=== PATIENT | male | born 1955 | race Caucasian/White ===

== ENCOUNTER 2017-10-28 11:02 | Day surgery (SDC) | payer OTHER ==
[~2017-10-28] VITALS: Ht 185.4 cm; Wt 182.6 kg
[~2017-10-28 11:02] MED LIST: APRE1TAB3; ASPI325T33 PO; DAPA1TAB2 PO; DAPA1TAB3 PO; FURO1TAB60 PO; FURO20 PO; LANTUS2P SQ; LANTUSP SQ; LISI-363 PO; LISI-515 PO; METF1000 PO; PIOG45 PO; PIOG45TA5 PO; POTA1TAB4 PO; POTA20IN3 PO; ROSU10 PO; ROSU1TAB8 PO
[2017-10-28] MEDS ORDERED: IOHEXOL 350 MG/ML 100 ML BTL (for Cath Lab) OTHER ONE (11:03)
[2017-10-28 11:12] VITALS: BP 191/89; PULSE 99; RESP 16; O2SAT 94
[2017-10-28] MEDS ORDERED: ACTO45TA15 PO (11:38)
[2017-10-28] MEDS ORDERED: ROSU20 PO (11:38)
[2017-10-28] MEDS ORDERED: CENTCHW4 CHEW (11:38)
[2017-10-28] MEDS ORDERED: DILT300C3 PO (11:38)
[2017-10-28] MEDS ORDERED: NS 1000P @30 MLS/HR (KVO) IV SCH (12:00)
[2017-10-28] MEDS ORDERED: hydrALAZINE HCL 20 MG/ML VIAL ONE (12:38)
[2017-10-28] MEDS ORDERED: hydrALAZINE HCL 20 MG/ML VIAL IV PUSH ONE (13:00)
[2017-10-28] MEDS ORDERED: HEPARIN-NS/PF INJ 1,500 ML ONE (13:27)
[2017-10-28] MEDS ORDERED: VERAPAMIL HCL 5 MG/2 ML VIAL ONE (13:27)
[2017-10-28] MEDS ORDERED: MIDAZOLAM HCL 2 MG/2 ML VIAL ONE (13:42)
[2017-10-28] MEDS ORDERED: SODIUM CHLOR 0.9% 1000 ML INJ 1,000 ML IV SCH (14:18)
[2017-10-28] MEDS ORDERED: SODIUM CHLORIDE 0.9% FLUSH 10 ML FLUSH IV FLUSH PRN (14:30)
[2017-10-28] MEDS ORDERED: MISC INFORMATION XX ONE (14:30)
[2017-10-28] MEDS ORDERED: SODIUM CHLORIDE 0.9% FLUSH 10 ML FLUSH IV FLUSH SCH (15:00)
[2017-10-28] MEDS ORDERED: APREMILAST 30 MG SCH (21:00)
[2017-10-28] MEDS ORDERED: FUROSEMIDE 40 MG TAB PO SCH (21:00)
[2017-10-28] MEDS ORDERED: [UNRECOGNIZED DRUG - OTHER] PO SCH (21:00)
[2017-10-29] MEDS ORDERED: MULTIVITAMINS/MINERALS THERAPEUTIC TAB PO SCH (09:00)
[2017-10-29] MEDS ORDERED: LISINOPRIL 20 MG TAB PO SCH (09:00)
[2017-10-29] MEDS ORDERED: PIOGLITAZONE HCL 45 MG TAB PO SCH (09:00)
[2017-10-29] MEDS ORDERED: ATORVASTATIN 40 MG TAB PO SCH (09:00)
[2017-10-29] MEDS ORDERED: DILTIAZEM-CD 300 MG CAP ER PO SCH (09:00)
[2017-10-29] MEDS ORDERED: NON-FORMULARY DRUG (Rosuvastatin (Crestor) 20 MG) PO SCH (09:00)
== END 2017-10-28 16:59 | disposition home or self-care (01) ==
LOC: HDOC 11:02 → HDIC 11:03 → HDOC 16:59
PROVIDERS: ATTEND Internal Medicine Cardiovascular Disease
DX: I42.9 Cardiomyopathy, unspecified (principal); I25.10 Atherosclerotic heart disease of native coronary artery without angina pectoris; E11.9 Type 2 diabetes mellitus without complications; E78.5 Hyperlipidemia, unspecified; E66.01 Morbid (severe) obesity due to excess calories; I50.33 Acute on chronic diastolic (congestive) heart failure; Z79.84 Long term (current) use of oral hypoglycemic drugs
CPT/HCPCS: 93458; 99152; C1769; C1893; J0360; J1644; J2250; J3010; Q9967

== ENCOUNTER 2017-11-16 17:46 | Inpatient (IN) ==
--- NOTE | 2017-11-16 18:17 | ED ---
HPI General Chief Complaint: Shortness of Breath/Dyspnea Stated Complaint: sob Time Seen by Provider: 11/16/17 18:13 Source: patient and family Mode of arrival: ambulatory Limitations: no limitations History of Present Illness 62-year-old male patient with history of CHF, hypertension, diabetes, recently has been following with Dr. Zurita, states that for the past 6 weeks has been having problems of weakness and fatigue, and had his medications readjusted, told to decrease his carvedilol to half the dose yesterday but he forgot to do it this morning, and his noted that he was looking worse today, noted that his heart rate is in the 30s now. He complains of shortness of breath, dyspnea on exertion, and some chest discomfort. He denies any fevers, vomiting, or other symptoms. Related Data Allergies Allergy/AdvReac Type Severity Reaction Status Date / Time aspirin Allergy Severe Bleeding Unverified 03/08/17 19:26 ciprofloxacin Allergy Severe Unverified 03/08/17 19:26 levofloxacin Allergy Severe Unverified 03/08/17 19:26 Review of Systems Except as stated in HPI: all other systems reviewed are negative [facility] Medical History Medical History CHF (congestive heart failure) (Acute) HTN (hypertension) (Acute) Surgical History Surgical History H/O total knee replacement (Acute) History of colon surgery (Acute) Hx of cholecystectomy (Acute) Social History Social History Substance History: No History of Abuse Second Hand Smoke Exposure: No Smoking Status: Former smoker How Often Do You Have a Drink Containing Alcohol: 2 to 4 times a month Recent Travel in [facility] within the Last 8 Weeks: No Recent Out of Country Travel within the Last 8 Weeks: No Exam Narrative Exam Narrative: GENERAL: Well-developed obese elderly male patient currently and moderate distress. Awake, oriented 3. SKIN: Focused skin assessment warm/dry. HEAD: Atraumatic. Normocephalic. EYES: Pupils equal and round. No scleral icterus. No injection or drainage. ENT: No nasal bleeding or discharge. Mucous membranes pink and moist. NECK: Trachea midline. No JVD. CARDIOVASCULAR: Slow rate and regular rhythm. No murmur appreciated. RESPIRATORY: No accessory muscle use. Clear to auscultation. Breath sounds equal bilaterally. GASTROINTESTINAL: Abdomen soft, non-tender, nondistended. Hepatic and splenic margins not palpable. MUSCULOSKELETAL: No obvious deformities. No clubbing. No cyanosis. No edema. NEUROLOGICAL: Awake and alert. No obvious cranial nerve deficits. Motor grossly within normal limits. Normal speech. PSYCHIATRIC: Appropriate mood and affect; insight and judgment normal. Course Hospital Course: Patient is fairly bradycardic in the ER and atropine was given with good response to the atropine with heart rates going up to the high 40s. Lab work, chest x-ray, were all sent for further evaluation. Initial Documented Vital Signs Temperature 97.1 F L 11/16/17 18:00 Pulse Rate 33 L 11/16/17 18:00 Respiratory Rate 24 11/16/17 18:00 Blood Pressure 137/61 11/16/17 18:00 Pulse Oximetry 96 11/16/17 18:00 Last Documented Vital Signs Temperature 97.1 F L 11/16/17 18:00 Pulse Rate 40 L 11/16/17 21:00 Respiratory Rate 22 11/16/17 21:00 Blood Pressure 121/58 L 11/16/17 21:00 Pulse Oximetry 96 11/16/17 21:00 Critical Care Time Critical Care Time: Yes Total Critical Care Time: 38 Attestation: Aggregate critical care time was 38 minutes. Time to perform other separately billable procedures was not included in the critical care time. My time did not include minutes spent treating any other patients simultaneously or on activities that did not directly contribute to the patient's treatment. The services I provided to this patient were to treat and/or prevent clinically significant deterioration that could result in: Cardiovascular collapse from cardiac arrhythmia, versus respiratory failure from pulmonary edema peer I provided critical care services requiring my management, as noted below: Chart data review, documentation time, medication orders and management, vital sign assessments/reviewing monitor data, ordering and reviewing lab tests, ordering and interpreting/reviewing x-rays and diagnostic studies, care of the patient and discussion of the patient with the admitting physicians. Sign Out Sign Out Data: Patient Sign Out occurred on 11/16/17 at 20:02. Patient's care was discussed, and care was transferred from Hortensia Dave MD to April Bailey MD. Sign Out Comment: Patient is signed out to Dr. Bailey at 7 PM pending lab work, planning to admit for further evaluation of significant bradycardia. Last updated by Hortensia Dave MD at 11/16/17 18:56 Post-Handoff Eval: The patient's care was assumed from at the conclusion of her shift. The patient presented with generalized weakness and significant bradycardia. The patient has a history of being told to decrease his beta- pablo by half, however the patient did not remember to do this. He last took his beta-pablo this morning. During the course of the patient's emergency department visit, the patient was placed on a vehicle monitor technician with oximetry and frequent blood pressure monitoring. The patient had IV access obtained and blood work sent for analysis. The patient had an EKG done on arrival that shows a sinus bradycardia , heart rate of 32, QRS duration is 122 ms, QTC [address] segment elevation, T waves are inverted in V1, V2. Laboratory studies are remarkable for: Troponin I that is less than 0.02A CBC that is remarkable for a white count of 7.8, platelets 215, neutrophil percent 72.4, hemoglobin 11.8, PT 11.4, PTT 32.5, chemistries remarkable for, glucose 121, sodium 131, potassium is elevated at 6.6. Given the patient's elevated potassium and renal insufficiency worse compared to prior levels with a creatinine of 2.07, BUN 46, the patient will be treated for hyperkalemia. This could be contributing to the patient's bradycardia. The patient was given calcium to stabilize the patient's cardiac membranes, and albuterol nebulizer treatment x1, dextrose followed by 10 units of regular insulin IV, and Kayexalate p.o. The patient's case including history, pertinent physical examination findings, and laboratory studies were discussed with Dr. Zuniga. He agreed to the plan for the patient to be admitted to the [facility], however he did request that I speak to the implementation specialist payroll regarding this patient's case. The patient is followed by a Dr. Zurita for his cardiac care. I spoke to Dr. Zurita at approximately 9:20 PM regarding this patient's case. He agreed with the plan to apply pacer pads in case of any further changes and the patient's heart rate. He recommended holding the patient's Coreg, lisinopril, and Spironolactone. He agreed with the plan for administration of calcium. The patient's results were discussed with the patient, including the plan of care. I explained that further testing and/ or monitoring is indicated based on the patient's history, examination, and/ or laboratory findings. Therefore, I recommended admission for additional evaluation. The patient expressed understanding and was agreeable with this plan. The patient was admitted to the hospital in guarded condition and sent to a bed under the care of the [facility] service. Medical Decision Making Differential Diagnosis Differential Diagnosis: Dysrhythmias versus overmedication versus electrolyte abnormality Medical Records Medical records reviewed: Yes I reviewed the patient's medical records. Lab Data Lab results reviewed: Yes I reviewed the patient's lab results. Result diagrams: 11/16/17 18:28 11/16/17 18:28 Lab Results 11/16/17 11/16/17 Range/Units 18:28 18:28 WBC 7.8 (4.0-11.0) th/mm3 RBC 3.77 L (4.50-5.90) mil/mm3 Hgb 11.8 L (13.0-17.0) gm/dL Hct 35.7 L (39.0-51.0) % MCV 94.7 (80.0-100.0) fL MCH 31.3 (27.0-34.0) pg MCHC 33.1 (32.0-36.0) % RDW 14.0 (11.6-17.2) % Plt Count 215 (150-450) th/mm3 MPV 7.9 (7.0-11.0) fL Neut % (Auto) 72.4 H (16.0-70.0) % Lymph % (Auto) 14.6 (9.0-44.0) % [place] % (Auto) 9.4 H (0.0-8.0) % Eos % (Auto) 2.8 (0.0-4.0) % Baso % (Auto) 0.8 (0.0-2.0) % Neut # (Auto) 5.7 (1.8-7.7) th/mm3 Lymph # (Auto) 1.1 (1.0-4.8) th/mm3 [place] # (Auto) 0.7 (0.0-0.9) th/mm3 Eos # (Auto) 0.2 (0.0-0.4) th/mm3 Baso # (Auto) 0.1 (0.0-0.2) th/mm3 WBC Differential . Differential Comment Auto diff final Sodium 131 L (136-145) meq/L Potassium 6.6 H* (3.5-5.1) meq/L Chloride 96 L (98-107) meq/L Carbon Dioxide 25.6 (21.0-32.0) meq/L Anion Gap 9 (5-15) meq/L BUN 46 H (7-18) mg/dL Creatinine 2.07 H (0.60-1.30) mg/dL Estimated GFR 32 L (>89) mL/min Random Glucose 121 H (74-106) mg/dL Calcium 8.9 (8.5-10.1) mg/dL Total Bilirubin 0.5 (0.2-1.0) mg/dL AST 29 (15-37) U/L ALT 42 (12-78) U/L Alkaline Phosphatase 87 (45-117) U/L Troponin I Less than 0.02 L (0.02-0.05) ng/mL Total Protein 7.7 (6.4-8.2) g/dL Albumin 3.6 (3.4-5.0) g/dL Imaging Data Radiologist's impression: ITS Impressions Chest X-Ray 11/16/17 18:13 CONCLUSION: Bibasilar consolidation and small effusions with cardiomegaly suggesting mild failure. Discharge Plan Discharge Disposition Patient Disposition: 30 Still Patient Discharge Details Diagnosis: Symptomatic bradycardia, Acute hyperkalemia, Acute on chronic kidney failure Physicians Team ED Provider: April Bailey Primary Care Provider: Tj Osborn Attending Provider: Arcenio Decker Discharge Interventions Interventions: Vital Signs Last Done: 11/16/17 21:00 Status ED Status: Admitted Patient
[2017-11-16] MEDS ORDERED: Atropine Inj 1 MG/10 ML Syringe IV.PUSH ONE (18:21)
--- NOTE | 2017-11-16 18:41 | XR ---
EXAM DATE: 11/16/2017 6:32 PM EDT AGE/SEX: 62 years / Male INDICATIONS: Shortness of breath. CLINICAL DATA: This is the patient's initial encounter. Patient reports that signs and symptoms have been present for 4 - 6 days and indicates a pain score of 0/10. MEDICAL/SURGICAL HISTORY: Congestive heart failure. Hypertension. None. COMPARISON: No prior exams available for comparison. FINDINGS: There is mild bibasilar consolidation, left worse than right. Very small, bilateral pleural effusions are also suspected. No pneumothorax. There is mild to moderate cardiomegaly. CONCLUSION: Bibasilar consolidation and small effusions with cardiomegaly suggesting mild failure. Electronically signed by: William Jasso MD 11/16/2017 6:40 PM EDT
[2017-11-16 18:46] LABS: Baso # (Auto) 0.1 th/mm3 (0.0-0.2); Baso % (Auto) 0.8 % (0.0-2.0); Eos # (Auto) 0.2 th/mm3 (0.0-0.4); Eos % (Auto) 2.8 % (0.0-4.0); Hematocrit 35.7 % (39.0-51.0); Hemoglobin 11.8 gm/dL (13.0-17.0); Lymph # (Auto) 1.1 th/mm3 (1.0-4.8); Lymph % (Auto) 14.6 % (9.0-44.0); Mean Corpuscular HGB Conc 33.1 % (32.0-36.0); Mean Corpuscular Hemoglobin 31.3 pg (27.0-34.0); Mean Corpuscular Volume 94.7 fL (80.0-100.0); Mean Platelet Volume 7.9 fL (7.0-11.0); Mono # (Auto) 0.7 th/mm3 (0.0-0.9); Mono % (Auto) 9.4 % (0.0-8.0); Neut # (Auto) 5.7 th/mm3 (1.8-7.7); Neut % (Auto) 72.4 % (16.0-70.0); Platelet Count 215 th/mm3 (150-450); Red Blood Count 3.77 mil/mm3 (4.50-5.90); White Blood Count 7.8 th/mm3 (4.0-11.0)
[2017-11-16 19:23] LABS: Alanine Aminotransferase 42 U/L (12-78); Albumin 3.6 g/dL (3.4-5.0); Alkaline Phosphatase 87 U/L (45-117); Anion Gap 9 meq/L (5-15); Aspartate Aminotransferase 29 U/L (15-37); Blood Urea Nitrogen 46 mg/dL (7-18); Calcium 8.9 mg/dL (8.5-10.1); Carbon Dioxide 25.6 meq/L (21.0-32.0); Chloride 96 meq/L (98-107); Glomerular Filtration Rate 32 mL/min (>89); Glucose,Random 121 mg/dL (74-106); Sodium 131 meq/L (136-145); Total Protein 7.7 g/dL (6.4-8.2)
[2017-11-16 19:29] LABS: Potassium 6.6 meq/L (3.5-5.1)
[2017-11-16] MEDS ORDERED: Dextrose 50% in Water 50 ML Vial IV.PUSH ONE (20:09)
[2017-11-16] MEDS ORDERED: Sodium Polystyrene Sulfonate/Sorbitol Liq 15 GM/60 ML UDC PO ONE (20:09)
[2017-11-16] MEDS ORDERED: Calcium Chloride Inj 1 GM in Dextrose 5% in Water Inj 100 ML IV.SIG ONE ×2 (20:09)
[2017-11-16] MEDS ORDERED: RESP: Albuterol Concentrated 2.5 MG/0.5 ML Neb NEB ONE (20:09)
--- NOTE | 2017-11-16 21:16 | ECG ---
Date Performed: 11/16/2017 Time Performed: 18:13:11 PTAGE: 62 years EKG: Baseline artifact present Probable Marked sinus bradycardia LEFT ANTERIOR FASCICULAR BLOCK ABNORMAL ECG Compared to prior electrocardiogram, rate has decreased PREVIOUS TRACING : 04/29/2014 14.44 DOCTOR: Anival Irizarry Interpretating Date/Time 11/16/2017 21:14:41
--- NOTE | 2017-11-16 22:15 | P.HP ---
History of Present Illness Service: [facility] Primary Care Physician: Tj Osborn MD Chief Complaint: dyspnea, lightheadedness, fatigue History of Present Illness: 62-year-old male patient with history of CHF with EF around 40%, hypertension, diabetes, recently has been following with Dr. Zurita in cardiology, states that for the past 6 weeks has been having problems of weakness, shortness of breath and fatigue, and had his medications readjusted. Reportedly was told to decrease his carvedilol to half the dose yesterday but he forgot to do it this morning, and his noted that he was looking worse today, noted that his heart rate was in the 30s. He complains of shortness of breath, dyspnea on exertion, and some chest discomfort which is unchanged. Notably he had a heart catheterization done on October 28 which showed 40% ejection fraction and a 50% proximal LAD lesion but no other significant stenoses noted. He denies any fevers, vomiting, or other symptoms. He was also instructed to hold spironolactone and lisinopril recently due to slightly elevated potassium of 5.6 on November 11. ER evaluation reveals a morbidly obese male with chronic lymphedema who is mildly to moderately dyspneic on exertion. Labs noted for a potassium of 6.6 and a creatinine of 2.0. Creatinine approximately 1 week ago was 1.16 with a potassium of 5.6. Appears that his baseline creatinine is around 1-1.2. He has been given calcium chloride, furosemide, sodium polystyrene, albuterol, insulin and dextrose in the ER. Patient reports he is feeling fine presently while at rest and is currently asymptomatic unless he exerts himself which produces dyspnea. Past medical history Morbid obesity Cardiomyopathy with an EF around 40-45% CHF Degenerative disc disease lumbar spine Type 2 diabetes Lymphedema Hypertension Hyperlipidemia History of infection of prosthetic knee joint Psoriasis Coronary disease with 50% proximal LAD lesion noted on October 28, 2017 cath. 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 [employer] Family history Mother lived until age 97, father of an accident at age 60 Home meds: Aspirin 81 mg daily Carvedilol 25 mg twice daily which was reduced to 12.5 mg twice daily yesterday but patient actually took the full dose today Multivitamin once a day Crestor 20 mg daily Diltiazem 300 mg daily Furosemide 40 mg daily Lisinopril 20 mg twice a day but was told to hold starting yesterday Tessalon 30 mg twice a day Spironolactone 25 mg daily, again this was held starting yesterday - Diagnosis (1) Bradycardia with 31-40 beats per minute (2) Hyperkalemia, diminished renal excretion (3) CHF (congestive heart failure), NYHA class III (4) Morbid exogenous obesity (5) DIXIE (acute kidney injury) Inpatient Certification: I certify that the inpatient services were ordered in accordance with Medicare regulations governing the order. This includes certification that hospital inpatient services are reasonable and necessary and in the case of services not specified as inpatient-only under 42 CFR 419.22(n), that they are appropriately provided as inpatient services in accordance to with the 2-midnight benchmark under 43 CFR 412.3(e) Review of Systems Constitutional: Reports body ache(s), Reports fatigue, Reports weakness, Reports weight gain Eyes: Denies blind spots, Denies blurry vision, Denies bulging eyes, Denies change in vision, Denies double vision, Denies discharge, Denies dry eyes, Denies floaters, Denies irritation, Denies itchy eyes, Denies loss of vision, Denies pain, Denies requires corrective lenses, Denies sensitivity to light, Denies other Cardiovascular: Reports chest pain, Reports generalized swelling, Reports shortness of breath, Reports shortness of breath with activity, Reports slow heart rate Respiratory: Reports shortness of breath, Reports shortness of breath with activity, Denies change in phlegm color, Denies chest congestion, Denies cough, Denies coughing up blood, Denies excessive phlegm production, Denies pain on inspiration, Denies pain with cough, Denies snoring, Denies stridor, Denies wheezing, Denies other Musculoskeletal: Reports back pain Skin/Breast: Reports dry skin, Reports sores Neurologic: Reports weakness Psychiatric: Reports anxiety PMFSH - History History Provided By: Patient, Family Member - Medical History Medical History: Medical History (Last Updated 11/16/17 @ 18:16 by Hortensia Dave MD) CHF (congestive heart failure) HTN (hypertension) - Surgical History Surgical History: Surgical History (Last Updated 11/16/17 @ 18:38 by Della Saenz) H/O total knee replacement History of colon surgery Hx of cholecystectomy - Tobacco History Second Hand Smoke Exposure: No Tobacco Use In Past 30 Days: No Smoking Status: Former smoker - Alcohol History How Often Do You Have a Drink Containing Alcohol: 2 to 4 times a month - Substance Use History Substance History: No History of Abuse - Travel History Recent Travel in the [place] Within the Last 8 Weeks: No Recent Travel Out of the Country Within the Last 8 Weeks: No - Immunization History Tetanus Immunization: Unsure Hx Influenza Vaccine This Season: Yes Medications and Allergies Allergies Allergy/AdvReac Type Severity Reaction Status Date / Time aspirin Allergy Severe Bleeding Unverified 03/08/17 19:26 ciprofloxacin Allergy Severe Unverified 03/08/17 19:26 levofloxacin Allergy Severe Unverified 03/08/17 19:26 Exam Vital signs: Vital Signs 11/16/17 18:00 11/16/17 18:20 11/16/17 18:37 Temperature 97.1 F L Pulse Rate 33 L 48 L Respiratory Rate 24 18 Blood Pressure 137/61 141/63 H Pulse Oximetry 96 98 100 11/16/17 20:04 11/16/17 20:48 11/16/17 21:00 Temperature Pulse Rate 33 L 37 L 40 L Respiratory Rate 18 16 22 Blood Pressure 115/74 121/58 L Pulse Oximetry 99 96 Intake & Output 11/16/17 11/16/17 11/17/17 06:59 18:59 06:59 Weight 181.437 kg - Constitutional no acute distress, morbidly obese - Routine HEENT Exam Head: Present: normocephalic Eye: Present: EOMI, PERRL ENT: Present: mucous membranes moist, nares patent - Routine Neck Exam Present: supple, full ROM - Routine Respiratory Exam Present: decreased breath sounds, crackles, distant breath sounds - Routine Cardiovascular Exam Present: RRR, bradycardia - Routine Abdominal Exam Present: soft, distended, organomegaly - Routine Extremities Exam Present: edema - Routine Skin Exam Present: dry - Routine Neurological Exam Present: alert, oriented X3, CN II-XII intact, normal speech Results - Labs CBC & Chem 7: 11/16/17 18:28 11/16/17 18:28 Labs: Laboratory Results - last 24 hr 11/16/17 07 18:28 18:28 WBC 7.8 RBC 3.77 L Hgb 11.8 L Hct 35.7 L MCV 94.7 MCH 31.3 MCHC 33.1 RDW 14.0 Plt Count 215 MPV 7.9 Neut % (Auto) 72.4 H Lymph % (Auto) 14.6 [place] % (Auto) 9.4 H Eos % (Auto) 2.8 Baso % (Auto) 0.8 Neut # (Auto) 5.7 Lymph # (Auto) 1.1 [place] # (Auto) 0.7 Eos # (Auto) 0.2 Baso # (Auto) 0.1 WBC Differential . Differential Comment Auto diff final Sodium 131 L Potassium 6.6 H* Chloride 96 L Carbon Dioxide 25.6 Anion Gap 9 BUN 46 H Creatinine 2.07 H Estimated GFR 32 L Random Glucose 121 H Calcium 8.9 Total Bilirubin 0.5 AST 29 ALT 42 Alkaline Phosphatase 87 Troponin I Less than 0.02 L Total Protein 7.7 Albumin 3.6 - Imaging Impressions Chest X-Ray 11/16/17 18:13 CONCLUSION: Bibasilar consolidation and small effusions with cardiomegaly suggesting mild failure. Caprini VTE Risk Assessment Caprini VTE Risk Assessment: Moderate/High Risk (score >= 2) Caprini Risk Assessment Model: Point Value = 1 Point Value = 2 Point Value = 3 Point Value = 5 Age 41-60 Minor surgery BMI > 25 kg/m2 Swollen legs Varicose veins or History of unexplained or recurrent spontaneous Oral contraceptives or hormone replacement Sepsis (< 1 month) Serious lung disease, including pneumonia (< 1 month) Abnormal pulmonary function Acute myocardial infarction Congestive heart failure (< 1 month) History of inflammatory bowel disease Medical patient at bed rest Age 61-74 Arthroscopic surgery Major open surgery (> 45 min) Laparoscopic surgery (> 45 min) Malignancy Confined to bed (> 72 hours) Immobilizing plaster cast Central venous access Age >= 75 History of VTE Family history of VTE Factor V Leiden Prothrombin [id number] Lupus anticoagulant Anticardiolipin antibodies Elevated serum homocysteine Heparin-induced thrombocytopenia Other congenital or acquired thrombophilia Stroke (< 1 month) Elective arthroplasty Hip, pelvis, or leg fracture Acute spinal cord injury (< 1 month) Prophylaxis Regimen: Total Risk Factor Score Risk Level Prophylaxis Regimen 0-1 Low Early ambulation 2 Moderate Order ONE of the following: *Sequential Compression Device (SCD) *Heparin 5000 units SQ BID 3-4 Higher Order ONE of the following medications: *Heparin 5000 units SQ TID *Enoxaparin/Lovenox 40 mg SQ daily (WT < 150 kg, CrCl > 30 mL/min) *Enoxaparin/Lovenox 30 mg SQ daily (WT < 150 kg, CrCl > 10-29 mL/min) *Enoxaparin/Lovenox 30 mg SQ BID (WT < 150 kg, CrCl > 30 mL/min) AND/OR *Sequential Compression Device (SCD) 5 or more Highest Order ONE of the following medications: *Heparin 5000 units SQ TID (Preferred with Epidurals) *Enoxaparin/Lovenox 40 mg SQ daily (WT < 150 kg, CrCl > 30 mL/min) *Enoxaparin/Lovenox 30 mg SQ daily (WT < 150 kg, CrCl > 10-29 mL/min) *Enoxaparin/Lovenox 30 mg SQ BID (WT < 150 kg, CrCl > 30 mL/min) AND *Sequential Compression Device (SCD) Assessment and Plan - Assessment (1) Bradycardia with 31-40 beats per minute Code(s): R00.1 - Bradycardia, unspecified Status: Acute Plan: likely due to coreg use and initial clearance. Had been instructed to decrease Coreg by his hospice community liaison yesterday due to heart rate in the 40s but forgot to do so. Hopefully heart rate will improve once Coreg has cleared system. After in the unit overnight. Patient's hospice community liaison, Dr. Zurita has been contacted by ER physician. (2) Hyperkalemia, diminished renal excretion Code(s): E87.5 - Hyperkalemia Status: Acute Plan: Patient has been given Lasix, dextrose, insulin, albuterol, polystyrene in the ER. Will follow electrolytes and renal indices. Monitoring in unit overnight. (3) CHF (congestive heart failure), NYHA class III Code(s): I50.9 - Heart failure, unspecified Status: Acute Plan: Careful diuresis and close monitoring of electrolytes, renal indices. May need gentle IVF (4) Morbid exogenous obesity Code(s): E66.01 - Morbid (severe) obesity due to excess calories Status: Chronic Plan: Strongly encouraged weight loss. He has discussed with bariatric surgeon in the past. (5) DIXIE (acute kidney injury) Code(s): N17.9 - Acute kidney failure, unspecified Status: Acute Plan: We will monitor renal indices. Hopefully will improve as his spironolactone and lisinopril have been stopped. - Plan Code Status: Full Discussed Condition With: Patient, his , his son and ER provider (3) CHF (congestive heart failure), NYHA class III Qualifiers: Congestive heart failure type: systolic Congestive heart failure chronicity: acute on chronic Qualified Code(s): I50.23 - Acute on chronic systolic ( congestive) heart failure
[2017-11-17 00:45] LABS: Calcium 10.2 mg/dL (8.5-10.1); Carbon Dioxide 30.5 meq/L (21.0-32.0); Potassium 5.5 meq/L (3.5-5.1)
[2017-11-17 04:58] LABS: Calcium 8.6 mg/dL (8.5-10.1); Carbon Dioxide 28.9 meq/L (21.0-32.0); Potassium 5.5 meq/L (3.5-5.1)
--- NOTE | 2017-11-17 05:38 | ECG ---
Date Performed: 11/16/2017 Time Performed: 20:18:25 PTAGE: 62 years EKG: Unclear underlying rhythm due to marked baseline artifact MARKED LEFT AXIS DEVIATION LOW QR S VOLTAGE POSSIBLE ANTERIOR MYOCARDIAL INFARCTION ABNORMAL ECG I cannot accurately compare rhythm bec ause of artifact but see no other definite changes. DOCTOR: Anival Irizarry Interpretating Date/Time 11/17/2017 05:36:52
--- NOTE | 2017-11-17 08:29 | P.PNIM ---
Subjective Interval history: feeling a little better. Physical Exam Vital signs: Vital Signs 11/16/17 18:00 11/16/17 18:20 11/16/17 18:37 Temperature 97.1 F L Pulse Rate 33 L 48 L Respiratory Rate 24 18 Blood Pressure 137/61 141/63 H Pulse Oximetry 96 98 100 11/16/17 20:04 11/16/17 20:48 11/16/17 21:00 Temperature Pulse Rate 33 L 37 L 40 L Respiratory Rate 18 16 22 Blood Pressure 115/74 121/58 L Pulse Oximetry 99 96 11/16/17 23:00 11/17/17 02:27 11/17/17 03:00 Temperature 97.6 F Pulse Rate 50 L 51 L 55 L Respiratory Rate 19 18 Blood Pressure 144/71 H 142/63 H Pulse Oximetry 98 97 11/17/17 04:34 11/17/17 05:33 11/17/17 06:26 Temperature Pulse Rate 55 L 56 L 62 Respiratory Rate Blood Pressure Pulse Oximetry 11/17/17 07:45 Temperature 97.5 F L Pulse Rate 61 Respiratory Rate 18 Blood Pressure 136/63 Pulse Oximetry 99 Intake & Output 11/16/17 11/17/17 11/17/17 18:59 06:59 18:59 Intake Total 240 / 240 Balance 240 / 240 Weight 181.437 kg 188 kg Intake: Oral 240 / 240 heart reg lung cta abd s/nt ext chronic lower ext edema Results - Labs CBC & Chem 7: 11/16/17 18:28 11/17/17 03:57 Laboratory Results - last 24 hr 11/16/17 11/16/17 11/16/17 18:28 18:28 18:28 WBC 7.8 RBC 3.77 L Hgb 11.8 L Hct 35.7 L MCV 94.7 MCH 31.3 MCHC 33.1 RDW 14.0 Plt Count 215 MPV 7.9 Neut % (Auto) 72.4 H Lymph % (Auto) 14.6 [place] % (Auto) 9.4 H Eos % (Auto) 2.8 Baso % (Auto) 0.8 Neut # (Auto) 5.7 Lymph # (Auto) 1.1 [place] # (Auto) 0.7 Eos # (Auto) 0.2 Baso # (Auto) 0.1 WBC Differential . Differential Comment Auto diff final Sodium 131 L Potassium 6.6 H* Chloride 96 L Carbon Dioxide 25.6 Anion Gap 9 BUN 46 H Creatinine 2.07 H Estimated GFR 32 L POC Glucose Random Glucose 121 H Calcium 8.9 Total Bilirubin 0.5 AST 29 ALT 42 Alkaline Phosphatase 87 Troponin I Less than 0.02 L B-Natriuretic Peptide 366 H Total Protein 7.7 Albumin 3.6 11/16/17 11/17/17 11/17/17 22:59 00:08 03:57 WBC RBC Hgb Hct MCV MCH MCHC RDW Plt Count MPV Neut % (Auto) Lymph % (Auto) [place] % (Auto) Eos % (Auto) Baso % (Auto) Neut # (Auto) Lymph # (Auto) [place] # (Auto) Eos # (Auto) Baso # (Auto) WBC Differential Differential Comment Sodium 134 L 135 L Potassium 5.5 H D 5.5 H Chloride 98 99 Carbon Dioxide 30.5 28.9 Anion Gap 6 7 BUN 49 H 49 H Creatinine 2.10 H 1.90 H Estimated GFR 32 L 36 L POC Glucose 117 H Random Glucose 119 H 91 Calcium 10.2 H D 8.6 D Total Bilirubin AST ALT Alkaline Phosphatase Troponin I B-Natriuretic Peptide Total Protein Albumin 11/17/17 07:46 WBC RBC Hgb Hct MCV MCH MCHC RDW Plt Count MPV Neut % (Auto) Lymph % (Auto) [place] % (Auto) Eos % (Auto) Baso % (Auto) Neut # (Auto) Lymph # (Auto) [place] # (Auto) Eos # (Auto) Baso # (Auto) WBC Differential Differential Comment Sodium Potassium Chloride Carbon Dioxide Anion Gap BUN Creatinine Estimated GFR POC Glucose 88 Random Glucose Calcium Total Bilirubin AST ALT Alkaline Phosphatase Troponin I B-Natriuretic Peptide Total Protein Albumin - Imaging Impressions Chest X-Ray 11/16/17 18:13 CONCLUSION: Bibasilar consolidation and small effusions with cardiomegaly suggesting mild failure. Assessment and Plan - Plan Assessment and Plan (1) Bradycardia Pt presented with severe bradycardia. 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 pt has chronic chf and edema PT consult (2) Hyperkalemia, diminished renal excretion see above (3) CHF (congestive heart failure), NYHA class III see above (4) Morbid exogenous obesity Strongly encouraged weight loss. He has discussed with bariatric surgeon in the past. (5) DIXIE (acute kidney injury) see above
--- NOTE | 2017-11-17 08:32 | P.CONCA ---
History of Present Illness Service: cardiology Consult date: 11/17/17 Reason for Consult: bradycardia, hyperkalemia Primary Care Provider: Tj Osborn MD Chief Complaint: dyspnea, lightheadedness, fatigue History of Present Illness: 62 yo M with HTN, DMII, chronic LE lymphedema, nonischemic cardiomyopathy (EF 40 -45%) and chronic dyspnea who presents with progressive weakness and bradycardia. He states when he got off work yesterday he felt very weak, his checked pulse rate which was in the 30's and came to ED for evaluation where he was found to be bradycardic and hyperkalemic. He was seen in our outpatient office [address] Dayo Zurita where he ordered aldactone to be stopped along with lisinopril due to elevated potassium, carvedilol also decreased to 12.5mg BID. Patient states he did stop aldactone yesterday but forgot to stop lisinopril and reduce carvedilol. EKG does not show evidence of hyperkalemia, and appears nonischemic. Recent cardiac catheterization performed on 10/28/17 shows nonobstructive CAD, medically managed. He reports mild improvement in breathing and weakness. Review of Systems All other systems reviewed negative except as stated in HPI PMFSH - History History Provided By: Patient - Medical History Medical History: Medical History (Last Updated 11/16/17 @ 18:16 by Hortensia Dave MD) CHF (congestive heart failure) HTN (hypertension) - Surgical History Surgical History: Surgical History (Last Updated 11/16/17 @ 18:38 by Della Saenz) H/O total knee replacement History of colon surgery Hx of cholecystectomy - Tobacco History Second Hand Smoke Exposure: No Tobacco Use In Past 30 Days: No Smoking Status: Former smoker Tobacco Type: Cigarettes - Alcohol History How Often Do You Have a Drink Containing Alcohol: 2 to 3 times a week - Substance Use History Substance History: No History of Abuse - Travel History Recent Travel in the [place] Within the Last 8 Weeks: No Recent Travel Out of the Country Within the Last 8 Weeks: No - Immunization History Tetanus Immunization: Unsure Hx Influenza Vaccine This Season: No Medications and Allergies Allergies Allergy/AdvReac Type Severity Reaction Status Date / Time aspirin Allergy Severe Bleeding Unverified 03/08/17 19:26 ciprofloxacin Allergy Severe Unverified 03/08/17 19:26 levofloxacin Allergy Severe Unverified 03/08/17 19:26 Home Medications Medication Instructions Recorded Confirmed Type apremilast [Otezla] 30 mg PO BID 11/17/17 11/17/17 History aspirin [Aspir-81] 81 mg PO DAILY 11/17/17 11/17/17 History carvedilol 12.5 mg PO BID 11/17/17 11/17/17 History diltiazem HCl 300 mg PO DAILY 11/17/17 11/17/17 History furosemide 40 mg PO DAILY 11/17/17 11/17/17 History lisinopril 20 mg PO DAILY 11/17/17 11/17/17 History inrnqvtw-vnq-SY-lycopen-lutein 1 tab PO DAILY 11/17/17 11/17/17 History [Centrum Silver Men] rosuvastatin 20 mg PO DAILY 11/17/17 11/17/17 History spironolactone 25 mg PO DAILY 11/17/17 11/17/17 History Exam Vital signs: Vital Signs 11/16/17 18:00 11/16/17 18:20 11/16/17 18:37 Temperature 97.1 F L Pulse Rate 33 L 48 L Respiratory Rate 24 18 Blood Pressure 137/61 141/63 H Pulse Oximetry 96 98 100 11/16/17 20:04 11/16/17 20:48 11/16/17 21:00 Temperature Pulse Rate 33 L 37 L 40 L Respiratory Rate 18 16 22 Blood Pressure 115/74 121/58 L Pulse Oximetry 99 96 11/16/17 23:00 11/17/17 02:27 11/17/17 03:00 Temperature 97.6 F Pulse Rate 50 L 51 L 55 L Respiratory Rate 19 18 Blood Pressure 144/71 H 142/63 H Pulse Oximetry 98 97 11/17/17 04:34 11/17/17 05:33 11/17/17 06:26 Temperature Pulse Rate 55 L 56 L 62 Respiratory Rate Blood Pressure Pulse Oximetry 11/17/17 07:45 Temperature 97.5 F L Pulse Rate 61 Respiratory Rate 18 Blood Pressure 136/63 Pulse Oximetry 99 Intake & Output 11/16/17 11/17/17 11/17/17 18:59 06:59 18:59 Intake Total 240 / 240 Balance 240 / 240 Weight 181.437 kg 188 kg Intake: Oral 240 / 240 Narrative: GENERAL: SKIN: Warm and dry. HEAD: Normocephalic. NECK: Supple, trachea midline. No JVD or lymphadenopathy. CARDIOVASCULAR: Regular rate and rhythm without murmurs, gallops, or rubs. RESPIRATORY: Breath sounds equal bilaterally. No accessory muscle use. GASTROINTESTINAL: Abdomen soft, non-tender, nondistended. MUSCULOSKELETAL: chronic bilateral lower leg lymphedema, stable Results 11/16/17 18:28 11/17/17 03:57 Cardiac Enzymes 11/16/17 11/16/17 Range/Units 18:28 18:28 AST 29 (15-37) U/L Troponin I Less than 0.02 L (0.02-0.05) ng/mL B-Natriuretic Peptide 366 H (0-100) pg/mL Coagulation 11/16/17 Range/Units 18:28 B-Natriuretic Peptide 366 H (0-100) pg/mL CBC 11/16/17 Range/Units 18:28 WBC 7.8 (4.0-11.0) th/mm3 RBC 3.77 L (4.50-5.90) mil/mm3 Hgb 11.8 L (13.0-17.0) gm/dL Hct 35.7 L (39.0-51.0) % Plt Count 215 (150-450) th/mm3 Neut # (Auto) 5.7 (1.8-7.7) th/mm3 Lymph # (Auto) 1.1 (1.0-4.8) th/mm3 [place] # (Auto) 0.7 (0.0-0.9) th/mm3 Eos # (Auto) 0.2 (0.0-0.4) th/mm3 Baso # (Auto) 0.1 (0.0-0.2) th/mm3 Comprehensive Metabolic Panel 11/16/17 11/17/17 11/17/17 Range/Units 18:28 00:08 03:57 Sodium 131 L 134 L 135 L (136-145) meq/L Potassium 6.6 H* 5.5 H D 5.5 H (3.5-5.1) meq/L Chloride 96 L 98 99 (98-107) meq/L Carbon Dioxide 25.6 30.5 28.9 (21.0-32.0) meq/L BUN 46 H 49 H 49 H (7-18) mg/dL Creatinine 2.07 H 2.10 H 1.90 H (0.60-1.30) mg/dL Calcium 8.9 10.2 H D 8.6 D (8.5-10.1) mg/dL AST 29 (15-37) U/L ALT 42 (12-78) U/L Alkaline Phosphatase 87 (45-117) U/L Total Protein 7.7 (6.4-8.2) g/dL Albumin 3.6 (3.4-5.0) g/dL Intake and Output 11/16/17 11/17/17 11/17/17 22:59 06:59 14:59 Intake Total 240 / 240 Balance 240 / 240 Intake: Oral 240 / 240 Other: Weight 181.437 kg 188 kg Assessment and Plan - Assessment (1) Bradycardia with 31-40 beats per minute Code(s): R00.1 - Bradycardia, unspecified Status: Acute (2) Hyperkalemia, diminished renal excretion Code(s): E87.5 - Hyperkalemia Status: Acute - Plan 62 yo M with HTN, DMII, chronic LE lymphedema, nonischemic cardiomyopathy (EF 40 -45%) and chronic dyspnea who presents with progressive weakness and bradycardia. He states when he got off work yesterday he felt very weak, his checked pulse rate which was in the 30's and came to ED for evaluation where he was found to be bradycardic and hyperkalemic. He was seen in our outpatient office [address] Dayo Zurita where he ordered aldactone to be stopped along with lisinopril due to elevated potassium, carvedilol also decreased to 12.5mg BID. Patient states he did stop aldactone yesterday but forgot to stop lisinopril and reduce carvedilol. Recent cardiac catheterization performed on 10/28/17 shows nonobstructive CAD, medically managed. hyperkalemia- K+ has improved from 6.6 to 5.5 s/p kayexalate dose. EKG does not show evidence of potassium overload continue to hold aldactone and lisinopril (was taking at home) bradycardia- HR improving from 33bpm, now 60bpm continue to hold carvedilol
[2017-11-17] MEDS ORDERED: Sodium Chlor 0.9% Inj 500 ML IV.SIG SCH (09:00)
[2017-11-18 05:47] LABS: Calcium 9.3 mg/dL (8.5-10.1); Carbon Dioxide 29.5 meq/L (21.0-32.0); Potassium 4.8 meq/L (3.5-5.1)
--- NOTE | 2017-11-18 07:47 | P.PNCA ---
<Yisel Jerome A - Last Filed: 11/18/17 07:43> Subjective Interval history: feeling much better. improved fatigue and breathing back to baseline; no chest pain. Physical Exam Vital signs: Vital Signs 11/17/17 07:45 11/17/17 08:00 11/17/17 08:52 Temperature 97.5 F L Pulse Rate 61 56 L Respiratory Rate 18 Blood Pressure 136/63 Pulse Oximetry 99 99 11/17/17 09:00 11/17/17 10:00 11/17/17 11:00 Temperature 97.4 F L Pulse Rate 64 56 L 67 Respiratory Rate 16 Blood Pressure 144/67 H Pulse Oximetry 100 11/17/17 12:28 11/17/17 13:00 11/17/17 14:00 Temperature Pulse Rate 68 60 64 Respiratory Rate Blood Pressure Pulse Oximetry 11/17/17 15:00 11/17/17 16:00 11/17/17 17:00 Temperature 98.2 F Pulse Rate 69 66 63 Respiratory Rate 16 Blood Pressure 140/74 Pulse Oximetry 96 11/17/17 18:00 11/17/17 19:00 11/17/17 20:00 Temperature 98.3 F Pulse Rate 67 72 78 Respiratory Rate 15 Blood Pressure 129/60 Pulse Oximetry 94 L 94 L 11/17/17 21:00 11/17/17 22:00 11/17/17 23:00 Temperature 98.5 F Pulse Rate 80 82 83 Respiratory Rate 18 Blood Pressure 130/62 Pulse Oximetry 96 11/18/17 00:00 11/18/17 01:00 11/18/17 02:00 Temperature Pulse Rate 79 80 75 Respiratory Rate Blood Pressure Pulse Oximetry 11/18/17 03:00 11/18/17 04:00 11/18/17 05:00 Temperature 98.3 F Pulse Rate 79 72 81 Respiratory Rate 18 Blood Pressure 145/71 H Pulse Oximetry 95 11/18/17 06:00 Temperature Pulse Rate 82 Respiratory Rate Blood Pressure Pulse Oximetry Intake & Output 11/17/17 11/18/17 11/18/17 18:59 06:59 18:59 Intake Total 830 / 830 720 / 720 Output Total 3128 / 3128 1525 / 1525 Balance -2298 / -2298 -805 / -805 Weight 188 kg Intake: IV 110 / 110 Calcium Chloride Inj 1 GM In 110 / 110 D5W Inj 100 ML @ 110 mls/hr IV. SIG ONCE ONE Rx#:[id number] Oral 720 / 720 720 / 720 Output: Urine 3128 / 3128 1525 / 1525 Other: # Voids 1 Narrative: GENERAL: obese WM in NAD SKIN: Warm and dry. HEAD: Normocephalic. EYES: No scleral icterus. No injection or drainage. NECK: Supple, trachea midline. No JVD or lymphadenopathy. CARDIOVASCULAR: Regular rate and rhythm without murmurs, gallops, or rubs. RESPIRATORY: Breath sounds equal bilaterally. No accessory muscle use. GASTROINTESTINAL: Abdomen soft, non-tender, nondistended. MUSCULOSKELETAL: bilateral lower leg chronic lymphedema . Assessment and Plan - Assessment (1) Bradycardia with 31-40 beats per minute Code(s): R00.1 - Bradycardia, unspecified Status: Acute (2) Hyperkalemia, diminished renal excretion Code(s): E87.5 - Hyperkalemia Status: Acute - Plan 62 yo M with HTN, DMII, chronic LE lymphedema, nonischemic cardiomyopathy (EF 40 -45%) and chronic dyspnea who presents with progressive weakness and bradycardia. Recent cardiac catheterization performed on 10/28/17 shows nonobstructive CAD, medically managed. hyperkalemia- K+ has improved from 6.6 to 4.8 s/p kayexalate EKG does not show evidence of potassium overload continue to hold aldactone and lisinopril (was taking at home) no longer bradycardic and symptomatically improved. likely discharge today and follow up in outpatient setting. consider rechallenging guideline directed medical therapy for cardiomyopathy when appropriate. <Arik,Mitul - Last Filed: 11/18/17 09:59> Physical Exam Vital signs: Vital Signs 11/17/17 10:00 11/17/17 11:00 11/17/17 12:28 Temperature 97.4 F L Pulse Rate 56 L 67 68 Respiratory Rate 16 Blood Pressure 144/67 H Pulse Oximetry 100 11/17/17 13:00 11/17/17 14:00 11/17/17 15:00 Temperature 98.2 F Pulse Rate 60 64 69 Respiratory Rate 16 Blood Pressure 140/74 Pulse Oximetry 96 11/17/17 16:00 11/17/17 17:00 07/11/18 18:00 Temperature Pulse Rate 66 63 67 Respiratory Rate Blood Pressure Pulse Oximetry 11/17/17 19:00 11/17/17 20:00 11/17/17 21:00 Temperature 98.3 F Pulse Rate 72 78 80 Respiratory Rate 15 Blood Pressure 129/60 Pulse Oximetry 94 L 94 L 11/17/17 22:00 11/17/17 23:00 11/18/17 00:00 Temperature 98.5 F Pulse Rate 82 83 79 Respiratory Rate 18 Blood Pressure 130/62 Pulse Oximetry 96 11/18/17 01:00 11/18/17 02:00 11/18/17 03:00 Temperature 98.3 F Pulse Rate 80 75 79 Respiratory Rate 18 Blood Pressure 145/71 H Pulse Oximetry 95 11/18/17 04:00 11/18/17 05:00 11/18/17 06:00 Temperature Pulse Rate 72 81 82 Respiratory Rate Blood Pressure Pulse Oximetry 11/18/17 07:00 11/18/17 08:00 Temperature 98.6 F Pulse Rate 73 Respiratory Rate 18 Blood Pressure 154/70 H Pulse Oximetry 97 97 Intake & Output 11/17/17 11/18/17 11/18/17 18:59 06:59 18:59 Intake Total 830 / 830 720 / 720 Output Total 3128 / 3128 1525 / 1525 Balance -2298 / -2298 -805 / -805 Weight 188 kg Intake: IV 110 / 110 Calcium Chloride Inj 1 GM In 110 / 110 D5W Inj 100 ML @ 110 mls/hr IV. SIG ONCE ONE Rx#:[id number] Oral 720 / 720 720 / 720 Output: Urine 3128 / 3128 1525 / 1525 Other: # Voids 1 Assessment and Plan - Assessment (1) Bradycardia with 31-40 beats per minute Code(s): R00.1 - Bradycardia, unspecified Status: Acute (2) Hyperkalemia, diminished renal excretion Code(s): E87.5 - Hyperkalemia Status: Acute - Attending Attestation lisinopril 40 QD coreg 6.25 BID lasix prn fu dr gomez with bmp in 2 weeks
--- NOTE | 2017-11-18 08:27 | P.PNIM ---
Subjective Interval history: asking to go home. feels stronger. Physical Exam Vital signs: Vital Signs 11/17/17 08:52 11/17/17 09:00 11/17/17 10:00 Temperature Pulse Rate 64 56 L Respiratory Rate Blood Pressure Pulse Oximetry 99 11/17/17 11:00 11/17/17 12:28 11/17/17 13:00 Temperature 97.4 F L Pulse Rate 67 68 60 Respiratory Rate 16 Blood Pressure 144/67 H Pulse Oximetry 100 11/17/17 14:00 11/17/17 15:00 11/17/17 16:00 Temperature 98.2 F Pulse Rate 64 69 66 Respiratory Rate 16 Blood Pressure 140/74 Pulse Oximetry 96 11/17/17 17:00 11/17/17 18:00 11/17/17 19:00 Temperature 98.3 F Pulse Rate 63 67 72 Respiratory Rate 15 Blood Pressure 129/60 Pulse Oximetry 94 L 11/17/17 20:00 11/17/17 21:00 11/17/17 22:00 Temperature Pulse Rate 78 80 82 Respiratory Rate Blood Pressure Pulse Oximetry 94 L 11/17/17 23:00 11/18/17 00:00 11/18/17 01:00 Temperature 98.5 F Pulse Rate 83 79 80 Respiratory Rate 18 Blood Pressure 130/62 Pulse Oximetry 96 11/18/17 02:00 11/18/17 03:00 11/18/17 04:00 Temperature 98.3 F Pulse Rate 75 79 72 Respiratory Rate 18 Blood Pressure 145/71 H Pulse Oximetry 95 11/18/17 05:00 11/18/17 06:00 Temperature Pulse Rate 81 82 Respiratory Rate Blood Pressure Pulse Oximetry Intake & Output 11/17/17 11/18/17 11/18/17 18:59 06:59 18:59 Intake Total 830 / 830 720 / 720 Output Total 3128 / 3128 1525 / 1525 Balance -2298 / -2298 -805 / -805 Weight 188 kg Intake: IV 110 / 110 Calcium Chloride Inj 1 GM In 110 / 110 D5W Inj 100 ML @ 110 mls/hr IV. SIG ONCE ONE Rx#:[id number] Oral 720 / 720 720 / 720 Output: Urine 3128 / 3128 1525 / 1525 Other: # Voids 1 heent neg heart reg lung cta abd s/nt ext chronic lower ext edema Results - Labs CBC & Chem 7: 11/16/17 18:28 11/18/17 03:10 Laboratory Results - last 24 hr 11/17/17 11/17/17 11/17/17 11:56 17:15 20:42 Sodium Potassium Chloride Carbon Dioxide Anion Gap BUN Creatinine Estimated GFR POC Glucose 104 94 121 H Random Glucose Calcium 11/18/17 11/18/17 03:10 07:37 Sodium 139 Potassium 4.8 Chloride 101 Carbon Dioxide 29.5 Anion Gap 9 BUN 43 H Creatinine 1.56 H Estimated GFR 45 L POC Glucose 98 Random Glucose 89 Calcium 9.3 Assessment and Plan - Plan Assessment and Plan (1) Bradycardia Pt presented with severe bradycardia. 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 pt has chronic chf and edema PT consulted renal function and hyperkalemia better will need to discuss with cardiology about which meds to resume(shauna/diuretic/ccb /bb) dc plan will be discussed with cardiology today. (2) Hyperkalemia, diminished renal excretion see above (3) CHF (congestive heart failure), NYHA class III see above (4) Morbid exogenous obesity Strongly encouraged weight loss. He has discussed with bariatric surgeon in the past. (5) DIXIE (acute kidney injury) see above
--- NOTE | 2017-11-18 09:09 | P.PNCA ---
Subjective Interval history: no complaints Physical Exam Vital signs: Vital Signs 11/17/17 10:00 11/17/17 11:00 11/17/17 12:28 Temperature 97.4 F L Pulse Rate 56 L 67 68 Respiratory Rate 16 Blood Pressure 144/67 H Pulse Oximetry 100 11/17/17 13:00 11/17/17 14:00 11/17/17 15:00 Temperature 98.2 F Pulse Rate 60 64 69 Respiratory Rate 16 Blood Pressure 140/74 Pulse Oximetry 96 11/17/17 16:00 11/17/17 17:00 11/17/17 18:00 Temperature Pulse Rate 66 63 67 Respiratory Rate Blood Pressure Pulse Oximetry 11/17/17 19:00 11/17/17 20:00 11/17/17 21:00 Temperature 98.3 F Pulse Rate 72 78 80 Respiratory Rate 15 Blood Pressure 129/60 Pulse Oximetry 94 L 94 L 11/17/17 22:00 11/17/17 23:00 11/18/17 00:00 Temperature 98.5 F Pulse Rate 82 83 79 Respiratory Rate 18 Blood Pressure 130/62 Pulse Oximetry 96 11/18/17 01:00 11/18/17 02:00 11/18/17 03:00 Temperature 98.3 F Pulse Rate 80 75 79 Respiratory Rate 18 Blood Pressure 145/71 H Pulse Oximetry 95 11/18/17 04:00 11/18/17 05:00 11/18/17 06:00 Temperature Pulse Rate 72 81 82 Respiratory Rate Blood Pressure Pulse Oximetry Intake & Output 11/17/17 11/18/17 11/18/17 18:59 06:59 18:59 Intake Total 830 / 830 720 / 720 Output Total 3128 / 3128 1525 / 1525 Balance -2298 / -2298 -805 / -805 Weight 188 kg Intake: IV 110 / 110 Calcium Chloride Inj 1 GM In 110 / 110 D5W Inj 100 ML @ 110 mls/hr IV. SIG ONCE ONE Rx#:[id number] Oral 720 / 720 720 / 720 Output: Urine 3128 / 3128 1525 / 1525 Other: # Voids 1 Narrative: HEAD: Normocephalic. EYES: No scleral icterus. No injection or drainage. NECK: Supple, trachea midline. No JVD or lymphadenopathy. CARDIOVASCULAR: Regular rate and rhythm without murmurs, gallops, or rubs. RESPIRATORY: Breath sounds equal bilaterally. No accessory muscle use. GASTROINTESTINAL: Abdomen soft, non-tender, nondistended. MUSCULOSKELETAL: No cyanosis, or edema. BACK: Nontender without obvious deformity. No CVA tenderness. Assessment and Plan - Assessment (1) Bradycardia with 31-40 beats per minute Code(s): R00.1 - Bradycardia, unspecified Status: Acute (2) Hyperkalemia, diminished renal excretion Code(s): E87.5 - Hyperkalemia Status: Acute - Plan 62 yo M with HTN, DMII, chronic LE lymphedema, nonischemic cardiomyopathy (EF 40 -45%) and chronic dyspnea who presents with progressive weakness and bradycardia. Recent cardiac catheterization performed on 10/28/17 shows nonobstructive CAD, medically managed. hyperkalemia- K+ has improved from 6.6 to 4.8 s/p kayexalate EKG does not show evidence of potassium overload continue to hold aldactone and lisinopril (was taking at home) no longer bradycardic and symptomatically improved. likely discharge today and follow up in outpatient setting. consider rechallenging guideline directed medical therapy for cardiomyopathy when appropriate. - Attending Attestation doing well hyperkalemia resolved CKD restart DWAYNE lisinopril 40 daily restart carvedilol 6.25 mg BID lasix as needed hold aldactone hold CCB DC home\ FU in [facility] dr gomez in 2 weeks with BMP
== END 2017-11-18 15:04 | disposition home or self-care (01) ==
LOC: NEPE 17:46 → NEDA 21:24 → HCPC 11-17 01:58 → HCIS 11-17 15:07
PROVIDERS: ADMIT Hospitalist; ATTEND Hospitalist

== ENCOUNTER 2018-03-01 09:13 | Inpatient (IN) ==
[2018-03-01 11:30] LABS: Baso % (Auto) 0.5 % (0.0-2.0); Eos # (Auto) 0.1 th/mm3 (0.0-0.4); Eos % (Auto) 1.6 % (0.0-4.0); Hematocrit 39.4 % (39.0-51.0); Hemoglobin 12.9 gm/dL (13.0-17.0); Lymph # (Auto) 0.7 th/mm3 (1.0-4.8); Lymph % (Auto) 9.5 % (9.0-44.0); Mean Corpuscular HGB Conc 32.8 % (32.0-36.0); Mean Corpuscular Hemoglobin 31.5 pg (27.0-34.0); Mean Corpuscular Volume 96.2 fL (80.0-100.0); Mean Platelet Volume 7.1 fL (7.0-11.0); Mono # (Auto) 0.9 th/mm3 (0.0-0.9); Mono % (Auto) 11.2 % (0.0-8.0); Neut % (Auto) 77.2 % (16.0-70.0); Platelet Count 231 th/mm3 (150-450); Red Cell Distribution Width 15.5 % (11.6-17.2); White Blood Count 7.8 th/mm3 (4.0-11.0)
[2018-03-01 11:41] LABS: Activated Partial Thrombo Time 31.3 sec (24.3-30.1); INR 1.3 Ratio; Prothrombin Time 12.8 sec (9.8-11.6)
[2018-03-01 11:57] LABS: Alanine Aminotransferase 24 U/L (12-78); Anion Gap 6 meq/L (5-15); Aspartate Aminotransferase 24 U/L (15-37); Blood Urea Nitrogen 22 mg/dL (7-18); Calcium 8.1 mg/dL (8.5-10.1); Carbon Dioxide 29.6 meq/L (21.0-32.0); Chloride 92 meq/L (98-107); Glomerular Filtration Rate 61 mL/min (>89); Glucose,Random 131 mg/dL (74-106); Potassium 4.9 meq/L (3.5-5.1); Sodium 128 meq/L (136-145)
[2018-03-01 12:00] LABS: Alkaline Phosphatase 155 U/L (45-117); Total Protein 7.6 g/dL (6.4-8.2)
--- NOTE | 2018-03-01 12:07 | ED ---
HPI General Chief Complaint: Respiratory Symptoms Stated Complaint: Breathing Complaint Time Seen by Provider: 03/01/18 10:56 Source: patient Mode of arrival: ambulatory Limitations: no limitations History of Present Illness 63-year-old male with a history of bilateral lower extremity lymphedema presents to the emergency department for evaluation of shortness of breath, whole body swelling, cough that is been worsening over the last 3 weeks. Patient states that he thought close 3 weeks ago that fit him comfortably and now is unable to wear them because of the diffuse swelling. He states that he uses a walker in the house when normally he does not have to. He states he must use a walker because of the shortness of breath and excessive swelling in his lower extremities. He states that he has been sleeping in a recliner and is unable to lay flat. He has had a cough with scant white sputum. He says he has occasional chest pressure but denies actual pain. 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 He had a heart cath 2 months ago which was normal per patient. He states he had a sleep study last week with Dr. Coby Tenorio but does not know the results of this. He says he drinks a couple glasses of wine per night denies history of DTs. Patient denies tobacco use. He denies history of COPD, [place], CVA. Patient takes a baby aspirin daily and states compliance with his medications. His primary care physician is Dr. Castro. Complaint: Reports shortness of breath and cough Onset (ago): week(s) Severity: moderate Consistency/Duration: constant Relieving factors: rest and upright position Exacerbating factors: lying flat, exertion, movement and coughing Known history of: Reports congestive heart failure; Denies COPD, diabetes, PE and DVT Associated symptoms: Reports cough, sputum production and orthopnea; Denies nausea/vomiting and abdominal pain Related Data Home oxygen amount: none Home Medications Medication Instructions Recorded Confirmed apremilast [Otezla] 30 mg PO BID 11/17/17 03/01/18 aspirin [Aspir-81] 81 mg PO DAILY 11/17/17 03/01/18 qgimtivz-cxu-DH-lycopen-lutein 1 tab PO DAILY 11/17/17 03/01/18 [Centrum Silver Men] rosuvastatin 20 mg PO DAILY 11/17/17 03/01/18 carvedilol 3.125 mg PO BID 03/01/18 03/01/18 furosemide 40 mg PO BID 03/01/18 03/01/18 metformin 500 mg PO BID 03/01/18 03/01/18 Allergies Allergy/AdvReac Type Severity Reaction Status Date / Time ciprofloxacin Allergy Severe facial Verified 03/01/18 09:18 swelling levofloxacin Allergy Severe Rash Verified 03/01/18 09:18 aspirin Allergy Intermediate Bleeding Verified 03/01/18 09:18 Review of Systems ROS: all other systems reviewed are negative [facility] Medical History Medical History CHF (congestive heart failure) (Acute) HTN (hypertension) (Acute) Surgical History Surgical History H/O total knee replacement (Acute) History of colon surgery (Acute) Hx of cholecystectomy (Acute) Social History Social History Substance History: No History of Abuse Second Hand Smoke Exposure: No Smoking Status: Never smoker Tobacco Type: Cigarettes How Often Do You Have a Drink Containing Alcohol: 2 to 3 times a week Recent Travel in [facility] within the Last 8 Weeks: No Recent Out of Country Travel within the Last 8 Weeks: No Immunization History Tetanus Immunization: Unsure Exam Narrative Exam Narrative: GENERAL: Well-developed, well-nourished sitting upright in bed speaking in full sentences although does appear slightly short of breath SKIN: Focused skin assessment warm/dry. Bilateral lower extremity hypertrophic skin tissue without pitting edema. Bilateral dorsalis pedis pulses present. There is erythema and hypertrophic skin tissue up to the thighs. Patient states this is normal for him except it is more swollen than normal HEAD: Atraumatic. Normocephalic. EYES: Pupils equal and round. No scleral icterus. No injection or drainage. ENT: No nasal bleeding or discharge. Mucous membranes pink and moist. NECK: Trachea midline. No JVD. CARDIOVASCULAR: Regular rate and rhythm. No murmur appreciated. RESPIRATORY: No accessory muscle use. Clear to auscultation. Breath sounds equal bilaterally. GASTROINTESTINAL: Abdomen soft, non-tender, nondistended. Hepatic and splenic margins not palpable. Protuberant. MUSCULOSKELETAL: No obvious deformities. No clubbing. No cyanosis. No edema. No tenderness to palpation of the calves NEUROLOGICAL: Awake and alert. No obvious cranial nerve deficits. Motor grossly within normal limits. Normal speech. PSYCHIATRIC: Appropriate mood and affect; insight and judgment normal. Course Initial Documented Vital Signs Temperature 97.4 F L 03/01/18 09:16 Pulse Rate 105 H 03/01/18 09:16 Respiratory Rate 24 03/01/18 09:16 Blood Pressure 161/95 H 03/01/18 09:16 Pulse Oximetry 94 L 03/01/18 09:16 Last Documented Vital Signs Temperature 97.4 F L 03/01/18 09:16 Pulse Rate 100 H 03/01/18 11:37 Respiratory Rate 18 03/01/18 11:37 Blood Pressure 169/83 H 03/01/18 09:18 Pulse Oximetry 99 03/01/18 11:37 Medical Decision Making MDM Narrative Medical decision making narrative: 63-year-old male presents to the emergency department evaluation of shortness of breath, diffuse body swelling, and cough that started 3 weeks ago. Patient states he had a heart cath 2 months ago which was normal per patient. He states he has a questionable history of congestive heart failure. Vital signs are currently stable. Patient placed on 2 L/min nasal cannula as his O2 saturation was 94% upon arrival patient was dyspneic. After review the EMR, patient does not fact have a history of congestive heart failure, hypertension, diabetes. He was previously followed by Dr. Zurita but patient states that he saw Dr. Elise most recently. He came to the emergency department November 2017 where he was diagnosed with hyperkalemia, bradycardia, and acute on chronic kidney. It was noted that he has nonischemic cardiomyopathy with ejection fraction 40-45%. EKG shows sinus rhythm rate 97 no STEMI changes. Previous EKGs shows bradycardic rates. Albuterol nebulizer administered. Patient states he has some improvement in breathing does not feel he is coughing as much. Labs are notable for WBC 7.8, chronic anemia stable, neutrophil percent 77.2, sodium 128, chloride 92, magnesium 1.9, BUN/creatinine 22/1.20, troponin 0 0.02 , BNP 1029 (change from 366). Nitro sublingual administered with improvement in breathing. Patient is able to rest and is resting upon my reevaluation and discussion regarding the plan. I spoke with Dr. Wei who agreed to the admission. Medical Screen Exam Complete: Yes Emergency Medical Condition: Yes Differential Diagnosis Differential Diagnosis: Congestive heart failure, pulmonary edema, pneumonia, anasarca Lab Data Result diagrams: 03/01/18 11:00 03/01/18 11:00 Lab Results 03/01/18 03/01/18 03/01/18 Range/Units 11:00 11:00 11:00 WBC 7.8 (4.0-11.0) th/mm3 RBC 4.10 L (4.50-5.90) mil/mm3 Hgb 12.9 L (13.0-17.0) gm/dL Hct 39.4 (39.0-51.0) % MCV 96.2 (80.0-100.0) fL MCH 31.5 (27.0-34.0) pg MCHC 32.8 (32.0-36.0) % RDW 15.5 (11.6-17.2) % Plt Count 231 (150-450) th/mm3 MPV 7.1 (7.0-11.0) fL Neut % (Auto) 77.2 H (16.0-70.0) % Lymph % (Auto) 9.5 (9.0-44.0) % [place] % (Auto) 11.2 H (0.0-8.0) % Eos % (Auto) 1.6 (0.0-4.0) % Baso % (Auto) 0.5 (0.0-2.0) % Neut # (Auto) 6.0 (1.8-7.7) th/mm3 Lymph # (Auto) 0.7 L (1.0-4.8) th/mm3 [place] # (Auto) 0.9 (0.0-0.9) th/mm3 Eos # (Auto) 0.1 (0.0-0.4) th/mm3 Baso # (Auto) 0.0 (0.0-0.2) th/mm3 WBC Differential . Differential Comment Auto diff final PT 12.8 H (9.8-11.6) sec INR 1.3 Ratio APTT 31.3 H (24.3-30.1) sec Sodium 128 L (136-145) meq/L Potassium 4.9 (3.5-5.1) meq/L Chloride 92 L (98-107) meq/L Carbon Dioxide 29.6 (21.0-32.0) meq/L Anion Gap 6 (5-15) meq/L BUN 22 H (7-18) mg/dL Creatinine 1.20 (0.60-1.30) mg/dL Estimated GFR 61 L (>89) mL/min Random Glucose 131 H (74-106) mg/dL Calcium 8.1 L (8.5-10.1) mg/dL Magnesium (1.5-2.5) mg/dL Total Bilirubin 0.9 (0.2-1.0) mg/dL AST 24 (15-37) U/L ALT 24 (12-78) U/L Alkaline Phosphatase 155 H (45-117) U/L Troponin I Less than 0.02 L (0.02-0.05) ng/mL B-Natriuretic Peptide (0-100) pg/mL Total Protein 7.6 (6.4-8.2) g/dL Albumin 3.0 L (3.4-5.0) g/dL 03/01/18 03/01/18 Range/Units 11:00 11:00 WBC (4.0-11.0) th/mm3 RBC (4.50-5.90) mil/mm3 Hgb (13.0-17.0) gm/dL Hct (39.0-51.0) % MCV (80.0-100.0) fL MCH (27.0-34.0) pg MCHC (32.0-36.0) % RDW (11.6-17.2) % Plt Count (150-450) th/mm3 MPV (7.0-11.0) fL Neut % (Auto) (16.0-70.0) % Lymph % (Auto) (9.0-44.0) % [place] % (Auto) (0.0-8.0) % Eos % (Auto) (0.0-4.0) % Baso % (Auto) (0.0-2.0) % Neut # (Auto) (1.8-7.7) th/mm3 Lymph # (Auto) (1.0-4.8) th/mm3 [place] # (Auto) (0.0-0.9) th/mm3 Eos # (Auto) (0.0-0.4) th/mm3 Baso # (Auto) (0.0-0.2) th/mm3 WBC Differential Differential Comment PT (9.8-11.6) sec INR Ratio APTT (24.3-30.1) sec Sodium (136-145) meq/L Potassium (3.5-5.1) meq/L Chloride (98-107) meq/L Carbon Dioxide (21.0-32.0) meq/L Anion Gap (5-15) meq/L BUN (7-18) mg/dL Creatinine (0.60-1.30) mg/dL Estimated GFR (>89) mL/min Random Glucose (74-106) mg/dL Calcium (8.5-10.1) mg/dL Magnesium 1.9 (1.5-2.5) mg/dL Total Bilirubin (0.2-1.0) mg/dL AST (15-37) U/L ALT (12-78) U/L Alkaline Phosphatase (45-117) U/L Troponin I (0.02-0.05) ng/mL B-Natriuretic Peptide 1029 H (0-100) pg/mL Total Protein (6.4-8.2) g/dL Albumin (3.4-5.0) g/dL Imaging Data Radiologist's impression: Chest X-Ray 03/01/18 11:12 CONCLUSION: Moderate bibasilar pleural-parenchymal opacities. Discharge Plan Discharge Disposition Patient Disposition: 30 Still Patient Discharge Condition Condition: Stable Discharge Details Diagnosis: CHF exacerbation, Anasarca Physicians Team ED Provider: Daivd Stein ED Midlevel Provider: Lizet Thompson Primary Care Provider: Tj Osborn Attending Provider: Cesario Wei Other Providers: Mitul Elise Status ED Status: Admitted Observation Patient
--- NOTE | 2018-03-01 12:09 | XR ---
EXAM DATE: 03/01/2018 11:12 AM EDT AGE/SEX: 63 years / Male INDICATIONS: Short of breath. CLINICAL DATA: This is the patient's initial encounter. Patient reports that signs and symptoms have been present for 1 day and indicates a pain score of 0/10. MEDICAL/SURGICAL HISTORY: Congestive heart failure. Hypertension. None. COMPARISON: [facility] [place], CHEST 1V SINGLE AP, 11/16/2017. . FINDINGS: Hazy bibasilar pleural-parenchymal opacities are present, likely infiltrates and effusions. Cardiac c ontours are largely obscured. CONCLUSION: Moderate bibasilar pleural-parenchymal opacities. Electronically signed by: William Howell MD 03/01/2018 12:08 PM EDT
[2018-03-01] MEDS ORDERED: Dextrose 50% in Water 50 ML Vial IV.PUSH PRN (12:53)
[2018-03-01] MEDS: Insulin NovoLOG Aspart Correctional Sugar Inj SQ SCH ×2 (16:39→22:19)
--- NOTE | 2018-03-01 18:19 | P.HPIM ---
History of Present Illness Primary Care Physician: Tj Osborn MD History of Present Illness: Mr. Kee is a 63 year old male. He has a past history of congestive heart failure. In 2013 his estimated ejection fraction was 35-50%. He comes into the hospital with a complaint of increasing shortness of breath, weight gain, waist size increase, and edema over the past 3 weeks. She appears to be in CHF exacerbation. He says he is taking his Lasix 40 mg p.o. twice daily. No changes in diet and no [id number]-jbd-dzgtqey supplements. He denies any chest pain. He is more comfortable with oxygen. - Diagnosis (1) Systolic CHF (2) CHF (congestive heart failure), NYHA class III (3) CHF exacerbation Review of Systems Constitutional: No fevers, no chills no night sweats, no fatigue, no weakness Eyes: No eye pain, no blurry vision, no loss of vision ENT: No sore throat, no ear pain, no rhinorrhea Cardiovascular: No chest pain, no tachycardia, no palpitations, no shortness of breath, no syncope, positive progressive edema Respiratory: No wheezing, no cough, shortness of breath Gastrointestinal: No abdominal pain, no black tarry stools, no bright red blood per rectum, no vomiting, no diarrhea Musculoskeletal: No joint pain, no muscle cramps, no stiffness Integumentary: No rash, no ulcers, no drainage Neurologic: No sensory loss, no loss of motor function, no dizziness Psychiatric: No behavioral changes, no hallucinations, no suicidal ideations PMF - History History Provided By: Patient, Family Member - Medical History Medical History: Medical History (Last Reviewed 03/01/18 @ 12:04 by ESPERANZA Moya) CHF (congestive heart failure) HTN (hypertension) - Surgical History Surgical History: Surgical History (Last Reviewed 03/01/18 @ 12:04 by ESPERANZA Moya) H/O total knee replacement History of colon surgery Hx of cholecystectomy - Family History Family History: Family History (Last Updated 03/01/18 @ 18:15 by Cesario Wei MD) Other Osteoarthritis - Tobacco History Second Hand Smoke Exposure: No Smoking Status: Former smoker Tobacco Type: Cigarettes - Alcohol History How Often Do You Have a Drink Containing Alcohol: Never - Substance Use History Substance History: No History of Abuse - Travel History Recent Travel in the [facility] Within the Last 8 Weeks: No Recent Travel Out of the Country Within the Last 8 Weeks: No - Immunization History Tetanus Immunization: Unsure Medications and Allergies Active Medications: Active Medications Al Hydroxide/Mg Hydroxide (Milk Of Erma Chadwick) 30 ml PO Q12H PRN PRN Reason: Mild Constipation Aspirin (Ecotrin) 81 mg PO DAILY [facility] Atorvastatin Calcium (Lipitor) 40 mg PO DAILY [facility] Carvedilol (Coreg) 3.125 mg PO BID [facility] Dextrose (D50w Vial) 50 ml IV.PUSH UNSCH PRN PRN Reason: PER HYPOGLYCEMIA PROTOCOL Furosemide (Lasix Inj) 40 mg IV.PUSH BID@0900,1800 [facility] Last Admin: 03/01/18 17:01 Dose: 40 mg Glucagon (Glucagon Inj) 1 mg OTHER PRN PRN PRN Reason: for Hypoglycemia Protocol Heparin Sodium (Porcine) (Heparin Inj) 5,000 units SQ Q12HR [facility] Insulin Aspart (Novolog Insulin Correctional Sugar Inj) 0 unit SQ ACHS [facility]; Protocol Last Admin: 03/01/18 16:39 Dose: Not Given Metformin HCl (Glucophage) 500 mg PO BIDPC [facility] Last Admin: 03/01/18 17:00 Dose: 500 mg Multivitamins/Minerals (Theragran-M) 1 tab PO DAILY [facility] Ondansetron HCl (Zofran Inj) 4 mg IV.PUSH Q6H PRN PRN Reason: NAUSEA OR VOMITING Ptownmed(Apremilast ([Otezla] 30 Mg)) 0 each PO BID [facility] Allergies Allergy/AdvReac Type Severity Reaction Status Date / Time ciprofloxacin Allergy Severe facial Verified 03/01/18 09:18 swelling levofloxacin Allergy Severe Rash Verified 03/01/18 09:18 aspirin Allergy Intermediate Bleeding Verified 03/01/18 09:18 Home Medications Medication Instructions Recorded Confirmed Type apremilast [Otezla] 30 mg PO BID 11/17/17 03/01/18 History aspirin [Aspir-81] 81 mg PO DAILY 11/17/17 03/01/18 History hmkrxomj-vsg-HT-lycopen-lutein 1 tab PO DAILY 11/17/17 03/01/18 History [Centrum Silver Men] rosuvastatin 20 mg PO DAILY 11/17/17 03/01/18 History carvedilol 3.125 mg PO BID 03/01/18 03/01/18 History furosemide 40 mg PO BID 03/01/18 03/01/18 History metformin 500 mg PO BID 03/01/18 03/01/18 History Exam Vital signs: Vital Signs 03/01/18 09:16 03/01/18 09:18 03/01/18 11:12 Temperature 97.4 F L Pulse Rate 105 H 100 H Respiratory Rate 24 24 Blood Pressure 161/95 H 169/83 H Pulse Oximetry 94 L 94 L 97 03/01/18 11:37 03/01/18 12:30 03/01/18 14:30 Temperature Pulse Rate 100 H 96 H 94 H Respiratory Rate 18 15 14 Blood Pressure 143/70 H 157/76 H Pulse Oximetry 99 100 98 03/01/18 15:54 03/01/18 16:00 Temperature 98.9 F Pulse Rate 96 H 91 H Respiratory Rate 23 18 Blood Pressure 156/78 H 146/94 H Pulse Oximetry 100 100 Intake & Output 02/28/18 03/01/18 03/01/18 18:59 06:59 18:59 Intake Total 250 / 250 Balance 250 / 250 Weight 450 kg Intake: Oral 250 / 250 Narrative: GENERAL: NAD, A&Ox3 HEAD: Normocephalic. NECK: Supple, trachea midline. No lymphadenopathy. EYES: No scleral icterus. No injection or drainage. CARDIOVASCULAR: Regular rate and rhythm without murmurs, gallops, or rubs. RESPIRATORY: Breath sounds equal bilaterally. No accessory muscle use. GASTROINTESTINAL: Abdomen soft, non-tender, nondistended. MUSCULOSKELETAL: No cyanosis, diffuse edema including edema to the thighs, scrotum, and arms SKIN: Warm and dry. NEURO: No focal neurological deficits. Results - Labs CBC & Chem 7: 03/01/18 11:00 03/01/18 11:00 Labs: Short CBC 03/01/18 Range/Units 11:00 WBC 7.8 (4.0-11.0) th/mm3 Hgb 12.9 L (13.0-17.0) gm/dL Hct 39.4 (39.0-51.0) % Plt Count 231 (150-450) th/mm3 BMP 03/01/18 11:00 Sodium 128 L Potassium 4.9 Chloride 92 L Carbon Dioxide 29.6 BUN 22 H Creatinine 1.20 Calcium 8.1 L Cardiac Enzymes 03/01/18 Range/Units 11:00 Troponin I Less than 0.02 L (0.02-0.05) ng/mL Liver Function 03/01/18 Range/Units 11:00 Total Bilirubin 0.9 (0.2-1.0) mg/dL AST 24 (15-37) U/L ALT 24 (12-78) U/L Alkaline Phosphatase 155 H (45-117) U/L Albumin 3.0 L (3.4-5.0) g/dL - Imaging Impressions Chest X-Ray 03/01/18 11:12 CONCLUSION: Moderate bibasilar pleural-parenchymal opacities. Caprini VTE Risk Assessment Caprini VTE Risk Assessment: Moderate/High Risk (score >= 2) Caprini Risk Assessment Model: Point Value = 1 Point Value = 2 Point Value = 3 Point Value = 5 Age 41-60 Minor surgery BMI > 25 kg/m2 Swollen legs Varicose veins or History of unexplained or recurrent spontaneous Oral contraceptives or hormone replacement Sepsis (< 1 month) Serious lung disease, including pneumonia (< 1 month) Abnormal pulmonary function Acute myocardial infarction Congestive heart failure (< 1 month) History of inflammatory bowel disease Medical patient at bed rest Age 61-74 Arthroscopic surgery Major open surgery (> 45 min) Laparoscopic surgery (> 45 min) Malignancy Confined to bed (> 72 hours) Immobilizing plaster cast Central venous access Age >= 75 History of VTE Family history of VTE Factor V Leiden Prothrombin [id number] Lupus anticoagulant Anticardiolipin antibodies Elevated serum homocysteine Heparin-induced thrombocytopenia Other congenital or acquired thrombophilia Stroke (< 1 month) Elective arthroplasty Hip, pelvis, or leg fracture Acute spinal cord injury (< 1 month) Prophylaxis Regimen: Total Risk Factor Score Risk Level Prophylaxis Regimen 0-1 Low Early ambulation 2 Moderate Order ONE of the following: *Sequential Compression Device (SCD) *Heparin 5000 units SQ BID 3-4 Higher Order ONE of the following medications: *Heparin 5000 units SQ TID *Enoxaparin/Lovenox 40 mg SQ daily (WT < 150 kg, CrCl > 30 mL/min) *Enoxaparin/Lovenox 30 mg SQ daily (WT < 150 kg, CrCl > 10-29 mL/min) *Enoxaparin/Lovenox 30 mg SQ BID (WT < 150 kg, CrCl > 30 mL/min) AND/OR *Sequential Compression Device (SCD) 5 or more Highest Order ONE of the following medications: *Heparin 5000 units SQ TID (Preferred with Epidurals) *Enoxaparin/Lovenox 40 mg SQ daily (WT < 150 kg, CrCl > 30 mL/min) *Enoxaparin/Lovenox 30 mg SQ daily (WT < 150 kg, CrCl > 10-29 mL/min) *Enoxaparin/Lovenox 30 mg SQ BID (WT < 150 kg, CrCl > 30 mL/min) AND *Sequential Compression Device (SCD) Assessment and Plan - Assessment (1) Systolic CHF Code(s): I50.20 - Unspecified systolic (congestive) heart failure Status: Acute (2) CHF (congestive heart failure), NYHA class III Code(s): I50.9 - Heart failure, unspecified Status: Acute (3) CHF exacerbation Code(s): I50.9 - Heart failure, unspecified Status: Acute - Plan 63-year-old male admitted secondary to CHF exacerbation CHF exacerbation IV diuresis Monitor renal function Oxygen as needed Follow clinically for improvement Follow on general ophthalmologist electrolytes Echocardiogram Cardiology consult Urinary retention This is related to edema Place Mauricio catheter Monitor I's and O's Void trial once edema improves Hypertension Continue baseline treatment Follow blood pressures Adjust treatments as needed Diabetes mellitus type 2 Follow blood sugars Insulin sliding scale Diabetic diet Continue baseline metformin for now DVT prophylaxis Heparin H&P: Quality - VTE Deep Vein Thrombosis/Pulmonary Embolism Present on Admission: No (2) CHF (congestive heart failure), NYHA class III Qualifiers: (3) CHF exacerbation Qualifiers: Heart failure type: unspecified Qualified Code(s): I50.9 - Heart failure, unspecified
--- NOTE | 2018-03-01 19:34 | ECG ---
Date Performed: 03/01/2018 Time Performed: 14:27:39 PTAGE: 63 years EKG: Sinus rhythm LEFT ANTERIOR FASCICULAR BLOCK POSSIBLE ANTERIOR MYOCARDIAL INFARCTION ABNORMAL ECG Unfortunately pr ior electrocardiogram has artifact but it appears that sinus rhythm has replaced either junctional es cape rhythm or A/V dissociation. PREVIOUS TRACING : 11/16/2017 20.18 DOCTOR: Anival Irizarry Interpretating Date/Time 03/01/2018 19:32:49
[2018-03-01] MEDS: Heparin - SQ 10,000 UNITS/ML Vial SQ SCH (20:59)
[2018-03-01] MEDS ORDERED: APREMILAST 30 MG PO SCH (21:00)
[2018-03-01] MEDS ORDERED: [UNRECOGNIZED DRUG - OTHER] PO SCH (21:00)
[2018-03-02 06:16] LABS: Alanine Aminotransferase 21 U/L (12-78); Albumin 3.1 g/dL (3.4-5.0); Anion Gap 6 meq/L (5-15); Aspartate Aminotransferase 19 U/L (15-37); Blood Urea Nitrogen 23 mg/dL (7-18); Calcium 8.1 mg/dL (8.5-10.1); Carbon Dioxide 28.7 meq/L (21.0-32.0); Chloride 94 meq/L (98-107); Glomerular Filtration Rate 72 mL/min (>89); Glucose,Random 116 mg/dL (74-106); Potassium 4.9 meq/L (3.5-5.1); Sodium 129 meq/L (136-145)
[2018-03-02 06:18] LABS: Alkaline Phosphatase 149 U/L (45-117); Total Protein 7.8 g/dL (6.4-8.2)
[2018-03-02 06:21] LABS: Baso % (Auto) 0.5 % (0.0-2.0); Eos # (Auto) 0.2 th/mm3 (0.0-0.4); Eos % (Auto) 2.4 % (0.0-4.0); Hematocrit 39.4 % (39.0-51.0); Hemoglobin 13.2 gm/dL (13.0-17.0); Lymph # (Auto) 0.7 th/mm3 (1.0-4.8); Lymph % (Auto) 8.9 % (9.0-44.0); Mean Corpuscular HGB Conc 33.5 % (32.0-36.0); Mean Corpuscular Hemoglobin 31.8 pg (27.0-34.0); Mean Corpuscular Volume 95.1 fL (80.0-100.0); Mean Platelet Volume 6.7 fL (7.0-11.0); Mono # (Auto) 0.9 th/mm3 (0.0-0.9); Neut # (Auto) 6.1 th/mm3 (1.8-7.7); Neut % (Auto) 77.2 % (16.0-70.0); Platelet Count 215 th/mm3 (150-450); Red Blood Count 4.14 mil/mm3 (4.50-5.90); Red Cell Distribution Width 15.4 % (11.6-17.2); White Blood Count 7.9 th/mm3 (4.0-11.0)
--- NOTE | 2018-03-02 07:43 | P.CONCA ---
History of Present Illness Primary Care Provider: Tj Osborn MD History of Present Illness: 63-year-old gentleman with super morbid obesity, HTN, HLD, DM, mild NICM EF 40- 45%, chronic lymphedema, CHF who presented due to several weeks of worsening dyspnea and abdominal distention. Has been on Lasix 40 mg twice daily, although volume status has been difficult to assess due to body habitus. Patient has refused lymphedema clinic. He does not weigh himself, but feels that his abdomen has grown to where he cannot fit in his shirts over the past few weeks. He has been given IV Lasix here, but states he has not noticed any significant improvement in urine output. Chest x-ray upon admission showed pulmonary edema. Review of Systems All other systems reviewed negative except as stated in HPI [facility] - History History Provided By: Patient, Medical Record - Medical History Medical History: Medical History (Last Updated 03/02/18 @ 07:40 by ESPERANZA Arizmendi) Cardiomyopathy Lymphedema Nonobstructive atherosclerosis of coronary artery CHF (congestive heart failure) HTN (hypertension) - Surgical History Surgical History: Surgical History (Last Reviewed 03/01/18 @ 12:04 by ESPERANZA Moya) H/O total knee replacement History of colon surgery Hx of cholecystectomy - Family History Family History: Family History (Last Updated 03/01/18 @ 18:15 by Cesario Wei MD) Other Osteoarthritis - Tobacco History Second Hand Smoke Exposure: No Smoking Status: Former smoker Tobacco Type: Cigarettes - Alcohol History How Often Do You Have a Drink Containing Alcohol: Never - Substance Use History Substance History: No History of Abuse - Travel History Recent Travel in the [place] Within the Last 8 Weeks: No Recent Travel Out of the Country Within the Last 8 Weeks: No - Immunization History Tetanus Immunization: Unsure Medications and Allergies Active Medications: Active Medications Al Hydroxide/Mg Hydroxide (Milk Of Erma Liq) 30 ml PO Q12H PRN PRN Reason: Mild Constipation Aspirin (Ecotrin) 81 mg PO DAILY [facility] Atorvastatin Calcium (Lipitor) 40 mg PO DAILY [facility] Bumetanide (Bumex Inj) 1 mg IV.PUSH BID@0900,1800 [facility] Carvedilol (Coreg) 3.125 mg PO BID [facility] Last Admin: 03/01/18 20:59 Dose: 3.125 mg Dextrose (D50w Vial) 50 ml IV.PUSH UNSCH PRN PRN Reason: PER HYPOGLYCEMIA PROTOCOL Glucagon (Glucagon Inj) 1 mg OTHER PRN PRN PRN Reason: for Hypoglycemia Protocol Heparin Sodium (Porcine) (Heparin Inj) 5,000 units SQ Q12HR [facility] Last Admin: 03/01/18 20:59 Dose: 5,000 units Insulin Aspart (Novolog Insulin Correctional Sugar Inj) 0 unit SQ ACHS [facility]; Protocol Last Admin: 03/01/18 22:19 Dose: Not Given Met[facility] ([facility]) [facility] Last Admin: 03/01/18 17:00 Dose: 500 mg Multivitamins/Minerals (Theragran-M) 1 tab PO DAILY [facility] Ondansetron HCl (Zofran Inj) 4 mg IV.PUSH Q6H PRN PRN Reason: NAUSEA OR VOMITING Ptownmed(Apremilast ([Otezla] 30 Mg)) 0 each PO BID [facility] Allergies Allergy/AdvReac Type Severity Reaction Status Date / Time ciprofloxacin Allergy Severe facial Verified 03/01/18 09:18 swelling levofloxacin Allergy Severe Rash Verified 03/01/18 09:18 aspirin Allergy Intermediate Bleeding Verified 03/01/18 09:18 Home Medications Medication Instructions Recorded Confirmed Type apremilast [Otezla] 30 mg PO BID 11/17/17 03/01/18 History aspirin [Aspir-81] 81 mg PO DAILY 11/17/17 03/01/18 History sizepqmh-drt-DC-lycopen-lutein 1 tab PO DAILY 11/17/17 03/01/18 History [Centrum Silver Men] rosuvastatin 20 mg PO DAILY 11/17/17 03/01/18 History carvedilol 3.125 mg PO BID 03/01/18 03/01/18 History furosemide 40 mg PO BID 03/01/18 03/01/18 History metformin 500 mg PO BID 03/01/18 03/01/18 History Exam Vital signs: Vital Signs 03/01/18 09:16 03/01/18 09:18 03/01/18 11:12 Temperature 97.4 F L Pulse Rate 105 H 100 H Respiratory Rate 24 24 Blood Pressure 161/95 H 169/83 H Pulse Oximetry 94 L 94 L 97 03/01/18 11:37 03/01/18 12:30 03/01/18 14:30 Temperature Pulse Rate 100 H 96 H 94 H Respiratory Rate 18 15 14 Blood Pressure 143/70 H 157/76 H Pulse Oximetry 99 100 98 03/01/18 15:54 03/01/18 16:00 03/01/18 20:00 Temperature 98.9 F Pulse Rate 96 H 91 H 106 H Respiratory Rate 23 18 18 Blood Pressure 156/78 H 146/94 H 138/81 Pulse Oximetry 100 100 98 03/02/18 00:00 03/02/18 03:14 03/02/18 04:00 Temperature 97.8 F 98.2 F Pulse Rate 86 84 87 Respiratory Rate 17 18 Blood Pressure 151/93 H 127/77 Pulse Oximetry 98 97 Intake & Output 03/01/18 03/02/18 03/02/18 18:59 06:59 18:59 Intake Total 250 / 250 480 / 480 Output Total 1650 / 1650 Balance 250 / 250 -1170 / -1170 Weight 992 lb 1.282 oz 442 lb 7.484 oz Intake: Oral 250 / 250 480 / 480 Output: Urine 1650 / 1650 Narrative: GENERAL: Well-developed well-nourished. Super morbid obesity. In no acute distress. NECK: No carotid bruits. No JVD. CARDIOVASCULAR: Regular rate and rhythm. No murmur appreciated. RESPIRATORY: No accessory muscle use. Clear to auscultation. Breath sounds equal bilaterally. MUSCULOSKELETAL: No clubbing or cyanosis. Large lymphedema bilateral lower extremities with chronic skin changes. NEUROLOGICAL: Awake and alert. Normal speech. Results 03/02/18 05:25 03/02/18 05:25 Cardiac Enzymes 03/01/18 03/01/18 03/02/18 Range/Units 11:00 11:00 05:25 AST 24 19 (15-37) U/L Troponin I Less than 0.02 L (0.02-0.05) ng/mL B-Natriuretic Peptide 1029 H (0-100) pg/mL Coagulation 03/01/18 03/01/18 Range/Units 11:00 11:00 PT 12.8 H (9.8-11.6) sec APTT 31.3 H (24.3-30.1) sec B-Natriuretic Peptide 1029 H (0-100) pg/mL CBC 03/01/18 03/02/18 Range/Units 11:00 05:25 WBC 7.8 7.9 (4.0-11.0) th/mm3 RBC 4.10 L 4.14 L (4.50-5.90) mil/mm3 Hgb 12.9 L 13.2 (13.0-17.0) gm/dL Hct 39.4 39.4 (39.0-51.0) % Plt Count 231 215 (150-450) th/mm3 Neut # (Auto) 6.0 6.1 (1.8-7.7) th/mm3 Lymph # (Auto) 0.7 L 0.7 L (1.0-4.8) th/mm3 [place] # (Auto) 0.9 0.9 (0.0-0.9) th/mm3 Eos # (Auto) 0.1 0.2 (0.0-0.4) th/mm3 Baso # (Auto) 0.0 0.0 (0.0-0.2) th/mm3 Comprehensive Metabolic Panel 03/01/18 03/02/18 Range/Units 11:00 05:25 Sodium 128 L 129 L (136-145) meq/L Potassium 4.9 4.9 (3.5-5.1) meq/L Chloride 92 L 94 L (98-107) meq/L Carbon Dioxide 29.6 28.7 (21.0-32.0) meq/L BUN 22 H 23 H (7-18) mg/dL Creatinine 1.20 1.03 (0.60-1.30) mg/dL Calcium 8.1 L 8.1 L (8.5-10.1) mg/dL AST 24 19 (15-37) U/L ALT 24 21 (12-78) U/L Alkaline Phosphatase 155 H 149 H (45-117) U/L Total Protein 7.6 7.8 (6.4-8.2) g/dL Albumin 3.0 L 3.1 L (3.4-5.0) g/dL Intake and Output 03/01/18 03/02/18 03/02/18 22:59 06:59 14:59 Intake Total 250 / 250 480 / 480 Output Total 600 / 600 1050 / 1050 Balance -350 / -350 -570 / -570 Intake: Oral 250 / 250 480 / 480 Output: Urine 600 / 600 1050 / 1050 Other: Weight 442 lb 7.484 oz - Imaging and Cardiology Imaging: Impressions Chest X-Ray 03/01/18 11:12 CONCLUSION: Moderate bibasilar pleural-parenchymal opacities. Assessment and Plan - Plan 63-year-old gentleman with super morbid obesity, HTN, HLD, DM, mild NICM EF 40- 45%, chronic lymphedema, CHF who presented due to several weeks of worsening dyspnea and abdominal distention Acute exacerbation of chronic systolic CHF: We will change Lasix to IV Bumex and monitor response. Consider adding metolazone tomorrow. Monitor renal function, electrolytes, intake and output. Nonischemic cardiomyopathy: Nonobstructive CAD on catheterization earlier this year. Mildly reduced EF at 40-45% on echo in October. Continue carvedilol 3.125 mg, cannot titrate dose due to previous profound bradycardia. Not on ACEI, ARB , aldosterone antagonist due to previous hyperkalemia. Discussed Condition With: Patient, Dr. Elise
[2018-03-02] MEDS: Insulin NovoLOG Aspart Correctional Sugar Inj SQ SCH ×4 (08:55→22:45)
[2018-03-02] MEDS: Multivitamin/Minerals Therapeutic Tablet PO SCH (10:34)
[2018-03-02] MEDS: Heparin - SQ 10,000 UNITS/ML Vial SQ SCH ×2 (10:37→21:58)
--- NOTE | 2018-03-02 13:34 | P.CONURO ---
History of Present Illness Service: Urology Consult date: 03/02/18 Requesting Physician: Lindsay Berg Reason for Consult: Scrotal edema. difficulties with clements placement Primary Care Provider: Tj Osborn MD Chief Complaint: general edema History of Present Illness: 63-year-old gentleman with super morbid obesity, HTN, HLD, DM, mild NICM EF 40- 45%, chronic lymphedema, CHF who presented due to several weeks of worsening dyspnea and abdominal distention. Has been on Lasix 40 mg twice daily, although volume status has been difficult to assess due to body habitus. Patient has refused lymphedema clinic. He does not weigh himself, but feels that his abdomen has grown to where he cannot fit in his shirts over the past few weeks. He has been given IV Lasix here, but states he has not noticed any significant improvement in urine output. Chest x-ray upon admission showed pulmonary edema. He does have generalized edema due to a fluid retention including scrotum and primary team had problems to place clements cath. urology consulted At the time of Urology visit pt sattest that primary team was able to place clements not long ago and drained 1500cc. Urine is clear yellow color. he denies any issues with voiding prior to admission. has never seen a urologist before. no f/c/n/v. Labs are stable Review of Systems All other systems reviewed negative except as stated in HPI [facility] - History History Provided By: Patient, Medical Record - Medical History Medical History: Medical History (Last Updated 03/02/18 @ 07:40 by ESPERANZA Arizmendi) Cardiomyopathy Lymphedema Nonobstructive atherosclerosis of coronary artery CHF (congestive heart failure) HTN (hypertension) - Surgical History Surgical History: Surgical History (Last Reviewed 03/01/18 @ 12:04 by ESPERANZA Moya) H/O total knee replacement History of colon surgery Hx of cholecystectomy - Family History Family History: Family History (Last Updated 03/01/18 @ 18:15 by Cesario Wei MD) Other Osteoarthritis - Tobacco History Second Hand Smoke Exposure: No Smoking Status: Former smoker Tobacco Type: Cigarettes - Alcohol History How Often Do You Have a Drink Containing Alcohol: Never - Substance Use History Substance History: No History of Abuse - Travel History Recent Travel in the [place] Within the Last 8 Weeks: No Recent Travel Out of the Country Within the Last 8 Weeks: No - Immunization History Tetanus Immunization: Unsure Medications and Allergies Active Medications: Active Medications Al Hydroxide/Mg Hydroxide (Milk Of Erma Chadwick) 30 ml PO Q12H PRN PRN Reason: Mild Constipation Aspirin (Ecotrin) 81 mg PO DAILY [facility] Last Admin: 03/02/18 10:34 Dose: 81 mg Atorvastatin Calcium (Lipitor) 40 mg PO DAILY [facility] Last Admin: 03/02/18 10:34 Dose: 40 mg Bumetanide (Bumex Inj) 1 mg IV.PUSH BID@0900,1800 [facility] Last Admin: 03/02/18 10:35 Dose: 1 mg Carvedilol (Coreg) 3.125 mg PO BID [facility] Last Admin: 03/02/18 10:34 Dose: 3.125 mg Dextrose (D50w Vial) 50 ml IV.PUSH UNSCH PRN PRN Reason: PER HYPOGLYCEMIA PROTOCOL Glucagon (Glucagon Inj) 1 mg OTHER PRN PRN PRN Reason: for Hypoglycemia Protocol Heparin Sodium (Porcine) (Heparin Inj) 5,000 units SQ Q12HR [facility] Last Admin: 03/02/18 10:37 Dose: 5,000 units Insulin Aspart (Novolog Insulin Correctional Sugar Inj) 0 unit SQ ACHS [facility]; Protocol Last Admin: 03/02/18 12:02 Dose: Not Given [facility] Last Admin: 03/02/18 10:34 Dose: 500 mg Multivitamins/Minerals (Theragran-M) 1 tab PO DAILY [facility] Last Admin: 03/02/18 10:34 Dose: 1 tab Ondansetron HCl (Zofran Inj) 4 mg IV.PUSH Q6H PRN PRN Reason: NAUSEA OR VOMITING Ptownmed(Apremilast ([Otezla] 30 Mg)) 0 each PO BID [facility] Tamsulosin HCl (Flomax) 0.4 mg PO DAILY [facility] Last Admin: 03/02/18 13:11 Dose: 0.4 mg Allergies Allergy/AdvReac Type Severity Reaction Status Date / Time ciprofloxacin Allergy Severe facial Verified 03/01/18 09:18 swelling levofloxacin Allergy Severe Rash Verified 03/01/18 09:18 aspirin Allergy Intermediate Bleeding Verified 03/01/18 09:18 Home Medications Medication Instructions Recorded Confirmed Type apremilast [Otezla] 30 mg PO BID 11/17/17 03/01/18 History aspirin [Aspir-81] 81 mg PO DAILY 11/17/17 03/01/18 History qrcjtkxe-vvd-HF-lycopen-lutein 1 tab PO DAILY 11/17/17 03/01/18 History [Centrum Silver Men] rosuvastatin 20 mg PO DAILY 11/17/17 03/01/18 History carvedilol 3.125 mg PO BID 03/01/18 03/01/18 History furosemide 40 mg PO BID 03/01/18 03/01/18 History metformin 500 mg PO BID 03/01/18 03/01/18 History Physical Exam Vital Signs - 24 hr 03/01/18 14:30 03/01/18 15:54 03/01/18 16:00 Temperature 98.9 F Pulse Rate 94 H 96 H 91 H Respiratory Rate 14 23 18 Blood Pressure 157/76 H 156/78 H 146/94 H Pulse Oximetry 98 100 100 03/01/18 20:00 03/02/18 00:00 03/02/18 03:14 Temperature 97.8 F Pulse Rate 106 H 86 84 Respiratory Rate 18 17 Blood Pressure 138/81 151/93 H Pulse Oximetry 98 98 03/02/18 04:00 03/02/18 08:10 03/02/18 08:21 Temperature 98.2 F 98.0 F Pulse Rate 87 95 H Respiratory Rate 18 16 Blood Pressure 127/77 120/98 H Pulse Oximetry 97 98 100 03/02/18 08:31 Temperature 97.9 F Pulse Rate 53 L Respiratory Rate 16 Blood Pressure 193/81 H Pulse Oximetry 96 Physical Exam: GENERAL: This is a well-nourished, well-developed patient, in no apparent distress.Obese HEAD: Atraumatic. Normocephalic. CARDIOVASCULAR: Regular rate and rhythm without murmurs, gallops, or rubs. RESPIRATORY: Clear to auscultation. Breath sounds equal bilaterally. No wheezes , rales, or rhonchi. GASTROINTESTINAL: Abdomen soft, non-tender, distended GENITOURINARY: mod to severe scrotal/genital edema. Clements is in place MUSCULOSKELETAL: + large lymphedema NEUROLOGICAL: Awake and alert. Laboratory Results - last 24 hr 03/01/18 03/01/18 03/02/18 16:18 20:57 05:25 WBC 7.9 RBC 4.14 L Hgb 13.2 Hct 39.4 MCV 95.1 MCH 31.8 MCHC 33.5 RDW 15.4 Plt Count 215 MPV 6.7 L Neut % (Auto) 77.2 H Lymph % (Auto) 8.9 L [place] % (Auto) 11.0 H Eos % (Auto) 2.4 Baso % (Auto) 0.5 Neut # (Auto) 6.1 Lymph # (Auto) 0.7 L [place] # (Auto) 0.9 Eos # (Auto) 0.2 Baso # (Auto) 0.0 WBC Differential . Differential Comment Auto diff final Sodium Potassium Chloride Carbon Dioxide Anion Gap BUN Creatinine Estimated GFR POC Glucose 123 H 145 H Random Glucose Calcium Total Bilirubin AST ALT Alkaline Phosphatase Total Protein Albumin 03/02/18 03/02/18 03/02/18 05:25 08:07 11:57 WBC RBC Hgb Hct MCV MCH MCHC RDW Plt Count MPV Neut % (Auto) Lymph % (Auto) [place] % (Auto) Eos % (Auto) Baso % (Auto) Neut # (Auto) Lymph # (Auto) [place] # (Auto) Eos # (Auto) Baso # (Auto) WBC Differential Differential Comment Sodium 129 L Potassium 4.9 Chloride 94 L Carbon Dioxide 28.7 Anion Gap 6 BUN 23 H Creatinine 1.03 Estimated GFR 72 L POC Glucose 108 141 H Random Glucose 116 H Calcium 8.1 L Total Bilirubin 1.1 H AST 19 ALT 21 Alkaline Phosphatase 149 H Total Protein 7.8 Albumin 3.1 L Microbiology 03/01/18 11:15 Aerobic Blood Culture - Preliminary Blood - Peripheral No growth in 1 day Anaerobic Blood Culture - Preliminary No growth in 1 day 03/01/18 11:00 Aerobic Blood Culture - Preliminary Blood - Peripheral No growth in 1 day Anaerobic Blood Culture - Preliminary No growth in 1 day Result Diagrams: 03/02/18 05:25 03/02/18 05:25 Imaging: ITS Impressions Chest X-Ray 03/01/18 11:12 CONCLUSION: Moderate bibasilar pleural-parenchymal opacities. Assessment and Plan - Plan 63y.o m with history as per HPI - No additional intervention needed Clements is in place. - Continue care as per primary team - Flomax daily - Keep clements as long as needed to monitor I&O - Scrotal elevation/support for edema Pt to f/u with Urology after d/c if still has issues with voiding Discussed Condition With: Dr Destinee DIAZ attending
--- NOTE | 2018-03-02 15:00 | P.PN ---
Subjective Interval history: Follow-up of patient with CHF exacerbation. Patient seen and examined. Patient states he has been unable to urinate since sometime last night. He denies any sensation to void/urgency. Patient states he would occasionally have frequent urination with smaller volumes at home. He has persistent shortness of breath. He denies any complaints of chest pain. He states his swelling is unchanged since admission. Discussed with nursing staff, multiple attempts have been made to Place Mauricio catheter without any success. Physical Exam Vital signs: Vital Signs 03/01/18 15:54 03/01/18 16:00 03/01/18 20:00 Temperature 98.9 F Pulse Rate 96 H 91 H 106 H Respiratory Rate 23 18 18 Blood Pressure 156/78 H 146/94 H 138/81 Pulse Oximetry 100 100 98 03/02/18 00:00 03/02/18 03:14 03/02/18 04:00 Temperature 97.8 F 98.2 F Pulse Rate 86 84 87 Respiratory Rate 17 18 Blood Pressure 151/93 H 127/77 Pulse Oximetry 98 97 03/02/18 08:00 03/02/18 08:10 03/02/18 08:21 Temperature 98.0 F Pulse Rate 95 H Respiratory Rate 18 16 Blood Pressure 120/98 H Pulse Oximetry 98 100 03/02/18 08:31 03/02/18 12:00 Temperature 97.9 F 98.4 F Pulse Rate 53 L 89 Respiratory Rate 16 20 Blood Pressure 193/81 H 155/87 H Pulse Oximetry 96 98 Intake & Output 03/01/18 03/02/18 03/02/18 18:59 06:59 18:59 Intake Total 250 / 250 480 / 480 Output Total 1650 / 1650 1300 / 1300 Balance 250 / 250 -1170 / -1170 -1300 / -1300 Weight 450 kg 200.7 kg Intake: Oral 250 / 250 480 / 480 Output: Urine 1650 / 1650 Urine Amount (Catheter) 1300 / 1300 Indwelling Urethral Catheter 1300 / 1300 Narrative: GENERAL: Morbidly obese male patient, INAD. Awake and alert. SKIN: Warm and dry. + Anasarca with pitting edema extending up into patients back and abdomen HEENT: Atraumatic. Normocephalic. Pupils equal and round. No scleral icterus. No injection or drainage. No nasal bleeding or discharge. Mucous membranes pink and moist. NECK: Trachea midline. CARDIOVASCULAR: Regular rate and rhythm. No murmur appreciated. RESPIRATORY: No accessory muscle use. Difficult to auscultate secondary to patient's body habitus. GASTROINTESTINAL: Abdomen soft, non-tender, nondistended. MUSCULOSKELETAL: Significant bilateral lower extremity lymphedema with chronic venous stasis skin changes. GENITOURINARY: Severe scrotal edema NEUROLOGICAL: Awake and alert. No obvious cranial nerve deficits. Motor grossly within normal limits. Five out of 5 muscle strength in the arms and legs. Normal speech. PSYCHIATRIC: Appropriate mood and affect; insight and judgment normal. - Urinary Catheter Management Indwelling Urethral Catheter Cath placed during this visit: yes Reason for continuing: Acute urinary retention Insertion date: 03/02/18 Insertion time: 12:30 Results - Labs CBC & Chem 7: 03/02/18 05:25 03/02/18 05:25 Laboratory Results - last 24 hr 03/01/18 03/01/18 03/02/18 16:18 20:57 05:25 WBC 7.9 RBC 4.14 L Hgb 13.2 Hct 39.4 MCV 95.1 MCH 31.8 MCHC 33.5 RDW 15.4 Plt Count 215 MPV 6.7 L Neut % (Auto) 77.2 H Lymph % (Auto) 8.9 L [place] % (Auto) 11.0 H Eos % (Auto) 2.4 Baso % (Auto) 0.5 Neut # (Auto) 6.1 Lymph # (Auto) 0.7 L [place] # (Auto) 0.9 Eos # (Auto) 0.2 Baso # (Auto) 0.0 WBC Differential . Differential Comment Auto diff final Sodium Potassium Chloride Carbon Dioxide Anion Gap BUN Creatinine Estimated GFR POC Glucose 123 H 145 H Random Glucose Calcium Total Bilirubin AST ALT Alkaline Phosphatase Total Protein Albumin 03/02/18 03/02/18 03/02/18 05:25 08:07 11:57 WBC RBC Hgb Hct MCV MCH MCHC RDW Plt Count MPV Neut % (Auto) Lymph % (Auto) [place] % (Auto) Eos % (Auto) Baso % (Auto) Neut # (Auto) Lymph # (Auto) [place] # (Auto) Eos # (Auto) Baso # (Auto) WBC Differential Differential Comment Sodium 129 L Potassium 4.9 Chloride 94 L Carbon Dioxide 28.7 Anion Gap 6 BUN 23 H Creatinine 1.03 Estimated GFR 72 L POC Glucose 108 141 H Random Glucose 116 H Calcium 8.1 L Total Bilirubin 1.1 H AST 19 ALT 21 Alkaline Phosphatase 149 H Total Protein 7.8 Albumin 3.1 L Microbiology 03/01/18 11:15 Blood - Peripheral Aerobic Blood Culture - Preliminary No growth in 1 day 03/01/18 11:15 Blood - Peripheral Anaerobic Blood Culture - Preliminary No growth in 1 day 03/01/18 11:00 Blood - Peripheral Aerobic Blood Culture - Preliminary No growth in 1 day 03/01/18 11:00 Blood - Peripheral Anaerobic Blood Culture - Preliminary No growth in 1 day Assessment and Plan - Assessment (1) Systolic CHF Code(s): I50.20 - Unspecified systolic (congestive) heart failure Status: Acute (2) CHF (congestive heart failure), NYHA class III Code(s): I50.9 - Heart failure, unspecified Status: Acute (3) CHF exacerbation Code(s): I50.9 - Heart failure, unspecified Status: Acute - Plan 63-year-old male admitted secondary to CHF exacerbation Acute on Chronic CHF exacerbation Anasarca Nonischemic cardiomyopathy Evaluated by cardiology, appreciate assistance. Changed to IV Bumex. Consider addition of metolazone tomorrow. Continue IV diuresis Monitor I's and O's Monitor renal function Oxygen as needed Follow clinically for improvement Follow on chief information officer electrolytes Echocardiogram pending Continue on Coreg. Per cardiology, unable to titrate dose up secondary profound bradycardia. Also not on ACEI, ARB, aldosterone antagonist due to previous hyperkalemia. Urinary retention This is related to edema Place Mauricio catheter -multiple unsuccessful attempts. Consult urology for Mauricio placement, appreciate assistance Begin p.o. Flomax Monitor I's and O's Void trial once edema improves Hypertension Continue baseline treatment Follow blood pressures Adjust treatments as needed Hyponatremia, asymptomatic Secondary to fluid overload Fluid restrictions Monitor sodium level Diabetes mellitus type 2 Follow blood sugars Insulin sliding scale Diabetic diet Continue baseline metformin for now DVT prophylaxis Heparin Code Status: Full Discussed Condition With: patient, nursing staff, Dr. Hernadez Discharge Planning: Discharge pending clinical improvement, cardiac clearance. (2) CHF (congestive heart failure), NYHA class III Qualifiers: (3) CHF exacerbation Qualifiers: Qualified Code(s): I50.9 - Heart failure, unspecified
--- NOTE | 2018-03-02 18:55 | ECHRPT ---
Indication: CARDIOMYOPATHY CONCLUSIONS Very technically difficult study Mildly dilated left ventricle. In limited views, the left ventricular systolic function is severely reduced with an estimated eject ion fraction less than 20%. Mild concentric left ventricular hypertrophy. The right ventricle is moderately dilated. The right ventricular systoilc function is moderately decreased. There is mild tricuspid valve regurgitation. BP: / HR: Rhythm: Sinus MEASUREMENTS (Male / Female) Normal Values Technical Quality:Very technically difficult study 2D ECHO LV Diastolic Diameter PLAX 6.5 cm 4.2 - 5.9 / 3.9 - 5.3 cm LV Systolic Diameter PLAX 6.0 cm IVS Diastolic Thickness 1.2 cm 0.6 - 1.0 / 0.6 - 0.9 cm LVPW Diastolic Thickness 1.2 cm 0.6 - 1.0 / 0.6 - 0.9 cm LV Relative Wall Thickness 0.4 RV Internal Dim ED PLAX 3.6 cm LVOT Diameter 2.6 cm Aortic Root Diameter 3.5 cm LA Systolic Diameter LX 4.0 cm 3.0 - 4.0 / 2.7 - 3.8 cm DOPPLER AV Peak Velocity 95.1 cm/s AV Peak Gradient 3.6 mmHg AV Mean Gradient 3.0 mmHg AV Velocity Time Integral 17.3 cm LVOT Peak Velocity 75.9 cm/s LVOT Peak Gradient 2.3 mmHg LVOT Velocity Time Integral 14.2 cm AV Area Cont Eq vti 4.4 cm AV Area Cont Eq pk 4.2 cm Mitral E Point Velocity 74.5 cm/s Mitral A Point Velocity 3.7 cm/s Mitral E to A Ratio 20.1 LV E' Lateral Velocity 8.4 cm/s Mitral E to LV E' Lateral Ratio 8.9 LV E' Septal Velocity 6.9 cm/s Mitral E to LV E' Septal Ratio 10.8 TR Peak Velocity 316.0 cm/s TR Peak Gradient 39.9 mmHg Right Atrial Pressure 10.0 mmHg Pulmonary Artery Systolic Pressu 49.9 mmHg Right Ventricular Systolic Press 49.9 mmHg PV Peak Velocity 49.6 cm/s PV Peak Gradient 1.0 mmHg FINDINGS LEFT VENTRICLE Mildly dilated left ventricle. Mild concentric left ventricular hypertrophy. In limited views, the left ventricular systolic function is severely reduced with an estimated eject ion fraction less than 20%. There was limited left ventricular wall motion assessment due to poor endocardial visualization. RIGHT VENTRICLE The right ventricle is moderately dilated. The right ventricular systoilc function is moderately decreased. LEFT ATRIUM The left atrial size is mildly dilated. RIGHT ATRIUM The right atrium is not well visualized. ATRIAL SEPTUM The interatrial septum not well visualized. AORTA The aortic root and proximal ascending aorta are not well visualized. MITRAL VALVE Grossly normal No mitral valve stenosis. No mitral valve regurgitation. AORTIC VALVE Trileaflet aortic valve. No aortic valve stenosis or regurgitation. TRICUSPID VALVE Grossly normal There is mild tricuspid valve regurgitation. PULMONARY VALVE The pulmonary valve is not well visualized. VESSELS The inferior vena cava was not well visualized. PERICARDIUM No pericardial effusion. Kevin Sims DO (Electronically Signed) Final Date:02 March 2018 18:54
--- NOTE | 2018-03-03 07:27 | P.PN ---
Subjective Interval history: Follow-up on patient with CHF exacerbation. Patient seen and examined. Patient states he thinks that he has urinated 2 L since the Clements was placed. He denies any improvement in his breathing. He denies any improvement in his overall swelling. He denies any complaints of chest pain. Denies any nausea, vomiting or abdominal pain. He is asking if he can be moved to the bedside recliner as he is having increased back pain lying in bed. Physical Exam Vital signs: Vital Signs 03/02/18 08:00 03/02/18 08:10 03/02/18 08:21 Temperature 98.0 F Pulse Rate 95 H Respiratory Rate 18 16 Blood Pressure 120/98 H Pulse Oximetry 98 100 03/02/18 08:31 03/02/18 09:00 03/02/18 12:00 Temperature 97.9 F 98.4 F Pulse Rate 53 L 94 H 89 Respiratory Rate 16 20 Blood Pressure 193/81 H 155/87 H Pulse Oximetry 96 98 03/02/18 16:14 03/02/18 20:00 03/02/18 22:19 Temperature 98.0 F 98.5 F Pulse Rate 95 H 105 H Respiratory Rate 20 18 Blood Pressure 170/79 H 119/78 Pulse Oximetry 96 95 95 03/03/18 00:00 Temperature 98.2 F Pulse Rate 89 Respiratory Rate 18 Blood Pressure 122/75 Pulse Oximetry 93 L Intake & Output 03/02/18 03/03/18 03/03/18 18:59 06:59 18:59 Intake Total 240 / 240 Output Total 1300 / 1300 800 / 800 475 / 475 Balance -1300 / -1300 -800 / -800 -235 / -235 Intake: Oral 240 / 240 Output: Urine 475 / 475 Urine Amount (Catheter) 1300 / 1300 800 / 800 Indwelling Urethral Catheter 1300 / 1300 800 / 800 Narrative: GENERAL: Morbidly obese male patient, INAD. Awake and alert. Sitting up in bed. SKIN: Warm and dry. + Anasarca with pitting edema extending up into patients back and abdomen. HEENT: Atraumatic. Normocephalic. Pupils equal and round. No scleral icterus. No injection or drainage. No nasal bleeding or discharge. Mucous membranes pink and moist. NECK: Trachea midline. CARDIOVASCULAR: Regular rate and rhythm. No murmur appreciated. RESPIRATORY: No accessory muscle use. Difficult to auscultate secondary to patient's body habitus. GASTROINTESTINAL: Abdomen soft, non-tender, nondistended. GENITOURINARY: +clements catheter in place with bloody urine in bag. MUSCULOSKELETAL: Significant bilateral lower extremity lymphedema with chronic venous stasis skin changes. GENITOURINARY: Severe scrotal edema NEUROLOGICAL: Awake and alert. No obvious cranial nerve deficits. Able to move all extremities spontaneously. Normal speech. PSYCHIATRIC: Appropriate mood and affect. Normal judgment and insight. - Urinary Catheter Management Indwelling Urethral Catheter Cath placed during this visit: yes Reason for continuing: Acute urinary retention Insertion date: 03/02/18 Insertion time: 12:30 Results - Labs CBC & Chem 7: 03/02/18 05:25 03/02/18 05:25 Laboratory Results - last 24 hr 03/02/18 03/02/18 03/02/18 08:07 11:57 17:18 POC Glucose 108 141 H 131 H 03/02/18 21:21 POC Glucose 129 H Microbiology 03/01/18 11:15 Blood - Peripheral Aerobic Blood Culture - Preliminary No growth in 1 day 03/01/18 11:15 Blood - Peripheral Anaerobic Blood Culture - Preliminary No growth in 1 day 03/01/18 11:00 Blood - Peripheral Aerobic Blood Culture - Preliminary No growth in 1 day 03/01/18 11:00 Blood - Peripheral Anaerobic Blood Culture - Preliminary No growth in 1 day Assessment and Plan - Assessment (1) Systolic CHF Code(s): I50.20 - Unspecified systolic (congestive) heart failure Status: Acute (2) CHF (congestive heart failure), NYHA class III Code(s): I50.9 - Heart failure, unspecified Status: Acute (3) CHF exacerbation Code(s): I50.9 - Heart failure, unspecified Status: Acute - Plan 63-year-old male admitted secondary to CHF exacerbation Acute on Chronic CHF exacerbation Anasarca Nonischemic cardiomyopathy Evaluated by cardiology, appreciate assistance. Changed to IV Bumex. 03/03 Started on metolazone 5 mg daily. Continue IV diuresis Monitor I's and O's Monitor renal function Oxygen as needed Follow clinically for improvement Follow on vp [employer] [place] electrolytes Echocardiogram shows further reduction in EF which is now less than 20% (was 40- 45% in October) Continue on Coreg. Per cardiology, unable to titrate dose up secondary profound bradycardia in the past. Cardiology increased dose of Coreg to 6.25 mg twice daily. Will monitor heart rate closely. Also not on ACEI, ARB, aldosterone antagonist due to previous hyperkalemia. Urinary retention This is related to edema Evaluated by urology, appreciate assistance Continue on Clements catheter Continue p.o. Flomax Monitor I's and O's Void trial once edema improves Hypertension Continue baseline treatment Follow blood pressures Adjust treatments as needed Hyponatremia, asymptomatic Secondary to fluid overload Fluid restrictions Monitor sodium level - repeat labs pending for today Diabetes mellitus type 2 Follow blood sugars Insulin sliding scale Diabetic diet Continue baseline metformin for now VALENTINE, refuses CPAP Suspected obesity hypoventilation syndrome Monitor respiratory status Morbid obesity BMI 60 Past importance of lifestyle modification, weight loss program, regular exercise program DVT prophylaxis Heparin Code Status: Full Discussed Condition With: patient, nursing staff, Dr. Hernadez Discharge Planning: Discharge pending clinical improvement, cardiac clearance. (2) CHF (congestive heart failure), NYHA class III Qualifiers: (3) CHF exacerbation Qualifiers: Heart failure type: unspecified Qualified Code(s): I50.9 - Heart failure, unspecified
--- NOTE | 2018-03-03 08:02 | P.PNCA ---
Subjective Interval history: patient reports difficulty urinating for several weeks due to scrotal swelling. Clements catheter placed yesterday with -2L measured output. Continues to feel SOB with orthopnea. No chest pain. telemetry shows 3-4 beats of NSVT last night. Medications and Allergies Allergies Allergy/AdvReac Type Severity Reaction Status Date / Time ciprofloxacin Allergy Severe facial Verified 03/01/18 09:18 swelling levofloxacin Allergy Severe Rash Verified 03/01/18 09:18 aspirin Allergy Intermediate Bleeding Verified 03/01/18 09:18 Home Medications Medication Instructions Recorded Confirmed Type apremilast [Otezla] 30 mg PO BID 11/17/17 03/01/18 History aspirin [Aspir-81] 81 mg PO DAILY 11/17/17 03/01/18 History [id number]-[id number]-UF-lycopen-lutein 1 tab PO DAILY 11/17/17 03/01/18 History [Centrum Silver Men] rosuvastatin 20 mg PO DAILY 11/17/17 03/01/18 History carvedilol 3.125 mg PO BID 03/01/18 03/01/18 History furosemide 40 mg PO BID 03/01/18 03/01/18 History metformin 500 mg PO BID 03/01/18 03/01/18 History Active Medications: Active Medications Al Hydroxide/Mg Hydroxide (Milk Of Magnjenna Liq) 30 ml PO Q12H PRN PRN Reason: Mild Constipation Aspirin (Ecotrin) 81 mg PO DAILY [facility] Last Admin: 03/02/18 10:34 Dose: 81 mg Atorvastatin Calcium (Lipitor) 40 mg PO DAILY [facility] Last Admin: 03/02/18 10:34 Dose: 40 mg Bumetanide (Bumex Inj) 1 mg IV.PUSH BID@0900,1800 [facility] Last Admin: 03/02/18 18:09 Dose: 1 mg Carvedilol (Coreg) 3.125 mg PO BID [facility] Last Admin: 03/02/18 21:58 Dose: 3.125 mg Dextrose (D50w Vial) 50 ml IV.PUSH UNSCH PRN PRN Reason: PER HYPOGLYCEMIA PROTOCOL Glucagon (Glucagon Inj) 1 mg OTHER PRN PRN PRN Reason: for Hypoglycemia Protocol Heparin Sodium (Porcine) (Heparin Inj) 5,000 units SQ Q12HR [facility] Last Admin: 03/02/18 21:58 Dose: 5,000 units Insulin Aspart (Novolog Insulin Correctional Sugar Inj) 0 unit SQ ACHS [facility]; Protocol Last Admin: 03/02/18 22:45 Dose: Not Given [facility] Admin: 03/02/18 18:09 Dose: 500 mg Multivitamins/Minerals (Theragran-M) 1 tab PO DAILY [facility] Last Admin: 03/02/18 10:34 Dose: 1 tab Ondansetron HCl (Zofran Inj) 4 mg IV.PUSH Q6H PRN PRN Reason: NAUSEA OR VOMITING Ptownmed(Apremilast ([Otezla] 30 Mg)) 0 each PO BID [facility] Tamsulosin HCl (Flomax) 0.4 mg PO DAILY [facility] Last Admin: 03/02/18 13:11 Dose: 0.4 mg Physical Exam Vital signs: Vital Signs 03/02/18 08:00 03/02/18 08:10 03/02/18 08:21 Temperature 98.0 F Pulse Rate 95 H Respiratory Rate 18 16 Blood Pressure 120/98 H Pulse Oximetry 98 100 03/02/18 08:31 03/02/18 09:00 03/02/18 12:00 Temperature 97.9 F 98.4 F Pulse Rate 53 L 94 H 89 Respiratory Rate 16 20 Blood Pressure 193/81 H 155/87 H Pulse Oximetry 96 98 03/02/18 16:14 03/02/18 20:00 03/02/18 22:19 Temperature 98.0 F 98.5 F Pulse Rate 95 H 105 H Respiratory Rate 20 18 Blood Pressure 170/79 H 119/78 Pulse Oximetry 96 95 95 03/03/18 00:00 Temperature 98.2 F Pulse Rate 89 Respiratory Rate 18 Blood Pressure 122/75 Pulse Oximetry 93 L Intake & Output 03/02/18 03/03/18 03/03/18 18:59 06:59 18:59 Intake Total 240 / 240 Output Total 1300 / 1300 800 / 800 475 / 475 Balance -1300 / -1300 -800 / -800 -235 / -235 Intake: Oral 240 / 240 Output: Urine 475 / 475 Urine Amount (Catheter) 1300 / 1300 800 / 800 Indwelling Urethral Catheter 1300 / 1300 800 / 800 Narrative: GENERAL: Morbidly obese male patient, INAD. Awake and alert. SKIN: Warm and dry. + Anasarca with pitting edema extending up into patients back and abdomen HEENT: Atraumatic. Normocephalic. Pupils equal and round. No scleral icterus. No injection or drainage. No nasal bleeding or discharge. Mucous membranes pink and moist. NECK: Trachea midline. CARDIOVASCULAR: Regular rate and rhythm. No murmur appreciated. RESPIRATORY: No accessory muscle use. Difficult to auscultate secondary to patient's body habitus. GASTROINTESTINAL: Abdomen soft, non-tender, nondistended. MUSCULOSKELETAL: Significant bilateral lower extremity lymphedema with chronic venous stasis skin changes. GENITOURINARY: Severe scrotal edema NEUROLOGICAL: Awake and alert. No obvious cranial nerve deficits. Motor grossly within normal limits. Five out of 5 muscle strength in the arms and legs. Normal speech. - Urinary Catheter Management Indwelling Urethral Catheter Cath placed during this visit: yes Reason for continuing: Acute urinary retention Insertion date: 03/02/18 Insertion time: 12:30 Results 03/02/18 05:25 03/02/18 05:25 Cardiac Enzymes 03/01/18 03/01/18 03/02/18 Range/Units 11:00 11:00 05:25 AST 24 19 (15-37) U/L Troponin I Less than 0.02 L (0.02-0.05) ng/mL B-Natriuretic Peptide 1029 H (0-100) pg/mL Coagulation 03/01/18 03/01/18 Range/Units 11:00 11:00 PT 12.8 H (9.8-11.6) sec APTT 31.3 H (24.3-30.1) sec B-Natriuretic Peptide 1029 H (0-100) pg/mL CBC 03/01/18 03/02/18 Range/Units 11:00 05:25 WBC 7.8 7.9 (4.0-11.0) th/mm3 RBC 4.10 L 4.14 L (4.50-5.90) mil/mm3 Hgb 12.9 L 13.2 (13.0-17.0) gm/dL Hct 39.4 39.4 (39.0-51.0) % Plt Count 231 215 (150-450) th/mm3 Neut # (Auto) 6.0 6.1 (1.8-7.7) th/mm3 Lymph # (Auto) 0.7 L 0.7 L (1.0-4.8) th/mm3 [place] # (Auto) 0.9 0.9 (0.0-0.9) th/mm3 Eos # (Auto) 0.1 0.2 (0.0-0.4) th/mm3 Baso # (Auto) 0.0 0.0 (0.0-0.2) th/mm3 Comprehensive Metabolic Panel 03/01/18 03/02/18 Range/Units 11:00 05:25 Sodium 128 L 129 L (136-145) meq/L Potassium 4.9 4.9 (3.5-5.1) meq/L Chloride 92 L 94 L (98-107) meq/L Carbon Dioxide 29.6 28.7 (21.0-32.0) meq/L BUN 22 H 23 H (7-18) mg/dL Creatinine 1.20 1.03 (0.60-1.30) mg/dL Calcium 8.1 L 8.1 L (8.5-10.1) mg/dL AST 24 19 (15-37) U/L ALT 24 21 (12-78) U/L Alkaline Phosphatase 155 H 149 H (45-117) U/L Total Protein 7.6 7.8 (6.4-8.2) g/dL Albumin 3.0 L 3.1 L (3.4-5.0) g/dL Intake and Output 03/02/18 03/03/18 03/03/18 22:59 06:59 14:59 Intake Total 240 / 240 Output Total 800 / 800 475 / 475 Balance -800 / -800 -235 / -235 Intake: Oral 240 / 240 Output: Urine 475 / 475 Urine Amount (Catheter) 800 / 800 Indwelling Urethral Catheter 800 / 800 - Imaging and Cardiology Imaging: Impressions Chest X-Ray 03/01/18 11:12 CONCLUSION: Moderate bibasilar pleural-parenchymal opacities. Assessment and Plan - Plan 63-year-old gentleman with super morbid obesity, HTN, HLD, DM, mild NICM EF 40- 45%, chronic lymphedema, CHF who presented due to several weeks of worsening dyspnea and abdominal distention. no chest pain Acute exacerbation of chronic systolic CHF: Has had urinary retention for several weeks due to scrotal swelling/lymphedema. Clements in place with -2L output. echo shows reduced EF now <20% (was 40-45% in October). consider metolazone. morning labs pending. Nonischemic cardiomyopathy: Nonobstructive CAD on catheterization earlier this year. Mildly reduced EF at 40-45% on echo in October. Continue carvedilol 3.125 mg, cannot titrate dose due to previous profound bradycardia. Not on ACEI, ARB , aldosterone antagonist due to previous hyperkalemia. - Attending Attestation Patient seen and examined. Severe VALENTINE and refuses CPAP ADHF, systolic NICM EF 20% by new echo Super morbid obesity Urinary retention, s/p clements catheter CAD, nonobstructive HLD Rec: continue current diuresis with Bumex 1mg iv bid. Start Metolazone 5mg daily. continue Aspirin, atorvastatin, carvedilol will increase to 6.25mg bid while monitoring on tele, previously had severe bradycardia Cannot use DWAYNE-I, ARB, or Spironolactone due to severe hyperkalemia in past on these meds.
[2018-03-03] MEDS: Carvedilol 6.25 MG Tablet PO SCH ×2 (09:15→20:58)
[2018-03-03] MEDS: Multivitamin/Minerals Therapeutic Tablet PO SCH (09:15)
[2018-03-03] MEDS: Insulin NovoLOG Aspart Correctional Sugar Inj SQ SCH ×4 (10:05→20:58)
[2018-03-03] MEDS: Heparin - SQ 10,000 UNITS/ML Vial SQ SCH ×2 (10:07→20:58)
[2018-03-03] MEDS: metOLazone 5 MG Tablet PO SCH (10:08)
[2018-03-03 10:48] LABS: Calcium 8.4 mg/dL (8.5-10.1); Carbon Dioxide 32.9 meq/L (21.0-32.0); Potassium 4.7 meq/L (3.5-5.1)
[2018-03-04] MEDS: Insulin NovoLOG Aspart Correctional Sugar Inj SQ SCH ×4 (07:26→20:32)
--- NOTE | 2018-03-04 08:12 | P.PNCA ---
Subjective Interval history: Breathing a little better today, but not back to baseline. -1100 fluid balance overnight. Patient denies any lightheadedness, dizziness, or feeling like he was going to pass out. Telemetry with some bradycardia into the 40s overnight with PVCs and APCs with compensatory pauses. Also with episodes of AIVR. Was retrialed on Carvedilol yesterday. Medications and Allergies Allergies Allergy/AdvReac Type Severity Reaction Status Date / Time ciprofloxacin Allergy Severe facial Verified 03/01/18 09:18 swelling levofloxacin Allergy Severe Rash Verified 03/01/18 09:18 aspirin Allergy Intermediate Bleeding Verified 03/01/18 09:18 Home Medications Medication Instructions Recorded Confirmed Type apremilast [Otezla] 30 mg PO BID 11/17/17 03/01/18 History aspirin [Aspir-81] 81 mg PO DAILY 11/17/17 03/01/18 History [id number]-AG-lycopen-lutein 1 tab PO DAILY 11/17/17 03/01/18 History [Centrum Silver Men] rosuvastatin 20 mg PO DAILY 11/17/17 03/01/18 History carvedilol 3.125 mg PO BID 03/01/18 03/01/18 History furosemide 40 mg PO BID 03/01/18 03/01/18 History metformin 500 mg PO BID 03/01/18 03/01/18 History Active Medications: Active Medications Al Hydroxide/Mg Hydroxide (Milk Of Magnjenna Liq) 30 ml PO Q12H PRN PRN Reason: Mild Constipation Aspirin (Ecotrin) 81 mg PO DAILY [facility] Last Admin: 03/03/18 09:15 Dose: 81 mg Atorvastatin Calcium (Lipitor) 40 mg PO DAILY [facility] Last Admin: 03/03/18 09:15 Dose: 40 mg Bumetanide (Bumex Inj) 1 mg IV.PUSH BID@0900,1800 [facility] Last Admin: 03/03/18 17:35 Dose: 1 mg Carvedilol (Coreg) 6.25 mg PO BID [facility] Last Admin: 03/03/18 20:58 Dose: 6.25 mg Dextrose (D50w Vial) 50 ml IV.PUSH UNSCH PRN PRN Reason: PER HYPOGLYCEMIA PROTOCOL Glucagon (Glucagon Inj) 1 mg OTHER PRN PRN PRN Reason: for Hypoglycemia Protocol Heparin Sodium (Porcine) (Heparin Inj) 5,000 units SQ Q12HR [facility] Last Admin: 03/03/18 20:58 Dose: 5,000 units Insulin Aspart (Novolog Insulin Correctional Sugar Inj) 0 unit SQ ACHS [facility]; Protocol Last Admin: 03/04/18 07:26 Dose: Not Given [facility] Last Admin: 03/03/18 17:35 Dose: 500 mg Metolazone (Zaroxolyn) 5 mg PO DAILY [facility] Last Admin: 03/03/18 10:08 Dose: 5 mg Multivitamins/Minerals (Theragran-M) 1 tab PO DAILY [facility] Last Admin: 03/03/18 09:15 Dose: 1 tab Ondansetron HCl (Zofran Inj) 4 mg IV.PUSH Q6H PRN PRN Reason: NAUSEA OR VOMITING Last Admin: 03/03/18 20:57 Dose: 4 mg Ptownmed(Apremilast ([Otezla] 30 Mg)) 0 each PO BID [facility] Tamsulosin HCl (Flomax) 0.4 mg PO DAILY [facility] Last Admin: 03/03/18 09:15 Dose: 0.4 mg Physical Exam Vital signs: Vital Signs 03/03/18 09:00 03/03/18 09:45 03/03/18 16:00 Temperature 96.7 F L Pulse Rate 91 H 91 H Respiratory Rate 18 Blood Pressure 131/76 Pulse Oximetry 96 94 L 03/03/18 20:00 03/04/18 00:00 03/04/18 04:00 Temperature 97.2 F L 97.5 F L 97.7 F Pulse Rate 93 H 92 H 61 Respiratory Rate 20 18 18 Blood Pressure 117/83 117/66 117/57 L Pulse Oximetry 98 96 Intake & Output 03/03/18 03/04/18 03/04/18 18:59 06:59 18:59 Intake Total 358 / 358 Output Total 475 / 475 1000 / 1000 350 / 350 Balance -117 / -117 -1000 / -1000 -350 / -350 Weight 443 lb 2.066 oz Intake: Oral 358 / 358 Output: Urine 475 / 475 1000 / 1000 Urine Amount (Catheter) 350 / 350 Indwelling Urethral Catheter 350 / 350 Narrative: GENERAL: Well-developed well-nourished. Super morbid obesity. In no acute distress. NECK: No carotid bruits. No JVD. CARDIOVASCULAR: Regular rate and rhythm. No murmur appreciated. RESPIRATORY: No accessory muscle use. Clear to auscultation. Breath sounds equal bilaterally. MUSCULOSKELETAL: No clubbing or cyanosis. Large lymphedema bilateral lower extremities with chronic skin changes. NEUROLOGICAL: Awake and alert. Normal speech. - Urinary Catheter Management Indwelling Urethral Catheter Cath placed during this visit: yes Reason for continuing: Acute urinary retention Insertion date: 03/02/18 Insertion time: 12:30 Results 03/02/18 05:25 03/03/18 09:59 Comprehensive Metabolic Panel 03/03/18 Range/Units 09:59 Sodium 132 L (136-145) meq/L Potassium 4.7 (3.5-5.1) meq/L Chloride 92 L (98-107) meq/L Carbon Dioxide 32.9 H (21.0-32.0) meq/L BUN 25 H (7-18) mg/dL Creatinine 1.22 (0.60-1.30) mg/dL Calcium 8.4 L (8.5-10.1) mg/dL Intake and Output 03/03/18 03/04/18 03/04/18 22:59 06:59 14:59 Output Total 1000 / 1000 350 / 350 Balance -1000 / -1000 -350 / -350 Output: Urine 1000 / 1000 Urine Amount (Catheter) 350 / 350 Indwelling Urethral Catheter 350 / 350 Other: Weight 443 lb 2.066 oz Assessment and Plan - Plan 63-year-old gentleman with super morbid obesity, HTN, HLD, DM, mild NICM EF 40- 45%, chronic lymphedema, CHF who presented due to several weeks of worsening dyspnea and abdominal distention. no chest pain Assessment: Severe VALENTINE and refuses CPAP ADHF, systolic NICM EF 20% by new echo Super morbid obesity Urinary retention, s/p clements catheter CAD, nonobstructive HLD Rec: Continue diuresis. Incr Bumex 2mg iv to TID. Cont metolazone 5mg daily. Monitor renal indices and I&O's. Continue Aspirin, atorvastatin Reduce Carvedilol back to 3.125mg bid, maximally tolerated dose due to bradycardia and induced AIVR Cannot use DWAYNE-I, ARB, or Spironolactone due to severe hyperkalemia in the past on these meds. Discussed Condition With: Patient, Dr. Zurita - Attending Attestation Patient seen and examined. agree with above.
[2018-03-04] MEDS: Heparin - SQ 10,000 UNITS/ML Vial SQ SCH ×2 (09:22→20:32)
[2018-03-04] MEDS: metOLazone 5 MG Tablet PO SCH (09:23)
[2018-03-04] MEDS: Multivitamin/Minerals Therapeutic Tablet PO SCH (09:23)
--- NOTE | 2018-03-04 13:43 | P.PNIM ---
Subjective Interval history: No acute distress. Patient feels it he has not been losing significant amounts of fluid. Bumex has been increased. He is also documented to have hypoxia while he sleeping. We discussed option for him CPAP and patient is open to this idea. Physical Exam Vital signs: Vital Signs 03/03/18 16:00 03/03/18 20:00 03/04/18 00:00 Temperature 96.7 F L 97.2 F L 97.5 F L Pulse Rate 91 H 93 H 92 H Respiratory Rate 18 20 18 Blood Pressure 131/76 117/83 117/66 Pulse Oximetry 94 L 98 03/04/18 04:00 03/04/18 08:00 03/04/18 12:00 Temperature 97.7 F 97.5 F L 97.5 F L Pulse Rate 61 95 H 90 Respiratory Rate 18 23 22 Blood Pressure 117/57 L 125/65 124/63 Pulse Oximetry 96 94 L 91 L Intake & Output 03/03/18 03/04/18 03/04/18 18:59 06:59 18:59 Intake Total 358 / 358 Output Total 475 / 475 1000 / 1000 350 / 350 Balance -117 / -117 -1000 / -1000 -350 / -350 Weight 201 kg Intake: Oral 358 / 358 Output: Urine 475 / 475 1000 / 1000 Urine Amount (Catheter) 350 / 350 Indwelling Urethral Catheter 350 / 350 Other: Date of Last Bowel Movement 03/02/18 Narrative: GENERAL: NAD, A&Ox3, obese HEAD: Normocephalic. NECK: Supple, trachea midline. No lymphadenopathy. EYES: No scleral icterus. No injection or drainage. CARDIOVASCULAR: Regular rate and rhythm without murmurs, gallops, or rubs. RESPIRATORY: Breath sounds equal bilaterally. No accessory muscle use. GASTROINTESTINAL: Abdomen soft, non-tender, nondistended. MUSCULOSKELETAL: No cyanosis, bilateral lower extremity edema SKIN: Warm and dry. NEURO: No focal neurological deficits. - Urinary Catheter Management Indwelling Urethral Catheter Cath placed during this visit: yes Reason for continuing: Acute urinary retention Insertion date: 03/02/18 Insertion time: 12:30 Results - Labs CBC & Chem 7: 03/02/18 05:25 03/03/18 09:59 Laboratory Results - last 24 hr 03/03/18 20:51 POC Glucose 142 H Microbiology 03/01/18 11:15 Blood - Peripheral Aerobic Blood Culture - Preliminary No growth in 3 days 03/01/18 11:15 Blood - Peripheral Anaerobic Blood Culture - Preliminary No growth in 3 days 03/01/18 11:00 Blood - Peripheral Aerobic Blood Culture - Preliminary No growth in 3 days 03/01/18 11:00 Blood - Peripheral Anaerobic Blood Culture - Preliminary No growth in 3 days Assessment and Plan - Plan 63-year-old male admitted secondary to CHF exacerbation Increase Bumex via cardiology service. 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
[2018-03-05 07:14] LABS: Alanine Aminotransferase 24 U/L (12-78); Albumin 2.9 g/dL (3.4-5.0); Alkaline Phosphatase 138 U/L (45-117); Anion Gap 9 meq/L (5-15); Aspartate Aminotransferase 37 U/L (15-37); Blood Urea Nitrogen 39 mg/dL (7-18); Calcium 8.4 mg/dL (8.5-10.1); Carbon Dioxide 28.8 meq/L (21.0-32.0); Chloride 94 meq/L (98-107); Glomerular Filtration Rate 41 mL/min (>89); Glucose,Random 115 mg/dL (74-106); Potassium 5.6 meq/L (3.5-5.1); Total Protein 7.7 g/dL (6.4-8.2)
[2018-03-05 07:16] LABS: Sodium 132 meq/L (136-145)
[2018-03-05 09:11] LABS: White Blood Count 7.3 th/mm3 (4.0-11.0)
[2018-03-05 09:12] LABS: Baso % (Auto) 0.5 % (0.0-2.0); Eos # (Auto) 0.2 th/mm3 (0.0-0.4); Eos % (Auto) 2.4 % (0.0-4.0); Hemoglobin 12.2 gm/dL (13.0-17.0); Lymph # (Auto) 0.6 th/mm3 (1.0-4.8); Lymph % (Auto) 7.8 % (9.0-44.0); Mean Corpuscular HGB Conc 33.1 % (32.0-36.0); Mean Corpuscular Hemoglobin 31.8 pg (27.0-34.0); Mean Corpuscular Volume 96.3 fL (80.0-100.0); Mono # (Auto) 0.7 th/mm3 (0.0-0.9); Mono % (Auto) 10.2 % (0.0-8.0); Neut # (Auto) 5.7 th/mm3 (1.8-7.7); Neut % (Auto) 79.1 % (16.0-70.0); Platelet Count 199 th/mm3 (150-450); Red Blood Count 3.84 mil/mm3 (4.50-5.90); Red Cell Distribution Width 15.2 % (11.6-17.2)
[2018-03-05] MEDS: Insulin NovoLOG Aspart Correctional Sugar Inj SQ SCH ×4 (09:24→20:26)
[2018-03-05] MEDS: metOLazone 5 MG Tablet PO SCH (09:28)
[2018-03-05] MEDS: Multivitamin/Minerals Therapeutic Tablet PO SCH (09:29)
[2018-03-05] MEDS: Heparin - SQ 10,000 UNITS/ML Vial SQ SCH ×2 (09:29→20:25)
--- NOTE | 2018-03-05 11:18 | P.PNIM ---
Subjective Interval history: Patient reports no significant changes in swelling. Shortness of breath and oxygen dependence remain. Slight increase in creatinine with more proportional increase in BUN may suggest dehydration related to current diuretics. Physical Exam Vital signs: Vital Signs 03/04/18 12:00 03/04/18 14:41 03/04/18 16:00 Temperature 97.5 F L 97.3 F L Pulse Rate 86 84 Respiratory Rate 22 23 Blood Pressure 124/63 136/65 Pulse Oximetry 91 L 91 L 93 L 03/04/18 17:27 03/04/18 20:00 03/05/18 00:00 Temperature 97.1 F L 97.6 F Pulse Rate 86 79 Respiratory Rate 25 H 18 Blood Pressure 138/80 106/55 L Pulse Oximetry 93 L 97 93 L 03/05/18 04:00 03/05/18 08:00 03/05/18 09:50 Temperature 98.2 F 97.5 F L Pulse Rate 55 L 86 Respiratory Rate 18 22 Blood Pressure 120/58 L 129/84 Pulse Oximetry 95 94 L 94 L Intake & Output 03/04/18 03/05/18 03/05/18 18:59 06:59 18:59 Intake Total 480 / 480 Output Total 700 / 700 Balance -220 / -220 Weight 201.7 kg Intake: Oral 480 / 480 Output: Urine 200 / 200 Urine Amount (Catheter) 500 / 500 Indwelling Urethral Catheter 500 / 500 Other: Date of Last Bowel Movement 03/02/18 03/02/18 Narrative: GENERAL: NAD, A&Ox3, obese HEAD: Normocephalic. NECK: Supple, trachea midline. No lymphadenopathy. EYES: No scleral icterus. No injection or drainage. CARDIOVASCULAR: Regular rate and rhythm without murmurs, gallops, or rubs. RESPIRATORY: Breath sounds equal bilaterally. No accessory muscle use. GASTROINTESTINAL: Abdomen soft, non-tender, nondistended. MUSCULOSKELETAL: No cyanosis, bilateral lower extremity edema SKIN: Warm and dry. NEURO: No focal neurological deficits. - Urinary Catheter Management Indwelling Urethral Catheter Cath placed during this visit: yes Reason for continuing: Chronic Urinary Retention Insertion date: 03/02/18 Insertion time: 12:30 Results - Labs CBC & Chem 7: 03/05/18 08:35 03/05/18 05:15 Laboratory Results - last 24 hr 03/05/18 03/05/18 03/05/18 05:15 08:35 09:00 WBC 7.3 RBC 3.84 L Hgb 12.2 L Hct 37.0 L MCV 96.3 MCH 31.8 MCHC 33.1 RDW 15.2 Plt Count 199 MPV 7.0 Neut % (Auto) 79.1 H Lymph % (Auto) 7.8 L [place] % (Auto) 10.2 H Eos % (Auto) 2.4 Baso % (Auto) 0.5 Neut # (Auto) 5.7 Lymph # (Auto) 0.6 L [place] # (Auto) 0.7 Eos # (Auto) 0.2 Baso # (Auto) 0.0 WBC Differential . Differential Comment Auto diff final Sodium 132 L Potassium 5.6 H D Chloride 94 L Carbon Dioxide 28.8 Anion Gap 9 BUN 39 H Creatinine 1.68 H Estimated GFR 41 L POC Glucose 157 H Random Glucose 115 H Calcium 8.4 L Total Bilirubin 0.9 AST 37 ALT 24 Alkaline Phosphatase 138 H Total Protein 7.7 Albumin 2.9 L Microbiology 03/01/18 11:15 Blood - Peripheral Aerobic Blood Culture - Preliminary No growth in 4 days 03/01/18 11:15 Blood - Peripheral Anaerobic Blood Culture - Preliminary No growth in 4 days 03/01/18 11:00 Blood - Peripheral Aerobic Blood Culture - Preliminary No growth in 4 days 03/01/18 11:00 Blood - Peripheral Anaerobic Blood Culture - Preliminary No growth in 4 days Assessment and Plan - Plan 63-year-old male admitted secondary to CHF exacerbation Diuretics do not appear to be resolving this patient's fluid overload. He may benefit from Entresto though current contraindications would be his renal function and hyperkalemia. However the renal function is likely related to dehydration. His previous history of hyperkalemia is related to potassium sparing diuretic. Renal function and potassium levels could be monitored and patient with a trial of Entresto if this is determined to be a viable option by cardiology. Cardiology following. 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
[2018-03-05] MEDS ORDERED: Sodium Polystyrene Sulfonate/Sorbitol Liq 15 GM/60 ML UDC PO ONE (13:30)
--- NOTE | 2018-03-05 13:32 | P.PNCA ---
Subjective Interval history: No interval improvement in patient's hypervolemic state. He is fatigued and still with dyspnea, which I'm sure is multifactorial. Current diuretic regimen as been escalated and is now Bumex 2mg iv tid with metolazone 5mg daily. Net I/O -4L over past 3 days, now with proportional increase in BUN/Cr/ K+ suggesting intravascular contraction (pre-renal DIXIE). Medications and Allergies Active Medications: Active Medications Al Hydroxide/Mg Hydroxide (Milk Of Erma Chadwick) 30 ml PO Q12H PRN PRN Reason: Mild Constipation Aspirin (Ecotrin) 81 mg PO DAILY PENDING SALE TO [facility] Last Admin: 03/05/18 09:29 Dose: 81 mg Atorvastatin Calcium (Lipitor) 40 mg PO DAILY PENDING SALE TO [facility] Last Admin: 03/05/18 09:29 Dose: 40 mg Bumetanide (Bumex Inj) 2 mg IV.PUSH TID PENDING SALE TO [facility] Last Admin: 03/05/18 12:57 Dose: 2 mg Carvedilol (Coreg) 3.125 mg PO BID PENDING SALE TO [facility] Last Admin: 03/05/18 09:28 Dose: 3.125 mg Dextrose (D50w Vial) 50 ml IV.PUSH UNSCH PRN PRN Reason: PER HYPOGLYCEMIA PROTOCOL Glucagon (Glucagon Inj) 1 mg OTHER PRN PRN PRN Reason: for Hypoglycemia Protocol Heparin Sodium (Porcine) (Heparin Inj) 5,000 units SQ Q12HR PENDING SALE TO [facility] Last Admin: 03/05/18 09:29 Dose: 5,000 units Insulin Aspart (Novolog Insulin Correctional Sugar Inj) 0 unit SQ ACHS PENDING SALE TO [facility]; Protocol Last Admin: 03/05/18 12:57 Dose: Not Given Metformin [facility] ([facility]uc[facility]) [facility] Last Admin: 03/05/18 09:29 Dose: 500 mg Metolazone (Zaroxolyn) 5 mg PO DAILY PENDING SALE TO [facility] Last Admin: 03/05/18 09:28 Dose: 5 mg Multivitamins/Minerals (Theragran-M) 1 tab PO DAILY PENDING SALE TO [facility] Last Admin: 03/05/18 09:29 Dose: 1 tab Ondansetron HCl (Zofran Inj) 4 mg IV.PUSH Q6H PRN PRN Reason: NAUSEA OR VOMITING Last Admin: 03/03/18 20:57 Dose: 4 mg Ptownmed(Apremilast ([Otezla] 30 Mg)) 0 each PO BID PENDING SALE TO [facility] Tamsulosin HCl (Flomax) 0.4 mg PO DAILY PENDING SALE TO [facility] Last Admin: 03/05/18 09:28 Dose: 0.4 mg Allergies Allergy/AdvReac Type Severity Reaction Status Date / Time ciprofloxacin Allergy Severe facial Verified 03/01/18 09:18 swelling levofloxacin Allergy Severe Rash Verified 03/01/18 09:18 aspirin Allergy Intermediate Bleeding Verified 03/01/18 09:18 Home Medications Medication Instructions Recorded Confirmed Type apremilast [Otezla] 30 mg PO BID 11/17/17 03/01/18 History aspirin [Aspir-81] 81 mg PO DAILY 11/17/17 03/01/18 History kltfstez-flg-UU-lycopen-lutein 1 tab PO DAILY 11/17/17 03/01/18 History [Centrum Silver Men] rosuvastatin 20 mg PO DAILY 11/17/17 03/01/18 History carvedilol 3.125 mg PO BID 03/01/18 03/01/18 History furosemide 40 mg PO BID 03/01/18 03/01/18 History metformin 500 mg PO BID 03/01/18 03/01/18 History Physical Exam Vital signs: Vital Signs 03/04/18 14:41 03/04/18 16:00 03/04/18 17:27 Temperature 97.3 F L Pulse Rate 84 Respiratory Rate 23 Blood Pressure 136/65 Pulse Oximetry 91 L 93 L 93 L 03/04/18 20:00 03/05/18 00:00 03/05/18 04:00 Temperature 97.1 F L 97.6 F 98.2 F Pulse Rate 86 79 55 L Respiratory Rate 25 H 18 18 Blood Pressure 138/80 106/55 L 120/58 L Pulse Oximetry 97 93 L 95 03/05/18 08:00 03/05/18 09:50 03/05/18 12:00 Temperature 97.5 F L 97.5 F L Pulse Rate 86 86 Respiratory Rate 22 20 Blood Pressure 129/84 135/76 Pulse Oximetry 94 L 94 L 95 Intake & Output 03/04/18 03/05/18 03/05/18 18:59 06:59 18:59 Intake Total 480 / 480 Output Total 700 / 700 Balance -220 / -220 Weight 201.7 kg Intake: Oral 480 / 480 Output: Urine 200 / 200 Urine Amount (Catheter) 500 / 500 Indwelling Urethral Catheter 500 / 500 Other: Date of Last Bowel Movement 03/02/18 03/02/18 Narrative: GENERAL: NAD, A&Ox3, obese HEAD: Normocephalic. NECK: Supple, trachea midline. No lymphadenopathy. EYES: No scleral icterus. No injection or drainage. CARDIOVASCULAR: distant heart sounds, Regular rate and rhythm without murmurs, gallops, or rubs. 3+bl le edema RESPIRATORY: Breath sounds equal bilaterally. No accessory muscle use. GASTROINTESTINAL: Abdomen soft, non-tender, nondistended, very large. MUSCULOSKELETAL: No cyanosis, bilateral lower extremity edema SKIN: Warm and dry. hipolito LE soft tissue changes. NEURO: No focal neurological deficits. lethargic. - Urinary Catheter Management Indwelling Urethral Catheter Cath placed during this visit: yes Reason for continuing: Chronic Urinary Retention Insertion date: 03/02/18 Insertion time: 12:30 Results 03/05/18 08:35 03/05/18 05:15 Cardiac Enzymes 03/05/18 Range/Units 05:15 AST 37 (15-37) U/L CBC 03/05/18 Range/Units 08:35 WBC 7.3 (4.0-11.0) th/mm3 RBC 3.84 L (4.50-5.90) mil/mm3 Hgb 12.2 L (13.0-17.0) gm/dL Hct 37.0 L (39.0-51.0) % Plt Count 199 (150-450) th/mm3 Neut # (Auto) 5.7 (1.8-7.7) th/mm3 Lymph # (Auto) 0.6 L (1.0-4.8) th/mm3 [place] # (Auto) 0.7 (0.0-0.9) th/mm3 Eos # (Auto) 0.2 (0.0-0.4) th/mm3 Baso # (Auto) 0.0 (0.0-0.2) th/mm3 Comprehensive Metabolic Panel 03/05/18 Range/Units 05:15 Sodium 132 L (136-145) meq/L Potassium 5.6 H D (3.5-5.1) meq/L Chloride 94 L (98-107) meq/L Carbon Dioxide 28.8 (21.0-32.0) meq/L BUN 39 H (7-18) mg/dL Creatinine 1.68 H (0.60-1.30) mg/dL Calcium 8.4 L (8.5-10.1) mg/dL AST 37 (15-37) U/L ALT 24 (12-78) U/L Alkaline Phosphatase 138 H (45-117) U/L Total Protein 7.7 (6.4-8.2) g/dL Albumin 2.9 L (3.4-5.0) g/dL Intake and Output 03/04/18 03/05/18 03/05/18 22:59 06:59 14:59 Intake Total 480 / 480 Output Total 350 / 350 Balance 130 / 130 Intake: Oral 480 / 480 Output: Urine 200 / 200 Urine Amount (Catheter) 150 / 150 Indwelling Urethral Catheter 150 / 150 Other: Date of Last Bowel Movement 03/02/18 Weight 201.7 kg Assessment and Plan - Plan 63-year-old gentleman with super morbid obesity, HTN, HLD, DM, mild NICM EF 40- 45%, chronic lymphedema, CHF who presented due to several weeks of worsening dyspnea and abdominal distention. no chest pain Assessment: ADHF, systolic NICM EF 20% by new echo but with limited visualization DIXIE - iatrogenic on current diuretic regimen Severe VALENTINE and refuses/did not tolerate CPAP Super morbid obesity Urinary retention, s/p clements catheter CAD, nonobstructive HLD Rec: Net I/O -4L over past 3 days, now with proportional increase in BUN/Cr/ K+ suggesting intravascular contraction (pre-renal DIXIE). Patient is seeming that he may require ultrafiltration to remove the volume. Will consult nephrology. Hold further diuretic therapy. Provide single dose of Kayexalate 30g today. Patient is NOT a candidate for Entresto due to frequent issues with severe hyperkalemia. Would strongly recommend against. Continue Aspirin, atorvastatin Continue Carvedilol 3.125mg bid, maximally tolerated dose due to bradycardia and induced AIVR Cannot use DWAYNE-I, ARB, or Spironolactone due to severe hyperkalemia in the past on these meds.
[2018-03-05] MEDS: Bumetanide Inj 25 MG/100 ML BAG IV.CONT SCH (15:03)
[2018-03-06 06:55] LABS: Baso % (Auto) 0.4 % (0.0-2.0); Eos # (Auto) 0.1 th/mm3 (0.0-0.4); Eos % (Auto) 1.9 % (0.0-4.0); Hematocrit 37.5 % (39.0-51.0); Lymph # (Auto) 0.5 th/mm3 (1.0-4.8); Lymph % (Auto) 7.6 % (9.0-44.0); Mean Corpuscular HGB Conc 32.1 % (32.0-36.0); Mean Corpuscular Hemoglobin 31.4 pg (27.0-34.0); Mean Corpuscular Volume 97.8 fL (80.0-100.0); Mean Platelet Volume 7.1 fL (7.0-11.0); Mono # (Auto) 0.7 th/mm3 (0.0-0.9); Mono % (Auto) 9.8 % (0.0-8.0); Neut # (Auto) 5.4 th/mm3 (1.8-7.7); Neut % (Auto) 80.3 % (16.0-70.0); Platelet Count 175 th/mm3 (150-450); Red Blood Count 3.84 mil/mm3 (4.50-5.90); Red Cell Distribution Width 15.3 % (11.6-17.2); White Blood Count 6.7 th/mm3 (4.0-11.0)
[2018-03-06 07:26] LABS: Alanine Aminotransferase 23 U/L (12-78); Albumin 3.1 g/dL (3.4-5.0); Alkaline Phosphatase 144 U/L (45-117); Anion Gap 6 meq/L (5-15); Aspartate Aminotransferase 23 U/L (15-37); Blood Urea Nitrogen 48 mg/dL (7-18); Calcium 8.4 mg/dL (8.5-10.1); Chloride 93 meq/L (98-107); Glomerular Filtration Rate 37 mL/min (>89); Glucose,Random 122 mg/dL (74-106); Potassium 4.6 meq/L (3.5-5.1); Sodium 133 meq/L (136-145); Total Protein 7.8 g/dL (6.4-8.2)
[2018-03-06] MEDS: Insulin NovoLOG Aspart Correctional Sugar Inj SQ SCH ×4 (09:38→20:47)
[2018-03-06] MEDS: Multivitamin/Minerals Therapeutic Tablet PO SCH (09:39)
[2018-03-06] MEDS: Heparin - SQ 10,000 UNITS/ML Vial SQ SCH ×2 (09:40→20:45)
--- NOTE | 2018-03-06 11:29 | P.PNNP ---
Subjective Interval history: Patient does not have any complaints but falling asleep in the middle of conversation. Creatinine is slightly elevated at 1.83, bumex gtt started yesterday with good response. <Sunita Ordonez - Last Filed: 03/06/18 11:31> Physical Exam Vital signs: Vital Signs 03/05/18 12:00 03/05/18 16:00 03/05/18 20:00 Temperature 97.5 F L 97.2 F L 97.7 F Pulse Rate 87 88 89 Respiratory Rate 20 16 17 Blood Pressure 135/76 113/69 134/79 Pulse Oximetry 95 96 92 L 03/06/18 00:00 03/06/18 04:00 03/06/18 08:00 Temperature 97.4 F L 97.8 F 97.3 F L Pulse Rate 93 H 89 89 Respiratory Rate 17 18 16 Blood Pressure 134/84 123/70 145/74 H Pulse Oximetry 94 L 95 93 L Intake & Output 03/05/18 03/06/18 03/06/18 18:59 06:59 18:59 Intake Total 480 / 480 100 / 100 Output Total 1050 / 1050 600 / 600 Balance -570 / -570 -500 / -500 Weight 201.7 kg Intake: Oral 480 / 480 100 / 100 Output: Urine 1050 / 1050 600 / 600 Narrative: GENERAL: Lethargic, NAD. NECK: Supple, trachea midline. No JVD CARDIOVASCULAR: distant heart sounds, Regular rate and rhythm without murmurs, gallops, or rubs. RESPIRATORY: Breath sounds diminished equal bilaterally. No accessory muscle use. GASTROINTESTINAL: Abdomen soft, non-tender, very large. MUSCULOSKELETAL: No cyanosis, bilateral lower extremity edema which extends to abdomine. SKIN: Warm and dry - Urinary Catheter Management Indwelling Urethral Catheter Cath placed during this visit: yes Reason for continuing: Chronic Urinary Retention Insertion date: 03/02/18 Insertion time: 12:30 <Sunita Ordonez - Last Filed: 03/06/18 11:31> Vital signs: Vital Signs 03/07/18 18:00 03/07/18 19:00 03/07/18 20:00 Temperature 97.7 F Pulse Rate 82 84 92 H Respiratory Rate 18 Blood Pressure 143/62 H Pulse Oximetry 94 L 94 L 03/07/18 21:00 03/07/18 22:00 03/07/18 23:00 Temperature 97.9 F Pulse Rate 88 86 84 Respiratory Rate 18 Blood Pressure 139/77 Pulse Oximetry 95 03/08/18 00:00 03/08/18 01:00 03/08/18 02:00 Temperature Pulse Rate 82 86 85 Respiratory Rate Blood Pressure Pulse Oximetry 03/08/18 03:00 03/08/18 03:55 03/08/18 04:00 Temperature 97.9 F Pulse Rate 85 85 85 Respiratory Rate 18 Blood Pressure 145/62 H Pulse Oximetry 94 L 94 L 03/08/18 05:00 03/08/18 06:00 03/08/18 07:00 Temperature Pulse Rate 85 85 76 Respiratory Rate Blood Pressure Pulse Oximetry 95 03/08/18 07:44 03/08/18 08:00 03/08/18 09:00 Temperature 97.9 F Pulse Rate 84 76 84 Respiratory Rate 20 Blood Pressure 150/80 H Pulse Oximetry 95 95 03/08/18 10:00 03/08/18 11:00 03/08/18 11:23 Temperature Pulse Rate 80 90 Respiratory Rate Blood Pressure Pulse Oximetry 97 98 03/08/18 12:00 03/08/18 13:00 03/08/18 14:00 Temperature Pulse Rate 92 H 94 H 90 Respiratory Rate 20 Blood Pressure 137/80 Pulse Oximetry 97 03/08/18 15:00 03/08/18 15:56 03/08/18 16:00 Temperature Pulse Rate 86 94 H 90 Respiratory Rate 20 Blood Pressure 154/85 H Pulse Oximetry 98 98 Intake & Output 03/07/18 03/08/18 03/08/18 18:59 06:59 18:59 Intake Total 820 / 820 240 / 240 Output Total 2550 / 2550 2850 / 2850 Balance -1730 / -1730 -2610 / -2610 Weight 197.9 kg Intake: IV 100 / 100 Bumex Inj 25 mg In 100 ml @ 0.5 100 / 100 MG/HR 2 mls/hr IV.CONT .Q24H [facility] Rx#:[id number] Oral 720 / 720 240 / 240 Output: Urine Amount (Catheter) 2550 / 2550 2850 / 2850 Indwelling Urethral Catheter 2550 / 2550 2850 / 2850 Other: Date of Last Bowel Movement 03/04/18 03/04/18 # Bowel Movements 0 - Urinary Catheter Management Indwelling Urethral Catheter Cath placed during this visit: no <Gulshan Robin - Last Filed: 03/08/18 18:03> Assessment and Plan - Assessment (1) DIXIE (acute kidney injury) Code(s): N17.9 - Acute kidney failure, unspecified Status: Acute Plan: Acute kidney injury with a creatinine of 1.85 today. Urinary output has increased to 1.6 L/24 hours. DIXIE possibly from intravascular volume depletion from diuretic use or third spacing. Continues to have anasarca. Recommend to continue Bumex gtt even though creatinine has increased today to help reduce swelling and fluid overload. Daily weights, and strict I+O's. Renal ultrasound and urinalysis ordered. Avoid nephrotoxic agents. (2) Hyperkalemia, diminished renal excretion Code(s): E87.5 - Hyperkalemia Status: Acute Plan: Improved potassium level at 4.6. Kayexalate yesterday. (3) Diabetes Code(s): E11.9 - Type 2 diabetes mellitus without complications Status: Acute Plan: Maintain blood sugars 140mg/dl to 180 mg/dl. On metformin, with increasing creatinine recommend to hold metformin. (4) Hypertension Code(s): I10 - Essential (primary) hypertension Status: Acute Plan: Well controlled, will monitor <Sunita Ordonez - Last Filed: 03/06/18 11:31> - Assessment (1) DIXIE (acute kidney injury) Code(s): N17.9 - Acute kidney failure, unspecified Status: Acute Plan: Patient seen and examine, agree with above. Continue Bumex gtt, try to keep in negative fluid balance. If edema not better, will add Metolazone. Follow the BMP closely. (2) Hyperkalemia, diminished renal excretion Code(s): E87.5 - Hyperkalemia Status: Acute (3) Diabetes Code(s): E11.9 - Type 2 diabetes mellitus without complications Status: Acute (4) Hypertension Code(s): I10 - Essential (primary) hypertension Status: Acute <Gulshan Robin - Last Filed: 03/08/18 18:03>
--- NOTE | 2018-03-06 15:05 | P.PNIM ---
Subjective Interval history: Patient has not tolerated high-dose diuretics. He is now on Bumex drip. He did not tolerate CPAP overnight. His sleep apnea is likely contributory to his clinical condition. He is encouraged to try again. Currently his oxygen requirements have gone from 2 L/min to 4 L/min. Physical Exam Vital signs: Vital Signs 03/05/18 16:00 03/05/18 20:00 03/06/18 00:00 Temperature 97.2 F L 97.7 F 97.4 F L Pulse Rate 88 89 93 H Respiratory Rate 16 17 17 Blood Pressure 113/69 134/79 134/84 Pulse Oximetry 96 92 L 94 L 03/06/18 04:00 03/06/18 08:00 03/06/18 09:00 Temperature 97.8 F 97.3 F L Pulse Rate 89 89 88 Respiratory Rate 18 16 Blood Pressure 123/70 145/74 H Pulse Oximetry 95 93 L 03/06/18 12:00 03/06/18 12:45 Temperature 97.8 F Pulse Rate 87 Respiratory Rate 16 Blood Pressure 123/71 Pulse Oximetry 100 95 Intake & Output 03/05/18 03/06/18 03/06/18 18:59 06:59 18:59 Intake Total 480 / 480 100 / 100 Output Total 1050 / 1050 600 / 600 Balance -570 / -570 -500 / -500 Weight 201.7 kg Intake: Oral 480 / 480 100 / 100 Output: Urine 1050 / 1050 600 / 600 Narrative: GENERAL: NAD, A&Ox3, lethargic, oxygen in place via nasal cannula. HEAD: Normocephalic. NECK: Supple, trachea midline. No lymphadenopathy. EYES: No scleral icterus. No injection or drainage. CARDIOVASCULAR: Regular rate and rhythm without murmurs, gallops, or rubs. RESPIRATORY: Breath sounds equal bilaterally. No accessory muscle use. GASTROINTESTINAL: Abdomen soft, non-tender, nondistended. MUSCULOSKELETAL: No cyanosis, or edema. SKIN: Warm and dry. NEURO: No focal neurological deficits. - Urinary Catheter Management Indwelling Urethral Catheter Cath placed during this visit: yes Reason for continuing: Chronic Urinary Retention Insertion date: 03/02/18 Insertion time: 12:30 Results - Labs CBC & Chem 7: 03/06/18 06:09 03/06/18 06:09 Laboratory Results - last 24 hr 03/05/18 03/05/18 03/06/18 17:31 19:23 06:09 WBC 6.7 RBC 3.84 L Hgb 12.0 L Hct 37.5 L MCV 97.8 MCH 31.4 MCHC 32.1 RDW 15.3 Plt Count 175 MPV 7.1 Neut % (Auto) 80.3 H Lymph % (Auto) 7.6 L [place] % (Auto) 9.8 H Eos % (Auto) 1.9 Baso % (Auto) 0.4 Neut # (Auto) 5.4 Lymph # (Auto) 0.5 L [place] # (Auto) 0.7 Eos # (Auto) 0.1 Baso # (Auto) 0.0 WBC Differential . Differential Comment Auto diff final Sodium Potassium Chloride Carbon Dioxide Anion Gap BUN Creatinine Estimated GFR POC Glucose 160 H 138 H Random Glucose Calcium Total Bilirubin AST ALT Alkaline Phosphatase Total Protein Albumin 03/06/18 03/06/18 03/06/18 06:09 08:20 12:34 WBC RBC Hgb Hct MCV MCH MCHC RDW Plt Count MPV Neut % (Auto) Lymph % (Auto) [place] % (Auto) Eos % (Auto) Baso % (Auto) Neut # (Auto) Lymph # (Auto) [place] # (Auto) Eos # (Auto) Baso # (Auto) WBC Differential Differential Comment Sodium 133 L Potassium 4.6 D Chloride 93 L Carbon Dioxide 34.0 H Anion Gap 6 BUN 48 H Creatinine 1.85 H Estimated GFR 37 L POC Glucose 159 H 122 H Random Glucose 122 H Calcium 8.4 L Total Bilirubin 0.7 AST 23 ALT 23 Alkaline Phosphatase 144 H Total Protein 7.8 Albumin 3.1 L Microbiology 03/01/18 11:15 Blood - Peripheral Aerobic Blood Culture - Final No growth in 5 days 03/01/18 11:15 Blood - Peripheral Anaerobic Blood Culture - Final No growth in 5 days 03/01/18 11:00 Blood - Peripheral Aerobic Blood Culture - Final No growth in 5 days 03/01/18 11:00 Blood - Peripheral Anaerobic Blood Culture - Final No growth in 5 days Assessment and Plan - Plan 63-year-old male admitted secondary to CHF exacerbation 03/05 - Diuretics do not appear to be resolving this patient's fluid overload. He may benefit from Entresto though current contraindications would be his renal function and hyperkalemia. However the renal function is likely related to dehydration. His previous history of hyperkalemia is related to potassium sparing diuretic. Renal function and potassium levels could be monitored and patient with a trial of Entresto if this is determined to be a viable option by cardiology. Cardiology following. 03/06 -increased need of oxygen and slightly increased lethargy. Patient is encouraged to use CPAP as ordered. Given gradually worsening respiratory status patient will be transferred and intermediate care unit for closer monitoring. Entresto is not a viable option, per cardiology, due to prior history of severe hyperkalemia which has been induced by DWAYNE inhibitor. 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
--- NOTE | 2018-03-06 15:09 | US ---
EXAM DATE: 03/06/2018 2:52 PM EDT AGE/SEX: 63 years / Male INDICATIONS: Increased Bun and Creatinine. CLINICAL DATA: This is the patient's initial encounter. Patient reports that signs and symptoms have been present for 1 day and indicates a pain score of 0/10. MEDICAL/SURGICAL HISTORY: . Cardiomyopathy. CHF. HTN. Lymphedema. Atherosclerosis. . Total knee replacement. Colon surgery. Cholecystectomy. COMPARISON: No prior exams available for comparison. MEASUREMENTS: Right Kidney:__11.4 x 6.7 x 7.3 cm Left Kidney:__11.2 x 4.3 x 6.9 cm FINDINGS: Right Kidney: Normal echotexture and cortical thickness. No mass or hydronephrosis. Left Kidney: Normal echotexture and cortical thickness. No mass or hydronephrosis. Bladder: Decompressed. Not well evaluated. Other: There is some ascites present CONCLUSION: 1. Difficult exam due to body habitus. There does appear to be some ascites in the right lower quadr ant. Electronically signed by: Mitul Cintron MD 03/06/2018 3:08 PM EDT
--- NOTE | 2018-03-06 15:17 | MB ---
cc: Gulshan Robin MD DATE: 03/05/2018 REASON FOR CONSULTATION: Generalized anasarca and elevated BUN and creatinine. HISTORY OF PRESENT ILLNESS: This is a 63-year-old male with past medical history of ischemic heart disease, congestive heart failure, lymphedema of the legs, hypertension, admitted because of shortness of breath. I was called to see the patient because of increased creatinine. The patient had a creatinine of 1.2 on presentation, which was stable and increased to 1.6. The patient denies any previous history of renal disease. The patient has been taking diuretics because of congestive heart failure and noticed to have worsening shortness of breath and increased swelling of the legs and came to the hospital. The patient was taking Lasix 40 mg twice a day at home. Denies any chest pain. No dysuria, hematuria or difficulty passing urine. Not taking any nonsteroidal anti-inflammatory drugs. PAST MEDICAL HISTORY: Hypertension, ischemic heart disease, congestive heart failure, morbid obesity and lymphedema of the legs. PAST SURGICAL HISTORY: History of total knee replacement, colon surgery, cholecystectomy. REVIEW OF SYSTEMS: The patient has generalized weakness, feeling tired and has a decreased appetite. There is no vomiting. Shortness of breath, more with exertion. Mild cough which is mainly dry. There is no chest pain. No palpitations. No abdominal pain. No history of diarrhea. SOCIAL HISTORY: The patient has past history of smoking. There is no history of heavy alcoholism. FAMILY HISTORY: Noncontributory. ALLERGIES: HE IS ALLERGIC TO CIPROFLOXACIN, LEVAQUIN AND . MEDICATIONS: Currently, he is on: 1. . 2. Lipitor 40 mg daily. 3. Carvedilol 3.125 mg b.i.d. 4. Insulin aspart sliding scale. 5. Metformin 500 mg b.i.d. 6. Multivitamin 1 tablet daily. 7. Zofran as needed. 8. Flomax 0.4 mg daily. PHYSICAL EXAMINATION: GENERAL: The patient is awake, alert. He is not in acute distress. He was seen by me yesterday afternoon. VITAL SIGNS: Last blood pressure is 145/74, temperature is 97.3, oxygen saturation is 93% to 95%. He has been using 2 liter nasal cannula and occasionally BiPAP. HEENT: Pupils are mid constricted. Nonicteric sclerae. Conjunctivae normal. NECK: Supple. JVD is slightly elevated. LUNGS: The patient has bilateral decreased air entry with basal rales and scattered wheezing. HEART: S1, S2. Regular rate and rhythm. ABDOMEN: Distended, soft, lax. There is no tenderness. EXTREMITIES: He has bilateral lymphedema. INVESTIGATIONS: WBC count 7.3, hemoglobin 12.2, platelet count 199, neutrophils 79.1%. Sodium 132, potassium 5.6, chloride 94, bicarbonate 28.8, BUN 39, creatinine 1.68, glucose 157, calcium 8.4, alkaline phosphatase 138, albumin 2.9, total protein 7.7. INR is 1.3. A chest x-ray was done which shows that he has moderate bilateral pleural opacities and effusion. ASSESSMENT: 1. Acute kidney injury with the possibility of mild chronic kidney disease. 2. Fluid overload status and congestive heart failure. 3. History of hypertension. 4. Generalized anasarca. PLAN: The patient has generalized edema and needs more fluid removal. Potassium is slightly on the higher side. Creatinine is 1.6. I will start the patient on a Bumex infusion and try to keep him in negative fluid balance and watch the BUN and creatinine closely. The patient was given 1 dose of Kayexalate for the high potassium. Follow the urine output and the BUN and creatinine. I did discuss with the patient about the possibility of dialysis if his creatinine is not improving. Thank you for the consultation. I will follow the patient while he is in the hospital. MD GARY House/ad , 10:21 AM , 10:30 AM
[2018-03-06] MEDS: Bumetanide Inj 25 MG/100 ML BAG IV.CONT SCH (15:40)
[2018-03-07 03:38] LABS: Bilirubin,Urine Negative (Negative); Clarity,Urine Hazy (Clear); Color,Urine Yellow (Yellw/Straw); Glucose,Urine (UA) Negative (Negative); Hyaline Casts,Urine 73 /lpf (0-3); Leukocyte Esterase,Urine Trace (Negative); Mucus,Urine Few /lpf (Occasional); Nitrite,Urine Negative (Negative); Specific Gravity,Urine 1.006 (1.002-1.035); Squamous Epithelial Cell,Urine 1 /hpf (0-5)
[2018-03-07 04:56] LABS: Baso % (Auto) 0.2 % (0.0-2.0); Eos # (Auto) 0.2 th/mm3 (0.0-0.4); Eos % (Auto) 2.6 % (0.0-4.0); Hematocrit 39.2 % (39.0-51.0); Hemoglobin 12.6 gm/dL (13.0-17.0); Lymph # (Auto) 0.6 th/mm3 (1.0-4.8); Lymph % (Auto) 8.3 % (9.0-44.0); Mean Corpuscular HGB Conc 32.1 % (32.0-36.0); Mean Corpuscular Hemoglobin 31.5 pg (27.0-34.0); Mean Platelet Volume 7.1 fL (7.0-11.0); Mono # (Auto) 0.7 th/mm3 (0.0-0.9); Mono % (Auto) 10.3 % (0.0-8.0); Neut # (Auto) 5.2 th/mm3 (1.8-7.7); Neut % (Auto) 78.6 % (16.0-70.0); Platelet Count 161 th/mm3 (150-450); Red Cell Distribution Width 15.2 % (11.6-17.2); White Blood Count 6.7 th/mm3 (4.0-11.0)
[2018-03-07 05:20] LABS: Alanine Aminotransferase 26 U/L (12-78); Albumin 3.1 g/dL (3.4-5.0); Alkaline Phosphatase 148 U/L (45-117); Anion Gap 6 meq/L (5-15); Aspartate Aminotransferase 24 U/L (15-37); Blood Urea Nitrogen 51 mg/dL (7-18); Calcium 8.3 mg/dL (8.5-10.1); Chloride 93 meq/L (98-107); Glomerular Filtration Rate 37 mL/min (>89); Glucose,Random 132 mg/dL (74-106); Potassium 3.5 meq/L (3.5-5.1); Sodium 136 meq/L (136-145); Total Protein 7.9 g/dL (6.4-8.2)
--- NOTE | 2018-03-07 07:38 | P.PNCA ---
Subjective Interval history: Patient is a bit sleepy this morning. Reports he tried CPAP and "they cannot use it". Dyspnea unchanged. No chest pain or palpitations. Good urine output on Bumex drip. Medications and Allergies Allergies Allergy/AdvReac Type Severity Reaction Status Date / Time ciprofloxacin Allergy Severe facial Verified 03/01/18 09:18 swelling levofloxacin Allergy Severe Rash Verified 03/01/18 09:18 aspirin Allergy Intermediate Bleeding Verified 03/01/18 09:18 Home Medications Medication Instructions Recorded Confirmed Type apremilast [Otezla] 30 mg PO BID 11/17/17 03/01/18 History aspirin [Aspir-81] 81 mg PO DAILY 11/17/17 03/01/18 History vpnpwpoj-tec-TO-lycopen-lutein 1 tab PO DAILY 11/17/17 03/01/18 History [Centrum Silver Men] rosuvastatin 20 mg PO DAILY 11/17/17 03/01/18 History carvedilol 3.125 mg PO BID 03/01/18 03/01/18 History furosemide 40 mg PO BID 03/01/18 03/01/18 History metformin 500 mg PO BID 03/01/18 03/01/18 History Active Medications: Active Medications Al Hydroxide/Mg Hydroxide (Milk Of Magnjenna Lichristo) 30 ml PO Q12H PRN PRN Reason: Mild Constipation Albuterol (Albuterol Neb (Prn)) 2.5 mg NEB Q4HR NEB PRN PRN Reason: SOB or Wheezing Aspirin (Ecotrin) 81 mg PO DAILY [facility] Last Admin: 03/06/18 09:39 Dose: 81 mg Atorvastatin Calcium (Lipitor) 40 mg PO DAILY [facility] Last Admin: 03/06/18 09:39 Dose: 40 mg Carvedilol (Coreg) 3.125 mg PO BID [facility] Last Admin: 03/06/18 20:44 Dose: 3.125 mg Dextrose (D50w Vial) 50 ml IV.PUSH UNSCH PRN PRN Reason: PER HYPOGLYCEMIA PROTOCOL Glucagon (Glucagon Inj) 1 mg OTHER PRN PRN PRN Reason: for Hypoglycemia Protocol Heparin Sodium (Porcine) (Heparin Inj) 5,000 units SQ Q12HR [facility] Last Admin: 03/06/18 20:45 Dose: 5,000 units Bumetanide (Bumex Inj) 25 mg in 100 mls @ 2 mls/hr IV.CONT .Q24H [facility] Last Admin: 03/06/18 15:40 Dose: Not Given Insulin Aspart (Novolog Insulin Correctional Sugar Inj) 0 unit SQ ACHS [facility]; Protocol Last Admin: 03/06/18 20:47 Dose: Not Given Multivitamins/Minerals (Theragran-M) 1 tab PO DAILY [facility] Last Admin: 03/06/18 09:39 Dose: 1 tab Nystatin (Mycostatin Oint) 1 applicatio TOPICAL QID [facility] Last Admin: 03/06/18 20:47 Dose: Not Given Ondansetron HCl (Zofran Inj) 4 mg IV.PUSH Q6H PRN PRN Reason: NAUSEA OR VOMITING Last Admin: 03/03/18 20:57 Dose: 4 mg Ptownmed(Apremilast ([Otezla] 30 Mg)) 0 each PO BID [facility] Tamsulosin HCl (Flomax) 0.4 mg PO DAILY [facility] Last Admin: 03/06/18 09:39 Dose: 0.4 mg Physical Exam Vital signs: Vital Signs 03/06/18 08:00 03/06/18 09:00 03/06/18 12:00 Temperature 97.3 F L 97.8 F Pulse Rate 89 88 87 Respiratory Rate 16 16 Blood Pressure 145/74 H 123/71 Pulse Oximetry 93 L 100 03/06/18 12:45 03/06/18 16:00 03/06/18 17:00 Temperature 97.5 F L Pulse Rate 86 88 Respiratory Rate 20 Blood Pressure 131/87 Pulse Oximetry 95 99 03/06/18 18:00 03/06/18 19:00 03/06/18 20:00 Temperature 97.5 F L Pulse Rate 86 89 91 H Respiratory Rate 24 Blood Pressure 146/84 H Pulse Oximetry 95 95 03/06/18 21:00 03/06/18 21:50 03/06/18 22:00 Temperature Pulse Rate 88 86 Respiratory Rate Blood Pressure Pulse Oximetry 93 L 03/06/18 22:06 03/06/18 23:00 03/06/18 23:58 Temperature Pulse Rate 84 83 Respiratory Rate 24 Blood Pressure 125/71 Pulse Oximetry 93 L 94 L 94 L 03/07/18 00:00 03/07/18 01:00 03/07/18 02:00 Temperature Pulse Rate 82 83 86 Respiratory Rate Blood Pressure Pulse Oximetry 03/07/18 03:00 03/07/18 04:00 03/07/18 05:00 Temperature Pulse Rate 87 86 86 Respiratory Rate 24 Blood Pressure 145/94 H Pulse Oximetry 96 96 03/07/18 06:00 Temperature Pulse Rate 84 Respiratory Rate Blood Pressure Pulse Oximetry Intake & Output 03/06/18 03/07/18 03/07/18 18:59 06:59 18:59 Intake Total 240 / 240 240 / 240 Output Total 1525 / 1525 1200 / 1200 Balance -1285 / -1285 -960 / -960 Weight 462 lb 12.004 oz Intake: Oral 240 / 240 240 / 240 Output: Urine 400 / 400 Urine Amount (Catheter) 1125 / 1125 1200 / 1200 Indwelling Urethral Catheter 1125 / 1125 1200 / 1200 Other: Date of Last Bowel Movement 03/04/18 03/04/18 # Bowel Movements 0 Narrative: GENERAL: Well-developed well-nourished. Super morbid obesity. In no acute distress. NECK: No carotid bruits. No JVD. CARDIOVASCULAR: Regular rate and rhythm. No murmur appreciated. RESPIRATORY: Diminished breath sounds. MUSCULOSKELETAL: No clubbing or cyanosis. Large lymphedema bilateral lower extremities with chronic skin changes. NEUROLOGICAL: Awake and alert. Normal speech. - Urinary Catheter Management Indwelling Urethral Catheter Cath placed during this visit: yes Reason for continuing: Chronic Urinary Retention Insertion date: 03/02/18 Insertion time: 12:30 Results 03/07/18 03:49 03/07/18 03:49 Cardiac Enzymes 03/06/18 03/07/18 Range/Units 06:09 03:49 AST 23 24 (15-37) U/L CBC 03/05/18 03/06/18 03/07/18 Range/Units 08:35 06:09 03:49 WBC 7.3 6.7 6.7 (4.0-11.0) th/mm3 RBC 3.84 L 3.84 L 4.00 L (4.50-5.90) mil/mm3 Hgb 12.2 L 12.0 L 12.6 L (13.0-17.0) gm/dL Hct 37.0 L 37.5 L 39.2 (39.0-51.0) % Plt Count 199 175 161 (150-450) th/mm3 Neut # (Auto) 5.7 5.4 5.2 (1.8-7.7) th/mm3 Lymph # (Auto) 0.6 L 0.5 L 0.6 L (1.0-4.8) th/mm3 [place] # (Auto) 0.7 0.7 0.7 (0.0-0.9) th/mm3 Eos # (Auto) 0.2 0.1 0.2 (0.0-0.4) th/mm3 Baso # (Auto) 0.0 0.0 0.0 (0.0-0.2) th/mm3 Comprehensive Metabolic Panel 03/06/18 03/07/18 Range/Units 06:09 03:49 Sodium 133 L 136 (136-145) meq/L Potassium 4.6 D 3.5 D (3.5-5.1) meq/L Chloride 93 L 93 L (98-107) meq/L Carbon Dioxide 34.0 H 37.0 H (21.0-32.0) meq/L BUN 48 H 51 H (7-18) mg/dL Creatinine 1.85 H 1.83 H (0.60-1.30) mg/dL Calcium 8.4 L 8.3 L (8.5-10.1) mg/dL AST 23 24 (15-37) U/L ALT 23 26 (12-78) U/L Alkaline Phosphatase 144 H 148 H (45-117) U/L Total Protein 7.8 7.9 (6.4-8.2) g/dL Albumin 3.1 L 3.1 L (3.4-5.0) g/dL Intake and Output 03/06/18 03/07/18 03/07/18 22:59 06:59 14:59 Intake Total 240 / 240 240 / 240 Output Total 1525 / 1525 1200 / 1200 Balance -1285 / -1285 -960 / -960 Intake: Oral 240 / 240 240 / 240 Output: Urine 400 / 400 Urine Amount (Catheter) 1125 / 1125 1200 / 1200 Indwelling Urethral Catheter 1125 / 1125 1200 / 1200 Other: Date of Last Bowel Movement 03/04/18 03/04/18 # Bowel Movements 0 Weight 462 lb 12.004 oz - Imaging and Cardiology Imaging: Impressions Abdomen/Bladder Ultrasound 10/28/18 00:00 CONCLUSION: 1. Difficult exam due to body habitus. There does appear to be some ascites in the right lower quadrant. Assessment and Plan - Plan 63-year-old gentleman with super morbid obesity, HTN, HLD, DM, mild NICM EF 40- 45%, chronic lymphedema, CHF who presented due to several weeks of worsening dyspnea and abdominal distention. No chest pain. Assessment: ADHF, systolic NICM EF 20% by new echo but with limited visualization DIXIE - iatrogenic from diuretics Severe VALENTINE and refuses/does not tolerate CPAP Super morbid obesity Urinary retention, s/p clements catheter CAD, nonobstructive HLD Hyperkalemia - improved w/ Kayexalate Rec: Continue diuresis, on Bumex gtt. currently. Appreciate nephrology input. Monitor I's and O's, electrolytes, and renal function. Patient is NOT a candidate for Entresto due to frequent issues with severe hyperkalemia. Would strongly recommend against. Continue Aspirin, atorvastatin Continue Carvedilol 3.125mg bid, maximally tolerated dose due to bradycardia and induced AIVR Cannot use DWAYNE-I, ARB, or Spironolactone due to severe hyperkalemia in the past on these meds. Discussed Condition With: Patient, Dr. Zurita - Attending Attestation Patient seen and examined. Agree with above. Patient with hypervolemic status and adequate diuresis on current bumex gtt, however with increasing BUN overnight and elevated Cr 1.2-->1.8 consistent with DIXIE. Given the level of edema and volume removal he will require to make a real clinical recovery, I am reluctant to believe that parenteral diuretic therapy will accomplish this goal. Will defer further diuretic management and/or alternative therapy including ultrafiltration timing to nephrology. will sign off for now. Call with any questions.
[2018-03-07] MEDS: Heparin - SQ 10,000 UNITS/ML Vial SQ SCH ×2 (08:28→22:01)
[2018-03-07] MEDS: Multivitamin/Minerals Therapeutic Tablet PO SCH (08:28)
--- NOTE | 2018-03-07 09:09 | P.PN ---
Subjective Interval history: This is a pleasant 63 y/o Male with Morbid Obesity, Hypertension, Hyperlipidemia , DM II, NICM with EF 40-45%, chronic Lymphedema, CHF, who came to ER with worsening dyspnea and abdominal distention. Chest x-ray upon admission showed pulmonary edema. with diagnosis of Acute exacerbation of chronic systolic Heart failure, Cardiology following. 03/07: Seen in his bedroom, discussed with nurse Stevan Jules, he has DIXIE probable secondary to the use of diuretics or third spacing, continue with Anasarca, Creatinine stable, on Bumex drip, recommended to continue Bumex to improve Swelling and fluid overload, added Metolazone 5 mg BID, continue daily weight and avoid nephrotoxic agents. added amlodipine for blood pressure. Physical Exam Vital signs: Vital Signs 03/06/18 12:00 03/06/18 12:45 03/06/18 16:00 Temperature 97.8 F 97.5 F L Pulse Rate 87 86 Respiratory Rate 16 20 Blood Pressure 123/71 131/87 Pulse Oximetry 100 95 99 03/06/18 17:00 03/06/18 18:00 03/06/18 19:00 Temperature Pulse Rate 88 86 89 Respiratory Rate Blood Pressure Pulse Oximetry 95 03/06/18 20:00 03/06/18 21:00 03/06/18 21:50 Temperature 97.5 F L Pulse Rate 91 H 88 Respiratory Rate 24 Blood Pressure 146/84 H Pulse Oximetry 95 93 L 03/06/18 22:00 03/06/18 22:06 03/06/18 23:00 Temperature Pulse Rate 86 84 Respiratory Rate Blood Pressure Pulse Oximetry 93 L 94 L 03/06/18 23:58 03/07/18 00:00 03/07/18 01:00 Temperature Pulse Rate 83 82 83 Respiratory Rate 24 Blood Pressure 125/71 Pulse Oximetry 94 L 03/07/18 02:00 03/07/18 03:00 03/07/18 04:00 Temperature Pulse Rate 86 87 86 Respiratory Rate 24 Blood Pressure 145/94 H Pulse Oximetry 96 96 03/07/18 05:00 03/07/18 06:00 03/07/18 07:00 Temperature Pulse Rate 86 84 85 Respiratory Rate Blood Pressure Pulse Oximetry 03/07/18 08:33 Temperature Pulse Rate Respiratory Rate Blood Pressure Pulse Oximetry 94 L Intake & Output 03/06/18 03/07/18 03/07/18 18:59 06:59 18:59 Intake Total 240 / 240 240 / 240 Output Total 1525 / 1525 1200 / 1200 Balance -1285 / -1285 -960 / -960 Weight 209.9 kg Intake: Oral 240 / 240 240 / 240 Output: Urine 400 / 400 Urine Amount (Catheter) 1125 / 1125 1200 / 1200 Indwelling Urethral Catheter 1125 / 1125 1200 / 1200 Other: Date of Last Bowel Movement 03/04/18 03/04/18 # Bowel Movements 0 Narrative: GENERAL: Morbid Obesity, moderate distress secondary to respiratory insufficiency. HEAD: Normocephalic. NECK: Supple, trachea midline. No lymphadenopathy. EYES: No scleral icterus. No injection or drainage. CARDIOVASCULAR: Regular rate and rhythm without murmurs, gallops, or rubs. RESPIRATORY: Breath sounds equal bilaterally. No accessory muscle use. GASTROINTESTINAL: Abdomen soft, non-tender, nondistended. MUSCULOSKELETAL: No cyanosis, or edema. SKIN: Warm and dry. NEURO: No focal neurological deficits. - Urinary Catheter Management Indwelling Urethral Catheter Cath placed during this visit: yes Reason for continuing: Chronic Urinary Retention Insertion date: 03/02/18 Insertion time: 12:30 Results - Labs CBC & Chem 7: 03/07/18 03:49 03/07/18 03:49 Laboratory Results - last 24 hr 03/06/18 03/06/18 03/06/18 12:34 16:48 20:27 WBC RBC Hgb Hct MCV MCH MCHC RDW Plt Count MPV Neut % (Auto) Lymph % (Auto) [place] % (Auto) Eos % (Auto) Baso % (Auto) Neut # (Auto) Lymph # (Auto) [place] # (Auto) Eos # (Auto) Baso # (Auto) WBC Differential Differential Comment Sodium Potassium Chloride Carbon Dioxide Anion Gap BUN Creatinine Estimated GFR POC Glucose 122 H 189 H 147 H Random Glucose Calcium Total Bilirubin AST ALT Alkaline Phosphatase Total Protein Albumin Urine Color Urine Clarity Urine pH Ur Specific [place] Urine Protein Urine Glucose (UA) Urine Ketones Urine Occult Blood Urine Nitrate Urine Bilirubin Urine Urobilinogen Ur Leukocyte Esterase Urine RBC Urine WBC Ur Squamous Epith Cells Hyaline Casts Granular Casts Urine Mucus Micro UA Comment Ur Microscopic Review Urine Culture Comments 03/07/18 03/07/18 03/07/18 03:15 03:49 03:49 WBC 6.7 RBC 4.00 L Hgb 12.6 L Hct 39.2 MCV 98.0 MCH 31.5 MCHC 32.1 RDW 15.2 Plt Count 161 MPV 7.1 Neut % (Auto) 78.6 H Lymph % (Auto) 8.3 L [place] % (Auto) 10.3 H Eos % (Auto) 2.6 Baso % (Auto) 0.2 Neut # (Auto) 5.2 Lymph # (Auto) 0.6 L [place] # (Auto) 0.7 Eos # (Auto) 0.2 Baso # (Auto) 0.0 WBC Differential . Differential Comment Auto diff final Sodium 136 Potassium 3.5 D Chloride 93 L Carbon Dioxide 37.0 H Anion Gap 6 BUN 51 H Creatinine 1.83 H Estimated GFR 37 L POC Glucose Random Glucose 132 H Calcium 8.3 L Total Bilirubin 0.8 AST 24 ALT 26 Alkaline Phosphatase 148 H Total Protein 7.9 Albumin 3.1 L Urine Color Yellow Urine Clarity Hazy H Urine pH 5.0 Ur Specific [place] 1.006 Urine Protein Negative Urine Glucose (UA) Negative Urine Ketones Negative Urine Occult Blood Large H Urine Nitrate Negative Urine Bilirubin Negative Urine Urobilinogen Less than 2 Ur Leukocyte Esterase Trace H Urine RBC 162 H Urine WBC 3 Ur Squamous Epith Cells 1 Hyaline Casts 73 Granular Casts 1 Urine Mucus Few H Micro UA Comment Cath-culture not ind Ur Microscopic Review Not Reportable Urine Culture Comments Cath-cult not ind 03/07/18 08:26 WBC RBC Hgb Hct MCV MCH MCHC RDW Plt Count MPV Neut % (Auto) Lymph % (Auto) [place] % (Auto) Eos % (Auto) Baso % (Auto) Neut # (Auto) Lymph # (Auto) [place] # (Auto) Eos # (Auto) Baso # (Auto) WBC Differential Differential Comment Sodium Potassium Chloride Carbon Dioxide Anion Gap BUN Creatinine Estimated GFR POC Glucose 122 H Random Glucose Calcium Total Bilirubin AST ALT Alkaline Phosphatase Total Protein Albumin Urine Color Urine Clarity Urine pH Ur Specific [place] Urine Protein Urine Glucose (UA) Urine Ketones Urine Occult Blood Urine Nitrate Urine Bilirubin Urine Urobilinogen Ur Leukocyte Esterase Urine RBC Urine WBC Ur Squamous Epith Cells Hyaline Casts Granular Casts Urine Mucus Micro UA Comment Ur Microscopic Review Urine Culture Comments Microbiology 03/01/18 11:15 Blood - Peripheral Aerobic Blood Culture - Final No growth in 5 days 03/01/18 11:15 Blood - Peripheral Anaerobic Blood Culture - Final No growth in 5 days 03/01/18 11:00 Blood - Peripheral Aerobic Blood Culture - Final No growth in 5 days 03/01/18 11:00 Blood - Peripheral Anaerobic Blood Culture - Final No growth in 5 days - Imaging Chest X-Ray 03/01/18 11:12 CONCLUSION: Moderate bibasilar pleural-parenchymal opacities. Abdomen/Bladder Ultrasound 03/06/18 00:00 CONCLUSION: 1. Difficult exam due to body habitus. There does appear to be some ascites in the right lower quadrant. - Procedures None Assessment and Plan - Plan 63-year-old male admitted secondary to CHF exacerbation 03/05 - Diuretics do not appear to be resolving this patient's fluid overload. He may benefit from Entresto though current contraindications would be his renal function and hyperkalemia. However the renal function is likely related to dehydration. His previous history of hyperkalemia is related to potassium sparing diuretic. Renal function and potassium levels could be monitored and patient with a trial of Entresto if this is determined to be a viable option by cardiology. Cardiology following. 03/06 -increased need of oxygen and slightly increased lethargy. Patient is encouraged to use CPAP as ordered. Given gradually worsening respiratory status patient will be transferred and intermediate care unit for closer monitoring. Entresto is not a viable option, per cardiology, due to prior history of severe hyperkalemia which has been induced by DWAYNE inhibitor. CHF exacerbation business services specialist sales following, to continue Telemetry, Recent echocardiogram showed an ejection fraction of approximately 20% Recommended to continue diuresis, Nephrology specialist following, was not candidate for Entresto due to severe Hyperkalemia to continue Aspirin and Atorvastatin, Carvedilol 3.125 mg BID did not tolerated to increase dosages, Cannot use DWAYNE-I, ARB, or Spironolactone due to severe hyperkalemia in the past on these meds. business services specialist sales singed off the case. 03/07: Nephrology seeing him for DIXIE probable secondary to the use of diuretics or third spacing, continue with Anasarca, Creatinine stable, on Bumex drip, recommended to continue Bumex to improve Swelling and fluid overload, added Metolazone 5 mg BID, continue daily weight and avoid nephrotoxic agents. added amlodipine for blood pressure. Urinary retention This is related to edema Continue with Mauricio catheter Monitor I's and O's Void trial once edema improves DIXIE see above. Hypertension Uncontrolled Added Amlodipine 5 mg daily. Diabetes mellitus type 2 Follow blood sugars Insulin sliding scale Diabetic diet VALENTINE refuses/does not tolerate CPAP, at this time will try again to re start CPAP, she had Polysomnography as outpatient DVT prophylaxis Heparin Code Status: Full code. Discussed Condition With: Patient, Nurse Mr. Vicente, his Mrs. Gillis. Discharge Planning: Once cleared by specialists. will need jail care.
[2018-03-07] MEDS: Insulin NovoLOG Aspart Correctional Sugar Inj SQ SCH ×5 (13:09→22:06)
--- NOTE | 2018-03-07 15:55 | P.PNNP ---
Subjective Interval history: On BIPAP continues to be lethargic. Reports shortness of breath but no other complaints. Anasarca. Creatinine stable at 1.83. <Sunita Ordonez - Last Filed: 03/07/18 15:47> Physical Exam Vital signs: Vital Signs 03/06/18 16:00 03/06/18 17:00 03/06/18 18:00 Temperature 97.5 F L Pulse Rate 86 88 86 Respiratory Rate 20 Blood Pressure 131/87 Pulse Oximetry 99 03/06/18 19:00 03/06/18 20:00 03/06/18 21:00 Temperature 97.5 F L Pulse Rate 89 91 H 88 Respiratory Rate 24 Blood Pressure 146/84 H Pulse Oximetry 95 95 03/06/18 21:50 03/06/18 22:00 03/06/18 22:06 Temperature Pulse Rate 86 Respiratory Rate Blood Pressure Pulse Oximetry 93 L 93 L 03/06/18 23:00 03/06/18 23:58 03/07/18 00:00 Temperature Pulse Rate 84 83 82 Respiratory Rate 24 Blood Pressure 125/71 Pulse Oximetry 94 L 94 L 03/07/18 01:00 03/07/18 02:00 03/07/18 03:00 Temperature Pulse Rate 83 86 87 Respiratory Rate Blood Pressure Pulse Oximetry 96 03/07/18 04:00 03/07/18 05:00 03/07/18 06:00 Temperature Pulse Rate 86 86 84 Respiratory Rate 24 Blood Pressure 145/94 H Pulse Oximetry 96 03/07/18 07:00 03/07/18 08:00 03/07/18 08:33 Temperature 97 F L Pulse Rate 85 95 H Respiratory Rate 18 Blood Pressure 164/90 H Pulse Oximetry 95 94 L 03/07/18 11:00 03/07/18 12:00 Temperature 97.2 F L Pulse Rate 89 Respiratory Rate 18 Blood Pressure 167/72 H Pulse Oximetry 95 Intake & Output 03/06/18 03/07/18 03/07/18 18:59 06:59 18:59 Intake Total 240 / 240 240 / 240 Output Total 1525 / 1525 1200 / 1200 Balance -1285 / -1285 -960 / -960 Weight 209.9 kg Intake: Oral 240 / 240 240 / 240 Output: Urine 400 / 400 Urine Amount (Catheter) 1125 / 1125 1200 / 1200 Indwelling Urethral Catheter 1125 / 1125 1200 / 1200 Other: Date of Last Bowel Movement 03/04/18 03/04/18 03/04/18 # Bowel Movements 0 Narrative: GENERAL: NAD, lethargic, on BIPAP, oriented NECK: Supple, trachea midline. Negative JVD CARDIOVASCULAR: Regular rate and rhythm without murmurs, gallops, or rubs. RESPIRATORY: Breath sounds equal bilaterally. No accessory muscle use. GASTROINTESTINAL: Abdomen soft, non-tender, large MUSCULOSKELETAL: No cyanosis, anasarca. SKIN: Warm and dry. - Urinary Catheter Management Indwelling Urethral Catheter Cath placed during this visit: yes Reason for continuing: Chronic Urinary Retention Insertion date: 03/02/18 Insertion time: 12:30 <Sunita Ordonez - Last Filed: 03/07/18 15:47> Vital signs: Vital Signs 03/08/18 18:00 03/08/18 19:00 03/08/18 20:00 Temperature 97.9 F Pulse Rate 92 H 88 88 Respiratory Rate 18 Blood Pressure 156/76 H Pulse Oximetry 95 03/08/18 20:19 03/08/18 21:00 03/08/18 22:00 Temperature Pulse Rate 84 84 Respiratory Rate Blood Pressure Pulse Oximetry 98 03/08/18 23:00 03/08/18 23:56 03/09/18 00:00 Temperature 97.6 F Pulse Rate 82 85 83 Respiratory Rate 18 Blood Pressure 135/75 Pulse Oximetry 97 97 03/09/18 01:00 03/09/18 02:00 03/09/18 03:00 Temperature Pulse Rate 86 83 83 Respiratory Rate Blood Pressure Pulse Oximetry 95 03/09/18 03:29 03/09/18 04:00 03/09/18 04:41 Temperature 97.4 F L Pulse Rate 85 85 81 Respiratory Rate 18 17 Blood Pressure 141/81 H Pulse Oximetry 95 03/09/18 05:00 03/09/18 06:00 03/09/18 07:00 Temperature Pulse Rate 84 84 84 Respiratory Rate Blood Pressure Pulse Oximetry 95 03/09/18 08:00 03/09/18 09:00 03/09/18 10:00 Temperature 97.1 F L Pulse Rate 86 86 84 Respiratory Rate 20 Blood Pressure 122/66 Pulse Oximetry 95 03/09/18 11:00 03/09/18 12:00 03/09/18 13:00 Temperature Pulse Rate 80 84 80 Respiratory Rate 18 Blood Pressure 134/77 Pulse Oximetry 96 03/09/18 14:00 03/09/18 15:00 03/09/18 16:00 Temperature Pulse Rate 84 86 84 Respiratory Rate 16 Blood Pressure 125/60 Pulse Oximetry 98 03/09/18 17:00 Temperature Pulse Rate 90 Respiratory Rate Blood Pressure Pulse Oximetry Intake & Output 03/08/18 03/09/18 03/09/18 18:59 06:59 18:59 Intake Total 980 / 980 240 / 240 Output Total 3600 / 3600 1949 Balance -2620 / -2620 -1710 / -1710 Weight 198.8 kg Intake: Oral 980 / 980 240 / 240 Output: Urine 3600 / 3600 Urine Amount (Catheter) 1949 Indwelling Urethral Catheter 1949 Other: Date of Last Bowel Movement 03/04/18 # Bowel Movements 0 - Urinary Catheter Management Indwelling Urethral Catheter Cath placed during this visit: no <Gulshan Robin - Last Filed: 03/09/18 17:33> Assessment and Plan - Assessment (1) DIXIE (acute kidney injury) Code(s): N17.9 - Acute kidney failure, unspecified Status: Acute Plan: DIXIE possibly from intravascular volume depletion from diuretic use or third spacing. Continues to have anasarca. Creatinine has remained stable on bumex gtt. Recommend to continue Bumex gtt, to help reduce swelling and fluid overload. Weight is up. Will add Metolazone 5 mg BID. Continue with daily weights, and strict I+O's. Avoid nephrotoxic agents. (2) Hyperkalemia, diminished renal excretion Code(s): E87.5 - Hyperkalemia Status: Acute Plan: Resolved with potassium level of 3.5 (3) Diabetes Code(s): E11.9 - Type 2 diabetes mellitus without complications Status: Acute Plan: Maintain blood sugars 140mg/dl to 180 mg/dl. (4) Hypertension Code(s): I10 - Essential (primary) hypertension Status: Acute Plan: Elevated will add amlodipine. <Sunita Ordonez - Last Filed: 03/07/18 15:47> - Assessment (1) DIXIE (acute kidney injury) Code(s): N17.9 - Acute kidney failure, unspecified Status: Acute Plan: Patient seen and examined, agree with above. Continue Bumex infusion, added Metolazone. Creatinine is stable. If not better, may will need HD. (2) Hyperkalemia, diminished renal excretion Code(s): E87.5 - Hyperkalemia Status: Acute (3) Diabetes Code(s): E11.9 - Type 2 diabetes mellitus without complications Status: Acute (4) Hypertension Code(s): I10 - Essential (primary) hypertension Status: Acute <Gulshan Robin - Last Filed: 03/09/18 17:33>
[2018-03-07] MEDS: Bumetanide Inj 25 MG/100 ML BAG IV.CONT SCH (18:33)
[2018-03-07] MEDS: metOLazone 5 MG Tablet PO SCH (22:02)
--- NOTE | 2018-03-08 09:01 | P.PN ---
Subjective Interval history: This is a pleasant 63 y/o Male with Morbid Obesity, Hypertension, Hyperlipidemia , DM II, NICM with EF 40-45%, chronic Lymphedema, CHF, who came to ER with worsening dyspnea and abdominal distention. Chest x-ray upon admission showed pulmonary edema. with diagnosis of Acute exacerbation of chronic systolic Heart failure, Cardiology following. 03/07: Seen in his bedroom, discussed with nurse Mr. Vicente, he has DIXIE probable secondary to the use of diuretics or third spacing, continue with Anasarca, Creatinine stable, on Bumex drip, recommended to continue Bumex to improve Swelling and fluid overload, added Metolazone 5 mg BID, continue daily weight and avoid nephrotoxic agents. added amlodipine for blood pressure. 03/08: Stable in his bedroom, no nausea, vomit or diarrhea, had negative fluid during the day 4340 continue with Shortness of breath, discussed with nurse Teri and with his , continue with Anasarca, continue Bumex and Metolazone, improving urinary output, not yet cleared for discharge. Physical Exam Vital signs: Vital Signs 03/07/18 10:00 03/07/18 11:00 03/07/18 12:00 Temperature 97.2 F L Pulse Rate 88 90 86 Respiratory Rate 18 Blood Pressure 167/72 H Pulse Oximetry 95 03/07/18 13:00 03/07/18 14:00 03/07/18 15:00 Temperature Pulse Rate 80 80 84 Respiratory Rate Blood Pressure Pulse Oximetry 96 03/07/18 16:00 03/07/18 17:00 03/07/18 18:00 Temperature 97.0 F L Pulse Rate 82 78 82 Respiratory Rate 18 Blood Pressure 168/76 H Pulse Oximetry 03/07/18 19:00 03/07/18 20:00 03/07/18 21:00 Temperature 97.7 F Pulse Rate 84 92 H 88 Respiratory Rate 18 Blood Pressure 143/62 H Pulse Oximetry 94 L 94 L 03/07/18 22:00 03/07/18 23:00 03/08/18 00:00 Temperature 97.9 F Pulse Rate 86 84 82 Respiratory Rate 18 Blood Pressure 139/77 Pulse Oximetry 95 03/08/18 01:00 03/08/18 02:00 03/08/18 03:00 Temperature Pulse Rate 86 85 85 Respiratory Rate Blood Pressure Pulse Oximetry 94 L 10/30/18 03:55 03/08/18 04:00 03/08/18 05:00 Temperature 97.9 F Pulse Rate 85 85 85 Respiratory Rate 18 Blood Pressure 145/62 H Pulse Oximetry 94 L 03/08/18 06:00 03/08/18 07:00 03/08/18 07:44 Temperature 97.9 F Pulse Rate 85 76 84 Respiratory Rate 20 Blood Pressure 150/80 H Pulse Oximetry 95 95 03/08/18 08:00 Temperature Pulse Rate 76 Respiratory Rate Blood Pressure Pulse Oximetry 95 Intake & Output 03/07/18 03/08/18 03/08/18 18:59 06:59 18:59 Intake Total 820 / 820 240 / 240 Output Total 2550 / 2550 2850 / 2850 Balance -1730 / -1730 -2610 / -2610 Weight 197.9 kg Intake: IV 100 / 100 Bumex Inj 25 mg In 100 ml @ 0.5 100 / 100 MG/HR 2 mls/hr IV.CONT .Q24H [facility] Rx#:[id number] Oral 720 / 720 240 / 240 Output: Urine Amount (Catheter) 2550 / 2550 2850 / 2850 Indwelling Urethral Catheter 2550 / 2550 2850 / 2850 Other: Date of Last Bowel Movement 03/04/18 03/04/18 # Bowel Movements 0 Narrative: GENERAL: Morbid Obesity, moderate distress secondary to respiratory insufficiency. HEAD: Normocephalic. NECK: Supple, trachea midline. No lymphadenopathy. EYES: No scleral icterus. No injection or drainage. CARDIOVASCULAR: Regular rate and rhythm without murmurs, gallops, or rubs. RESPIRATORY: Breath sounds equal bilaterally. No accessory muscle use. GASTROINTESTINAL: Abdomen soft, non-tender, nondistended. MUSCULOSKELETAL: No cyanosis, Edema 4+ SKIN: Warm and dry. NEURO: No focal neurological deficits. - Urinary Catheter Management Indwelling Urethral Catheter Cath placed during this visit: yes Reason for continuing: Acute urinary retention Insertion date: 03/02/18 Insertion time: 12:30 Results - Labs CBC & Chem 7: 03/07/18 03:49 03/07/18 03:49 Laboratory Results - last 24 hr 03/07/18 03/07/18 03/07/18 12:28 17:15 21:20 POC Glucose 167 H 102 179 H - Imaging Chest X-Ray 03/01/18 11:12 CONCLUSION: Moderate bibasilar pleural-parenchymal opacities. Abdomen/Bladder Ultrasound 03/06/18 00:00 CONCLUSION: 1. Difficult exam due to body habitus. There does appear to be some ascites in the right lower quadrant. - Procedures None Assessment and Plan - Plan 63-year-old male admitted secondary to CHF exacerbation CHF exacerbation client success specialist following, to continue Telemetry, Recent echocardiogram showed an ejection fraction of approximately 20% Recommended to continue diuresis, Nephrology specialist following, was not candidate for Entresto due to severe Hyperkalemia to continue Aspirin and Atorvastatin, Carvedilol 3.125 mg BID did not tolerated to increase dosages, Cannot use DWAYNE-I, ARB, or Spironolactone due to severe hyperkalemia in the past on these meds. client success specialist singed off the case. 03/07: Nephrology seeing him for DIXIE probable secondary to the use of diuretics or third spacing, continue with Anasarca, Creatinine stable, on Bumex drip, recommended to continue Bumex to improve Swelling and fluid overload, added Metolazone 5 mg BID, continue daily weight and avoid nephrotoxic agents. added amlodipine for blood pressure. 03/08: Stable in his bedroom, no nausea, vomit or diarrhea, had negative fluid during the day 4340 continue with Shortness of breath, discussed with nurse Teri and with his , continue with Anasarca, continue Bumex and Metolazone, improving urinary output, not yet cleared for discharge. Urinary retention This is related to edema Continue with Mauricio catheter Monitor I's and O's Void trial once edema improves DIXIE see above. Hypertension Controlled. Diabetes mellitus type 2 Follow blood sugars Insulin sliding scale Diabetic diet VALENTINE refuses/does not tolerate CPAP, at this time will try again to re start CPAP, she had Polysomnography as outpatient DVT prophylaxis Heparin Code Status: Full code. Discussed Condition With: Patient, Nurse Teri and his . Discharge Planning: Once cleared by specialists. will need correction care.
[2018-03-08] MEDS: Heparin - SQ 10,000 UNITS/ML Vial SQ SCH ×2 (09:18→20:32)
[2018-03-08] MEDS: Insulin NovoLOG Aspart Correctional Sugar Inj SQ SCH ×4 (09:18→20:32)
[2018-03-08] MEDS: amLODIPine 10 MG Tablet PO SCH (09:19)
[2018-03-08] MEDS: metOLazone 5 MG Tablet PO SCH ×2 (09:19→20:32)
[2018-03-08] MEDS: Multivitamin/Minerals Therapeutic Tablet PO SCH (09:20)
--- NOTE | 2018-03-08 09:48 | P.PNNP ---
Subjective Interval history: Seen in morning. More alert today. Urinary output has improved and weight is down. Labs pending. <Sunita Ordonez - Last Filed: 03/08/18 14:00> Physical Exam Vital signs: Vital Signs 03/07/18 10:00 03/07/18 11:00 03/07/18 12:00 Temperature 97.2 F L Pulse Rate 88 90 86 Respiratory Rate 18 Blood Pressure 167/72 H Pulse Oximetry 95 03/07/18 13:00 03/07/18 14:00 03/07/18 15:00 Temperature Pulse Rate 80 80 84 Respiratory Rate Blood Pressure Pulse Oximetry 96 03/07/18 16:00 03/07/18 17:00 03/07/18 18:00 Temperature 97.0 F L Pulse Rate 82 78 82 Respiratory Rate 18 Blood Pressure 168/76 H Pulse Oximetry 03/07/18 19:00 03/07/18 20:00 03/07/18 21:00 Temperature 97.7 F Pulse Rate 84 92 H 88 Respiratory Rate 18 Blood Pressure 143/62 H Pulse Oximetry 94 L 94 L 03/07/18 22:00 03/07/18 23:00 03/08/18 00:00 Temperature 97.9 F Pulse Rate 86 84 82 Respiratory Rate 18 Blood Pressure 139/77 Pulse Oximetry 95 03/08/18 01:00 03/08/18 02:00 03/08/18 03:00 Temperature Pulse Rate 86 85 85 Respiratory Rate Blood Pressure Pulse Oximetry 94 L 03/08/18 03:55 03/08/18 04:00 03/08/18 05:00 Temperature 97.9 F Pulse Rate 85 85 85 Respiratory Rate 18 Blood Pressure 145/62 H Pulse Oximetry 94 L 03/08/18 06:00 03/08/18 07:00 03/08/18 07:44 Temperature 97.9 F Pulse Rate 85 76 84 Respiratory Rate 20 Blood Pressure 150/80 H Pulse Oximetry 95 95 03/08/18 08:00 Temperature Pulse Rate 76 Respiratory Rate Blood Pressure Pulse Oximetry 95 Intake & Output 03/07/18 03/08/18 03/08/18 18:59 06:59 18:59 Intake Total 820 / 820 240 / 240 Output Total 2550 / 2550 2850 / 2850 Balance -1730 / -1730 -2610 / -2610 Weight 197.9 kg Intake: IV 100 / 100 Bumex Inj 25 mg In 100 ml @ 0.5 100 / 100 MG/HR 2 mls/hr IV.CONT .Q24H [facility] Rx#:[id number] Oral 720 / 720 240 / 240 Output: Urine Amount (Catheter) 2550 / 2550 2850 / 2850 Indwelling Urethral Catheter 2550 / 2550 2850 / 2850 Other: Date of Last Bowel Movement 03/04/18 03/04/18 # Bowel Movements 0 Narrative: GENERAL: Alert and oriented. More alert today. NECK: Supple, trachea midline. Negative JVD CARDIOVASCULAR: Regular rate and rhythm without murmurs, gallops, or rubs. RESPIRATORY: Breath sounds equal bilaterally. No accessory muscle use. GASTROINTESTINAL: Abdomen soft, non-tender, large MUSCULOSKELETAL: No cyanosis, anasarca. SKIN: Warm and dry. - Urinary Catheter Management Indwelling Urethral Catheter Cath placed during this visit: yes Reason for continuing: Acute urinary retention Insertion date: 03/02/18 Insertion time: 12:30 <Sunita Ordonez - Last Filed: 03/08/18 14:00> Vital signs: Vital Signs 03/08/18 18:00 03/08/18 19:00 03/08/18 20:00 Temperature 97.9 F Pulse Rate 92 H 88 88 Respiratory Rate 18 Blood Pressure 156/76 H Pulse Oximetry 95 03/08/18 20:19 03/08/18 21:00 03/08/18 22:00 Temperature Pulse Rate 84 84 Respiratory Rate Blood Pressure Pulse Oximetry 98 03/08/18 23:00 03/08/18 23:56 03/09/18 00:00 Temperature 97.6 F Pulse Rate 82 85 83 Respiratory Rate 18 Blood Pressure 135/75 Pulse Oximetry 97 97 03/09/18 01:00 03/09/18 02:00 03/09/18 03:00 Temperature Pulse Rate 86 83 83 Respiratory Rate Blood Pressure Pulse Oximetry 95 03/09/18 03:29 03/09/18 04:00 03/09/18 04:41 Temperature 97.4 F L Pulse Rate 85 85 81 Respiratory Rate 18 17 Blood Pressure 141/81 H Pulse Oximetry 95 03/09/18 05:00 03/09/18 06:00 03/09/18 07:00 Temperature Pulse Rate 84 84 84 Respiratory Rate Blood Pressure Pulse Oximetry 95 03/09/18 08:00 03/09/18 09:00 03/09/18 10:00 Temperature 97.1 F L Pulse Rate 86 86 84 Respiratory Rate 20 Blood Pressure 122/66 Pulse Oximetry 95 03/09/18 11:00 03/09/18 12:00 03/09/18 13:00 Temperature Pulse Rate 80 84 80 Respiratory Rate 18 Blood Pressure 134/77 Pulse Oximetry 96 03/09/18 14:00 03/09/18 15:00 03/09/18 16:00 Temperature Pulse Rate 84 86 84 Respiratory Rate 16 Blood Pressure 125/60 Pulse Oximetry 98 03/09/18 17:00 Temperature Pulse Rate 90 Respiratory Rate Blood Pressure Pulse Oximetry Intake & Output 03/08/18 03/09/18 03/09/18 18:59 06:59 18:59 Intake Total 980 / 980 240 / 240 Output Total 3600 / 3600 1949 Balance -2620 / -2620 -1710 / -1710 Weight 198.8 kg Intake: Oral 980 / 980 240 / 240 Output: Urine 3600 / 3600 Urine Amount (Catheter) 1949 Indwelling Urethral Catheter 1949 Other: Date of Last Bowel Movement 03/04/18 # Bowel Movements 0 - Urinary Catheter Management Indwelling Urethral Catheter Cath placed during this visit: no <Gulshan Robin - Last Filed: 03/09/18 17:46> Assessment and Plan - Assessment (1) DIXIE (acute kidney injury) Code(s): N17.9 - Acute kidney failure, unspecified Status: Acute Plan: DIXIE possibly from intravascular volume depletion from diuretic use or third spacing. Continues to have anasarca. Creatinine has remained stable on bumex gtt. Recommend to continue Bumex gtt and metolazone, to help reduce swelling and fluid overload. Urinary output improving and weight is down. Continue with daily weights, and strict I+O's. Avoid nephrotoxic agents. Labs are pending for today. Will order labs daily to watch kidney function closely. (2) Hyperkalemia, diminished renal excretion Code(s): E87.5 - Hyperkalemia Status: Acute Plan: Resolved . (3) Diabetes Code(s): E11.9 - Type 2 diabetes mellitus without complications Status: Acute Plan: Maintain blood sugars 140mg/dl to 180 mg/dl. (4) Hypertension Code(s): I10 - Essential (primary) hypertension Status: Acute Plan: Improved will monitor. <Sunita Ordonez - Last Filed: 03/08/18 14:00> - Assessment (1) DIXIE (acute kidney injury) Code(s): N17.9 - Acute kidney failure, unspecified Status: Acute Plan: Patient seen and examined, agree with above. Urine out put is better. Continue Bumex and Metolazone. Creatinine is almost same. Will consider HD if not much improvement. (2) Hyperkalemia, diminished renal excretion Code(s): E87.5 - Hyperkalemia Status: Acute (3) Diabetes Code(s): E11.9 - Type 2 diabetes mellitus without complications Status: Acute (4) Hypertension Code(s): I10 - Essential (primary) hypertension Status: Acute <Gulshan Robin - Last Filed: 03/09/18 17:46>
[2018-03-08 16:55] LABS: Albumin 2.8 g/dL (3.4-5.0); Calcium 8.3 mg/dL (8.5-10.1); Carbon Dioxide 41.3 meq/L (21.0-32.0); Phosphorus 5.2 mg/dL (2.5-4.9)
[2018-03-08] MEDS: Bumetanide Inj 25 MG/100 ML BAG IV.CONT SCH (16:56)
[2018-03-08 17:08] LABS: Potassium 2.8 meq/L (3.5-5.1)
[2018-03-08] MEDS: Magnesium Oxide 400 MG Tablet PO SCH (18:06)
[2018-03-09] MEDS: Heparin - SQ 10,000 UNITS/ML Vial SQ SCH ×2 (08:12→21:03)
[2018-03-09] MEDS: metOLazone 5 MG Tablet PO SCH ×2 (08:13→21:02)
[2018-03-09] MEDS: amLODIPine 10 MG Tablet PO SCH (08:13)
[2018-03-09] MEDS: Multivitamin/Minerals Therapeutic Tablet PO SCH (08:14)
[2018-03-09] MEDS: Insulin NovoLOG Aspart Correctional Sugar Inj SQ SCH ×4 (08:14→21:04)
[2018-03-09] MEDS: Magnesium Oxide 400 MG Tablet PO SCH (08:23)
[2018-03-09 10:18] LABS: Anion Gap 2 meq/L (5-15); Blood Urea Nitrogen 53 mg/dL (7-18); Calcium 8.3 mg/dL (8.5-10.1); Chloride 92 meq/L (98-107); Glomerular Filtration Rate 38 mL/min (>89); Glucose,Random 151 mg/dL (74-106); Potassium 3.1 meq/L (3.5-5.1); Sodium 139 meq/L (136-145)
--- NOTE | 2018-03-09 10:24 | P.PNNP ---
Subjective Interval history: Seen in AM. Reports shortness of breath is improving. Continues to have anasarca. On Bumex gtt. with good urinary output. Creatinine stable at 1.81. <Sunita Ordonez - Last Filed: 03/09/18 14:52> Physical Exam Vital signs: Vital Signs 03/08/18 11:00 03/08/18 11:23 03/08/18 12:00 Temperature Pulse Rate 90 92 H Respiratory Rate 20 Blood Pressure 137/80 Pulse Oximetry 97 98 97 03/08/18 13:00 03/08/18 14:00 03/08/18 15:00 Temperature Pulse Rate 94 H 90 86 Respiratory Rate Blood Pressure Pulse Oximetry 98 03/08/18 15:56 03/08/18 16:00 03/08/18 17:00 Temperature Pulse Rate 94 H 90 94 H Respiratory Rate 20 Blood Pressure 154/85 H Pulse Oximetry 98 03/08/18 18:00 03/08/18 19:00 03/08/18 20:00 Temperature 97.9 F Pulse Rate 92 H 88 88 Respiratory Rate 18 Blood Pressure 156/76 H Pulse Oximetry 95 03/08/18 20:19 03/08/18 21:00 03/08/18 22:00 Temperature Pulse Rate 84 84 Respiratory Rate Blood Pressure Pulse Oximetry 98 03/08/18 23:00 03/08/18 23:56 03/09/18 00:00 Temperature 97.6 F Pulse Rate 82 85 83 Respiratory Rate 18 Blood Pressure 135/75 Pulse Oximetry 97 97 03/09/18 01:00 03/09/18 02:00 03/09/18 03:00 Temperature Pulse Rate 86 83 83 Respiratory Rate Blood Pressure Pulse Oximetry 95 03/09/18 03:29 03/09/18 04:00 03/09/18 04:41 Temperature 97.4 F L Pulse Rate 85 85 81 Respiratory Rate 18 17 Blood Pressure 141/81 H Pulse Oximetry 95 03/09/18 05:00 03/09/18 06:00 03/09/18 07:00 Temperature Pulse Rate 84 84 84 Respiratory Rate Blood Pressure Pulse Oximetry 95 03/09/18 08:00 03/09/18 09:00 03/09/18 10:00 Temperature 97.1 F L Pulse Rate 86 86 84 Respiratory Rate 20 Blood Pressure 122/66 Pulse Oximetry 95 Intake & Output 03/08/18 03/09/18 03/09/18 18:59 06:59 18:59 Intake Total 980 / 980 240 / 240 Output Total 3600 / 3600 1949 Balance -2620 / -2620 -1710 / -1710 Weight 198.8 kg Intake: Oral 980 / 980 240 / 240 Output: Urine 3600 / 3600 Urine Amount (Catheter) 1949 Indwelling Urethral Catheter 1949 Other: Date of Last Bowel Movement 03/04/18 # Bowel Movements 0 Narrative: GENERAL: Alert and oriented. Obese NECK: Supple, trachea midline. Negative JVD CARDIOVASCULAR: Regular rate and rhythm without murmurs, gallops, or rubs. RESPIRATORY: Breath sounds equal bilaterally. No accessory muscle use. GASTROINTESTINAL: Abdomen soft, non-tender, large MUSCULOSKELETAL: No cyanosis, anasarca. SKIN: Warm and dry. - Urinary Catheter Management Indwelling Urethral Catheter Cath placed during this visit: yes Reason for continuing: Acute urinary retention Insertion date: 03/02/18 Insertion time: 12:30 <Sunita Ordonez - Last Filed: 03/09/18 14:52> Vital signs: Vital Signs 03/09/18 13:00 03/09/18 14:00 03/09/18 15:00 Temperature Pulse Rate 80 84 86 Respiratory Rate Blood Pressure Pulse Oximetry 98 03/09/18 16:00 03/09/18 17:00 03/09/18 18:00 Temperature Pulse Rate 84 90 92 H Respiratory Rate 16 Blood Pressure 125/60 Pulse Oximetry 03/09/18 19:00 03/09/18 20:00 03/09/18 21:00 Temperature 97.4 F L Pulse Rate 86 90 90 Respiratory Rate 20 Blood Pressure 139/77 Pulse Oximetry 92 L 03/09/18 22:00 03/09/18 22:05 03/09/18 23:00 Temperature Pulse Rate 82 83 Respiratory Rate Blood Pressure Pulse Oximetry 95 03/10/18 00:00 03/10/18 00:26 03/10/18 01:00 Temperature 97.5 F L Pulse Rate 83 85 Respiratory Rate 20 Blood Pressure 130/80 Pulse Oximetry 96 97 03/10/18 02:00 03/10/18 03:00 03/10/18 04:00 Temperature 97.4 F L Pulse Rate 81 74 70 Respiratory Rate 20 Blood Pressure 127/71 Pulse Oximetry 95 03/10/18 05:00 03/10/18 06:00 03/10/18 07:00 Temperature Pulse Rate 74 75 65 Respiratory Rate Blood Pressure Pulse Oximetry 03/10/18 07:58 03/10/18 08:00 03/10/18 09:00 Temperature 97.8 F Pulse Rate 78 84 84 Respiratory Rate 18 Blood Pressure 122/60 Pulse Oximetry 03/10/18 10:00 03/10/18 10:56 03/10/18 11:00 Temperature 98.2 F Pulse Rate 78 83 83 Respiratory Rate 24 Blood Pressure 122/56 L Pulse Oximetry 92 L 03/10/18 11:02 Temperature Pulse Rate Respiratory Rate Blood Pressure Pulse Oximetry 95 Intake & Output 03/09/18 03/10/18 03/10/18 18:59 06:59 18:59 Intake Total 820 / 820 580 / 580 Output Total 3000 / 3000 3850 / 3850 Balance -2180 / -2180 -3270 / -3270 Weight 197.6 kg Intake: IV 100 / 100 Bumex Inj 25 mg In 100 ml @ 0.5 100 / 100 MG/HR 2 mls/hr IV.CONT .Q24H [facility] Rx#:[id number] Oral 820 / 820 480 / 480 Output: Urine 3000 / 3000 3850 / 3850 Other: Date of Last Bowel Movement 03/04/18 03/04/18 - Urinary Catheter Management Indwelling Urethral Catheter Cath placed during this visit: no <Gulshan Robin - Last Filed: 03/10/18 12:12> Assessment and Plan - Assessment (1) DIXIE (acute kidney injury) Code(s): N17.9 - Acute kidney failure, unspecified Status: Acute Plan: DIXIE possibly from intravascular volume depletion from diuretic use or third spacing. Continues to have anasarca. Creatinine has remained stable at 1.8 on bumex gtt with good urinary response. Recommend to continue Bumex gtt and metolazone, to help reduce swelling and fluid overload. Hypokalemia with potassium level of 3.1, replacement ordered. Continue with daily weights, and strict I+O's. Avoid nephrotoxic agents. labs daily to watch kidney function closely. (2) Hyperkalemia, diminished renal excretion Code(s): E87.5 - Hyperkalemia Status: Acute Plan: Resolved . (3) Diabetes Code(s): E11.9 - Type 2 diabetes mellitus without complications Status: Acute Plan: Maintain blood sugars 140mg/dl to 180 mg/dl. (4) Hypertension Code(s): I10 - Essential (primary) hypertension Status: Acute Plan: Improved will monitor. <Sunita Ordonez - Last Filed: 03/09/18 14:52> - Assessment (1) DIXIE (acute kidney injury) Code(s): N17.9 - Acute kidney failure, unspecified Status: Acute Plan: Patient seen and examined, agree with above. Continue diuretics. Follow the urine out put and BMP. Will consider HD if not better in 1-2 days. (2) Hyperkalemia, diminished renal excretion Code(s): E87.5 - Hyperkalemia Status: Acute (3) Diabetes Code(s): E11.9 - Type 2 diabetes mellitus without complications Status: Acute (4) Hypertension Code(s): I10 - Essential (primary) hypertension Status: Acute <Gulshan Robin - Last Filed: 03/10/18 12:12>
[2018-03-09] MEDS: Bumetanide Inj 25 MG/100 ML BAG IV.CONT SCH (15:58)
--- NOTE | 2018-03-09 19:47 | P.PNIM ---
Subjective Interval history: Patient is laying down in a semi-supine position. Nasal cannula in place, and the patient states his symptoms are somewhat improved from yesterday however he is still occasionally short of breath. Physical Exam Vital signs: Vital Signs 03/08/18 20:00 03/08/18 20:19 03/08/18 21:00 Temperature 97.9 F Pulse Rate 88 84 Respiratory Rate 18 Blood Pressure 156/76 H Pulse Oximetry 95 98 03/08/18 22:00 03/08/18 23:00 03/08/18 23:56 Temperature 97.6 F Pulse Rate 84 82 85 Respiratory Rate 18 Blood Pressure 135/75 Pulse Oximetry 97 97 03/09/18 00:00 03/09/18 01:00 03/09/18 02:00 Temperature Pulse Rate 83 86 83 Respiratory Rate Blood Pressure Pulse Oximetry 03/09/18 03:00 03/09/18 03:29 03/09/18 04:00 Temperature 97.4 F L Pulse Rate 83 85 85 Respiratory Rate 18 Blood Pressure 141/81 H Pulse Oximetry 95 95 03/09/18 04:41 03/09/18 05:00 03/09/18 06:00 Temperature Pulse Rate 81 84 84 Respiratory Rate 17 Blood Pressure Pulse Oximetry 03/09/18 07:00 03/09/18 08:00 03/09/18 09:00 Temperature 97.1 F L Pulse Rate 84 86 86 Respiratory Rate 20 Blood Pressure 122/66 Pulse Oximetry 95 95 03/09/18 10:00 03/09/18 11:00 03/09/18 12:00 Temperature Pulse Rate 84 80 84 Respiratory Rate 18 Blood Pressure 134/77 Pulse Oximetry 96 03/09/18 13:00 03/09/18 14:00 03/09/18 15:00 Temperature Pulse Rate 80 84 86 Respiratory Rate Blood Pressure Pulse Oximetry 98 03/09/18 16:00 03/09/18 17:00 03/09/18 18:00 Temperature Pulse Rate 84 90 92 H Respiratory Rate 16 Blood Pressure 125/60 Pulse Oximetry Intake & Output 03/09/18 03/09/18 03/10/18 06:59 18:59 06:59 Intake Total 240 / 240 820 / 820 Output Total 1950 / 1950 3000 / 3000 Balance -1710 / -1710 -2180 / -2180 Weight 198.8 kg Intake: Oral 240 / 240 820 / 820 Output: Urine 3000 / 3000 Urine Amount (Catheter) 1949 Indwelling Urethral Catheter 1949 Other: # Bowel Movements 0 Narrative: General patient complains of some shortness of breath, currently on supplemental oxygen. He says his symptoms are somewhat improved from yesterday. HEENT extraocular movements are intact, clear oropharyngeal mucosa, no JVD Cardiovascular S1-S2 audible Respiratory clear to auscultation bilaterally Abdomen distended, abdominal wall edema present, bowel sounds present Extremities 2-3+ pitting edema bilateral lower extremities up to the thighs. Testicles are edematous. Neuro no neurological deficits. - Urinary Catheter Management Indwelling Urethral Catheter Cath placed during this visit: yes Reason for continuing: Acute urinary retention Insertion date: 03/02/18 Insertion time: 12:30 Results - Labs CBC & Chem 7: 03/07/18 03:49 03/09/18 09:10 Laboratory Results - last 24 hr 03/08/18 03/09/18 03/09/18 20:25 09:10 11:53 Sodium 139 Potassium 3.1 L Chloride 92 L Carbon Dioxide Greater than 45.0 H Anion Gap 2 L BUN 53 H Creatinine 1.81 H Estimated GFR 38 L POC Glucose 147 H 163 H Random Glucose 151 H Calcium 8.3 L 03/09/18 15:55 Sodium Potassium Chloride Carbon Dioxide Anion Gap BUN Creatinine Estimated GFR POC Glucose 158 H Random Glucose Calcium - Procedures None Assessment and Plan - Plan This patient is a 63-year-old obese male with a diagnosis of hypertension, dyslipidemia, diabetes mellitus type 2, 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 The patient came into our emergency department with complaints of worsening dyspnea and abdominal distention. Chest x-ray showed pulmonary vascular congestion and the patient was subsequently admitted for a CHF exacerbation. 1. Acute on chronic systolic CHF exacerbation 2. Generalized anasarca 3. Acute kidney injury likely secondary to #1 The patient has a significant amount of pitting edema of bilateral lower extremities up to the thighs. His testicles are also swollen as is his abdomen. Troponins negative, BNP elevated, chest x-ray showed pulmonary edema. Nephrology is also following the patient. Currently he is on Bumex drip and receiving metolazone p.o. 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 He shows some improvement in urine output over the past couple of days. Recommendations from nephrology are to continue the patient with the above- mentioned management and diuresis. We will monitor strict ins and outs. The patient will be kept on a 1.5 L fluid restriction. We will monitor the patient's electrolytes and replace them as needed. A.m. renal panel with magnesium ordered. We will continue monitor the patient's creatinine level. Continue Coreg, aspirin, and diuresis. No DWAYNE inhibitor,arb, or spironolactone due to hyperkalemia in the past from these medications. As per documentation recent ejection fraction is 20%. BiPAP at night Mauricio catheter in place for strict ins and outs. 4. Acute hypoxic respiratory failure secondary to #1 Patient is currently on supplemental oxygen. On presentation the patient had significant pulmonary vascular congestion and was admitted for a CHF exacerbation as detailed above. Continue supplemental oxygen as the patient continues to diuresis will start to titrate him off of supplemental O2. Continue BiPAP at night. 4. Diabetes mellitus type 2 Continue low-dose insulin sliding scale. His diabetes regimen will be adjusted if needed. Heparin for DVT prophylaxis.
[2018-03-10] MEDS: Bumetanide Inj 25 MG/100 ML BAG IV.CONT SCH (01:13)
[2018-03-10 07:23] LABS: Calcium 8.4 mg/dL (8.5-10.1); Carbon Dioxide 43.9 meq/L (21.0-32.0); Magnesium 1.6 mg/dL (1.5-2.5)
[2018-03-10 07:37] LABS: Potassium 2.9 meq/L (3.5-5.1)
[2018-03-10] MEDS: Magnesium Oxide 400 MG Tablet PO SCH (08:14)
[2018-03-10] MEDS: Heparin - SQ 10,000 UNITS/ML Vial SQ SCH ×2 (08:15→21:15)
[2018-03-10] MEDS: Insulin NovoLOG Aspart Correctional Sugar Inj SQ SCH ×4 (08:15→23:33)
[2018-03-10] MEDS: Multivitamin/Minerals Therapeutic Tablet PO SCH (08:15)
[2018-03-10] MEDS: metOLazone 5 MG Tablet PO SCH ×2 (08:15→21:15)
[2018-03-10] MEDS: amLODIPine 10 MG Tablet PO SCH (08:15)
[2018-03-10] MEDS ORDERED: Bisacodyl 10 MG Supp RECTAL PRN (11:14)
--- NOTE | 2018-03-10 11:23 | P.PNNP ---
Subjective Interval history: Sitting up in bed. Shortness of breath has improved. Continues to have anasarca, improving. Reports constipation. Creatinine stable at 1.54. <Sunita Ordonez - Last Filed: 03/10/18 11:14> Physical Exam Vital signs: Vital Signs 03/09/18 12:00 03/09/18 13:00 03/09/18 14:00 Temperature Pulse Rate 84 80 84 Respiratory Rate 18 Blood Pressure 134/77 Pulse Oximetry 03/09/18 15:00 03/09/18 16:00 03/09/18 17:00 Temperature Pulse Rate 86 84 90 Respiratory Rate 16 Blood Pressure 125/60 Pulse Oximetry 98 03/09/18 18:00 03/09/18 19:00 03/09/18 20:00 Temperature 97.4 F L Pulse Rate 92 H 86 90 Respiratory Rate 20 Blood Pressure 139/77 Pulse Oximetry 92 L 03/09/18 21:00 03/09/18 22:00 03/09/18 22:05 Temperature Pulse Rate 90 82 Respiratory Rate Blood Pressure Pulse Oximetry 95 03/09/18 23:00 03/10/18 00:00 03/10/18 00:26 Temperature 97.5 F L Pulse Rate 83 83 Respiratory Rate 20 Blood Pressure 130/80 Pulse Oximetry 96 97 03/10/18 01:00 03/10/18 02:00 03/10/18 03:00 Temperature Pulse Rate 85 81 74 Respiratory Rate Blood Pressure Pulse Oximetry 03/10/18 04:00 03/10/18 05:00 03/10/18 06:00 Temperature 97.4 F L Pulse Rate 70 74 75 Respiratory Rate 20 Blood Pressure 127/71 Pulse Oximetry 95 03/10/18 07:00 03/10/18 07:58 03/10/18 08:00 Temperature 97.8 F Pulse Rate 65 78 84 Respiratory Rate 18 Blood Pressure 122/60 Pulse Oximetry 03/10/18 09:00 03/10/18 10:00 03/10/18 10:56 Temperature 98.2 F Pulse Rate 84 78 83 Respiratory Rate 24 Blood Pressure 122/56 L Pulse Oximetry 92 L 03/10/18 11:00 03/10/18 11:02 Temperature Pulse Rate 83 Respiratory Rate Blood Pressure Pulse Oximetry 95 Intake & Output 03/09/18 03/10/18 03/10/18 18:59 06:59 18:59 Intake Total 820 / 820 580 / 580 Output Total 3000 / 3000 3850 / 3850 Balance -2180 / -2180 -3270 / -3270 Weight 197.6 kg Intake: IV 100 / 100 Bumex Inj 25 mg In 100 ml @ 0.5 100 / 100 MG/HR 2 mls/hr IV.CONT .Q24H [facility] Rx#:[id number] Oral 820 / 820 480 / 480 Output: Urine 3000 / 3000 3850 / 3850 Other: Date of Last Bowel Movement 03/04/18 03/04/18 Narrative: GENERAL: Alert and oriented. NECK: Supple, trachea midline. Negative JVD CARDIOVASCULAR: Regular rate and rhythm without murmurs, gallops, or rubs. RESPIRATORY: Breath sounds equal bilaterally. No accessory muscle use. GASTROINTESTINAL: Abdomen soft, non-tender, large, positive bowel sounds MUSCULOSKELETAL: No cyanosis, anasarca. SKIN: Warm and dry. - Urinary Catheter Management Indwelling Urethral Catheter Cath placed during this visit: yes Reason for continuing: Acute urinary retention Insertion date: 03/02/18 Insertion time: 12:30 <Sunita Ordonez - Last Filed: 03/10/18 11:14> Vital signs: Vital Signs 03/09/18 13:00 03/09/18 14:00 03/09/18 15:00 Temperature Pulse Rate 80 84 86 Respiratory Rate Blood Pressure Pulse Oximetry 98 03/09/18 16:00 03/09/18 17:00 03/09/18 18:00 Temperature Pulse Rate 84 90 92 H Respiratory Rate 16 Blood Pressure 125/60 Pulse Oximetry 03/09/18 19:00 03/09/18 20:00 03/09/18 21:00 Temperature 97.4 F L Pulse Rate 86 90 90 Respiratory Rate 20 Blood Pressure 139/77 Pulse Oximetry 92 L 03/09/18 22:00 03/09/18 22:05 03/09/18 23:00 Temperature Pulse Rate 82 83 Respiratory Rate Blood Pressure Pulse Oximetry 95 03/10/18 00:00 03/10/18 00:26 03/10/18 01:00 Temperature 97.5 F L Pulse Rate 83 85 Respiratory Rate 20 Blood Pressure 130/80 Pulse Oximetry 96 97 03/10/18 02:00 03/10/18 03:00 03/10/18 04:00 Temperature 97.4 F L Pulse Rate 81 74 70 Respiratory Rate 20 Blood Pressure 127/71 Pulse Oximetry 95 03/10/18 05:00 03/10/18 06:00 03/10/18 07:00 Temperature Pulse Rate 74 75 65 Respiratory Rate Blood Pressure Pulse Oximetry 03/10/18 07:58 03/10/18 08:00 03/10/18 09:00 Temperature 97.8 F Pulse Rate 78 84 84 Respiratory Rate 18 Blood Pressure 122/60 Pulse Oximetry 03/10/18 10:00 03/10/18 10:56 03/10/18 11:00 Temperature 98.2 F Pulse Rate 78 83 83 Respiratory Rate 24 Blood Pressure 122/56 L Pulse Oximetry 92 L 03/10/18 11:02 Temperature Pulse Rate Respiratory Rate Blood Pressure Pulse Oximetry 95 Intake & Output 03/09/18 03/10/18 03/10/18 18:59 06:59 18:59 Intake Total 820 / 820 580 / 580 Output Total 3000 / 3000 3850 / 3850 Balance -2180 / -2180 -3270 / -3270 Weight 197.6 kg Intake: IV 100 / 100 Bumex Inj 25 mg In 100 ml @ 0.5 100 / 100 MG/HR 2 mls/hr IV.CONT .Q24H [facility] Rx#:[id number] Oral 820 / 820 480 / 480 Output: Urine 3000 / 3000 3850 / 3850 Other: Date of Last Bowel Movement 03/04/18 03/04/18 - Urinary Catheter Management Indwelling Urethral Catheter Cath placed during this visit: no <Gulshan Robin - Last Filed: 03/10/18 12:38> Assessment and Plan - Assessment (1) DIXIE (acute kidney injury) Code(s): N17.9 - Acute kidney failure, unspecified Status: Acute Plan: DIXIE possibly from intravascular volume depletion from diuretic use or third spacing, improving. Creatinine has remained stable somewhat improved today at 1.5 on bumex gtt with good urinary response 6.8 L/24 hours. Recommend to continue Bumex gtt and metolazone. Hypokalemia with potassium level of 2.9, replacement ordered. Continue with daily weights, and strict I+O's. Fluid restriction. Avoid nephrotoxic agents. Will consider HD if not much improvement. labs daily to watch kidney function closely. (2) Hyperkalemia, diminished renal excretion Code(s): E87.5 - Hyperkalemia Status: Acute Plan: Resolved . (3) Diabetes Code(s): E11.9 - Type 2 diabetes mellitus without complications Status: Acute Plan: Maintain blood sugars 140mg/dl to 180 mg/dl. Well controlled. (4) Hypertension Code(s): I10 - Essential (primary) hypertension Status: Acute Plan: Improved will monitor. <Sunita Ordonez - Last Filed: 03/10/18 11:14> - Assessment (1) DIXIE (acute kidney injury) Code(s): N17.9 - Acute kidney failure, unspecified Status: Acute Plan: Patient seen and examined, agree with above. Urine out put is better, Continue Bumex and Metolazone. Creatinine is better at 1.5. Will consider few HD/UF sessions , since he has severe anasarca. (2) Hyperkalemia, diminished renal excretion Code(s): E87.5 - Hyperkalemia Status: Acute (3) Diabetes Code(s): E11.9 - Type 2 diabetes mellitus without complications Status: Acute (4) Hypertension Code(s): I10 - Essential (primary) hypertension Status: Acute <Gulshan Robin - Last Filed: 03/10/18 12:38>
--- NOTE | 2018-03-10 18:57 | P.PNIM ---
Subjective Interval history: Patient says he feels somewhat better than he did a couple days ago. He still has anasarca. He has some shortness of breath when he begins to move around in bed. Otherwise he does not have any other complaints. Physical Exam Vital signs: Vital Signs 03/09/18 19:00 03/09/18 20:00 03/09/18 21:00 Temperature 97.4 F L Pulse Rate 86 90 90 Respiratory Rate 20 Blood Pressure 139/77 Pulse Oximetry 92 L 03/09/18 22:00 03/09/18 22:05 03/09/18 23:00 Temperature Pulse Rate 82 83 Respiratory Rate Blood Pressure Pulse Oximetry 95 03/10/18 00:00 03/10/18 00:26 03/10/18 01:00 Temperature 97.5 F L Pulse Rate 83 85 Respiratory Rate 20 Blood Pressure 130/80 Pulse Oximetry 96 97 03/10/18 02:00 03/10/18 03:00 03/10/18 04:00 Temperature 97.4 F L Pulse Rate 81 74 70 Respiratory Rate 20 Blood Pressure 127/71 Pulse Oximetry 95 03/10/18 05:00 03/10/18 06:00 03/10/18 07:00 Temperature Pulse Rate 74 75 65 Respiratory Rate Blood Pressure Pulse Oximetry 03/10/18 07:58 03/10/18 08:00 03/10/18 09:00 Temperature 97.8 F Pulse Rate 78 84 84 Respiratory Rate 18 Blood Pressure 122/60 Pulse Oximetry 03/10/18 10:00 03/10/18 10:56 03/10/18 11:00 Temperature 98.2 F Pulse Rate 78 83 83 Respiratory Rate 24 Blood Pressure 122/56 L Pulse Oximetry 92 L 03/10/18 11:02 03/10/18 12:00 03/10/18 13:17 Temperature Pulse Rate 80 83 Respiratory Rate Blood Pressure Pulse Oximetry 95 03/10/18 14:00 03/10/18 15:00 03/10/18 15:08 Temperature 98.4 F Pulse Rate 80 78 82 Respiratory Rate 18 Blood Pressure 119/68 Pulse Oximetry 95 03/10/18 16:00 03/10/18 17:00 03/10/18 18:00 Temperature Pulse Rate 80 86 90 Respiratory Rate Blood Pressure Pulse Oximetry Intake & Output 03/09/18 03/10/18 03/10/18 18:59 06:59 18:59 Intake Total 820 / 820 580 / 580 1200 / 1200 Output Total 3000 / 3000 3850 / 3850 4050 / 4050 Balance -2180 / -2180 -3270 / -3270 -2850 / -2850 Weight 197.6 kg Intake: IV 100 / 100 Bumex Inj 25 mg In 100 ml @ 0.5 100 / 100 MG/HR 2 mls/hr IV.CONT .Q24H [facility] Rx#:[id number] Oral 820 / 820 480 / 480 1200 / 1200 Output: Urine 3000 / 3000 3850 / 3850 Urine Amount (Catheter) 4050 / 4050 Indwelling Urethral Catheter 4050 / 4050 Other: Date of Last Bowel Movement 03/04/18 03/10/18 # Bowel Movements 1 - Urinary Catheter Management Indwelling Urethral Catheter Cath placed during this visit: yes Reason for continuing: Acute urinary retention Insertion date: 03/02/18 Insertion time: 12:30 Results - Labs CBC & Chem 7: 03/07/18 03:49 03/10/18 06:13 Laboratory Results - last 24 hr 03/09/18 03/10/18 03/10/18 20:36 00:25 06:13 Sodium 140 Potassium 2.9 L* Chloride 91 L Carbon Dioxide 43.9 H Anion Gap 5 BUN 52 H Creatinine 1.54 H Estimated GFR 46 L POC Glucose 185 H Random Glucose 125 H Calcium 8.4 L Magnesium 1.7 1.6 03/10/18 03/10/18 03/10/18 08:00 11:43 16:53 Sodium Potassium Chloride Carbon Dioxide Anion Gap BUN Creatinine Estimated GFR POC Glucose 152 H 244 H 182 H Random Glucose Calcium Magnesium - Procedures None Assessment and Plan - Plan This patient is a 63-year-old obese male with a diagnosis of hypertension, dyslipidemia, diabetes mellitus type 2, 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 The patient came into our emergency department with complaints of worsening dyspnea and abdominal distention. Chest x-ray showed pulmonary vascular congestion and the patient was subsequently admitted for a CHF exacerbation. 1. Acute on chronic systolic CHF exacerbation 2. Generalized anasarca 3. Acute kidney injury likely secondary to #1 Patient says he feels somewhat better than he did over the past couple days. The patient still has a significant amount of pitting edema of his lower extremities up to the thighs. His testicles are also swollen. He is currently on Bumex drip and is receiving p.o. metolazone. The patient is diuresing well. We will continue strict ins and outs, and daily weights. Continue with a 1.5 L fluid restriction. Nephrology is following the patient for acute kidney injury. Serum creatinine is downtrending to 1.5 today from 1.8. We will follow-up with an a.m. renal panel and continue to monitor his kidney function. We will follow-up with nephrology for further recommendations. Ejection fraction 20%. Patient was advised to use BiPAP at night. Mauricio catheter still in place for strict ins and outs. 4. Acute hypoxic respiratory failure secondary to #1 Patient still on supplemental oxygen. We will continue to titrate the patient off supplemental oxygen. 5. Diabetes mellitus type 2 Continue low-dose insulin sliding scale. His diabetes regimen will be adjusted if needed. 6. Hypokalemia Electrolyte replaced. Heparin for DVT prophylaxis.
[2018-03-11] MEDS: Bumetanide Inj 25 MG/100 ML BAG IV.CONT SCH (02:41)
[2018-03-11 07:26] LABS: Anion Gap 12 meq/L (5-15); Blood Urea Nitrogen 46 mg/dL (7-18); Calcium 8.7 mg/dL (8.5-10.1); Chloride 86 meq/L (98-107); Glomerular Filtration Rate 50 mL/min (>89); Glucose,Random 125 mg/dL (74-106); Sodium 143 meq/L (136-145)
[2018-03-11 07:28] LABS: Potassium 2.8 meq/L (3.5-5.1)
[2018-03-11] MEDS ORDERED: Magnesium Sulfate Inj 2 GM in Sodium Chlor 0.9% Inj 96 ML IV.SIG ONE (09:00)
--- NOTE | 2018-03-11 10:03 | P.PNNP ---
Subjective Interval history: Creatinine has remained stable at 1.43, on bumex gtt. Shortness of breath and edema improving. Denies any nausea, vomiting, or diarrhea. <Sunita Ordonez - Last Filed: 03/11/18 10:04> Physical Exam Vital signs: Vital Signs 03/10/18 10:56 03/10/18 11:00 03/10/18 11:02 Temperature 98.2 F Pulse Rate 83 83 Respiratory Rate 24 Blood Pressure 122/56 L Pulse Oximetry 92 L 95 03/10/18 12:00 03/10/18 13:17 03/10/18 14:00 Temperature Pulse Rate 80 83 80 Respiratory Rate Blood Pressure Pulse Oximetry 03/10/18 15:00 03/10/18 15:08 03/10/18 16:00 Temperature 98.4 F Pulse Rate 78 82 80 Respiratory Rate 18 Blood Pressure 119/68 Pulse Oximetry 95 03/10/18 17:00 03/10/18 18:00 03/10/18 19:00 Temperature Pulse Rate 86 90 89 Respiratory Rate Blood Pressure Pulse Oximetry 98 03/10/18 20:00 03/10/18 21:00 03/10/18 21:43 Temperature 98.3 F Pulse Rate 89 93 H Respiratory Rate 22 Blood Pressure 127/80 Pulse Oximetry 98 99 03/10/18 22:00 03/10/18 23:00 03/11/18 00:00 Temperature 98.4 F Pulse Rate 97 H 94 H 89 Respiratory Rate 24 Blood Pressure 127/64 Pulse Oximetry 98 98 03/11/18 01:00 03/11/18 01:09 03/11/18 02:00 Temperature Pulse Rate 84 86 Respiratory Rate Blood Pressure Pulse Oximetry 94 L 03/11/18 03:00 03/11/18 04:00 03/11/18 04:57 Temperature 98.8 F Pulse Rate 79 87 Respiratory Rate 22 Blood Pressure 131/71 Pulse Oximetry 94 L 03/11/18 05:00 03/11/18 06:00 03/11/18 07:00 Temperature Pulse Rate 76 84 76 Respiratory Rate 22 Blood Pressure Pulse Oximetry 03/11/18 07:19 Temperature Pulse Rate Respiratory Rate Blood Pressure Pulse Oximetry 90 L Intake & Output 03/10/18 03/11/18 03/11/18 18:59 06:59 18:59 Intake Total 1200 / 1200 340 / 340 Output Total 4050 / 4050 4975 / 4975 Balance -2850 / -2850 -4635 / -4635 Weight 190.1 kg Intake: IV 100 / 100 Bumex Inj 25 mg In 100 ml @ 0.5 100 / 100 MG/HR 2 mls/hr IV.CONT .Q24H [facility] Rx#:[id number] Oral 1200 / 1200 240 / 240 Output: Urine Amount (Catheter) 4050 / 4050 4975 / 4975 Indwelling Urethral Catheter 4050 / 4050 4975 / 4975 Other: Date of Last Bowel Movement 03/10/18 # Bowel Movements 1 2 Narrative: GENERAL: Alert and oriented. Morbidly obese. NECK: Supple, trachea midline. Negative JVD CARDIOVASCULAR: Regular rate and rhythm without murmurs, gallops, or rubs. RESPIRATORY: Breath sounds equal bilaterally. No accessory muscle use. GASTROINTESTINAL: Abdomen soft, non-tender, large, positive bowel sounds MUSCULOSKELETAL: No cyanosis, anasarca. SKIN: Warm and dry. Discoloration to lower extremities - Urinary Catheter Management Indwelling Urethral Catheter Cath placed during this visit: yes Reason for continuing: Acute urinary retention Insertion date: 03/02/18 Insertion time: 12:30 <Sunita Ordonez - Last Filed: 03/11/18 10:04> Vital signs: Vital Signs 03/15/18 19:00 03/15/18 20:00 03/15/18 21:00 Temperature 98.8 F Pulse Rate 82 86 85 Respiratory Rate 20 Blood Pressure 116/71 Pulse Oximetry 98 98 03/15/18 22:00 03/15/18 23:00 03/16/18 00:00 Temperature 98.8 F Pulse Rate 83 83 83 Respiratory Rate 20 Blood Pressure 107/65 Pulse Oximetry 96 96 03/16/18 01:00 03/16/18 02:00 03/16/18 03:00 Temperature Pulse Rate 85 78 83 Respiratory Rate Blood Pressure Pulse Oximetry 98 03/16/18 04:00 03/16/18 05:00 03/16/18 06:00 Temperature 97.8 F Pulse Rate 92 H 88 85 Respiratory Rate 16 Blood Pressure 122/62 Pulse Oximetry 94 L 03/16/18 07:00 03/16/18 08:00 03/16/18 09:00 Temperature 98.4 F Pulse Rate 86 94 H 82 Respiratory Rate 24 Blood Pressure 129/57 L Pulse Oximetry 92 L 03/16/18 10:00 03/16/18 10:56 03/16/18 11:00 Temperature 97.8 F Pulse Rate 80 76 86 Respiratory Rate 22 Blood Pressure 102/59 L Pulse Oximetry 98 96 03/16/18 12:00 03/16/18 13:00 03/16/18 14:00 Temperature Pulse Rate 80 78 78 Respiratory Rate Blood Pressure Pulse Oximetry 03/16/18 15:00 03/16/18 16:00 Temperature Pulse Rate 81 76 Respiratory Rate Blood Pressure Pulse Oximetry 96 Intake & Output 03/15/18 03/16/18 03/16/18 18:59 06:59 18:59 Intake Total 720 / 720 330 / 330 Output Total 2650 / 2650 2775 / 2775 Balance -1930 / -1930 -2445 / -2445 Weight 159 kg Intake: Oral 720 / 720 330 / 330 Output: Urine 2650 / 2650 2775 / 2775 Other: Date of Last Bowel Movement 03/15/18 03/15/18 03/15/18 # Bowel Movements 1 - Urinary Catheter Management Indwelling Urethral Catheter Cath placed during this visit: no <Gulshan Robin - Last Filed: 03/16/18 18:10> Assessment and Plan - Assessment (1) DIXIE (acute kidney injury) Code(s): N17.9 - Acute kidney failure, unspecified Status: Acute Plan: DIXIE possibly from intravascular volume depletion from diuretic use or third spacing, improving. Creatinine has improved today at 1.4 on bumex gtt with good urinary response 9 L /24 hours. Weight down over 7 kg from yesterday Recommend to continue Bumex gtt and metolazone. Hypokalemia with potassium level of 2.8 replacement ordered will increase scheduled replacement. Continue with daily weights, strict I+O's and fluid restriction. Avoid nephrotoxic agents. Will consider HD/UF if needed. Labs daily to watch kidney function closely. (2) Diabetes Code(s): E11.9 - Type 2 diabetes mellitus without complications Status: Acute Plan: Maintain blood sugars 140mg/dl to 180 mg/dl. Well controlled. (3) Hypertension Code(s): I10 - Essential (primary) hypertension Status: Acute Plan: Improved will monitor. <Sunita Ordonez Last Filed: 03/11/18 10:04> - Assessment (1) DIXIE (acute kidney injury) Code(s): N17.9 - Acute kidney failure, unspecified Status: Acute Plan: Patient seen and examined, agree with above. Urine out put is good. Creatinine is stable, continue Bumex and Metolazone. (2) Diabetes Code(s): E11.9 - Type 2 diabetes mellitus without complications Status: Acute (3) Hypertension Code(s): I10 - Essential (primary) hypertension Status: Acute <Gulshan Robin - Last Filed: 03/16/18 18:10>
[2018-03-11] MEDS: metOLazone 5 MG Tablet PO SCH ×2 (10:46→21:25)
[2018-03-11] MEDS: Magnesium Oxide 400 MG Tablet PO SCH (10:46)
[2018-03-11] MEDS: amLODIPine 10 MG Tablet PO SCH (10:46)
[2018-03-11] MEDS: Multivitamin/Minerals Therapeutic Tablet PO SCH (10:46)
[2018-03-11] MEDS: Heparin - SQ 10,000 UNITS/ML Vial SQ SCH ×2 (10:46→21:26)
--- NOTE | 2018-03-11 12:56 | P.PNIM ---
Subjective Interval history: Patient planes of some shortness of breath when he lays down flat. He does not have any other complaints today. Physical Exam Vital signs: Vital Signs 03/10/18 13:17 03/10/18 14:00 03/10/18 15:00 Temperature Pulse Rate 83 80 78 Respiratory Rate Blood Pressure Pulse Oximetry 03/10/18 15:08 03/10/18 16:00 03/10/18 17:00 Temperature 98.4 F Pulse Rate 82 80 86 Respiratory Rate 18 Blood Pressure 119/68 Pulse Oximetry 95 03/10/18 18:00 03/10/18 19:00 03/10/18 20:00 Temperature 98.3 F Pulse Rate 90 89 89 Respiratory Rate 22 Blood Pressure 127/80 Pulse Oximetry 98 98 03/10/18 21:00 03/10/18 21:43 03/10/18 22:00 Temperature Pulse Rate 93 H 97 H Respiratory Rate Blood Pressure Pulse Oximetry 99 03/10/18 23:00 03/11/18 00:00 03/11/18 01:00 Temperature 98.4 F Pulse Rate 94 H 89 84 Respiratory Rate 24 Blood Pressure 127/64 Pulse Oximetry 98 98 03/11/18 01:09 03/11/18 02:00 03/11/18 03:00 Temperature Pulse Rate 86 79 Respiratory Rate Blood Pressure Pulse Oximetry 94 L 03/11/18 04:00 03/11/18 04:57 03/11/18 05:00 Temperature 98.8 F Pulse Rate 87 76 Respiratory Rate 22 Blood Pressure 131/71 Pulse Oximetry 94 L 03/11/18 06:00 03/11/18 07:00 03/11/18 07:19 Temperature Pulse Rate 84 76 Respiratory Rate 22 Blood Pressure Pulse Oximetry 90 L Intake & Output 03/10/18 03/11/18 03/11/18 18:59 06:59 18:59 Intake Total 1200 / 1200 340 / 340 Output Total 4050 / 4050 4975 / 4975 Balance -2850 / -2850 -4635 / -4635 Weight 190.1 kg Intake: IV 100 / 100 Bumex Inj 25 mg In 100 ml @ 0.5 100 / 100 MG/HR 2 mls/hr IV.CONT .Q24H [facility] Rx#:[id number] Oral 1200 / 1200 240 / 240 Output: Urine Amount (Catheter) 4050 / 4050 4975 / 4975 Indwelling Urethral Catheter 4050 / 4050 4975 / 4975 Other: Date of Last Bowel Movement 03/10/18 # Bowel Movements 1 2 Narrative: HEENT extraocular movements are intact, clear oropharyngeal mucosa, Cardiovascular S1-S2 audible Respiratory bibasilar crackles Abdomen soft, distended, bowel sounds present Extremities 2+ pitting edema bilateral lower extremities up to the thighs. Scrotal edema present Neuro cranial nerves II through XII intact - Urinary Catheter Management Indwelling Urethral Catheter Cath placed during this visit: yes Reason for continuing: Acute urinary retention Insertion date: 03/02/18 Insertion time: 12:30 Results - Labs CBC & Chem 7: 03/07/18 03:49 03/11/18 06:01 Laboratory Results - last 24 hr 03/10/18 03/10/18 03/11/18 16:53 21:24 06:01 Sodium 143 Potassium 2.8 L* Chloride 86 L Carbon Dioxide Greater than 45.0 H Anion Gap 12 BUN 46 H Creatinine 1.43 H Estimated GFR 50 L POC Glucose 182 H 153 H Random Glucose 125 H Calcium 8.7 03/11/18 03/11/18 07:58 11:37 Sodium Potassium Chloride Carbon Dioxide Anion Gap BUN Creatinine Estimated GFR POC Glucose 135 H 180 H Random Glucose Calcium - Procedures None Assessment and Plan - Plan This patient is a 63-year-old obese male with a diagnosis of hypertension, dyslipidemia, diabetes mellitus type 2, 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 The patient came into our emergency department with complaints of worsening dyspnea and abdominal distention. Chest x-ray showed pulmonary vascular congestion and the patient was subsequently admitted for a CHF exacerbation. 1. Acute on chronic systolic CHF exacerbation 2. Generalized anasarca 3. Acute kidney injury likely secondary to #1 Patient says he feels like he is slowly getting better. He is currently on Bumex drip and is receiving p.o. metolazone. The patient is diuresing well. Continue strict ins and outs and daily weights. Patient has lost 7 kg since admission and is now diuresing well. 1.5 L fluid restriction Ejection fraction is 20% Continue BiPAP at night Mauricio catheter in place for strict ins and outs. Serum creatinine continues to improve on Bumex drip and metolazone. We will continue to monitor the patient's kidney function and replace electrolytes as needed. 4. Acute hypoxic respiratory failure secondary to #1 Patient still on supplemental oxygen. We will continue to titrate the patient off supplemental oxygen. 5. Diabetes mellitus type 2 Continue low-dose insulin sliding scale. His diabetes regimen will be adjusted if needed. 6. Hypokalemia Electrolyte replaced. [facility] ordered for tomorrow morning Heparin for DVT prophylaxis.
[2018-03-11] MEDS: Insulin NovoLOG Aspart Correctional Sugar Inj SQ SCH ×3 (13:16→21:27)
[2018-03-11 21:24] LABS: ABG Base Excess 28.7 mmol/L (-2-2); ABG PCO2 80 mmHg (38-42); ABG PO2 55 mmHG (61-120)
[2018-03-12] MEDS: Bumetanide Inj 25 MG/100 ML BAG IV.CONT SCH ×2 (02:36→22:53)
[2018-03-12 07:53] LABS: Blood Urea Nitrogen 40 mg/dL (7-18); Calcium 8.9 mg/dL (8.5-10.1); Chloride 82 meq/L (98-107); Glomerular Filtration Rate 55 mL/min (>89); Glucose,Random 151 mg/dL (74-106); Magnesium 1.6 mg/dL (1.5-2.5); Sodium 141 meq/L (136-145)
[2018-03-12] MEDS: Multivitamin/Minerals Therapeutic Tablet PO SCH (08:19)
[2018-03-12] MEDS: Heparin - SQ 10,000 UNITS/ML Vial SQ SCH ×2 (08:20→21:13)
[2018-03-12] MEDS: Magnesium Oxide 400 MG Tablet PO SCH (08:21)
[2018-03-12] MEDS: amLODIPine 10 MG Tablet PO SCH (08:21)
[2018-03-12] MEDS: Insulin NovoLOG Aspart Correctional Sugar Inj SQ SCH ×3 (13:16→21:57)
[2018-03-12] MEDS: metOLazone 5 MG Tablet PO SCH ×2 (13:25→21:13)
--- NOTE | 2018-03-12 16:58 | P.PNNP ---
Physical Exam Vital signs: Vital Signs 03/11/18 17:00 03/11/18 18:00 03/11/18 19:00 Temperature Pulse Rate 88 86 88 Respiratory Rate Blood Pressure Pulse Oximetry 95 03/11/18 20:00 03/11/18 21:00 03/11/18 21:35 Temperature 98.0 F Pulse Rate 75 79 Respiratory Rate 25 H Blood Pressure 138/70 Pulse Oximetry 95 94 L 03/11/18 22:00 03/11/18 23:00 03/12/18 00:00 Temperature 98.2 F Pulse Rate 68 77 78 Respiratory Rate 25 H Blood Pressure 133/71 Pulse Oximetry 92 L 03/12/18 01:00 03/12/18 02:00 03/12/18 03:00 Temperature Pulse Rate 82 71 78 Respiratory Rate Blood Pressure Pulse Oximetry 98 03/12/18 04:00 03/12/18 05:00 03/12/18 06:00 Temperature 98.4 F Pulse Rate 82 91 H 90 Respiratory Rate 17 Blood Pressure 137/71 Pulse Oximetry 96 03/12/18 08:00 03/12/18 08:47 03/12/18 09:00 Temperature 98.5 F Pulse Rate 88 89 90 Respiratory Rate 18 Blood Pressure 123/59 L Pulse Oximetry 93 L 03/12/18 10:00 03/12/18 12:04 03/12/18 12:14 Temperature 97.9 F Pulse Rate 70 75 75 Respiratory Rate 16 Blood Pressure 126/66 Pulse Oximetry 96 96 03/12/18 12:46 03/12/18 13:00 03/12/18 14:00 Temperature Pulse Rate 90 76 Respiratory Rate Blood Pressure Pulse Oximetry 96 Intake & Output 03/11/18 03/12/18 03/12/18 18:59 06:59 18:59 Intake Total 1540 / 1540 240 / 240 Output Total 4500 / 4500 3950 / 3950 Balance -2960 / -2960 -3710 / -3710 Weight 187 kg Intake: IV 100 / 100 Magnesium Sulfate Inj 2 GM In 100 / 100 NS Inj 96 ML @ 50 mls/hr IV.SIG NOW ONE Rx#:[id number] Oral 1440 / 1440 240 / 240 Output: Urine 4500 / 4500 Urine Amount (Catheter) 3950 / 3950 Indwelling Urethral Catheter 3950 / 3950 Other: Date of Last Bowel Movement 03/11/18 03/12/18 # Bowel Movements 3 1 Narrative: HEENT extraocular movements are intact, clear oropharyngeal mucosa, Cardiovascular S1-S2 audible Respiratory bibasilar crackles Abdomen soft, distended, bowel sounds present Extremities 2+ pitting edema bilateral lower extremities up to the thighs. Scrotal edema present Neuro cranial nerves II through XII intact - Urinary Catheter Management Indwelling Urethral Catheter Cath placed during this visit: yes Reason for continuing: Hourly intake/output Insertion date: 03/02/18 Insertion time: 12:30 Assessment and Plan - Assessment (1) DIXIE (acute kidney injury) Code(s): N17.9 - Acute kidney failure, unspecified Status: Acute Plan: DIXIE possibly from intravascular volume depletion from diuretic use or third spacing, improving. Creatinine has improved today at 1.3 on bumex gtt with good urinary response 3.9 L/24 hours. REPLACE K Recommend to continue metolazone and Bumex. Continue with daily weights, strict I+O's and fluid restriction. Avoid nephrotoxic agents. Will consider HD/ UF if needed. Labs daily to watch kidney function closely. (2) Diabetes Code(s): E11.9 - Type 2 diabetes mellitus without complications Status: Acute Plan: Maintain blood sugars 140mg/dl to 180 mg/dl. Well controlled. (3) Hypertension Code(s): I10 - Essential (primary) hypertension Status: Acute Plan: Improved will monitor.
--- NOTE | 2018-03-12 17:43 | P.PNIM ---
Subjective Interval history: Patient says he is starting to feel better. 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 Physical Exam Vital signs: Vital Signs 03/11/18 18:00 03/11/18 19:00 03/11/18 20:00 Temperature 98.0 F Pulse Rate 86 88 75 Respiratory Rate 25 H Blood Pressure 138/70 Pulse Oximetry 95 95 03/11/18 21:00 03/11/18 21:35 03/11/18 22:00 Temperature Pulse Rate 79 68 Respiratory Rate Blood Pressure Pulse Oximetry 94 L 03/11/18 23:00 03/12/18 00:00 03/12/18 01:00 Temperature 98.2 F Pulse Rate 77 78 82 Respiratory Rate 25 H Blood Pressure 133/71 Pulse Oximetry 92 L 03/12/18 02:00 03/12/18 03:00 03/12/18 04:00 Temperature 98.4 F Pulse Rate 71 78 82 Respiratory Rate 17 Blood Pressure 137/71 Pulse Oximetry 98 96 03/12/18 05:00 03/12/18 06:00 03/12/18 08:00 Temperature Pulse Rate 91 H 90 88 Respiratory Rate Blood Pressure Pulse Oximetry 03/12/18 08:47 03/12/18 09:00 03/12/18 10:00 Temperature 98.5 F Pulse Rate 89 90 70 Respiratory Rate 18 Blood Pressure 123/59 L Pulse Oximetry 93 L 03/12/18 12:04 03/12/18 12:14 03/12/18 12:46 Temperature 97.9 F Pulse Rate 75 75 Respiratory Rate 16 Blood Pressure 126/66 Pulse Oximetry 96 96 96 03/12/18 13:00 03/12/18 14:00 Temperature Pulse Rate 90 76 Respiratory Rate Blood Pressure Pulse Oximetry Intake & Output 03/11/18 03/12/18 03/12/18 18:59 06:59 18:59 Intake Total 1540 / 1540 240 / 240 Output Total 4500 / 4500 3950 / 3950 Balance -2960 / -2960 -3710 / -3710 Weight 187 kg Intake: IV 100 / 100 Magnesium Sulfate Inj 2 GM In 100 / 100 NS Inj 96 ML @ 50 mls/hr IV.SIG NOW ONE Rx#:[id number] Oral 1440 / 1440 240 / 240 Output: Urine 4500 / 4500 Urine Amount (Catheter) 3950 / 3950 Indwelling Urethral Catheter 3950 / 3950 Other: Date of Last Bowel Movement 03/11/18 03/12/18 # Bowel Movements 3 1 Narrative: 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 He is able to move around better than when he first came into the hospital. HEENT extraocular movements are intact, clear oropharyngeal mucosa, Cardiovascular S1-S2 audible Respiratory bibasilar crackles Abdomen soft, distended, bowel sounds present Extremities 2+ pitting edema bilateral lower extremities up to the thighs. Scrotal edema present. Patient still has a lot of edema in his lower extremities, however is improving. Neuro cranial nerves II through XII intact - Urinary Catheter Management Indwelling Urethral Catheter Cath placed during this visit: yes Reason for continuing: Hourly intake/output Insertion date: 03/02/18 Insertion time: 12:30 Results - Labs CBC & Chem 7: 03/07/18 03:49 03/12/18 05:42 Laboratory Results - last 24 hr 03/11/18 03/11/18 03/11/18 06:01 06:01 21:01 Puncture Site Left radial Patient Temperature 98.6 O2 Saturation 85 L* ABG pH 7.46 H ABG pCO2 80 H* ABG pO2 55 L* ABG HCO3 55 H ABG O2 Content 14.9 ABG Base Excess 28.7 H ABG Methemoglobin 1.4 Ger Test Present Hemoglobin 12.5 Carboxyhemoglobin 2.1 O2 Delivery Device Nasal cannula Liter Flow 2.50 Inspired O2 91 Critical Value Yes Sodium 143 Potassium 2.8 L* Chloride 86 L Carbon Dioxide Greater than 45.0 H Anion Gap 12 BUN 46 H Creatinine 1.43 H Estimated GFR 50 L POC Glucose Random Glucose 125 H Calcium 8.7 Magnesium TSH 6.450 H Cancelled 03/11/18 03/12/18 03/12/18 22:29 05:42 08:18 Puncture Site Patient Temperature O2 Saturation ABG pH ABG pCO2 ABG pO2 ABG HCO3 ABG O2 Content ABG Base Excess ABG Methemoglobin Ger Test Hemoglobin Carboxyhemoglobin O2 Delivery Device Liter Flow Inspired O2 Critical Value Sodium 141 Potassium 3.0 L Chloride 82 L Carbon Dioxide Greater than 45.0 H Anion Gap Less than 14 BUN 40 H Creatinine 1.31 H Estimated GFR 55 L POC Glucose 163 H 166 H Random Glucose 151 H Calcium 8.9 Magnesium 1.6 TSH - Procedures None Assessment and Plan - Plan This patient is a 63-year-old obese male with a diagnosis of hypertension, dyslipidemia, diabetes mellitus type 2, 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 The patient came into our emergency department with complaints of worsening dyspnea and abdominal distention. Chest x-ray showed pulmonary vascular congestion and the patient was subsequently admitted for a CHF exacerbation. 1. Acute on chronic systolic CHF exacerbation 2. Generalized anasarca 3. Acute kidney injury likely secondary to #1 4. Hypokalemia He is currently on Bumex drip and is receiving p.o. metolazone. The patient is diuresing well. Continue strict ins and outs and daily weights. Patient continues to diurese well. 1.5 L fluid restriction Ejection fraction is 20% Continue BiPAP at night Mauricio catheter in place for strict ins and outs. Serum creatinine continues to improve on Bumex drip and metolazone. Patient was hypokalemic this morning. Electrolytes replaced. Follow-up a.m. labs. 5. Acute hypoxic respiratory failure secondary to #1 Patient still on supplemental oxygen. We will continue to titrate the patient off supplemental oxygen. Patient starting to feel better and less short of breath. 6. Diabetes mellitus type 2 Continue low-dose insulin sliding scale. His diabetes regimen will be adjusted if needed. Heparin for DVT prophylaxis.
[2018-03-12] MEDS ORDERED: Magnesium Sulfate Inj 2 GM in Sodium Chlor 0.9% Inj 96 ML IV.SIG ONE ×2 (18:30→20:00)
--- NOTE | 2018-03-12 18:41 | P.PNPL ---
Subjective Interval history: 63 YO Obwese WM, with COPD,CHF,VALENTINE Used CPAP last night Up in chair On NC Breathing better Physical Exam Vital signs: Vital Signs 03/11/18 19:00 03/11/18 20:00 03/11/18 21:00 Temperature 98.0 F Pulse Rate 88 75 79 Respiratory Rate 25 H Blood Pressure 138/70 Pulse Oximetry 95 95 03/11/18 21:35 03/11/18 22:00 03/11/18 23:00 Temperature Pulse Rate 68 77 Respiratory Rate Blood Pressure Pulse Oximetry 94 L 03/12/18 00:00 03/12/18 01:00 03/12/18 02:00 Temperature 98.2 F Pulse Rate 78 82 71 Respiratory Rate 25 H Blood Pressure 133/71 Pulse Oximetry 92 L 03/12/18 03:00 03/12/18 04:00 03/12/18 05:00 Temperature 98.4 F Pulse Rate 78 82 91 H Respiratory Rate 17 Blood Pressure 137/71 Pulse Oximetry 98 96 03/12/18 06:00 03/12/18 08:00 03/12/18 08:47 Temperature 98.5 F Pulse Rate 90 88 89 Respiratory Rate 18 Blood Pressure 123/59 L Pulse Oximetry 93 L 03/12/18 09:00 03/12/18 10:00 03/12/18 12:04 Temperature Pulse Rate 90 70 75 Respiratory Rate Blood Pressure Pulse Oximetry 96 03/12/18 12:14 03/12/18 12:46 03/12/18 13:00 Temperature 97.9 F Pulse Rate 75 90 Respiratory Rate 16 Blood Pressure 126/66 Pulse Oximetry 96 96 03/12/18 14:00 03/12/18 15:00 03/12/18 16:00 Temperature Pulse Rate 76 75 92 H Respiratory Rate Blood Pressure Pulse Oximetry 03/12/18 17:00 03/12/18 18:00 Temperature Pulse Rate 72 74 Respiratory Rate Blood Pressure Pulse Oximetry Intake & Output 03/11/18 03/12/18 03/12/18 18:59 06:59 18:59 Intake Total 1540 / 1540 240 / 240 Output Total 4500 / 4500 3950 / 3950 3250 / 3250 Balance -2960 / -2960 -3710 / -3710 -3250 / -3250 Weight 187 kg Intake: IV 100 / 100 Magnesium Sulfate Inj 2 GM In 100 / 100 NS Inj 96 ML @ 50 mls/hr IV.SIG NOW ONE Rx#:[id number] Oral 1440 / 1440 240 / 240 Output: Urine 4500 / 4500 Urine Amount (Catheter) 3950 / 3950 3250 / 3250 Indwelling Urethral Catheter 3950 / 3950 3250 / 3250 Other: Date of Last Bowel Movement 03/11/18 03/12/18 # Bowel Movements 3 1 1 GENERAL: Obese WM, NAD SKIN: Warm and dry. HEAD: Normocephalic. EYES: No scleral icterus. No injection or drainage. NECK: Supple, trachea midline. No JVD or lymphadenopathy. CARDIOVASCULAR: Regular rate and rhythm without murmurs, gallops, or rubs. RESPIRATORY: Breath sounds equal bilaterally. No accessory muscle use. GASTROINTESTINAL: Abdomen soft, non-tender, nondistended. MUSCULOSKELETAL: No cyanosis, or edema. BACK: Nontender without obvious deformity. No CVA tenderness. - Urinary Catheter Management Indwelling Urethral Catheter Cath placed during this visit: yes Reason for continuing: Hourly intake/output Insertion date: 03/02/18 Insertion time: 12:30 Assessment and Plan - Plan IMPRESSION: VALENTINE COPD CHF HTN Obesity PLAN: Aerosol nebs Supplement 02 CPAP at night Diurease
[2018-03-13] MEDS: Bumetanide Inj 25 MG/100 ML BAG IV.CONT SCH (01:50)
[2018-03-13] MEDS: Insulin NovoLOG Aspart Correctional Sugar Inj SQ SCH ×4 (07:03→21:10)
[2018-03-13] MEDS: Multivitamin/Minerals Therapeutic Tablet PO SCH (08:57)
[2018-03-13] MEDS: Magnesium Oxide 400 MG Tablet PO SCH (08:58)
[2018-03-13] MEDS: Heparin - SQ 10,000 UNITS/ML Vial SQ SCH ×2 (08:58→20:56)
[2018-03-13] MEDS: amLODIPine 10 MG Tablet PO SCH (08:58)
--- NOTE | 2018-03-13 09:28 | P.PNIM ---
Subjective Interval history: Patient says he feels well this morning. He was asking about his labs this morning. He does not have any other complaints. Physical Exam Vital signs: Vital Signs 03/12/18 12:04 03/12/18 12:14 03/12/18 12:46 Temperature 97.9 F Pulse Rate 75 75 Respiratory Rate 16 Blood Pressure 126/66 Pulse Oximetry 96 96 96 03/12/18 13:00 03/12/18 14:00 03/12/18 15:00 Temperature Pulse Rate 90 76 75 Respiratory Rate Blood Pressure Pulse Oximetry 03/12/18 16:00 03/12/18 17:00 03/12/18 18:00 Temperature Pulse Rate 92 H 72 74 Respiratory Rate Blood Pressure Pulse Oximetry 03/12/18 19:00 03/12/18 19:59 03/12/18 20:00 Temperature 97.5 F L Pulse Rate 72 75 80 Respiratory Rate 22 Blood Pressure 127/68 Pulse Oximetry 97 97 03/12/18 21:00 03/12/18 22:00 03/12/18 23:00 Temperature Pulse Rate 79 92 H 80 Respiratory Rate Blood Pressure Pulse Oximetry 98 03/12/18 23:16 03/13/18 00:00 03/13/18 01:00 EST Temperature 97.6 F Pulse Rate 72 71 Respiratory Rate 20 Blood Pressure 126/67 Pulse Oximetry 95 98 03/13/18 02:00 03/13/18 03:00 03/13/18 04:00 Temperature 97.4 F L Pulse Rate 83 84 76 Respiratory Rate 20 Blood Pressure 114/59 L Pulse Oximetry 94 L 94 L 03/13/18 05:00 03/13/18 06:00 03/13/18 07:28 Temperature Pulse Rate 86 86 85 Respiratory Rate Blood Pressure Pulse Oximetry 96 03/13/18 07:43 03/13/18 08:29 Temperature 97.8 F Pulse Rate 83 Respiratory Rate 24 Blood Pressure 120/60 Pulse Oximetry 95 98 Intake & Output 03/12/18 03/13/18 03/13/18 19:59 06:59 18:59 Intake Total Output Total Balance Weight Intake: IV Bumex Inj 25 mg In 100 ml @ 0.5 MG/HR 2 mls/hr IV.CONT .Q24H [facility] Rx#:[id number] Magnesium Sulfate Inj 2 GM In NS Inj 96 ML @ 50 mls/hr IV.SIG ONCE ONE Rx#:[id number] Oral Output: Urine Urine Amount (Catheter) Indwelling Urethral Catheter Other: # Bowel Movements Narrative: 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 He says he is less short winded when speaking or moving around. HEENT extraocular movements are intact, clear oropharyngeal mucosa, Cardiovascular S1-S2 audible Respiratory bibasilar crackles Abdomen soft, distended, bowel sounds present Extremities 2+ pitting edema bilateral lower extremities up to the thighs. Scrotal edema present, however improving. Patient still has pitting edema of his lower extremities. 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 The patient came into our emergency department with complaints of worsening dyspnea and abdominal distention. Chest x-ray showed pulmonary vascular congestion and the patient was subsequently admitted for a CHF exacerbation. 1. Acute on chronic systolic CHF exacerbation 2. Generalized anasarca 3. Acute kidney injury likely secondary to #1 4. Hypokalemia This morning's a.m. labs are pending. Patient still has a significant amount of lower extremity edema up to the thighs , however improving. I will follow-up the a.m. BMP and monitor the patient's creatinine level. Currently the patient is currently on Bumex drip and p.o. metolazone. We will continue these medications as the patient's symptoms and labs have been improving with this treatment. Nephrology following, will follow up with the recommendations. Patient is now nearly 12 kg less than when he came in from admission. Patient has an ejection fraction of 20%. 1.5 L fluid restriction, strict ins and outs Mauricio catheter is in place for strict ins and outs. We will reassess the patient and possibly remove the Mauricio catheter tomorrow if possible to avoid infection. We have been replacing potassium daily. We will follow-up the BMP and replace electrolytes if needed. 5. Acute hypoxic hypercapnic respiratory failure secondary COPD, VALENTINE Patient still on supplemental oxygen. ABG done yesterday shows hypercapnia, and hypoxia on 2-1/2 L of supplemental oxygen. Continue supplemental oxygen Continue breathing treatments as needed CPAP at night Pulmonary following. 6. Diabetes mellitus type 2 Continue low-dose insulin sliding scale. His diabetes regimen will be adjusted if needed. Heparin for DVT prophylaxis.
[2018-03-13] MEDS: metOLazone 5 MG Tablet PO SCH ×2 (11:07→20:55)
[2018-03-13 15:06] LABS: Anion Gap 18 meq/L (5-15); Blood Urea Nitrogen 38 mg/dL (7-18); Calcium 9.6 mg/dL (8.5-10.1); Chloride 72 meq/L (98-107); Glomerular Filtration Rate 49 mL/min (>89); Glucose,Random 185 mg/dL (74-106); Magnesium 1.7 mg/dL (1.5-2.5); Potassium 3.5 meq/L (3.5-5.1); Sodium 135 meq/L (136-145)
--- NOTE | 2018-03-13 17:32 | P.PNPL ---
Subjective Interval history: 63 YO Obwese WM, with COPD,CHF,VALENTINE Used CPAP last night Up in chair On NC Breathing better No new complaint Physical Exam Vital signs: Vital Signs 03/12/18 19:00 03/12/18 19:59 03/12/18 20:00 Temperature 97.5 F L Pulse Rate 72 75 80 Respiratory Rate 22 Blood Pressure 127/68 Pulse Oximetry 97 97 03/12/18 21:00 03/12/18 22:00 03/12/18 23:00 Temperature Pulse Rate 79 92 H 80 Respiratory Rate Blood Pressure Pulse Oximetry 98 03/12/18 23:16 03/13/18 00:00 03/13/18 01:00 EST Temperature 97.6 F Pulse Rate 72 71 Respiratory Rate 20 Blood Pressure 126/67 Pulse Oximetry 95 98 03/13/18 02:00 03/13/18 03:00 03/13/18 04:00 Temperature 97.4 F L Pulse Rate 83 84 76 Respiratory Rate 20 Blood Pressure 114/59 L Pulse Oximetry 94 L 94 L 03/13/18 05:00 03/13/18 06:00 03/13/18 07:28 Temperature Pulse Rate 86 86 85 Respiratory Rate Blood Pressure Pulse Oximetry 96 03/13/18 07:43 03/13/18 08:29 03/13/18 09:00 Temperature 97.8 F Pulse Rate 83 78 Respiratory Rate 24 Blood Pressure 120/60 Pulse Oximetry 95 98 03/13/18 10:00 03/13/18 10:37 03/13/18 11:00 Temperature Pulse Rate 84 76 Respiratory Rate Blood Pressure Pulse Oximetry 96 03/13/18 12:00 03/13/18 12:29 03/13/18 16:00 Temperature 97.7 F Pulse Rate 78 76 Respiratory Rate 20 Blood Pressure 118/70 Pulse Oximetry 97 96 03/13/18 17:00 Temperature Pulse Rate 76 Respiratory Rate Blood Pressure Pulse Oximetry Intake & Output 03/12/18 03/13/18 03/13/18 19:59 06:59 18:59 Intake Total Output Total Balance Weight Intake: IV Bumex Inj 25 mg In 100 ml @ 0.5 MG/HR 2 mls/hr IV.CONT .Q24H [facility] Rx#:[id number] Magnesium Sulfate Inj 2 GM In NS Inj 96 ML @ 50 mls/hr IV.SIG ONCE ONE Rx#:[id number] Oral Output: Urine Urine Amount (Catheter) Indwelling Urethral Catheter Other: # Bowel Movements GENERAL: WBWN,NAD SKIN: Warm and dry. HEAD: Normocephalic. EYES: No scleral icterus. No injection or drainage. NECK: Supple, trachea midline. No JVD or lymphadenopathy. CARDIOVASCULAR: Regular rate and rhythm without murmurs, gallops, or rubs. RESPIRATORY: Breath sounds equal bilaterally. No accessory muscle use. GASTROINTESTINAL: Abdomen soft, non-tender, nondistended. MUSCULOSKELETAL: No cyanosis, or edema. BACK: Nontender without obvious deformity. No CVA tenderness. - Urinary Catheter Management Indwelling Urethral Catheter Cath placed during this visit: yes Reason for continuing: Hourly intake/output Insertion date: 03/02/18 Insertion time: 12:30 Assessment and Plan - Plan IMPRESSION: VALENTINE COPD CHF HTN Obesity PLAN: Aerosol nebs Supplement 02 CPAP at night Diurease Dr Tenorio will FU in AM
--- NOTE | 2018-03-13 17:50 | P.PNNP ---
Subjective Interval history: Patient is on Bumex drip Physical Exam Vital signs: Vital Signs 03/12/18 19:00 03/12/18 19:59 03/12/18 20:00 Temperature 97.5 F L Pulse Rate 72 75 80 Respiratory Rate 22 Blood Pressure 127/68 Pulse Oximetry 97 97 03/12/18 21:00 03/12/18 22:00 03/12/18 23:00 Temperature Pulse Rate 79 92 H 80 Respiratory Rate Blood Pressure Pulse Oximetry 98 03/12/18 23:16 03/13/18 00:00 03/13/18 01:00 EST Temperature 97.6 F Pulse Rate 72 71 Respiratory Rate 20 Blood Pressure 126/67 Pulse Oximetry 95 98 03/13/18 02:00 03/13/18 03:00 03/13/18 04:00 Temperature 97.4 F L Pulse Rate 83 84 76 Respiratory Rate 20 Blood Pressure 114/59 L Pulse Oximetry 94 L 94 L 03/13/18 05:00 03/13/18 06:00 03/13/18 07:28 Temperature Pulse Rate 86 86 85 Respiratory Rate Blood Pressure Pulse Oximetry 96 03/13/18 07:43 03/13/18 08:29 03/13/18 09:00 Temperature 97.8 F Pulse Rate 83 78 Respiratory Rate 24 Blood Pressure 120/60 Pulse Oximetry 95 98 03/13/18 10:00 03/13/18 10:37 03/13/18 11:00 Temperature Pulse Rate 84 76 Respiratory Rate Blood Pressure Pulse Oximetry 96 03/13/18 12:00 03/13/18 12:29 03/13/18 16:00 Temperature 97.7 F Pulse Rate 78 76 Respiratory Rate 20 Blood Pressure 118/70 Pulse Oximetry 97 96 03/13/18 17:00 Temperature Pulse Rate 76 Respiratory Rate Blood Pressure Pulse Oximetry Intake & Output 03/12/18 03/13/18 03/13/18 19:59 06:59 18:59 Intake Total Output Total Balance Weight Intake: IV Bumex Inj 25 mg In 100 ml @ 0.5 MG/HR 2 mls/hr IV.CONT .Q24H [facility] Rx#:[id number] Magnesium Sulfate Inj 2 GM In NS Inj 96 ML @ 50 mls/hr IV.SIG ONCE ONE Rx#:[id number] Oral Output: Urine Urine Amount (Catheter) Indwelling Urethral Catheter Other: # Bowel Movements Narrative: 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 He says he is less short winded when speaking or moving around. HEENT extraocular movements are intact, clear oropharyngeal mucosa, Cardiovascular S1-S2 audible Respiratory bibasilar crackles Abdomen soft, distended, bowel sounds present Extremities 2+ pitting edema bilateral lower extremities up to the thighs. Scrotal edema present, however improving. Patient still has pitting edema of his lower extremities. Neuro cranial nerves II through XII intact - Urinary Catheter Management Indwelling Urethral Catheter Cath placed during this visit: yes Reason for continuing: Hourly intake/output Insertion date: 03/02/18 Insertion time: 12:30 Assessment and Plan - Assessment (1) DIXIE (acute kidney injury) Code(s): N17.9 - Acute kidney failure, unspecified Status: Acute Plan: DIXIE possibly from intravascular volume depletion from diuretic use or third spacing, improving. Creatinine has improved today at 1.4 on bumex gtt with good urinary response 3.2 L/24 hours. Diamox 500 mg IV bicarbonate more than 45 Continue supportive care Recommend to continue metolazone and Bumex. Continue with daily weights, strict I+O's and fluid restriction. Avoid nephrotoxic agents. Will consider HD/ UF if needed. Labs daily to watch kidney function closely. Dr. Robin to follow (2) Diabetes Code(s): E11.9 - Type 2 diabetes mellitus without complications Status: Acute Plan: Maintain blood sugars 140mg/dl to 180 mg/dl. Well controlled. (3) Hypertension Code(s): I10 - Essential (primary) hypertension Status: Acute Plan: Improved will monitor.
[2018-03-14] MEDS: Bumetanide Inj 25 MG/100 ML BAG IV.CONT SCH (00:32)
[2018-03-14 07:30] LABS: Blood Urea Nitrogen 38 mg/dL (7-18); Calcium 9.6 mg/dL (8.5-10.1); Chloride 73 meq/L (98-107); Glomerular Filtration Rate 48 mL/min (>89); Glucose,Random 133 mg/dL (74-106); Potassium 3.7 meq/L (3.5-5.1); Sodium 137 meq/L (136-145)
[2018-03-14 07:48] LABS: Anion Gap 19 meq/L (5-15)
[2018-03-14] MEDS: amLODIPine 10 MG Tablet PO SCH (08:09)
[2018-03-14] MEDS: metOLazone 5 MG Tablet PO SCH ×2 (08:09→21:12)
[2018-03-14] MEDS: Multivitamin/Minerals Therapeutic Tablet PO SCH (08:09)
[2018-03-14] MEDS: Magnesium Oxide 400 MG Tablet PO SCH (08:09)
[2018-03-14] MEDS: Heparin - SQ 10,000 UNITS/ML Vial SQ SCH ×2 (08:09→21:12)
[2018-03-14] MEDS: Insulin NovoLOG Aspart Correctional Sugar Inj SQ SCH ×4 (08:10→21:08)
--- NOTE | 2018-03-14 10:19 | P.PNNP ---
Subjective Interval history: Sitting up in chair. Creatinine has remained stable, good urinary output. Shortness of breath and edema improving. <Sunita Ordonez - Last Filed: 03/14/18 14:06> Physical Exam Vital signs: Vital Signs 03/13/18 10:37 03/13/18 11:00 03/13/18 12:00 Temperature 97.7 F Pulse Rate 76 78 Respiratory Rate 20 Blood Pressure 118/70 Pulse Oximetry 96 97 03/13/18 12:29 03/13/18 16:00 03/13/18 17:00 Temperature 98.0 F Pulse Rate 76 83 Respiratory Rate 20 Blood Pressure 114/67 Pulse Oximetry 96 97 03/13/18 17:58 03/13/18 19:00 03/13/18 20:00 Temperature 98.2 F Pulse Rate 80 130 H 83 Respiratory Rate 22 Blood Pressure 123/74 Pulse Oximetry 97 03/13/18 21:00 03/13/18 21:26 03/13/18 22:00 Temperature Pulse Rate 85 79 Respiratory Rate Blood Pressure Pulse Oximetry 98 03/13/18 23:00 03/14/18 00:00 03/14/18 01:00 Temperature 98.2 F Pulse Rate 83 81 94 H Respiratory Rate 22 Blood Pressure 101/56 L Pulse Oximetry 92 L 92 L 03/14/18 01:55 03/14/18 02:00 03/14/18 03:00 Temperature Pulse Rate 86 83 Respiratory Rate Blood Pressure Pulse Oximetry 100 94 L 03/14/18 03:40 03/14/18 04:00 03/14/18 05:00 Temperature 98.3 F Pulse Rate 83 82 87 Respiratory Rate 22 Blood Pressure 128/64 Pulse Oximetry 94 L 03/14/18 06:00 03/14/18 07:02 03/14/18 07:46 Temperature 98 F Pulse Rate 87 84 86 Respiratory Rate 18 Blood Pressure 117/62 Pulse Oximetry 93 L 03/14/18 08:00 03/14/18 09:09 Temperature Pulse Rate 90 87 Respiratory Rate Blood Pressure Pulse Oximetry Intake & Output 03/13/18 03/14/18 03/14/18 18:59 06:59 18:59 Intake Total 780 / 780 800 / 800 Output Total 5200 / 5200 4750 / 4750 Balance -4420 / -4420 -3950 / -3950 Weight 172.8 kg Intake: Oral 780 / 780 750 / 750 Other 50 / 50 Output: Urine Amount (Catheter) 5200 / 5200 4750 / 4750 Indwelling Urethral Catheter 5200 / 5200 4750 / 4750 Other: Other Intake Source Saline Solution Date of Last Bowel Movement 03/13/18 # Bowel Movements 0 Narrative: GENERAL: Alert and oriented. Morbidly obese. NECK: Supple, trachea midline. Negative JVD CARDIOVASCULAR: Regular rate and rhythm without murmurs, gallops, or rubs. RESPIRATORY: Breath sounds equal bilaterally. No accessory muscle use. GASTROINTESTINAL: Abdomen soft, non-tender, large, positive bowel sounds MUSCULOSKELETAL: No cyanosis, edema improving. SKIN: Warm and dry. - Urinary Catheter Management Indwelling Urethral Catheter Cath placed during this visit: yes Reason for continuing: Chronic Urinary Retention Insertion date: 03/02/18 Insertion time: 12:30 <Sunita Ordonez - Last Filed: 03/14/18 14:06> Vital signs: Vital Signs 03/15/18 19:00 03/15/18 20:00 03/15/18 21:00 Temperature 98.8 F Pulse Rate 82 86 85 Respiratory Rate 20 Blood Pressure 116/71 Pulse Oximetry 98 98 03/15/18 22:00 03/15/18 23:00 03/16/18 00:00 Temperature 98.8 F Pulse Rate 83 83 83 Respiratory Rate 20 Blood Pressure 107/65 Pulse Oximetry 96 96 03/16/18 01:00 03/16/18 02:00 03/16/18 03:00 Temperature Pulse Rate 85 78 83 Respiratory Rate Blood Pressure Pulse Oximetry 98 03/16/18 04:00 03/16/18 05:00 03/16/18 06:00 Temperature 97.8 F Pulse Rate 92 H 88 85 Respiratory Rate 16 Blood Pressure 122/62 Pulse Oximetry 94 L 03/16/18 07:00 03/16/18 08:00 03/16/18 09:00 Temperature 98.4 F Pulse Rate 86 94 H 82 Respiratory Rate 24 Blood Pressure 129/57 L Pulse Oximetry 92 L 03/16/18 10:00 03/16/18 10:56 03/16/18 11:00 Temperature 97.8 F Pulse Rate 80 76 86 Respiratory Rate 22 Blood Pressure 102/59 L Pulse Oximetry 98 96 03/16/18 12:00 03/16/18 13:00 03/16/18 14:00 Temperature Pulse Rate 80 78 78 Respiratory Rate Blood Pressure Pulse Oximetry 03/16/18 15:00 03/16/18 16:00 03/16/18 17:00 Temperature 98.0 F Pulse Rate 81 79 76 Respiratory Rate 22 Blood Pressure 117/72 Pulse Oximetry 96 97 03/16/18 18:00 Temperature Pulse Rate 78 Respiratory Rate Blood Pressure Pulse Oximetry Intake & Output 03/15/18 03/16/18 03/16/18 18:59 06:59 18:59 Intake Total 720 / 720 330 / 330 1000 / 1000 Output Total 2650 / 2650 2775 / 2775 1925 / 1925 Balance -1930 / -1930 -2445 / -2445 -925 / -925 Weight 159 kg Intake: Oral 720 / 720 330 / 330 1000 / 1000 Output: Urine 2650 / 2650 2775 / 2775 1925 / 1925 Other: Date of Last Bowel Movement 03/15/18 03/15/18 03/15/18 # Bowel Movements 1 - Urinary Catheter Management Indwelling Urethral Catheter Cath placed during this visit: no <Gulshan Robin - Last Filed: 03/16/18 18:34> Assessment and Plan - Assessment (1) DIXIE (acute kidney injury) Code(s): N17.9 - Acute kidney failure, unspecified Status: Acute Plan: DIXIE possibly from intravascular volume depletion from diuretic use or third spacing, improving. Creatinine has stable today at 1.4 on bumex gtt with good urinary response. Will discontinue gtt and add Bumex 4mg BID. Diamox 500 mg IV bicarbonate more than 45. Expect improvement with discontinuation of bumex gtt. Potassium replacement decreased. Continue supportive care Recommend to continue metolazone Continue with daily weights, strict I+O's and fluid restriction. Avoid nephrotoxic agents. Will consider HD/UF if needed. Labs daily to watch kidney function closely. (2) Diabetes Code(s): E11.9 - Type 2 diabetes mellitus without complications Status: Acute Plan: Maintain blood sugars 140mg/dl to 180 mg/dl. Well controlled. (3) Hypertension Code(s): I10 - Essential (primary) hypertension Status: Acute Plan: Improved will monitor. <Sunita Ordonez - Last Filed: 03/14/18 14:06> - Assessment (1) DIXIE (acute kidney injury) Code(s): N17.9 - Acute kidney failure, unspecified Status: Acute Plan: Patient seen and examined, agree with above. Edema is much better. Started now PO diuretics, to see the effect. Creatinine is stable, Follow the K level. (2) Diabetes Code(s): E11.9 - Type 2 diabetes mellitus without complications Status: Acute (3) Hypertension Code(s): I10 - Essential (primary) hypertension Status: Acute <Gulshan Robin - Last Filed: 03/16/18 18:34>
--- NOTE | 2018-03-14 11:07 | MB ---
cc: Coby Tenorio MD DATE: 03/11/2018 REASON FOR CONSULTATION: Obstructive sleep apnea. HISTORY OF PRESENT ILLNESS: The patient is a 63-year-old male who was admitted with increasing shortness of breath. He has known history of coronary artery disease, congestive heart failure and chronic lower extremity edema, as well as hypertension. He did have some evidence of mild renal insufficiency, followed by nephrology for same. He does have a history of obstructive sleep apnea was seen at my office for same. The sleep study had revealed evidence of obstructive sleep apnea of severe degree. However, he was hospitalized prior to returning for PAP titration therapy. PAST MEDICAL HISTORY: Coronary artery disease, congestive heart failure, hypertension, obstructive sleep apnea, chronic lower extremity edema, asthma. PAST SURGICAL HISTORY: Total knee replacement, colon surgery and previous cholecystectomy. FAMILY HISTORY: Noncontributory. SOCIAL HISTORY: Remote smoking history colon not smoked for 40 years. Drinks alcohol socially. No TB no industrial exposure. ALLERGIES: CIPROFLOXACIN AND LEVAQUIN. MEDICATIONS AT HOME: Include: 1. Insulin. All medications at present Include: 2. Lipitor. 3. Carvedilol. 4. Insulin. 5. Metformin. 6. Multivitamin. 7. Zofran. 8. Flomax. REVIEW OF SYSTEMS: A 12-point review of systems as per HPI and past history, otherwise negative. PHYSICAL EXAMINATION: GENERAL: Awake, alert, sitting at bedside. VITAL SIGNS: Temperature 97.5, pulse 80, respirations 18, blood pressure 140/70, oxygen saturation to -93% on 2 liters oxygen nasal cannula. HEENT: Unremarkable. Eyes without icterus. NECK: Without adenopathy or thyroid enlargement. CHEST: Few scattered rhonchi bilaterally. CARDIAC: PMI not appreciated. S1, S2 audible 0 1/6 soft ejection systolic murmur in left sternal border. ABDOMEN: Lax, bowel sounds audible. EXTREMITIES: Lymphedema of both lower extremities. LABORATORY DATA: White count 7000, hemoglobin 12, hematocrit 36, platelets 199,000. Sodium 132, potassium 5.6, BUN 39, creatinine 1.68. Chest x-ray and moderate bilateral effusions. IMPRESSION: 1. Shortness of breath due to congestive heart failure element of cor pulmonale possible. 2. Congestive heart failure. 3. Hypertension. 4. Anasarca. 5. Glucose intolerance. PLAN: The patient will be maintained on oxygen therapy as needed. BiPAP therapy was initiated and appropriately so we will check the arterial blood gas. Thyroid function as well as pulmonary function follow his care along with you and, depending on progress, proceed further. Coby Tenorio MD WWW/LT , 06:38 PM , 06:48 PM
--- NOTE | 2018-03-14 15:16 | P.PN ---
Subjective Interval history: ALERT NAD USES PAP AT NIGHT Physical Exam Vital signs: Vital Signs 03/13/18 16:00 03/13/18 17:00 03/13/18 17:58 Temperature 98.0 F Pulse Rate 76 83 80 Respiratory Rate 20 Blood Pressure 114/67 Pulse Oximetry 97 03/13/18 19:00 03/13/18 20:00 03/13/18 21:00 Temperature 98.2 F Pulse Rate 130 H 83 85 Respiratory Rate 22 Blood Pressure 123/74 Pulse Oximetry 97 03/13/18 21:26 03/13/18 22:00 03/13/18 23:00 Temperature Pulse Rate 79 83 Respiratory Rate Blood Pressure Pulse Oximetry 98 92 L 03/14/18 00:00 03/14/18 01:00 03/14/18 01:55 Temperature 98.2 F Pulse Rate 81 94 H Respiratory Rate 22 Blood Pressure 101/56 L Pulse Oximetry 92 L 100 03/14/18 02:00 03/14/18 03:00 03/14/18 03:40 Temperature 98.3 F Pulse Rate 86 83 83 Respiratory Rate 22 Blood Pressure 128/64 Pulse Oximetry 94 L 94 L 03/14/18 04:00 03/14/18 05:00 03/14/18 06:00 Temperature Pulse Rate 82 87 87 Respiratory Rate Blood Pressure Pulse Oximetry 03/14/18 07:02 03/14/18 07:46 03/14/18 08:00 Temperature 98 F Pulse Rate 84 86 90 Respiratory Rate 18 Blood Pressure 117/62 Pulse Oximetry 93 L 03/14/18 09:09 03/14/18 10:33 03/14/18 11:00 Temperature Pulse Rate 87 79 78 Respiratory Rate Blood Pressure Pulse Oximetry 03/14/18 11:21 03/14/18 11:26 03/14/18 12:02 Temperature 98.5 F Pulse Rate 79 78 Respiratory Rate 20 Blood Pressure 95/52 L Pulse Oximetry 92 L 92 L 03/14/18 13:07 03/14/18 14:20 Temperature Pulse Rate 82 85 Respiratory Rate Blood Pressure Pulse Oximetry Intake & Output 03/13/18 03/14/18 03/14/18 18:59 06:59 18:59 Intake Total 780 / 780 800 / 800 Output Total 5200 / 5200 4750 / 4750 Balance -4420 / -4420 -3950 / -3950 Weight 172.8 kg Intake: Oral 780 / 780 750 / 750 Other 50 / 50 Output: Urine Amount (Catheter) 5200 / 5200 4750 / 4750 Indwelling Urethral Catheter 5200 / 5200 4750 / 4750 Other: Other Intake Source Saline Solution Date of Last Bowel Movement 03/13/18 # Bowel Movements 0 Narrative: GENERAL: Alert and oriented. Morbidly obese. NECK: Supple, trachea midline. Negative JVD CARDIOVASCULAR: Regular rate and rhythm without murmurs, gallops, or rubs. RESPIRATORY: Breath sounds equal bilaterally. No accessory muscle use. GASTROINTESTINAL: Abdomen soft, non-tender, large, positive bowel sounds MUSCULOSKELETAL: No cyanosis, edema improving. SKIN: Warm and dry. - Urinary Catheter Management Indwelling Urethral Catheter Cath placed during this visit: yes Reason for continuing: Chronic Urinary Retention Insertion date: 03/02/18 Insertion time: 12:30 Results - Labs CBC & Chem 7: 03/07/18 03:49 03/14/18 06:00 Laboratory Results - last 24 hr 03/13/18 03/14/18 03/14/18 21:59 06:00 07:51 Sodium 137 Potassium 3.7 Chloride 73 L Carbon Dioxide Greater than 45.0 H Anion Gap 19 H BUN 38 H Creatinine 1.48 H Estimated GFR 48 L POC Glucose 215 H 143 H Random Glucose 133 H Calcium 9.6 03/14/18 11:25 Sodium Potassium Chloride Carbon Dioxide Anion Gap BUN Creatinine Estimated GFR POC Glucose 187 H Random Glucose Calcium - Procedures None Assessment and Plan - Plan Code Status: VALENTINE OF [place] CHF COPD PLAN O2 QAS NEEDED BIPAP PULM TOILET THERAPY FOR CHF INCREASE ACTIVITY
--- NOTE | 2018-03-14 17:33 | P.PNIM ---
Subjective Interval history: Patient says he feels better today. He states he is able to move around better. He does not have any other complaints. Physical Exam Vital signs: Vital Signs 03/13/18 17:58 03/13/18 19:00 03/13/18 20:00 Temperature 98.2 F Pulse Rate 80 130 H 83 Respiratory Rate 22 Blood Pressure 123/74 Pulse Oximetry 97 03/13/18 21:00 03/13/18 21:26 03/13/18 22:00 Temperature Pulse Rate 85 79 Respiratory Rate Blood Pressure Pulse Oximetry 98 03/13/18 23:00 03/14/18 00:00 03/14/18 01:00 Temperature 98.2 F Pulse Rate 83 81 94 H Respiratory Rate 22 Blood Pressure 101/56 L Pulse Oximetry 92 L 92 L 03/14/18 01:55 03/14/18 02:00 03/14/18 03:00 Temperature Pulse Rate 86 83 Respiratory Rate Blood Pressure Pulse Oximetry 100 94 L 03/14/18 03:40 03/14/18 04:00 03/14/18 05:00 Temperature 98.3 F Pulse Rate 83 82 87 Respiratory Rate 22 Blood Pressure 128/64 Pulse Oximetry 94 L 03/14/18 06:00 03/14/18 07:02 03/14/18 07:46 Temperature 98 F Pulse Rate 87 84 86 Respiratory Rate 18 Blood Pressure 117/62 Pulse Oximetry 93 L 03/14/18 08:00 03/14/18 09:09 03/14/18 10:33 Temperature Pulse Rate 90 87 79 Respiratory Rate Blood Pressure Pulse Oximetry 03/14/18 11:00 03/14/18 11:21 03/14/18 11:26 Temperature 98.5 F Pulse Rate 78 79 Respiratory Rate 20 Blood Pressure 95/52 L Pulse Oximetry 92 L 92 L 03/14/18 12:02 03/14/18 13:07 03/14/18 14:20 Temperature Pulse Rate 78 82 85 Respiratory Rate Blood Pressure Pulse Oximetry 03/14/18 15:00 03/14/18 15:21 03/14/18 16:14 Temperature 98 F Pulse Rate 78 86 86 Respiratory Rate 18 Blood Pressure 111/65 Pulse Oximetry 95 Intake & Output 03/13/18 03/14/18 03/14/18 18:59 06:59 18:59 Intake Total 780 / 780 800 / 800 Output Total 5200 / 5200 4750 / 4750 Balance -4420 / -4420 -3950 / -3950 Weight 172.8 kg Intake: Oral 780 / 780 750 / 750 Other 50 / 50 Output: Urine Amount (Catheter) 5200 / 5200 4750 / 4750 Indwelling Urethral Catheter 5200 / 5200 4750 / 4750 Other: Other Intake Source Saline Solution Date of Last Bowel Movement 03/13/18 # Bowel Movements 0 Narrative: Patient is sitting upright in a chair today. His face appears skinnier than during my initial evaluations earlier last week HEENT extraocular movements are intact, clear oropharyngeal mucosa, Cardiovascular S1-S2 audible Respiratory bibasilar crackles Abdomen soft, distended, bowel sounds present Extremities 2+ pitting edema bilateral lower extremities up to the thighs. Scrotal edema is present however improved. Neuro cranial nerves II through XII intact - Urinary Catheter Management Indwelling Urethral Catheter Cath placed during this visit: yes, but has since been removed by the nurse Reason for continuing: Decision to DC catheter Insertion date: 03/02/18 Insertion time: 12:30 Removal date: 03/14/18 Removal time: 15:58 Results - Labs CBC & Chem 7: 03/07/18 03:49 03/14/18 06:00 Laboratory Results - last 24 hr 03/13/18 03/14/18 03/14/18 21:59 06:00 07:51 Sodium 137 Potassium 3.7 Chloride 73 L Carbon Dioxide Greater than 45.0 H Anion Gap 19 H BUN 38 H Creatinine 1.48 H Estimated GFR 48 L POC Glucose 215 H 143 H Random Glucose 133 H Calcium 9.6 03/14/18 03/14/18 11:25 16:38 Sodium Potassium Chloride Carbon Dioxide Anion Gap BUN Creatinine Estimated GFR POC Glucose 187 H 155 H Random Glucose Calcium - Procedures None Assessment and Plan - Plan This patient is a 63-year-old obese male with a diagnosis of hypertension, dyslipidemia, diabetes mellitus type 2, 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 The patient came into our emergency department with complaints of worsening dyspnea and abdominal distention. Chest x-ray showed pulmonary vascular congestion and the patient was subsequently admitted for a CHF exacerbation. 1. Acute on chronic systolic CHF exacerbation 2. Generalized anasarca 3. Acute kidney injury likely secondary to #1 4. Hypokalemia Patient has been diuresing well, and it is very noticeable on physical examination. Patient was evaluated by nephrology today who recommends discontinuing the Bumex drip. Patient was started on p.o. Bumex. We will continue metolazone p.o. Patient still has a significant amount of lower extremity edema up to the thighs , however improving each day. I will follow-up the a.m. BMP and monitor the patient's creatinine level. Patient has an ejection fraction of 20%. 1.5 L fluid restriction, strict ins and outs Mauricio catheter is in place for strict ins and outs. We will likely remove the Mauricio catheter tomorrow. Labs reviewed. No significant change in the patient's serum creatinine from yesterday to today. 5. Acute hypoxic hypercapnic respiratory failure secondary COPD, VALENTINE Patient still on supplemental oxygen. He says that his symptoms have improved. We will attempt to titrate the patient off of supplemental O2. We will have physical therapy reassess the patient. We appreciate the recommendations from pulmonology. Continue BiPAP 6. Diabetes mellitus type 2 Continue low-dose insulin sliding scale. His diabetes regimen will be adjusted if needed. Heparin for DVT prophylaxis. Discharge planning. I expect the patient to be discharged over the next few days to a group home facility. Case discussed with case management.
[2018-03-15] MEDS: Insulin NovoLOG Aspart Correctional Sugar Inj SQ SCH ×4 (07:57→20:05)
[2018-03-15] MEDS: Heparin - SQ 10,000 UNITS/ML Vial SQ SCH ×2 (08:33→20:04)
[2018-03-15] MEDS: Magnesium Oxide 400 MG Tablet PO SCH ×2 (08:34→11:39)
[2018-03-15] MEDS: metOLazone 5 MG Tablet PO SCH ×2 (08:35→20:04)
[2018-03-15] MEDS: Multivitamin/Minerals Therapeutic Tablet PO SCH (08:35)
[2018-03-15] MEDS: amLODIPine 10 MG Tablet PO SCH (08:36)
[2018-03-15 09:31] LABS: Albumin 3.2 g/dL (3.4-5.0); Anion Gap 14 meq/L (5-15); Blood Urea Nitrogen 43 mg/dL (7-18); Calcium 9.8 mg/dL (8.5-10.1); Chloride 74 meq/L (98-107); Glomerular Filtration Rate 42 mL/min (>89); Glucose,Random 130 mg/dL (74-106); Magnesium 1.9 mg/dL (1.5-2.5); Phosphorus 2.1 mg/dL (2.5-4.9); Potassium 3.3 meq/L (3.5-5.1); Sodium 133 meq/L (136-145)
--- NOTE | 2018-03-15 09:56 | P.PNNP ---
Subjective Interval history: Shortness of breath and edema improving. No nausea, vomiting or diarrhea. Creatinine slightly elevated at 1.65 today. <Sunita Ordonez - Last Filed: 03/15/18 09:51> Physical Exam Vital signs: Vital Signs 03/14/18 10:33 03/14/18 11:00 03/14/18 11:21 Temperature 98.5 F Pulse Rate 79 78 79 Respiratory Rate 20 Blood Pressure 95/52 L Pulse Oximetry 92 L 03/14/18 11:26 03/14/18 12:02 03/14/18 13:07 Temperature Pulse Rate 78 82 Respiratory Rate Blood Pressure Pulse Oximetry 92 L 03/14/18 14:20 03/14/18 15:00 03/14/18 15:21 Temperature 98 F Pulse Rate 85 78 86 Respiratory Rate 18 Blood Pressure 111/65 Pulse Oximetry 95 03/14/18 16:14 03/14/18 17:40 03/14/18 18:00 Temperature Pulse Rate 86 87 Respiratory Rate Blood Pressure Pulse Oximetry 98 03/14/18 19:00 03/14/18 19:04 03/14/18 20:00 Temperature 98 F Pulse Rate 85 85 85 Respiratory Rate 20 Blood Pressure 123/56 L Pulse Oximetry 97 97 98 03/14/18 21:00 03/14/18 22:00 03/14/18 23:00 Temperature Pulse Rate 68 87 87 Respiratory Rate Blood Pressure Pulse Oximetry 97 03/14/18 23:55 03/15/18 00:00 03/15/18 01:00 Temperature 97.9 F Pulse Rate 95 H 90 98 H Respiratory Rate 20 Blood Pressure 121/74 Pulse Oximetry 94 L 03/15/18 02:00 03/15/18 03:00 03/15/18 03:22 Temperature 98.2 F Pulse Rate 90 90 84 Respiratory Rate 20 Blood Pressure 128/74 Pulse Oximetry 97 94 L 03/15/18 04:00 03/15/18 05:00 03/15/18 06:00 Temperature Pulse Rate 88 88 85 Respiratory Rate Blood Pressure Pulse Oximetry 03/15/18 06:51 03/15/18 07:51 03/15/18 07:55 Temperature 98.2 F Pulse Rate 90 91 H Respiratory Rate 21 Blood Pressure 127/54 L Pulse Oximetry 91 L 91 L 03/15/18 09:01 Temperature Pulse Rate Respiratory Rate Blood Pressure Pulse Oximetry 97 Intake & Output 03/14/18 03/15/18 03/15/18 18:59 06:59 18:59 Intake Total 1020 / 1020 480 / 480 Output Total 5300 / 5300 2625 / 2625 Balance -4280 / -4280 -2145 / -2145 Weight 161.7 kg Intake: IV 60 / 60 Bumex Inj 25 mg In 100 ml @ 0.5 60 / 60 MG/HR 2 mls/hr IV.CONT .Q24H [facility] Rx#:[id number] Oral 960 / 960 480 / 480 Output: Urine 5300 / 5300 2625 / 2625 Other: Date of Last Bowel Movement 03/13/18 03/14/18 # Bowel Movements 1 Narrative: GENERAL: Alert and oriented. Morbidly obese. NECK: Supple, trachea midline. Negative JVD CARDIOVASCULAR: Regular rate and rhythm without murmurs, gallops, or rubs. RESPIRATORY: Breath sounds equal bilaterally. No accessory muscle use. GASTROINTESTINAL: Abdomen soft, non-tender, large, positive bowel sounds MUSCULOSKELETAL: No cyanosis, edema improving. SKIN: Warm and dry. - Urinary Catheter Management Indwelling Urethral Catheter Cath placed during this visit: yes, but has since been removed by the nurse Reason for continuing: Decision to DC catheter Insertion date: 03/02/18 Insertion time: 12:30 Removal date: 03/14/18 Removal time: 15:58 <Sunita Ordonez - Last Filed: 03/15/18 09:51> Vital signs: Vital Signs 03/17/18 00:00 03/17/18 04:00 03/17/18 06:00 Temperature 97.7 F 97.6 F Pulse Rate 90 86 83 Respiratory Rate 20 14 Blood Pressure 114/67 118/65 Pulse Oximetry 94 L 95 03/17/18 07:00 03/17/18 07:44 03/17/18 08:00 Temperature Pulse Rate 83 82 Respiratory Rate Blood Pressure Pulse Oximetry 95 03/17/18 08:52 03/17/18 09:00 03/17/18 10:00 Temperature 98 F Pulse Rate 84 74 82 Respiratory Rate 15 Blood Pressure 101/64 Pulse Oximetry 95 03/17/18 10:30 03/17/18 11:00 03/17/18 11:10 Temperature Pulse Rate 79 Respiratory Rate Blood Pressure Pulse Oximetry 95 93 L 03/17/18 11:11 03/17/18 12:00 03/17/18 12:30 Temperature 98.2 F Pulse Rate 82 76 79 Respiratory Rate 16 16 Blood Pressure 118/60 117/70 Pulse Oximetry 93 L 98 03/17/18 13:00 03/17/18 14:00 03/17/18 15:00 Temperature Pulse Rate 78 78 80 Respiratory Rate Blood Pressure Pulse Oximetry 03/17/18 15:56 03/17/18 16:24 03/17/18 16:39 Temperature 98.4 F Pulse Rate 72 72 Respiratory Rate 17 Blood Pressure 114/63 Pulse Oximetry 95 96 03/17/18 17:05 03/17/18 18:00 03/17/18 19:00 Temperature Pulse Rate 75 72 Respiratory Rate Blood Pressure Pulse Oximetry 95 Intake & Output 03/17/18 03/17/18 03/18/18 06:59 18:59 06:59 Intake Total 240 / 240 720 / 720 Output Total 2400 / 2400 2250 / 2250 Balance -2160 / -2160 -1530 / -1530 Weight 157.6 kg Intake: Oral 240 / 240 720 / 720 Output: Urine 2400 / 2400 2250 / 2250 Other: Date of Last Bowel Movement 03/15/18 03/17/18 # Bowel Movements 0 - Urinary Catheter Management Indwelling Urethral Catheter Cath placed during this visit: no <Gulshan Robin - Last Filed: 03/17/18 21:48> Assessment and Plan - Assessment (1) DIXIE (acute kidney injury) Code(s): N17.9 - Acute kidney failure, unspecified Status: Acute Plan: DIXIE possibly from intravascular volume depletion from diuretic use or third spacing, improving. Creatinine slightly elevated at 1.6 will continue bumex 4mg BID and metolazone for now. HCO3 greater that 45, Diamox 500 mg X1 given. Expect improvement with discontinuation of bumex gtt. Hypokalemia at 3.3, on scheduled replacement and extra given today. Continue with daily weights, strict I+O's and fluid restriction. Avoid nephrotoxic agents. Will consider HD/UF if needed. Labs daily to watch kidney function closely. (2) Diabetes Code(s): E11.9 - Type 2 diabetes mellitus without complications Status: Acute Plan: Maintain blood sugars 140mg/dl to 180 mg/dl. Well controlled. (3) Hypertension Code(s): I10 - Essential (primary) hypertension Status: Acute Plan: Improved will monitor. <Sunita Ordonez - Last Filed: 03/15/18 09:51> - Assessment (1) DIXIE (acute kidney injury) Code(s): N17.9 - Acute kidney failure, unspecified Status: Acute Plan: Patient seen and examined, agree with above. Creatinine is stable. Continue diuretics. Hco3 increase mainly due to diuretics. Given Diamox, Follow the urine out put and BMP. (2) Diabetes Code(s): E11.9 - Type 2 diabetes mellitus without complications Status: Acute (3) Hypertension Code(s): I10 - Essential (primary) hypertension Status: Acute <Gulshan Robin - Last Filed: 03/17/18 21:48>
--- NOTE | 2018-03-15 15:29 | P.PNIM ---
Subjective Interval history: Patient does not have any complaints today. Physical Exam Vital signs: Vital Signs 03/14/18 16:14 03/14/18 17:40 03/14/18 18:00 Temperature Pulse Rate 86 87 Respiratory Rate Blood Pressure Pulse Oximetry 98 03/14/18 19:00 03/14/18 19:04 03/14/18 20:00 Temperature 98 F Pulse Rate 85 85 85 Respiratory Rate 20 Blood Pressure 123/56 L Pulse Oximetry 97 97 98 03/14/18 21:00 03/14/18 22:00 03/14/18 23:00 Temperature Pulse Rate 68 87 87 Respiratory Rate Blood Pressure Pulse Oximetry 97 03/14/18 23:55 03/15/18 00:00 03/15/18 01:00 Temperature 97.9 F Pulse Rate 95 H 90 98 H Respiratory Rate 20 Blood Pressure 121/74 Pulse Oximetry 94 L 03/15/18 02:00 03/15/18 03:00 03/15/18 03:22 Temperature 98.2 F Pulse Rate 90 90 84 Respiratory Rate 20 Blood Pressure 128/74 Pulse Oximetry 97 94 L 03/15/18 04:00 03/15/18 05:00 03/15/18 06:00 Temperature Pulse Rate 88 88 85 Respiratory Rate Blood Pressure Pulse Oximetry 03/15/18 06:51 03/15/18 07:51 03/15/18 07:55 Temperature 98.2 F Pulse Rate 90 91 H Respiratory Rate 21 Blood Pressure 127/54 L Pulse Oximetry 91 L 91 L 03/15/18 08:00 03/15/18 09:00 03/15/18 09:01 Temperature Pulse Rate 86 88 Respiratory Rate Blood Pressure Pulse Oximetry 97 03/15/18 10:00 03/15/18 11:10 03/15/18 11:37 Temperature 98.3 F Pulse Rate 88 86 85 Respiratory Rate 18 Blood Pressure 115/71 Pulse Oximetry 94 L 03/15/18 12:00 03/15/18 13:00 Temperature Pulse Rate 85 87 Respiratory Rate Blood Pressure Pulse Oximetry Intake & Output 03/14/18 03/15/18 03/15/18 18:59 06:59 18:59 Intake Total 1020 / 1020 480 / 480 Output Total 5300 / 5300 2625 / 2625 Balance -4280 / -4280 -2145 / -2145 Weight 161.7 kg Intake: IV 60 / 60 Bumex Inj 25 mg In 100 ml @ 0.5 60 / 60 MG/HR 2 mls/hr IV.CONT .Q24H [facility] Rx#:[id number] Oral 960 / 960 480 / 480 Output: Urine 5300 / 5300 2625 / 2625 Other: Date of Last Bowel Movement 03/13/18 03/14/18 03/15/18 # Bowel Movements 1 Narrative: Patient is sitting upright in a chair today. No acute distress. HEENT extraocular movements are intact, clear oropharyngeal mucosa, Cardiovascular S1-S2 audible Respiratory clear to auscultation bilaterally Abdomen soft, distended, bowel sounds present Extremities 2+ pitting edema bilateral lower extremities up to the thighs. Neuro cranial nerves II through XII intact - Urinary Catheter Management Indwelling Urethral Catheter Cath placed during this visit: yes, but has since been removed by the nurse Reason for continuing: Decision to DC catheter Insertion date: 03/02/18 Insertion time: 12:30 Removal date: 03/14/18 Removal time: 15:58 Results - Labs CBC & Chem 7: 03/07/18 03:49 03/15/18 07:53 Laboratory Results - last 24 hr 03/14/18 03/14/18 03/15/18 16:38 20:27 07:23 Sodium Potassium Chloride Carbon Dioxide Anion Gap BUN Creatinine Estimated GFR POC Glucose 155 H 214 H 150 H Random Glucose Calcium Phosphorus Magnesium Albumin 03/15/18 03/15/18 07:53 12:08 Sodium 133 L Potassium 3.3 L Chloride 74 L Carbon Dioxide Greater than 45.0 H Anion Gap 14 BUN 43 H Creatinine 1.65 H Estimated GFR 42 L POC Glucose 157 H Random Glucose 130 H Calcium 9.8 Phosphorus 2.1 L Magnesium 1.9 Albumin 3.2 L - Procedures None Assessment and Plan - Plan This patient is a 63-year-old obese male with a diagnosis of hypertension, dyslipidemia, diabetes mellitus type 2, 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 The patient came into our emergency department with complaints of worsening dyspnea and abdominal distention. Chest x-ray showed pulmonary vascular congestion and the patient was subsequently admitted for a CHF exacerbation. 1. Acute on chronic systolic CHF exacerbation EF 20% 2. Generalized anasarca 3. Acute kidney injury likely secondary to #1 4. Hypokalemia 5. Metabolic alkalosis secondary to diuretics. Patient has been diuresing well with the Bumex drip, and it is very noticeable on physical examination. Nephrology following the patient. Diamox given today given the patient's elevated bicarb. We will continue to follow-up with nephrology for the recommendations. Electrolytes replaced. Slight increase in serum creatinine from yesterday to today 1.65 today Patient still has a significant amount of lower extremity edema. Daily BMPs. Patient has an ejection fraction of 20%. 1.5 L fluid restriction, strict ins and outs Mauricio catheter is in place for strict ins and outs. 5. Acute hypoxic hypercapnic respiratory failure secondary COPD, VALENTINE Patient still on supplemental oxygen. He says that his symptoms have improved. Titrate off of oxygen. We will have physical therapy reassess the patient. Continue BiPAP Pulmonary following 6. Diabetes mellitus type 2 Continue low-dose insulin sliding scale. His diabetes regimen will be adjusted if needed. Heparin for DVT prophylaxis. Discharge planning. I expect the patient to be discharged over the next few days to a assisted facility. Case discussed with case management.
--- NOTE | 2018-03-15 15:50 | P.PN ---
Subjective Interval history: alert up in chair Physical Exam Vital signs: Vital Signs 03/14/18 16:14 03/14/18 17:40 03/14/18 18:00 Temperature Pulse Rate 86 87 Respiratory Rate Blood Pressure Pulse Oximetry 98 03/14/18 19:00 03/14/18 19:04 03/14/18 20:00 Temperature 98 F Pulse Rate 85 85 85 Respiratory Rate 20 Blood Pressure 123/56 L Pulse Oximetry 97 97 98 03/14/18 21:00 03/14/18 22:00 03/14/18 23:00 Temperature Pulse Rate 68 87 87 Respiratory Rate Blood Pressure Pulse Oximetry 97 03/14/18 23:55 03/15/18 00:00 03/15/18 01:00 Temperature 97.9 F Pulse Rate 95 H 90 98 H Respiratory Rate 20 Blood Pressure 121/74 Pulse Oximetry 94 L 03/15/18 02:00 03/15/18 03:00 03/15/18 03:22 Temperature 98.2 F Pulse Rate 90 90 84 Respiratory Rate 20 Blood Pressure 128/74 Pulse Oximetry 97 94 L 03/15/18 04:00 03/15/18 05:00 03/15/18 06:00 Temperature Pulse Rate 88 88 85 Respiratory Rate Blood Pressure Pulse Oximetry 03/15/18 06:51 03/15/18 07:51 03/15/18 07:55 Temperature 98.2 F Pulse Rate 90 91 H Respiratory Rate 21 Blood Pressure 127/54 L Pulse Oximetry 91 L 91 L 03/15/18 08:00 03/15/18 09:00 03/15/18 09:01 Temperature Pulse Rate 86 88 Respiratory Rate Blood Pressure Pulse Oximetry 97 03/15/18 10:00 03/15/18 11:10 03/15/18 11:37 Temperature 98.3 F Pulse Rate 88 86 85 Respiratory Rate 18 Blood Pressure 115/71 Pulse Oximetry 94 L 03/15/18 12:00 03/15/18 13:00 03/15/18 14:00 Temperature Pulse Rate 85 87 86 Respiratory Rate Blood Pressure Pulse Oximetry 03/15/18 15:25 03/15/18 15:33 Temperature Pulse Rate 85 Respiratory Rate Blood Pressure Pulse Oximetry 95 Intake & Output 03/14/18 03/15/18 03/15/18 18:59 06:59 18:59 Intake Total 1020 / 1020 480 / 480 Output Total 5300 / 5300 2625 / 2625 Balance -4280 / -4280 -2145 / -2145 Weight 161.7 kg Intake: IV 60 / 60 Bumex Inj 25 mg In 100 ml @ 0.5 60 / 60 MG/HR 2 mls/hr IV.CONT .Q24H [facility] Rx#:[id number] Oral 960 / 960 480 / 480 Output: Urine 5300 / 5300 2625 / 2625 Other: Date of Last Bowel Movement 03/13/18 03/14/18 03/15/18 # Bowel Movements 1 Narrative: Patient is sitting upright in a chair today. No acute distress. HEENT extraocular movements are intact, clear oropharyngeal mucosa, Cardiovascular S1-S2 audible Respiratory clear to auscultation bilaterally Abdomen soft, distended, bowel sounds present Extremities 2+ pitting edema bilateral lower extremities up to the thighs. Neuro cranial nerves II through XII intact - Urinary Catheter Management Indwelling Urethral Catheter Cath placed during this visit: yes, but has since been removed by the nurse Reason for continuing: Decision to DC catheter Insertion date: 03/02/18 Insertion time: 12:30 Removal date: 03/14/18 Removal time: 15:58 Results - Labs CBC & Chem 7: 03/07/18 03:49 03/15/18 07:53 Laboratory Results - last 24 hr 03/14/18 03/14/18 03/15/18 16:38 20:27 07:23 Sodium Potassium Chloride Carbon Dioxide Anion Gap BUN Creatinine Estimated GFR POC Glucose 155 H 214 H 150 H Random Glucose Calcium Phosphorus Magnesium Albumin 03/15/18 03/15/18 07:53 12:08 Sodium 133 L Potassium 3.3 L Chloride 74 L Carbon Dioxide Greater than 45.0 H Anion Gap 14 BUN 43 H Creatinine 1.65 H Estimated GFR 42 L POC Glucose 157 H Random Glucose 130 H Calcium 9.8 Phosphorus 2.1 L Magnesium 1.9 Albumin 3.2 L - Procedures None Assessment and Plan - Plan VALENTINE CHF RESP FAILURE PLAN O2 NEEDED BIPAP INCREASE ACTIVITY WILL ARRANGE FOR HOME BIPAP/ASV
[2018-03-16 05:43] LABS: Albumin 3.1 g/dL (3.4-5.0); Anion Gap 14 meq/L (5-15); Blood Urea Nitrogen 45 mg/dL (7-18); Calcium 9.4 mg/dL (8.5-10.1); Chloride 75 meq/L (98-107); Glomerular Filtration Rate 43 mL/min (>89); Glucose,Random 132 mg/dL (74-106); Phosphorus 2.7 mg/dL (2.5-4.9); Sodium 134 meq/L (136-145)
[2018-03-16 05:46] LABS: Potassium 2.9 meq/L (3.5-5.1)
[2018-03-16] MEDS ORDERED: Sodium Chloride 0.9% 2 ML Flush PRN IV.FLUSH (06:14)
[2018-03-16] MEDS: Magnesium Oxide 400 MG Tablet PO SCH (09:04)
[2018-03-16] MEDS: Heparin - SQ 10,000 UNITS/ML Vial SQ SCH ×2 (09:04→21:24)
[2018-03-16] MEDS: Multivitamin/Minerals Therapeutic Tablet PO SCH (09:04)
[2018-03-16] MEDS: amLODIPine 10 MG Tablet PO SCH (09:05)
[2018-03-16] MEDS: metOLazone 5 MG Tablet PO SCH ×2 (09:05→21:25)
[2018-03-16] MEDS: Insulin NovoLOG Aspart Correctional Sugar Inj SQ SCH ×4 (09:10→21:26)
[2018-03-16] MEDS: Sodium Chloride 0.9% 2 ML Flush BID IV.FLUSH SCH ×2 (09:13→21:27)
--- NOTE | 2018-03-16 10:08 | P.PNNP ---
Subjective Interval history: Reports some shortness of breath this morning, just received breathing treatment. Creatinine has remained stable at 1.62. <Sunita Ordonez - Last Filed: 03/16/18 10:05> Physical Exam Vital signs: Vital Signs 03/15/18 11:10 03/15/18 11:37 03/15/18 12:00 Temperature 98.3 F Pulse Rate 86 85 85 Respiratory Rate 18 Blood Pressure 115/71 Pulse Oximetry 94 L 03/15/18 13:00 03/15/18 14:00 03/15/18 15:25 Temperature Pulse Rate 87 86 85 Respiratory Rate Blood Pressure Pulse Oximetry 03/15/18 15:33 03/15/18 16:15 03/15/18 16:19 Temperature 98.2 F Pulse Rate 80 83 Respiratory Rate 20 Blood Pressure 119/67 Pulse Oximetry 95 93 L 03/15/18 17:24 03/15/18 18:09 03/15/18 19:00 Temperature Pulse Rate 84 88 82 Respiratory Rate Blood Pressure Pulse Oximetry 98 03/15/18 20:00 03/15/18 21:00 03/15/18 22:00 Temperature 98.8 F Pulse Rate 86 85 83 Respiratory Rate 20 Blood Pressure 116/71 Pulse Oximetry 98 03/15/18 23:00 03/16/18 00:00 03/16/18 01:00 Temperature 98.8 F Pulse Rate 83 83 85 Respiratory Rate 20 Blood Pressure 107/65 Pulse Oximetry 96 96 03/16/18 02:00 03/16/18 03:00 03/16/18 04:00 Temperature 97.8 F Pulse Rate 78 83 92 H Respiratory Rate 16 Blood Pressure 122/62 Pulse Oximetry 98 94 L 03/16/18 05:00 03/16/18 06:00 03/16/18 08:00 Temperature 98.4 F Pulse Rate 88 85 89 Respiratory Rate 24 Blood Pressure 129/57 L Pulse Oximetry 92 L Intake & Output 03/15/18 03/16/18 03/16/18 18:59 06:59 18:59 Intake Total 720 / 720 330 / 330 Output Total 2650 / 2650 2775 / 2775 Balance -1930 / -1930 -2445 / -2445 Weight 159 kg Intake: Oral 720 / 720 330 / 330 Output: Urine 2650 / 2650 2775 / 2775 Other: Date of Last Bowel Movement 03/15/18 03/15/18 03/15/18 # Bowel Movements 1 Narrative: GENERAL: Alert and oriented. Morbidly obese. NAD NECK: Supple, trachea midline. Negative JVD CARDIOVASCULAR: Regular rate and rhythm without murmurs, gallops, or rubs. RESPIRATORY: Breath sounds equal bilaterally. No accessory muscle use. GASTROINTESTINAL: Abdomen soft, non-tender, large, positive bowel sounds MUSCULOSKELETAL: No cyanosis, edema improving. SKIN: Warm and dry. - Urinary Catheter Management Indwelling Urethral Catheter Cath placed during this visit: yes, but has since been removed by the nurse Reason for continuing: Decision to DC catheter Insertion date: 03/02/18 Insertion time: 12:30 Removal date: 03/14/18 Removal time: 15:58 <Sunita Ordonez - Last Filed: 03/16/18 10:05> Vital signs: Vital Signs 03/17/18 00:00 03/17/18 04:00 03/17/18 06:00 Temperature 97.7 F 97.6 F Pulse Rate 90 86 83 Respiratory Rate 20 14 Blood Pressure 114/67 118/65 Pulse Oximetry 94 L 95 03/17/18 07:00 03/17/18 07:44 03/17/18 08:00 Temperature Pulse Rate 83 82 Respiratory Rate Blood Pressure Pulse Oximetry 95 03/17/18 08:52 03/17/18 09:00 03/17/18 10:00 Temperature 98 F Pulse Rate 84 74 82 Respiratory Rate 15 Blood Pressure 101/64 Pulse Oximetry 95 03/17/18 10:30 03/17/18 11:00 03/17/18 11:10 Temperature Pulse Rate 79 Respiratory Rate Blood Pressure Pulse Oximetry 95 93 L 03/17/18 11:11 03/17/18 12:00 03/17/18 12:30 Temperature 98.2 F Pulse Rate 82 76 79 Respiratory Rate 16 16 Blood Pressure 118/60 117/70 Pulse Oximetry 93 L 98 03/17/18 13:00 03/17/18 14:00 03/17/18 15:00 Temperature Pulse Rate 78 78 80 Respiratory Rate Blood Pressure Pulse Oximetry 03/17/18 15:56 03/17/18 16:24 03/17/18 16:39 Temperature 98.4 F Pulse Rate 72 72 Respiratory Rate 17 Blood Pressure 114/63 Pulse Oximetry 95 96 03/17/18 17:05 03/17/18 18:00 03/17/18 19:00 Temperature Pulse Rate 75 72 Respiratory Rate Blood Pressure Pulse Oximetry 95 03/17/18 20:00 Temperature 97.8 F Pulse Rate 78 Respiratory Rate 20 Blood Pressure 114/66 Pulse Oximetry 99 Intake & Output 03/17/18 03/17/18 03/18/18 06:59 18:59 06:59 Intake Total 240 / 240 720 / 720 Output Total 2400 / 2400 2250 / 2250 Balance -2160 / -2160 -1530 / -1530 Weight 157.6 kg Intake: Oral 240 / 240 720 / 720 Output: Urine 2400 / 2400 2250 / 2250 Other: Date of Last Bowel Movement 03/15/18 03/17/18 03/17/18 # Bowel Movements 0 - Urinary Catheter Management Indwelling Urethral Catheter Cath placed during this visit: no <Gulshan Robin - Last Filed: 03/17/18 21:57> Assessment and Plan - Assessment (1) DIXIE (acute kidney injury) Code(s): N17.9 - Acute kidney failure, unspecified Status: Acute Plan: DIXIE possibly from intravascular volume depletion from diuretic use or third spacing, improving. Creatinine stable today at 1.6, will continue bumex 4mg BID and metolazone for now. HCO3 greater that 45, Diamox 500 mg X1 given. Hypokalemia at 2.9, on scheduled replacement and extra given today. Scheduled replacement increased. Continue with daily weights, strict I+O's and fluid restriction. Avoid nephrotoxic agents. Labs daily to watch kidney function closely. (2) Diabetes Code(s): E11.9 - Type 2 diabetes mellitus without complications Status: Acute Plan: Maintain blood sugars 140mg/dl to 180 mg/dl. Well controlled. (3) Hypertension Code(s): I10 - Essential (primary) hypertension Status: Acute Plan: Improved will monitor. <Sunita Ordonez - Last Filed: 03/16/18 10:05> - Assessment (1) DIXIE (acute kidney injury) Code(s): N17.9 - Acute kidney failure, unspecified Status: Acute Plan: Patient seen and examined, agree with above. Continue Diamox, Creatinine is stable. Continue diuretics. Follow the urine out put and BMP. (2) Diabetes Code(s): E11.9 - Type 2 diabetes mellitus without complications Status: Acute (3) Hypertension Code(s): I10 - Essential (primary) hypertension Status: Acute <Gulshan Robin - Last Filed: 03/17/18 21:57>
--- NOTE | 2018-03-16 16:32 | P.PNIM ---
Subjective Interval history: Patient has no significant complaints today. He says he feels rn l and d. He is looking forward to going into a rehab facility. Physical Exam Vital signs: Vital Signs 03/15/18 17:24 03/15/18 18:09 03/15/18 19:00 Temperature Pulse Rate 84 88 82 Respiratory Rate Blood Pressure Pulse Oximetry 98 03/15/18 20:00 03/15/18 21:00 03/15/18 22:00 Temperature 98.8 F Pulse Rate 86 85 83 Respiratory Rate 20 Blood Pressure 116/71 Pulse Oximetry 98 03/15/18 23:00 03/16/18 00:00 03/16/18 01:00 Temperature 98.8 F Pulse Rate 83 83 85 Respiratory Rate 20 Blood Pressure 107/65 Pulse Oximetry 96 96 03/16/18 02:00 03/16/18 03:00 03/16/18 04:00 Temperature 97.8 F Pulse Rate 78 83 92 H Respiratory Rate 16 Blood Pressure 122/62 Pulse Oximetry 98 94 L 03/16/18 05:00 03/16/18 06:00 03/16/18 07:00 Temperature Pulse Rate 88 85 86 Respiratory Rate Blood Pressure Pulse Oximetry 03/16/18 08:00 03/16/18 09:00 03/16/18 10:00 Temperature 98.4 F Pulse Rate 94 H 82 80 Respiratory Rate 24 Blood Pressure 129/57 L Pulse Oximetry 92 L 03/16/18 10:56 03/16/18 11:00 03/16/18 12:00 Temperature 97.8 F Pulse Rate 76 86 80 Respiratory Rate 22 Blood Pressure 102/59 L Pulse Oximetry 98 96 03/16/18 13:00 03/16/18 14:00 03/16/18 15:00 Temperature Pulse Rate 78 78 81 Respiratory Rate Blood Pressure Pulse Oximetry 96 03/16/18 16:00 Temperature Pulse Rate 76 Respiratory Rate Blood Pressure Pulse Oximetry Intake & Output 03/15/18 03/16/18 03/16/18 18:59 06:59 18:59 Intake Total 720 / 720 330 / 330 Output Total 2650 / 2650 2775 / 2775 Balance -1930 / -1930 -2445 / -2445 Weight 159 kg Intake: Oral 720 / 720 330 / 330 Output: Urine 2650 / 2650 2775 / 2775 Other: Date of Last Bowel Movement 03/15/18 03/15/18 03/15/18 # Bowel Movements 1 Narrative: Patient is sitting upright in a chair today. No acute distress. Patient says he is starting to feel better. HEENT extraocular movements are intact, clear oropharyngeal mucosa, Cardiovascular S1-S2 audible Respiratory clear to auscultation bilaterally Abdomen soft, distended, bowel sounds present Extremities 2+ pitting edema bilateral lower extremities up to the thighs. Neuro cranial nerves II through XII intact - Urinary Catheter Management Indwelling Urethral Catheter Cath placed during this visit: yes, but has since been removed by the nurse Reason for continuing: Decision to DC catheter Insertion date: 03/02/18 Insertion time: 12:30 Removal date: 03/14/18 Removal time: 15:58 Results - Labs CBC & Chem 7: 03/07/18 03:49 03/16/18 04:12 Laboratory Results - last 24 hr 03/15/18 03/15/18 03/16/18 16:43 20:12 04:12 Sodium 134 L Potassium 2.9 L* Chloride 75 L Carbon Dioxide Greater than 45.0 H Anion Gap 14 BUN 45 H Creatinine 1.62 H Estimated GFR 43 L POC Glucose 154 H 227 H Random Glucose 132 H Calcium 9.4 Phosphorus 2.7 Albumin 3.1 L 03/16/18 03/16/18 08:31 12:03 Sodium Potassium Chloride Carbon Dioxide Anion Gap BUN Creatinine Estimated GFR POC Glucose 192 H 178 H Random Glucose Calcium Phosphorus Albumin - Procedures None Assessment and Plan - Plan This patient is a 63-year-old obese male with a diagnosis of hypertension, dyslipidemia, diabetes mellitus type 2, 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 The patient came into our emergency department with complaints of worsening dyspnea and abdominal distention. Chest x-ray showed pulmonary vascular congestion and the patient was subsequently admitted for a CHF exacerbation. 1. Acute on chronic systolic CHF exacerbation EF 20% 2. Generalized anasarca 3. Acute kidney injury likely secondary to #1 4. Hypokalemia 5. Metabolic alkalosis secondary to diuretics. Nephrology following the patient. Diamox given today again given the patient's elevated bicarb. We will continue to follow-up with nephrology for the recommendations. Patient hypokalemic with a potassium level of 2.9 today. Electrolyte replaced. Serum creatinine around 1.6. Continue p.o. diuretics as per nephrology recommendations. Daily BMPs. Patient has an ejection fraction of 20%. 1.5 L fluid restriction, strict ins and outs 5. Acute hypoxic hypercapnic respiratory failure secondary COPD, VALENTINE Patient still on supplemental oxygen. He says that his symptoms have improved. Titrate off of oxygen. We will have physical therapy reassess the patient. Continue BiPAP Pulmonary following Will need home BiPAP on discharge. 6. Diabetes mellitus type 2 Continue low-dose insulin sliding scale. Heparin for DVT prophylaxis. Discharge planning. I expect the patient to be [facility] over the [facility] Case discussed with case management.
[2018-03-17] MEDS: Insulin NovoLOG Aspart Correctional Sugar Inj SQ SCH ×4 (07:45→20:23)
[2018-03-17 07:55] LABS: Albumin 3.2 g/dL (3.4-5.0); Blood Urea Nitrogen 46 mg/dL (7-18); Calcium 9.4 mg/dL (8.5-10.1); Chloride 76 meq/L (98-107); Glomerular Filtration Rate 41 mL/min (>89); Glucose,Random 165 mg/dL (74-106); Potassium 3.1 meq/L (3.5-5.1); Sodium 136 meq/L (136-145)
[2018-03-17 07:56] LABS: Phosphorus 3.3 mg/dL (2.5-4.9)
[2018-03-17] MEDS: metOLazone 5 MG Tablet PO SCH ×2 (08:57→20:21)
[2018-03-17] MEDS: Multivitamin/Minerals Therapeutic Tablet PO SCH (08:58)
[2018-03-17] MEDS: Sodium Chloride 0.9% 2 ML Flush BID IV.FLUSH SCH ×2 (08:58→20:30)
[2018-03-17] MEDS: amLODIPine 10 MG Tablet PO SCH (10:44)
[2018-03-17] MEDS: Heparin - SQ 10,000 UNITS/ML Vial SQ SCH ×2 (10:55→21:03)
[2018-03-17] MEDS: Magnesium Oxide 400 MG Tablet PO SCH (11:13)
--- NOTE | 2018-03-17 11:38 | P.PNNP ---
Subjective Interval history: Seen in AM. Creatinine has remained stable at 1.69. Shortness of breath and edema improved. No nausea, vomiting or diarrhea. <José LuisSunita - Last Filed: 03/17/18 11:32> Physical Exam Vital signs: Vital Signs 03/16/18 12:00 03/16/18 13:00 03/16/18 14:00 Temperature Pulse Rate 80 78 78 Respiratory Rate Blood Pressure Pulse Oximetry 03/16/18 15:00 03/16/18 16:00 03/16/18 17:00 Temperature 98.0 F Pulse Rate 81 79 76 Respiratory Rate 22 Blood Pressure 117/72 Pulse Oximetry 96 97 03/16/18 18:00 03/16/18 20:00 03/17/18 00:00 Temperature 97.5 F L 97.7 F Pulse Rate 78 79 90 Respiratory Rate 20 20 Blood Pressure 119/69 114/67 Pulse Oximetry 96 94 L 03/17/18 04:00 03/17/18 06:00 03/17/18 07:00 Temperature 97.6 F Pulse Rate 86 83 83 Respiratory Rate 14 Blood Pressure 118/65 Pulse Oximetry 95 03/17/18 07:44 03/17/18 08:00 03/17/18 08:52 Temperature 98 F Pulse Rate 82 84 Respiratory Rate 15 Blood Pressure 101/64 Pulse Oximetry 95 95 03/17/18 09:00 03/17/18 10:00 03/17/18 10:30 Temperature Pulse Rate 74 82 Respiratory Rate Blood Pressure Pulse Oximetry 95 03/17/18 11:10 03/17/18 11:11 Temperature Pulse Rate 82 Respiratory Rate 16 Blood Pressure 118/60 Pulse Oximetry 93 L 93 L Intake & Output 03/16/18 03/17/18 03/17/18 18:59 06:59 18:59 Intake Total 1000 / 1000 240 / 240 Output Total 1925 1925 2400 / 2400 Balance -925 / -925 -2160 / -2160 Weight 157.6 kg Intake: Oral 1000 / 1000 240 / 240 Output: Urine 1924 / 1925 2400 / 2400 Other: Date of Last Bowel Movement 03/15/18 03/15/18 03/16/18 # Bowel Movements 0 Narrative: GENERAL: Alert and oriented. Morbidly obese. NAD NECK: Supple, trachea midline. Negative JVD CARDIOVASCULAR: Regular rate and rhythm without murmurs, gallops, or rubs. RESPIRATORY: Breath sounds equal bilaterally. No accessory muscle use. GASTROINTESTINAL: Abdomen soft, non-tender, large, positive bowel sounds MUSCULOSKELETAL: No cyanosis, edema improving. SKIN: Warm and dry. - Urinary Catheter Management Indwelling Urethral Catheter Cath placed during this visit: yes, but has since been removed by the nurse Reason for continuing: Decision to DC catheter Insertion date: 03/02/18 Insertion time: 12:30 Removal date: 03/14/18 Removal time: 15:58 <Sunita Ordonez - Last Filed: 03/17/18 11:32> Vital signs: Vital Signs 03/17/18 17:05 03/17/18 18:00 03/17/18 19:00 Temperature Pulse Rate 75 72 75 Respiratory Rate Blood Pressure Pulse Oximetry 95 03/17/18 20:00 03/17/18 21:00 03/17/18 22:00 Temperature 97.8 F Pulse Rate 76 80 84 Respiratory Rate 20 Blood Pressure 114/66 Pulse Oximetry 97 03/17/18 23:00 03/17/18 23:41 03/18/18 00:00 Temperature 97.6 F Pulse Rate 75 74 Respiratory Rate 17 Blood Pressure 116/66 Pulse Oximetry 97 98 97 03/18/18 01:00 03/18/18 02:00 03/18/18 03:00 Temperature Pulse Rate 82 85 88 Respiratory Rate Blood Pressure Pulse Oximetry 94 L 03/18/18 04:00 03/18/18 05:00 03/18/18 06:00 Temperature 98.9 F Pulse Rate 88 85 85 Respiratory Rate 18 Blood Pressure 114/63 Pulse Oximetry 94 L 03/18/18 07:00 03/18/18 08:00 03/18/18 09:00 Temperature 98.4 F Pulse Rate 86 88 80 Respiratory Rate 18 Blood Pressure 121/64 Pulse Oximetry 97 95 03/18/18 10:00 03/18/18 11:00 Temperature Pulse Rate 80 82 Respiratory Rate Blood Pressure Pulse Oximetry 91 L Intake & Output 03/17/18 03/18/18 03/18/18 18:59 06:59 18:59 Intake Total 720 / 720 240 / 240 Output Total 2250 / 2250 1999 / 1999 Balance -1530 / -1530 -1760 / -1760 Weight 156.1 kg Intake: Oral 720 / 720 240 / 240 Output: Urine 2250 / 2250 1999 Other: Date of Last Bowel Movement 03/17/18 03/18/18 03/17/18 # Bowel Movements 1 - Urinary Catheter Management Indwelling Urethral Catheter Cath placed during this visit: no <Gulshan Robin - Last Filed: 03/18/18 16:52> Assessment and Plan - Assessment (1) DIXIE (acute kidney injury) Code(s): N17.9 - Acute kidney failure, unspecified Status: Acute Plan: DIXIE possibly from intravascular volume depletion from diuretic use or third spacing, improving. Creatinine stable today at 1.6, will continue bumex 4mg BID and metolazone for now. Hypokalemia at 3.1, on scheduled replacement and extra given today. Continue with daily weights, strict I+O's and fluid restriction. Avoid nephrotoxic agents. Follow urinary output and BMP From a nephrology stand point patient can be discharged. Will need to be followed outpatient wit Nephrology. (2) Diabetes Code(s): E11.9 - Type 2 diabetes mellitus without complications Status: Acute Plan: Maintain blood sugars 140mg/dl to 180 mg/dl. Well controlled. (3) Hypertension Code(s): I10 - Essential (primary) hypertension Status: Acute Plan: Stable, will monitor. <Sunita Ordonez - Last Filed: 03/17/18 11:32> - Assessment (1) DIXIE (acute kidney injury) Code(s): N17.9 - Acute kidney failure, unspecified Status: Acute Plan: Patient seen and examine, agree with above. Continue diuretics, Creatinine is stable and edema is improving. (2) Diabetes Code(s): E11.9 - Type 2 diabetes mellitus without complications Status: Acute (3) Hypertension Code(s): I10 - Essential (primary) hypertension Status: Acute <Gulshan Robin - Last Filed: 03/18/18 16:52>
--- NOTE | 2018-03-17 12:01 | US ---
EXAM DATE: 03/17/2018 11:58 AM EST AGE/SEX: 63 years / Male INDICATIONS: Ascites. CLINICAL DATA: This is the patient's subsequent encounter. Patient reports that signs and symptoms h ave been present for 1 day and indicates a pain score of 3/10. MEDICAL/SURGICAL HISTORY: Congestive heart failure. Hypertension. Lymphedema. CAD. Cardiomyopa thy. Cholecystectomy. Colon surgery. Knee replacement. COMPARISON: No prior exams available for comparison. FINDINGS: Masses: None Fluid Collections: None Other: None. CONCLUSION: 1. No appreciable ascites identified. Electronically signed by: Yuri Salcido MD 03/17/2018 12:00 PM EST
--- NOTE | 2018-03-17 15:19 | P.PN ---
Subjective Interval history: alert nad up in chair Physical Exam Vital signs: Vital Signs 03/16/18 16:00 03/16/18 17:00 03/16/18 18:00 Temperature 98.0 F Pulse Rate 79 76 78 Respiratory Rate 22 Blood Pressure 117/72 Pulse Oximetry 97 03/16/18 20:00 03/17/18 00:00 03/17/18 04:00 Temperature 97.5 F L 97.7 F 97.6 F Pulse Rate 79 90 86 Respiratory Rate 20 20 14 Blood Pressure 119/69 114/67 118/65 Pulse Oximetry 96 94 L 95 03/17/18 06:00 03/17/18 07:00 03/17/18 07:44 Temperature Pulse Rate 83 83 Respiratory Rate Blood Pressure Pulse Oximetry 95 03/17/18 08:00 03/17/18 08:52 03/17/18 09:00 Temperature 98 F Pulse Rate 82 84 74 Respiratory Rate 15 Blood Pressure 101/64 Pulse Oximetry 95 03/17/18 10:00 03/17/18 10:30 03/17/18 11:00 Temperature Pulse Rate 82 79 Respiratory Rate Blood Pressure Pulse Oximetry 95 03/17/18 11:10 03/17/18 11:11 03/17/18 12:00 Temperature Pulse Rate 82 76 Respiratory Rate 16 Blood Pressure 118/60 Pulse Oximetry 93 L 93 L 03/17/18 12:30 03/17/18 13:00 03/17/18 14:00 Temperature 98.2 F Pulse Rate 79 78 78 Respiratory Rate 16 Blood Pressure 117/70 Pulse Oximetry 98 Intake & Output 03/16/18 03/17/18 03/17/18 18:59 06:59 18:59 Intake Total 1000 / 1000 240 / 240 Output Total 1925 / 1925 2400 / 2400 Balance -925 / -925 -2160 / -2160 Weight 157.6 kg Intake: Oral 1000 / 1000 240 / 240 Output: Urine 1924 / 1925 2400 / 2400 Other: Date of Last Bowel Movement 03/15/18 03/15/18 03/16/18 # Bowel Movements 0 Narrative: GENERAL: Alert and oriented. Morbidly obese. NAD NECK: Supple, trachea midline. Negative JVD CARDIOVASCULAR: Regular rate and rhythm without murmurs, gallops, or rubs. RESPIRATORY: Breath sounds equal bilaterally. No accessory muscle use. GASTROINTESTINAL: Abdomen soft, non-tender, large, positive bowel sounds MUSCULOSKELETAL: No cyanosis, edema improving. SKIN: Warm and dry. - Urinary Catheter Management Indwelling Urethral Catheter Cath placed during this visit: yes, but has since been removed by the nurse Reason for continuing: Decision to DC catheter Insertion date: 03/02/18 Insertion time: 12:30 Removal date: 03/14/18 Removal time: 15:58 Results - Labs CBC & Chem 7: 03/07/18 03:49 03/17/18 06:04 Laboratory Results - last 24 hr 03/16/18 03/16/18 03/17/18 16:46 20:49 06:04 Sodium 136 Potassium 3.1 L Chloride 76 L Carbon Dioxide Greater than 45.0 H Anion Gap Less than 15 BUN 46 H Creatinine 1.69 H Estimated GFR 41 L POC Glucose 154 H 178 H Random Glucose 165 H Calcium 9.4 Phosphorus 3.3 Albumin 3.2 L 03/17/18 03/17/18 07:17 12:03 Sodium Potassium Chloride Carbon Dioxide Anion Gap BUN Creatinine Estimated GFR POC Glucose 234 H 211 H Random Glucose Calcium Phosphorus Albumin - Imaging Impressions Abdomen Ultrasound 03/17/18 00:00 CONCLUSION: 1. No appreciable ascites identified. - Procedures None Assessment and Plan - Plan VALENTINE CHF RESP FAILURE PLAN O2 NEEDED BIPAP INCREASE ACTIVITY WILL ARRANGE FOR HOME BIPAP/ASV
--- NOTE | 2018-03-17 16:46 | P.PNIM ---
Subjective Interval history: Nursing reports that the patient had poor sleep last night since he had to urinate a lot. Patient is hard to wake up but is noted to have substantial sleep apnea. He denies any new complaints. Noted to be somewhat hypokalemic this morning, received replacements. Physical Exam Vital signs: Vital Signs 03/16/18 17:00 03/16/18 18:00 03/16/18 20:00 Temperature 97.5 F L Pulse Rate 76 78 79 Respiratory Rate 20 Blood Pressure 119/69 Pulse Oximetry 96 03/17/18 00:00 03/17/18 04:00 03/17/18 06:00 Temperature 97.7 F 97.6 F Pulse Rate 90 86 83 Respiratory Rate 20 14 Blood Pressure 114/67 118/65 Pulse Oximetry 94 L 95 03/17/18 07:00 03/17/18 07:44 03/17/18 08:00 Temperature Pulse Rate 83 82 Respiratory Rate Blood Pressure Pulse Oximetry 95 03/17/18 08:52 03/17/18 09:00 03/17/18 10:00 Temperature 98 F Pulse Rate 84 74 82 Respiratory Rate 15 Blood Pressure 101/64 Pulse Oximetry 95 03/17/18 10:30 03/17/18 11:00 03/17/18 11:10 Temperature Pulse Rate 79 Respiratory Rate Blood Pressure Pulse Oximetry 95 93 L 03/17/18 11:11 03/17/18 12:00 03/17/18 12:30 Temperature 98.2 F Pulse Rate 82 76 79 Respiratory Rate 16 16 Blood Pressure 118/60 117/70 Pulse Oximetry 93 L 98 03/17/18 13:00 03/17/18 14:00 03/17/18 15:00 Temperature Pulse Rate 78 78 80 Respiratory Rate Blood Pressure Pulse Oximetry 03/17/18 15:56 03/17/18 16:24 03/17/18 16:39 Temperature 98.4 F Pulse Rate 72 72 Respiratory Rate 17 Blood Pressure 114/63 Pulse Oximetry 95 96 Intake & Output 03/16/18 03/17/18 03/17/18 18:59 06:59 18:59 Intake Total 1000 / 1000 240 / 240 Output Total 1924 / 1924 2400 / 2400 Balance -925 / -925 -2160 / -2160 Weight 157.6 kg Intake: Oral 1000 / 1000 240 / 240 Output: Urine 1924 2400 / 2400 Other: Date of Last Bowel Movement 03/15/18 03/15/18 03/17/18 # Bowel Movements 0 Narrative: Sleeping, snoring Hard to wake up but eventually awakens after sternal rub Heart sounds regular rate rhythm, no murmurs Clear lungs bilaterally, unlabored breathing No acute distress Awakens and then easily falls asleep at the end of conversing - Urinary Catheter Management Indwelling Urethral Catheter Cath placed during this visit: yes, but has since been removed by the nurse Reason for continuing: Decision to DC catheter Insertion date: 03/02/18 Insertion time: 12:30 Removal date: 03/14/18 Removal time: 15:58 Results - Labs CBC & Chem 7: 03/07/18 03:49 03/18/18 05:19 Laboratory Results - last 24 hr 03/16/18 03/16/18 03/17/18 16:46 20:49 06:04 Sodium 136 Potassium 3.1 L Chloride 76 L Carbon Dioxide Greater than 45.0 H Anion Gap Less than 15 BUN 46 H Creatinine 1.69 H Estimated GFR 41 L POC Glucose 154 H 178 H Random Glucose 165 H Calcium 9.4 Phosphorus 3.3 Albumin 3.2 L 03/17/18 03/17/18 03/17/18 07:17 12:03 16:35 Sodium Potassium Chloride Carbon Dioxide Anion Gap BUN Creatinine Estimated GFR POC Glucose 234 H 211 H 194 H Random Glucose Calcium Phosphorus Albumin - Imaging Impressions Abdomen Ultrasound 03/17/18 00:00 CONCLUSION: 1. No appreciable ascites identified. - Procedures None Assessment and Plan - Plan This patient is a 63-year-old obese male with a diagnosis of hypertension, dyslipidemia, diabetes mellitus type 2, nonischemic cardiomyopathy with an ejection fraction of 20%. The patient came into our emergency department with complaints of worsening dyspnea and abdominal distention, had acute kidney injury upon presentation. Chest x-ray showed pulmonary vascular congestion and the patient was subsequently admitted for a CHF exacerbation. Had metabolic alkalosis secondary to diuretics Acute on chronic systolic CHF exacerbation EF 20% -Clinically improved w/ diuretics -1.5 L fluid restriction Acute kidney injury likely secondary to #1 -stable now Hypokalemia Metabolic alkalosis secondary to diuretics. - resolved w/ diamox. nephrology following, stable for dc from their standpoint. -Continue potassium replacement, continue metolazone per nephrology Acute hypoxic hypercapnic respiratory failure secondary COPD, VALENTINE -Acute element resolved, -Chronically on O2, will need BiPAP at least at night per pulmonology PT recommending sniff continue BiPAP Diabetes mellitus type 2 Continue low-dose insulin sliding scale. Heparin for DVT prophylaxis.
[2018-03-18 04:18] VITALS: RESP 18
[2018-03-18] MEDS: Heparin - SQ 10,000 UNITS/ML Vial SQ SCH (06:32)
[2018-03-18 06:53] LABS: Anion Gap 8 meq/L (5-15); Blood Urea Nitrogen 52 mg/dL (7-18); Calcium 9.1 mg/dL (8.5-10.1); Chloride 80 meq/L (98-107); Glomerular Filtration Rate 40 mL/min (>89); Glucose,Random 188 mg/dL (74-106); Sodium 133 meq/L (136-145)
[2018-03-18] MEDS: Multivitamin/Minerals Therapeutic Tablet PO SCH (08:35)
[2018-03-18] MEDS: Magnesium Oxide 400 MG Tablet PO SCH (08:35)
[2018-03-18] MEDS: metOLazone 5 MG Tablet PO SCH (08:36)
[2018-03-18] MEDS: amLODIPine 10 MG Tablet PO SCH (08:36)
[2018-03-18] MEDS: Sodium Chloride 0.9% 2 ML Flush BID IV.FLUSH SCH (08:40)
--- NOTE | 2018-03-18 08:46 | P.PN ---
Subjective Interval history: ALERT NAD NO SOB AT REST Physical Exam Vital signs: Vital Signs 03/17/18 08:52 03/17/18 09:00 03/17/18 10:00 Temperature 98 F Pulse Rate 84 74 82 Respiratory Rate 15 Blood Pressure 101/64 Pulse Oximetry 95 03/17/18 10:30 03/17/18 11:00 03/17/18 11:10 Temperature Pulse Rate 79 Respiratory Rate Blood Pressure Pulse Oximetry 95 93 L 03/17/18 11:11 03/17/18 12:00 03/17/18 12:30 Temperature 98.2 F Pulse Rate 82 76 79 Respiratory Rate 16 16 Blood Pressure 118/60 117/70 Pulse Oximetry 93 L 98 03/17/18 13:00 03/17/18 14:00 03/17/18 15:00 Temperature Pulse Rate 78 78 80 Respiratory Rate Blood Pressure Pulse Oximetry 03/17/18 15:56 03/17/18 16:24 03/17/18 16:39 Temperature 98.4 F Pulse Rate 72 72 Respiratory Rate 17 Blood Pressure 114/63 Pulse Oximetry 95 96 03/17/18 17:05 03/17/18 18:00 03/17/18 19:00 Temperature Pulse Rate 75 72 75 Respiratory Rate Blood Pressure Pulse Oximetry 95 03/17/18 20:00 03/17/18 21:00 03/17/18 22:00 Temperature 97.8 F Pulse Rate 76 80 84 Respiratory Rate 20 Blood Pressure 114/66 Pulse Oximetry 97 03/17/18 23:00 03/17/18 23:41 03/18/18 00:00 Temperature 97.6 F Pulse Rate 75 74 Respiratory Rate 17 Blood Pressure 116/66 Pulse Oximetry 97 98 97 03/18/18 01:00 03/18/18 02:00 03/18/18 03:00 Temperature Pulse Rate 82 85 88 Respiratory Rate Blood Pressure Pulse Oximetry 94 L 03/18/18 04:00 03/18/18 05:00 03/18/18 06:00 Temperature 98.9 F Pulse Rate 88 85 85 Respiratory Rate 18 Blood Pressure 114/63 Pulse Oximetry 94 L 03/18/18 07:00 Temperature Pulse Rate 86 Respiratory Rate Blood Pressure Pulse Oximetry 97 Intake & Output 03/17/18 03/18/18 03/18/18 18:59 06:59 18:59 Intake Total 720 / 720 240 / 240 Output Total 2250 / 2250 1999 Balance -1530 / -1530 -1760 / -1760 Weight 156.1 kg Intake: Oral 720 / 720 240 / 240 Output: Urine 2250 / 2250 1999 Other: Date of Last Bowel Movement 03/17/18 03/18/18 # Bowel Movements 1 Narrative: Sleeping, snoring Hard to wake up but eventually awakens after sternal rub Heart sounds regular rate rhythm, no murmurs Clear lungs bilaterally, unlabored breathing No acute distress Awakens and then easily falls asleep at the end of conversing - Urinary Catheter Management Indwelling Urethral Catheter Cath placed during this visit: yes, but has since been removed by the nurse Reason for continuing: Decision to DC catheter Insertion date: 03/02/18 Insertion time: 12:30 Removal date: 03/14/18 Removal time: 15:58 Results - Labs CBC & Chem 7: 03/07/18 03:49 03/18/18 05:19 Laboratory Results - last 24 hr 03/17/18 03/17/18 03/17/18 06:04 12:03 16:35 Sodium Potassium Chloride Carbon Dioxide Anion Gap BUN Creatinine Estimated GFR POC Glucose 211 H 194 H Random Glucose Calcium Magnesium 2.0 03/17/18 03/18/18 19:42 05:19 Sodium 133 L Potassium 3.0 L Chloride 80 L Carbon Dioxide Greater than 45.0 H Anion Gap 8 BUN 52 H Creatinine 1.73 H Estimated GFR 40 L POC Glucose 217 H Random Glucose 188 H Calcium 9.1 Magnesium - Imaging Impressions Abdomen Ultrasound 03/17/18 00:00 CONCLUSION: 1. No appreciable ascites identified. - Procedures None Assessment and Plan - Plan [facility] CHF RESP FAILURE PLAN O2 NEEDED BIPAP INCREASE ACTIVITY WILL ARRANGE FOR HOME BIPAP/ASV
[2018-03-18] MEDS ORDERED: metOLazone 5 MG Tablet PO SCH (09:25)
[2018-03-18 09:41] VITALS: BP 121/64; TEMP 98.4
--- NOTE | 2018-03-18 11:00 | P.PNNP ---
Subjective Interval history: Sitting up in chair. Denies any shortness of breath, chest pain, nausea, or vomiting. Creatinine at 1.73 from 1.69 today. Plans for discharge to SNF. <José LuisSabinaSunita - Last Filed: 03/18/18 10:46> Physical Exam Vital signs: Vital Signs 03/17/18 11:00 03/17/18 11:10 03/17/18 11:11 Temperature Pulse Rate 79 82 Respiratory Rate 16 Blood Pressure 118/60 Pulse Oximetry 93 L 93 L 03/17/18 12:00 03/17/18 12:30 03/17/18 13:00 Temperature 98.2 F Pulse Rate 76 79 78 Respiratory Rate 16 Blood Pressure 117/70 Pulse Oximetry 98 03/17/18 14:00 03/17/18 15:00 03/17/18 15:56 Temperature Pulse Rate 78 80 Respiratory Rate Blood Pressure Pulse Oximetry 95 03/17/18 16:24 03/17/18 16:39 03/17/18 17:05 Temperature 98.4 F Pulse Rate 72 72 75 Respiratory Rate 17 Blood Pressure 114/63 Pulse Oximetry 96 03/17/18 18:00 03/17/18 19:00 03/17/18 20:00 Temperature 97.8 F Pulse Rate 72 75 76 Respiratory Rate 20 Blood Pressure 114/66 Pulse Oximetry 95 97 03/17/18 21:00 03/17/18 22:00 03/17/18 23:00 Temperature Pulse Rate 80 84 75 Respiratory Rate Blood Pressure Pulse Oximetry 97 03/17/18 23:41 03/18/18 00:00 03/18/18 01:00 Temperature 97.6 F Pulse Rate 74 82 Respiratory Rate 17 Blood Pressure 116/66 Pulse Oximetry 98 97 03/18/18 02:00 03/18/18 03:00 03/18/18 04:00 Temperature 98.9 F Pulse Rate 85 88 88 Respiratory Rate 18 Blood Pressure 114/63 Pulse Oximetry 94 L 94 L 03/18/18 05:00 03/18/18 06:00 03/18/18 07:00 Temperature Pulse Rate 85 85 86 Respiratory Rate Blood Pressure Pulse Oximetry 97 03/18/18 08:00 Temperature 98.4 F Pulse Rate 86 Respiratory Rate 18 Blood Pressure 121/64 Pulse Oximetry 95 Intake & Output 03/17/18 03/18/18 03/18/18 18:59 06:59 18:59 Intake Total 720 / 720 240 / 240 Output Total 2250 / 2250 1999 Balance -1530 / -1530 -1760 / -1760 Weight 156.1 kg Intake: Oral 720 / 720 240 / 240 Output: Urine 2250 / 2250 1999 Other: Date of Last Bowel Movement 03/17/18 03/18/18 03/17/18 # Bowel Movements 1 Narrative: GENERAL: Alert and oriented. NAD NECK: Supple, trachea midline. Negative JVD CARDIOVASCULAR: Regular rate and rhythm without murmurs, gallops, or rubs. RESPIRATORY: Breath sounds equal bilaterally. No accessory muscle use. GASTROINTESTINAL: Abdomen soft, non-tender, large, positive bowel sounds MUSCULOSKELETAL: No cyanosis, edema improving. SKIN: Warm and dry. - Urinary Catheter Management Indwelling Urethral Catheter Cath placed during this visit: yes, but has since been removed by the nurse Reason for continuing: Decision to DC catheter Insertion date: 03/02/18 Insertion time: 12:30 Removal date: 03/14/18 Removal time: 15:58 <Sunita Ordonez - Last Filed: 03/18/18 10:46> - Urinary Catheter Management Indwelling Urethral Catheter Cath placed during this visit: no <Gulshan Robin - Last Filed: 03/23/18 10:34> Assessment and Plan - Assessment (1) DIXIE (acute kidney injury) Code(s): N17.9 - Acute kidney failure, unspecified Status: Acute Plan: DIXIE possibly from intravascular volume depletion from diuretic use or third spacing, improving. Creatinine slightly increased at 1.73 today, good urinary output. Will decrease bumex to 2 mg BID and metolazone to 2.5 mg BID. Plans for discharge today to SNF, will need watch electrolytes and creatinine closely. Recommend to continue fluid restriction. From a nephrology stand point patient can be discharged. Will need to be followed outpatient with Nephrology. Instructed to call office with any questions or concerns. (2) Diabetes Code(s): E11.9 - Type 2 diabetes mellitus without complications Status: Acute Plan: Maintain blood sugars 140mg/dl to 180 mg/dl. Well controlled. (3) Hypertension Code(s): I10 - Essential (primary) hypertension Status: Acute Plan: Stable, will monitor. <Sunita Ordonez - Last Filed: 03/18/18 10:46> - Assessment (1) DIXIE (acute kidney injury) Code(s): N17.9 - Acute kidney failure, unspecified Status: Acute Plan: Patient seen and examined, agree with above. Patient for possible discharge, will follow as out patient. Continue diuretics, along with salt and fluid restriction. (2) Diabetes Code(s): E11.9 - Type 2 diabetes mellitus without complications Status: Acute (3) Hypertension Code(s): I10 - Essential (primary) hypertension Status: Acute <Gulshan Robin - Last Filed: 03/23/18 10:34>
[2018-03-18 11:31] VITALS: O2SAT 91
[2018-03-18 11:38] VITALS: PULSE 82
[2018-03-18] MEDS ORDERED: Potassium Chloride Inj 20 MEQ, Magnesium Sulfate Inj 2 GM in Dextrose 5%/NaCl 0.45% Inj... IV.SIG ONE (12:00)
--- NOTE | 2018-03-19 08:27 | P.DS ---
Date of admission: 03/02/18 12:40 Primary care physician: Tj Osborn MD Brief History from admission: Mr. Kee is a 63 year old male. He has a past history of congestive heart failure. In 2013 his estimated ejection fraction was 35-50%. He comes into the hospital with a complaint of increasing shortness of breath, weight gain, waist size increase, and edema over the past 3 weeks. She appears to be in CHF exacerbation. He says he is taking his Lasix 40 mg p.o. twice daily. No changes in diet and no aods-mpx-skdonbi supplements. He denies any chest pain. He is more comfortable with oxygen. DS: Medications - Discharge Medications Prescriptions: potassium chloride [Klor-Con M20] 40 meq PO TID #120 tab DS: Summary Hospital Course: This patient is a 63-year-old obese male with a diagnosis of hypertension, dyslipidemia, diabetes mellitus type 2, nonischemic cardiomyopathy with an ejection fraction of 20%. The patient came into our emergency department with complaints of worsening dyspnea and abdominal distention, had acute kidney injury upon presentation. Chest x-ray showed pulmonary vascular congestion and the patient was subsequently admitted for a CHF exacerbation. Had metabolic alkalosis secondary to diuretics. Had some hypokalemia and metabolic alkalosis which improved with Diamox and potassium supplementation with nephrology's assistance. Respiratory status improved with the assistance of pulmonology, patient needing BiPAP at least at night. Daytime oxygen requirement was ranging from room air to about 2 L. Patient had his diuretics dosing adjusted to in response to his hyperkalemia and renal insufficiency on his last day of hospitalization, clear for discharge from nephrology standpoint. Patient has met maximal benefit from hospitalization is clinically stable for discharge. - Time Spent with Patient Total time spent providing and/or coordinating discharge services: Less than 30 minutes - Quality: VTE Deep Vein Thrombosis/Pulmonary Embolism Present on Admission: No Exam Vital signs: Vital Signs 03/18/18 09:00 03/18/18 10:00 03/18/18 11:00 Pulse Rate 80 80 82 Pulse Oximetry 91 L Intake & Output 03/18/18 03/19/18 03/19/18 18:59 06:59 18:59 Other: Date of Last Bowel Movement 03/17/18 Narrative: Coarse breath sounds bilaterally, unlabored breathing Awake and alert No acute distress Results Procedures completed during hospitalization: None Labs on day of discharge: Labs from last 24 hours 03/18/18 08:33 POC Glucose 174 H - Impressions ITS Impressions Chest X-Ray 03/01/18 11:12 CONCLUSION: Moderate bibasilar pleural-parenchymal opacities. Abdomen/Bladder Ultrasound 03/06/18 00:00 CONCLUSION: 1. Difficult exam due to body habitus. There does appear to be some ascites in the right lower quadrant. Abdomen Ultrasound 03/17/18 00:00 CONCLUSION: 1. No appreciable ascites identified. Discharge Plan - Discharge Disposition Patient Disposition: Discharge to SNF - Discharge Condition Condition: Stable - Discharge Order Discharge Orders: Discharge Order (Routine); Ordered 03/18/18 Ordered By: Bahman Kaiser - Physicians Team Primary Care Provider: Tj Osborn Attending Provider: Bahman Kaiser Other Providers: Mitul Elise MD ; Gulshan Robin MD ; Dimas Negro,Otter
== END 2018-03-18 11:47 ==
LOC: NEDA 09:13 → NEPC 09:13 → NEDA 16:00 → NEPHCDU 16:11 → NEDH 03-03 10:26 → NEPHCDU 03-03 10:27 → N04 03-03 12:39 → HCIS 03-06 16:32
PROVIDERS: ADMIT Hospitalist; ATTEND Hospitalist

== ENCOUNTER 2018-03-31 18:34 | Observation (INO) ==
[2018-03-31] MEDS ORDERED: Pantoprazole Inj 80 MG in Sodium Chlor 0.9% Inj 100 ML IV.CONT SCH (19:00)
--- NOTE | 2018-03-31 19:10 | ED ---
HPI General Chief complaint: Dizziness Stated complaint: Dizziness Time Seen by Provider: 03/31/18 18:42 Source: patient, family and EMS Mode of arrival: EMS Limitations: no limitations History of Present Illness HPI narrative: Patient is a 63-year-old male presenting to the emergency department for evaluation of a GI bleed. Patient states he is felt tired and weak all day. He reports that his noticed his stool was different and tested for blood and it was positive. 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 Patient is currently in rehab. He denies any chest pain, fever, chills, shortness of breath. He states that he felt dizzy and was unable to stand. Symptom onset was fairly sudden, symptoms are moderate in nature. Past medical history significant for morbid obesity, congestive heart failure, cardiomyopathy, hypertension, diabetes, chronic kidney disease. Onset (ago): day(s) Related Data Home Medications Medication Instructions Recorded Confirmed aspirin [Aspir-81] 81 mg PO DAILY 11/17/17 03/31/18 hbdgabvk-jje-CY-lycopen-lutein 1 tab PO DAILY 11/17/17 03/31/18 [Centrum Silver Men] rosuvastatin 20 mg PO DAILY 11/17/17 03/31/18 carvedilol 3.125 mg PO BID 03/01/18 03/31/18 atorvastatin 20 mg PO DAILY 03/31/18 03/31/18 bumetanide 2 mg PO DAILY 03/31/18 03/31/18 potassium chloride [Klor-Con M20] 20 meq PO TID 03/31/18 03/31/18 Previous Rx's Medication Instructions Recorded albuterol sulfate 2.5 mg NEB Q4HR NEB PRN ml 03/17/18 amlodipine [Norvasc] 10 mg PO DAILY tab 03/17/18 insulin aspart U-100 [Novolog 0 unit SUBCUT ACHS ml 03/17/18 U-100 Insulin aspart] metolazone 2.5 mg PO BID tab 03/18/18 nystatin 1 applicatio TOPICAL QID g 03/18/18 tamsulosin 0.4 mg PO DAILY cap 03/18/18 Allergies Allergy/AdvReac Type Severity Reaction Status Date / Time ciprofloxacin Allergy Severe facial Verified 03/31/18 18:43 swelling levofloxacin Allergy Severe Rash Verified 03/31/18 18:43 aspirin AdvReac Intermediate Bleeding Verified 03/31/18 18:43 Review of Systems ROS: all other systems reviewed are negative FOR[facility]LY [facility] Medical History Medical History Diabetes mellitus (Acute) Hyperlipidemia (Acute) CHF (congestive heart failure) (Acute) Cardiomyopathy (Acute) HTN (hypertension) (Acute) Lymphedema (Acute) Nonobstructive atherosclerosis of coronary artery (Acute) Surgical History Surgical History H/O total knee replacement (Acute) History of colon surgery (Acute) Hx of cholecystectomy (Acute) Family History Family History Other Osteoarthritis Social History Social History Substance History: No History of Abuse Second Hand Smoke Exposure: No Smoking Status: Never smoker Tobacco Type: Cigarettes How Often Do You Have a Drink Containing Alcohol: 2 to 4 times a month Recent Travel in [facility] within the Last 8 Weeks: No Recent Out of Country Travel within the Last 8 Weeks: No Immunization History Tetanus Immunization: Unsure Exam Narrative Exam Narrative: GENERAL: Morbidly obese, alert male. Appears uncomfortable, no acute distress. SKIN: Focused skin assessment warm/dry. HEAD: Atraumatic. Normocephalic. EYES: Pupils equal and round. No scleral icterus. No injection or drainage. ENT: No nasal bleeding or discharge. Mucous membranes pink and moist. NECK: Trachea midline. No JVD. CARDIOVASCULAR: Regular rate and rhythm. No murmur appreciated. RESPIRATORY: No accessory muscle use. Clear to auscultation. Breath sounds equal bilaterally. RECTAL EXAM: No masses or tenderness, stool is maroon, positive for occult blood. GASTROINTESTINAL: Abdomen soft, non-tender, nondistended. Hepatic and splenic margins not palpable. MUSCULOSKELETAL: No obvious deformities. No clubbing. No cyanosis. No edema. NEUROLOGICAL: Awake and alert. No obvious cranial nerve deficits. Motor grossly within normal limits. Normal speech. PSYCHIATRIC: Appropriate mood and affect; insight and judgment normal. Course Initial Documented Vital Signs Temperature 97.6 F 03/31/18 18:44 Pulse Rate 93 H 03/31/18 18:44 Respiratory Rate 18 03/31/18 18:44 Blood Pressure 133/61 03/31/18 18:44 Pulse Oximetry 97 03/31/18 18:44 Last Documented Vital Signs Temperature 98.4 F 04/01/18 03:54 Pulse Rate 95 H 04/01/18 03:54 Respiratory Rate 20 04/01/18 00:00 Blood Pressure 102/56 L 04/01/18 03:54 Pulse Oximetry 96 04/01/18 03:54 Medical Decision Making BRANDON Attestation BRANDON supervised visit: Yes Attestation: I, Dr. Cervantes, have reviewed the advance practice practitioner' s documentation and am in agreement, met with the patient face to face, made the diagnosis, and the medical decision making was done by me. MDM Narrative Medical decision making narrative: Patient is a 63-year-old male presenting with 1 day of increasing fatigue and weakness, dizziness. Hemoccult was positive, labs and imaging ordered and pending, IV fluids and Protonix drip. Patient's vital signs are stable. CBC resulted with a hemoglobin of 8.6, this is significant trend down from 3 weeks ago when his hemoglobin was 12.6. Chemistry with slight elevation of BUN likely secondary to GI bleeding. Patient was reassessed, his vital signs remained stable. At this time patient will be admitted for further evaluation. Patient states he has not had an upper or lower endoscopy in many many years. Patient was advised on clinical findings. Discussed with Dr. Curtis, admit orders placed. Medical Screen Exam Complete: Yes Emergency Medical Condition: Yes Differential Diagnosis Differential Diagnosis: GI bleed versus arrhythmia versus metabolic abnormality versus anemia versus other Medical Records Medical records reviewed: Yes I reviewed the patient's medical records. Lab Data Lab results reviewed: Yes I reviewed the patient's lab results. Result diagrams: 04/01/18 00:28 03/31/18 18:50 Lab Results 03/31/18 03/31/18 03/31/18 Range/Units 18:50 18:50 18:50 WBC 11.2 H (4.0-11.0) th/mm3 RBC 2.80 L (4.50-5.90) mil/mm3 Hgb 8.6 L (13.0-17.0) gm/dL Hct 26.0 L (39.0-51.0) % MCV 92.8 (80.0-100.0) fL MCH 30.8 (27.0-34.0) pg MCHC 33.2 (32.0-36.0) % RDW 14.6 (11.6-17.2) % Plt Count 244 D (150-450) th/mm3 MPV 8.1 (7.0-11.0) fL Neut % (Auto) 75.7 H (16.0-70.0) % Lymph % (Auto) 13.4 (9.0-44.0) % [place] % (Auto) 6.5 (0.0-8.0) % Eos % (Auto) 3.7 (0.0-4.0) % Baso % (Auto) 0.7 (0.0-2.0) % Neut # (Auto) 8.5 H (1.8-7.7) th/mm3 Lymph # (Auto) 1.5 (1.0-4.8) th/mm3 [place] # (Auto) 0.7 (0.0-0.9) th/mm3 Eos # (Auto) 0.4 (0.0-0.4) th/mm3 Baso # (Auto) 0.1 (0.0-0.2) th/mm3 WBC Differential . Differential Comment Auto diff final PT 11.6 (9.8-11.6) sec INR 1.1 Ratio APTT 28.6 (23.4-31.7) sec Sodium 137 (136-145) meq/L Potassium 3.4 L (3.5-5.1) meq/L Chloride 96 L (98-107) meq/L Carbon Dioxide 32.0 (21.0-32.0) meq/L Anion Gap 9 (5-15) meq/L BUN 89 H (7-18) mg/dL Creatinine 1.60 H (0.60-1.30) mg/dL Estimated GFR 44 L (>89) mL/min POC Glucose (68-110) mg/dl Random Glucose 184 H (74-106) mg/dL Calcium 8.3 L (8.5-10.1) mg/dL Magnesium 1.8 (1.5-2.5) mg/dL Total Bilirubin 0.4 (0.2-1.0) mg/dL AST 23 (15-37) U/L ALT 37 (12-78) U/L Alkaline Phosphatase 83 (45-117) U/L Total Protein 7.3 (6.4-8.2) g/dL Albumin 2.9 L (3.4-5.0) g/dL Lipase 215 (73-393) U/L Blood Type Antibody Screen 03/31/18 04/01/18 04/01/18 Range/Units 18:50 00:28 02:49 WBC (4.0-11.0) th/mm3 RBC (4.50-5.90) mil/mm3 Hgb 7.7 L (13.0-17.0) gm/dL Hct 23.0 L (39.0-51.0) % MCV (80.0-100.0) fL MCH (27.0-34.0) pg MCHC (32.0-36.0) % RDW (11.6-17.2) % Plt Count (150-450) th/mm3 MPV (7.0-11.0) fL Neut % (Auto) (16.0-70.0) % Lymph % (Auto) (9.0-44.0) % [place] % (Auto) (0.0-8.0) % Eos % (Auto) (0.0-4.0) % Baso % (Auto) (0.0-2.0) % Neut # (Auto) (1.8-7.7) th/mm3 Lymph # (Auto) (1.0-4.8) th/mm3 [place] # (Auto) (0.0-0.9) th/mm3 Eos # (Auto) (0.0-0.4) th/mm3 Baso # (Auto) (0.0-0.2) th/mm3 WBC Differential Differential Comment PT (9.8-11.6) sec INR Ratio APTT (23.4-31.7) sec Sodium (136-145) meq/L Potassium (3.5-5.1) meq/L Chloride (98-107) meq/L Carbon Dioxide (21.0-32.0) meq/L Anion Gap (5-15) meq/L BUN (7-18) mg/dL Creatinine (0.60-1.30) mg/dL Estimated GFR (>89) mL/min POC Glucose 155 H (68-110) mg/dl Random Glucose (74-106) mg/dL Calcium (8.5-10.1) mg/dL Magnesium (1.5-2.5) mg/dL Total Bilirubin (0.2-1.0) mg/dL AST (15-37) U/L ALT (12-78) U/L Alkaline Phosphatase (45-117) U/L Total Protein (6.4-8.2) g/dL Albumin (3.4-5.0) g/dL Lipase (73-393) U/L Blood Type O Positive Antibody Screen Negative Discharge Plan Discharge Disposition Patient Disposition: 30 Still Patient Discharge Condition Condition: Stable Discharge Details Diagnosis: Acute GI bleeding, Acute hypokalemia, Symptomatic anemia Physicians Team ED Provider: Kartik Cervantes ED Midlevel Provider: Dee Hansen Primary Care Provider: Julieta Castro Attending Provider: Veronika Curtis Other Providers: Pascual See Status ED Status: Left Department Discharge Information Discharge Date/Time: 03/31/18 23:45
[2018-03-31 19:24] LABS: Baso # (Auto) 0.1 th/mm3 (0.0-0.2); Baso % (Auto) 0.7 % (0.0-2.0); Eos # (Auto) 0.4 th/mm3 (0.0-0.4); Eos % (Auto) 3.7 % (0.0-4.0); Hemoglobin 8.6 gm/dL (13.0-17.0); Lymph # (Auto) 1.5 th/mm3 (1.0-4.8); Lymph % (Auto) 13.4 % (9.0-44.0); Mean Corpuscular HGB Conc 33.2 % (32.0-36.0); Mean Corpuscular Hemoglobin 30.8 pg (27.0-34.0); Mean Corpuscular Volume 92.8 fL (80.0-100.0); Mean Platelet Volume 8.1 fL (7.0-11.0); Mono # (Auto) 0.7 th/mm3 (0.0-0.9); Mono % (Auto) 6.5 % (0.0-8.0); Neut # (Auto) 8.5 th/mm3 (1.8-7.7); Neut % (Auto) 75.7 % (16.0-70.0); Platelet Count 244 th/mm3 (150-450); Red Cell Distribution Width 14.6 % (11.6-17.2); White Blood Count 11.2 th/mm3 (4.0-11.0)
[2018-03-31 19:35] LABS: Activated Partial Thrombo Time 28.6 sec (23.4-31.7); INR 1.1 Ratio; Prothrombin Time 11.6 sec (9.8-11.6)
[2018-03-31 20:00] LABS: Albumin 2.9 g/dL (3.4-5.0); Anion Gap 9 meq/L (5-15); Aspartate Aminotransferase 23 U/L (15-37); Blood Urea Nitrogen 89 mg/dL (7-18); Calcium 8.3 mg/dL (8.5-10.1); Chloride 96 meq/L (98-107); Glomerular Filtration Rate 44 mL/min (>89); Glucose,Random 184 mg/dL (74-106); Lipase 215 U/L (73-393); Magnesium 1.8 mg/dL (1.5-2.5); Potassium 3.4 meq/L (3.5-5.1); Sodium 137 meq/L (136-145)
[2018-03-31 20:04] LABS: Alanine Aminotransferase 37 U/L (12-78); Alkaline Phosphatase 83 U/L (45-117); Total Protein 7.3 g/dL (6.4-8.2)
[2018-03-31] MEDS ORDERED: Dextrose 50% in Water 50 ML Vial IV.PUSH PRN (22:35)
--- NOTE | 2018-03-31 22:41 | P.HP ---
History of Present Illness Service: [facility] Primary Care Physician: Julieta Castro History of Present Illness: 63-year-old male with a past medical history significant for CHF (EF 20%), obstructive sleep apnea, diabetes mellitus, hypertension, hyperlipidemia, history of colon cancer and peptic ulcer disease who presents to the emergency department for evaluation of weakness and dark, tarry stools. The patient reports that he was in his usual state of health at rehab after being discharged on 03/18/18 where he was treated for CHF exacerbation and metabolic derangement secondary to diuretic use when he began to notice feelings of dizziness, lightheadedness, weakness and fatigue. He endorses dark tarry stools that began today. He denies any chest pain or shortness of breath. No abdominal pain. No nausea/vomiting. No fever/chills. No focal neurologic deficits. Inpatient Certification: I certify that the inpatient services were ordered in accordance with Medicare regulations governing the order. This includes certification that hospital inpatient services are reasonable and necessary and in the case of services not specified as inpatient-only under 42 CFR 419.22(n), that they are appropriately provided as inpatient services in accordance to with the 2-midnight benchmark under 43 CFR 412.3(e) Estimated Total Length of Stay (Days): 2 Plans for Post Hospital Care: Not yet determined Review of Systems All other systems reviewed negative except as stated in HPI PMFSH - History History Provided By: Patient, Supervisor Agency Appointments / EMT - Medical History Medical History: Medical History (Last Updated 03/31/18 @ 22:37 by Veronika Curtis MD) Diabetes mellitus Hyperlipidemia CHF (congestive heart failure) Cardiomyopathy HTN (hypertension) Lymphedema Nonobstructive atherosclerosis of coronary artery - Surgical History Surgical History: Surgical History (Last Reviewed 03/31/18 @ 22:37 by Veronika Curtis MD) H/O total knee replacement History of colon surgery Hx of cholecystectomy - Family History Family History: Family History (Last Reviewed 03/31/18 @ 22:37 by Veronika Curtis MD) Other Osteoarthritis - Social History I have reviewed the patient's Social History: Yes - Tobacco History Second Hand Smoke Exposure: No Smoking Status: Never smoker Tobacco Type: Cigarettes - Alcohol History How Often Do You Have a Drink Containing Alcohol: Never - Substance Use History Substance History: No History of Abuse - Travel History Recent Travel in the [place] Within the Last 8 Weeks: No Recent Travel Out of the Country Within the Last 8 Weeks: No - Immunization History Tetanus Immunization: Unsure Medications and Allergies Active Medications: Active Medications Pantoprazole Sodium 80 mg/ (Sodium Chloride) 100 mls @ 10 mls/hr IV.CONT CONT HARPAL Sodium Chloride (Ns Flush) 2 ml IV.FLUSH PRN PRN PRN Reason: FLUSH AFTER USING IV ACCESS Allergies Allergy/AdvReac Type Severity Reaction Status Date / Time ciprofloxacin Allergy Severe facial Verified 03/31/18 18:43 swelling levofloxacin Allergy Severe Rash Verified 03/31/18 18:43 aspirin AdvReac Intermediate Bleeding Verified 03/31/18 18:43 Home Medications Medication Instructions Recorded Confirmed Type aspirin [Aspir-81] 81 mg PO DAILY 11/17/17 03/31/18 History sezbnyuh-jll-OT-lycopen-lutein 1 tab PO DAILY 11/17/17 03/31/18 History [Centrum Silver Men] rosuvastatin 20 mg PO DAILY 11/17/17 03/31/18 History carvedilol 3.125 mg PO BID 03/01/18 03/31/18 History atorvastatin 20 mg PO DAILY 03/31/18 03/31/18 History bumetanide 2 mg PO DAILY 03/31/18 03/31/18 History potassium chloride [Klor-Con M20] 20 meq PO TID 03/31/18 03/31/18 History Exam Vital signs: Vital Signs 03/31/18 18:44 03/31/18 21:07 03/31/18 22:00 Temperature 97.6 F Pulse Rate 93 H 92 H 96 H Respiratory Rate 18 18 16 Blood Pressure 133/61 114/54 L 131/64 Pulse Oximetry 97 97 98 03/31/18 22:29 Temperature Pulse Rate Respiratory Rate Blood Pressure Pulse Oximetry 97 Intake & Output 03/31/18 03/31/18 04/01/18 06:59 18:59 06:59 Weight 144.696 kg Narrative: Gen.: No acute distress Head: Normocephalic. Atraumatic. EENT: Pupils equal round and reactive to light. Nose without drainage. Airway intact. Throat without injection. Cardiovascular: Regular rate and rhythm. No murmurs, rubs or gallops. Respiratory: Lungs clear to auscultation bilaterally. No wheezes or rhonchi. Abdomen: Soft, nontender, nondistended. No peritoneal signs. Musculoskeletal: No gross deformities. No edema. Skin: No obvious rashes or erythema. Neuro: Sensory and motor grossly intact. Cranial nerves II through XII grossly intact. Results - Labs CBC & Chem 7: 03/31/18 18:50 03/31/18 18:50 Labs: Laboratory Results - last 24 hr 03/31/18 03/31/18 03/31/18 18:50 18:50 18:50 WBC 11.2 H RBC 2.80 L Hgb 8.6 L Hct 26.0 L MCV 92.8 MCH 30.8 MCHC 33.2 RDW 14.6 Plt Count 244 D MPV 8.1 Neut % (Auto) 75.7 H Lymph % (Auto) 13.4 [place] % (Auto) 6.5 Eos % (Auto) 3.7 Baso % (Auto) 0.7 Neut # (Auto) 8.5 H Lymph # (Auto) 1.5 [place] # (Auto) 0.7 Eos # (Auto) 0.4 Baso # (Auto) 0.1 WBC Differential . Differential Comment Auto diff final PT 11.6 INR 1.1 APTT 28.6 Sodium 137 Potassium 3.4 L Chloride 96 L Carbon Dioxide 32.0 Anion Gap 9 BUN 89 H Creatinine 1.60 H Estimated GFR 44 L Random Glucose 184 H Calcium 8.3 L Magnesium 1.8 Total Bilirubin 0.4 AST 23 ALT 37 Alkaline Phosphatase 83 Total Protein 7.3 Albumin 2.9 L Lipase 215 Blood Type Antibody Screen 03/31/18 18:50 WBC RBC Hgb Hct MCV MCH MCHC RDW Plt Count MPV Neut % (Auto) Lymph % (Auto) [place] % (Auto) Eos % (Auto) Baso % (Auto) Neut # (Auto) Lymph # (Auto) [place] # (Auto) Eos # (Auto) Baso # (Auto) WBC Differential Differential Comment PT INR APTT Sodium Potassium Chloride Carbon Dioxide Anion Gap BUN Creatinine Estimated GFR Random Glucose Calcium Magnesium Total Bilirubin AST ALT Alkaline Phosphatase Total Protein Albumin Lipase Blood Type O Positive Antibody Screen Negative Caprini VTE Risk Assessment Caprini VTE Risk Assessment: Moderate/High Risk (score >= 2) Caprini Risk Assessment Model: Point Value = 1 Point Value = 2 Point Value = 3 Point Value = 5 Age 41-60 Minor surgery BMI > 25 kg/m2 Swollen legs Varicose veins or History of unexplained or recurrent spontaneous Oral contraceptives or hormone replacement Sepsis (< 1 month) Serious lung disease, including pneumonia (< 1 month) Abnormal pulmonary function Acute myocardial infarction Congestive heart failure (< 1 month) History of inflammatory bowel disease Medical patient at bed rest Age 61-74 Arthroscopic surgery Major open surgery (> 45 min) Laparoscopic surgery (> 45 min) Malignancy Confined to bed (> 72 hours) Immobilizing plaster cast Central venous access Age >= 75 History of VTE Family history of VTE Factor V Leiden Prothrombin 43006C Lupus anticoagulant Anticardiolipin antibodies Elevated serum homocysteine Heparin-induced thrombocytopenia Other congenital or acquired thrombophilia Stroke (< 1 month) Elective arthroplasty Hip, pelvis, or leg fracture Acute spinal cord injury (< 1 month) Prophylaxis Regimen: Total Risk Factor Score Risk Level Prophylaxis Regimen 0-1 Low Early ambulation 2 Moderate Order ONE of the following: *Sequential Compression Device (SCD) *Heparin 5000 units SQ BID 3-4 Higher Order ONE of the following medications: *Heparin 5000 units SQ TID *Enoxaparin/Lovenox 40 mg SQ daily (WT < 150 kg, CrCl > 30 mL/min) *Enoxaparin/Lovenox 30 mg SQ daily (WT < 150 kg, CrCl > 10-29 mL/min) *Enoxaparin/Lovenox 30 mg SQ BID (WT < 150 kg, CrCl > 30 mL/min) AND/OR *Sequential Compression Device (SCD) 5 or more Highest Order ONE of the following medications: *Heparin 5000 units SQ TID (Preferred with Epidurals) *Enoxaparin/Lovenox 40 mg SQ daily (WT < 150 kg, CrCl > 30 mL/min) *Enoxaparin/Lovenox 30 mg SQ daily (WT < 150 kg, CrCl > 10-29 mL/min) *Enoxaparin/Lovenox 30 mg SQ BID (WT < 150 kg, CrCl > 30 mL/min) AND *Sequential Compression Device (SCD) Assessment and Plan - Plan Assessment/plan: 1. GI bleed Patient with three-point drop in hemoglobin since discharge 3 weeks ago Protonix drip Serial H&H Transfuse as needed Gastroenterology consulted, appreciate recommendations 2. CHF/CAD Continue home medications Holding home aspirin for GI bleed 3. Diabetes mellitus Sliding scale insulin Monitor blood glucose 4. Hypertension/hyperlipidemia Continue home medication 5. VALENTINE Continue home CPAP FEN N.p.o. Electrolytes: Monitor and replete as needed. Status post potassium replacement. Monitor BMP Holding pharmacologic anticoagulation for GI bleed Patient currently in inpatient rehab, case management consulted to assist with discharge
[2018-04-01 00:36] LABS: Hemoglobin 7.7 gm/dL (13.0-17.0)
[2018-04-01] MEDS: Insulin NovoLOG Aspart Correctional Sugar Inj SQ SCH ×5 (04:20→21:08)
[2018-04-01] MEDS: Pantoprazole Inj 80 MG in Sodium Chlor 0.9% Inj 100 ML IV.CONT SCH ×2 (06:33→18:15)
[2018-04-01] MEDS: amLODIPine 10 MG Tablet PO SCH ×2 (08:32→10:42)
[2018-04-01 08:34] LABS: Hematocrit 23.1 % (39.0-51.0); Hemoglobin 8.1 gm/dL (13.0-17.0)
[2018-04-01] MEDS: metOLazone 5 MG Tablet PO SCH ×2 (10:42→21:08)
--- NOTE | 2018-04-01 11:41 | P.CONGI ---
History of Present Illness Consult date: 04/01/18 Consult reason: GI bleed Anemia Chief complaint: GI bleed, symptomatic anemia, hypokalemia History of Present Illness: This patient is a 63-year-old male with past medical history significant for CHF, sleep apnea, diabetes mellitus, hypertension, hyperlipidemia, colon cancer and peptic ulcer disease. Patient presented to the emergency department at [facility] for evaluation of generalized weakness fatigue and dark tarry stools. Upon consultation, patient endorses having dark tarry stools onset yesterday. Patient reports accompanied dizziness and lightheadedness. Patient denies any abdominal pain. Patient states emesis x1 clear. Patient states he takes aspirin 81 mg p.o. daily and denies any use of other NSAIDs. States he takes Tylenol as needed for pain. Reports a EGD done 10 years ago without any noted findings and colonoscopy done 5 years ago which revealed colon cancer and patient underwent colon resection. Patient denies any use of alcohol or tobacco products and denies any known family history of gastrointestinal disorders. Our service has been consulted to evaluate patient for reported dark tarry stools. <Nikki Fuentes - Last Filed: 04/01/18 11:34> Review of Systems All other systems reviewed negative except as stated in HPI <Nikki Fuentes - Last Filed: 04/01/18 11:34> PMFSH - History History Provided By: Patient - Medical History Medical History: Medical History (Last Updated 03/31/18 @ 22:37 by Veronika Curtis MD) Diabetes mellitus Hyperlipidemia CHF (congestive heart failure) Cardiomyopathy HTN (hypertension) Lymphedema Nonobstructive atherosclerosis of coronary artery - Surgical History Surgical History: Surgical History (Last Reviewed 03/31/18 @ 22:37 by Veronika Curtis MD) H/O total knee replacement History of colon surgery Hx of cholecystectomy - Family History Family History: Family History (Last Reviewed 03/31/18 @ 22:37 by Veronika Curtis MD) Other Osteoarthritis - Tobacco History Second Hand Smoke Exposure: No Smoking Status: Never smoker Tobacco Type: Cigarettes - Alcohol History How Often Do You Have a Drink Containing Alcohol: 2 to 4 times a month - Substance Use History Substance History: No History of Abuse - Travel History Recent Travel in the [place] Within the Last 8 Weeks: No Recent Travel Out of the Country Within the Last 8 Weeks: No - Immunization History Tetanus Immunization: Unsure <Nikki Fuentes - Last Filed: 04/01/18 11:34> - Medical History Medical History: Medical History (Last Updated 03/31/18 @ 22:37 by Veronika Curtis MD) Diabetes mellitus Hyperlipidemia CHF (congestive heart failure) Cardiomyopathy HTN (hypertension) Lymphedema Nonobstructive atherosclerosis of coronary artery - Surgical History Surgical History: Surgical History (Last Reviewed 03/31/18 @ 22:37 by Veronika Curtis MD) H/O total knee replacement History of colon surgery Hx of cholecystectomy - Family History Family History: Family History (Last Reviewed 03/31/18 @ 22:37 by Veronika Curtis MD) Other Osteoarthritis <Pascual See - Last Filed: 04/01/18 13:17> Medications and Allergies Active Medications: Active Medications Amlodipine Besylate (Norvasc) 10 mg PO DAILY [facility] Last Admin: 04/01/18 10:42 Dose: 10 mg Atorvastatin Calcium (Lipitor) 20 mg PO DAILY [facility] Atorvastatin Calcium (Lipitor) 40 mg PO DAILY [facility] Last Admin: 04/01/18 08:33 Dose: 40 mg Bumetanide (Bumex) 2 mg PO DAILY [facility] Last Admin: 04/01/18 08:33 Dose: 2 mg Carvedilol (Coreg) 3.125 mg PO BID [facility] Last Admin: 04/01/18 08:32 Dose: 3.125 mg Dextrose (D50w Vial) 50 ml IV.PUSH UNSCH PRN PRN Reason: PER HYPOGLYCEMIA PROTOCOL Glucagon (Glucagon Inj) 1 mg OTHER PRN PRN PRN Reason: for Hypoglycemia Protocol Pantoprazole Sodium 80 mg/ (Sodium Chloride) 100 mls @ 10 mls/hr IV.CONT Q10H [facility] Last Admin: 04/01/18 06:33 Dose: 10 mls/hr Insulin Aspart (Novolog Insulin Correctional Sugar Inj) 0 unit SQ ACHS AND 3AM HARPAL; Protocol Last Admin: 04/01/18 08:31 Dose: 100 unit Metolazone (Zaroxolyn) 2.5 mg PO BID [facility] Last Admin: 04/01/18 10:42 Dose: 2.5 mg Potassium Chloride (K-Dur) 20 meq PO TID [facility] Last Admin: 04/01/18 08:32 Dose: 20 meq Sodium Chloride (Ns Flush) 2 ml IV.FLUSH PRN PRN PRN Reason: FLUSH AFTER USING IV ACCESS Sodium Chloride (Ns Flush) 2 ml IV.FLUSH BID [facility] Last Admin: 04/01/18 08:34 Dose: 2 ml Sodium Chloride (Ns Flush) 2 ml IV.FLUSH PRN PRN PRN Reason: FLUSH AFTER USING IV ACCESS Tamsulosin HCl (Flomax) 0.4 mg PO DAILY [facility] Last Admin: 04/01/18 08:32 Dose: 0.4 mg <Nikki Fuentes - Last Filed: 04/01/18 11:34> Active Medications: Active Medications Amlodipine Besylate (Norvasc) 10 mg PO DAILY [facility] Last Admin: 04/01/18 10:42 Dose: 10 mg Atorvastatin Calcium (Lipitor) 20 mg PO DAILY [facility] Atorvastatin Calcium (Lipitor) 40 mg PO DAILY [facility] Last Admin: 04/01/18 08:33 Dose: 40 mg Bumetanide (Bumex) 2 mg PO DAILY [facility] Last Admin: 04/01/18 08:33 Dose: 2 mg Carvedilol (Coreg) 3.125 mg PO BID [facility] Last Admin: 04/01/18 08:32 Dose: 3.125 mg Dextrose (D50w Vial) 50 ml IV.PUSH UNSCH PRN PRN Reason: PER HYPOGLYCEMIA PROTOCOL Glucagon (Glucagon Inj) 1 mg OTHER PRN PRN PRN Reason: for Hypoglycemia Protocol Pantoprazole Sodium 80 mg/ (Sodium Chloride) 100 mls @ 10 mls/hr IV.CONT Q10H [facility] Last Admin: 04/01/18 06:33 Dose: 10 mls/hr Insulin Aspart (Novolog Insulin Correctional Sugar Inj) 0 unit SQ ACHS AND 3AM HARPAL; Protocol Last Admin: 04/01/18 12:11 Dose: 1 unit Metolazone (Zaroxolyn) 2.5 mg PO BID [facility] Last Admin: 04/01/18 10:42 Dose: 2.5 mg Potassium Chloride (K-Dur) 20 meq PO TID [facility] Last Admin: 04/01/18 13:05 Dose: 20 meq Sodium Chloride (Ns Flush) 2 ml IV.FLUSH PRN PRN PRN Reason: FLUSH AFTER USING IV ACCESS Sodium Chloride (Ns Flush) 2 ml IV.FLUSH BID [facility] Last Admin: 04/01/18 08:34 Dose: 2 ml Sodium Chloride (Ns Flush) 2 ml IV.FLUSH PRN PRN PRN Reason: FLUSH AFTER USING IV ACCESS Tamsulosin HCl (Flomax) 0.4 mg PO DAILY [facility] Last Admin: 04/01/18 08:32 Dose: 0.4 mg <Pascual See - Last Filed: 04/01/18 13:17> Allergies Allergy/AdvReac Type Severity Reaction Status Date / Time ciprofloxacin Allergy Severe facial Verified 03/31/18 18:43 swelling levofloxacin Allergy Severe Rash Verified 03/31/18 18:43 Home Medications Medication Instructions Recorded Confirmed Type aspirin [Aspir-81] 81 mg PO DAILY 11/17/17 03/31/18 History msrbonak-ajr-VC-lycopen-lutein 1 tab PO DAILY 11/17/17 03/31/18 History [Centrum Silver Men] rosuvastatin 20 mg PO DAILY 11/17/17 03/31/18 History carvedilol 3.125 mg PO BID 03/01/18 03/31/18 History atorvastatin 20 mg PO DAILY 03/31/18 03/31/18 History bumetanide 2 mg PO DAILY 03/31/18 03/31/18 History potassium chloride [Klor-Con M20] 20 meq PO TID 03/31/18 03/31/18 History Exam Vital signs: Vital Signs 03/31/18 18:44 03/31/18 21:07 03/31/18 22:00 Temperature 97.6 F Pulse Rate 93 H 92 H 96 H Respiratory Rate 18 18 16 Blood Pressure 133/61 114/54 L 131/64 Pulse Oximetry 97 97 98 03/31/18 22:29 04/01/18 00:00 04/01/18 03:54 Temperature 98.7 F 98.4 F Pulse Rate 71 95 H Respiratory Rate 20 Blood Pressure 128/67 102/56 L Pulse Oximetry 97 96 96 04/01/18 07:27 04/01/18 11:07 Temperature 97.7 F 97.5 F L Pulse Rate 97 H 89 Respiratory Rate 20 16 Blood Pressure 119/61 92/58 L Pulse Oximetry 98 96 Intake & Output 03/31/18 04/01/18 04/01/18 18:59 06:59 18:59 Intake Total 100 / 100 Balance 100 / 100 Weight 144.696 kg 144.696 kg Intake: IV 100 / 100 Protonix Inj 80 MG In NS Inj 100 / 100 100 ML @ 10 mls/hr IV.CONT CONT HARPAL Rx#:[id number] Oral 0 / 0 Other: Date of Last Bowel Movement 04/01/18 # Bowel Movements 1 1 Weight On Admission 144.696 kg - Constitutional no acute distress, chronically ill appearing - Routine HEENT Exam Head: Present: normocephalic - Routine Respiratory Exam Present: CTA bilaterally. Absent: accessory muscle use - Routine Cardiovascular Exam Present: RRR - Routine Abdominal Exam Present: soft, normoactive bowel sounds. Absent: tenderness, distended, guarding, firm - Routine Extremities Exam Present: edema, pulses intact - Routine Skin Exam Present: dry, warm - Routine Neurological Exam Present: alert - Routine Psychiatric Exam Present: normal affect, cooperative <Fuentes,Nikki - Last Filed: 04/01/18 11:34> Vital signs: Vital Signs 03/31/18 18:44 03/31/18 21:07 03/31/18 22:00 Temperature 97.6 F Pulse Rate 93 H 92 H 96 H Respiratory Rate 18 18 16 Blood Pressure 133/61 114/54 L 131/64 Pulse Oximetry 97 97 98 03/31/18 22:29 04/01/18 00:00 04/01/18 03:54 Temperature 98.7 F 98.4 F Pulse Rate 71 95 H Respiratory Rate 20 Blood Pressure 128/67 102/56 L Pulse Oximetry 97 96 96 04/01/18 07:27 04/01/18 07:35 04/01/18 11:07 Temperature 97.7 F 97.5 F L Pulse Rate 97 H 89 Respiratory Rate 20 16 Blood Pressure 119/61 92/58 L Pulse Oximetry 98 97 96 04/01/18 12:48 Temperature Pulse Rate 88 Respiratory Rate 20 Blood Pressure 125/54 L Pulse Oximetry 91 L Intake & Output 03/31/18 04/01/18 04/01/18 18:59 06:59 18:59 Intake Total 100 / 100 Balance 100 / 100 Weight 144.696 kg 144.696 kg Intake: IV 100 / 100 Protonix Inj 80 MG In NS Inj 100 / 100 100 ML @ 10 mls/hr IV.CONT CONT HARPAL Rx#:[id number] Oral 0 / 0 Other: Date of Last Bowel Movement 04/01/18 # Bowel Movements 1 1 Weight On Admission 144.696 kg <Pascual See Saulo - Last Filed: 04/01/18 13:17> Results - Labs CBC & Chem 7: 04/01/18 07:17 03/31/18 18:50 Labs: Laboratory Results - last 24 hr 03/31/18 03/31/18 03/31/18 18:50 18:50 18:50 WBC 11.2 H RBC 2.80 L Hgb 8.6 L Hct 26.0 L MCV 92.8 MCH 30.8 MCHC 33.2 RDW 14.6 Plt Count 244 D MPV 8.1 Neut % (Auto) 75.7 H Lymph % (Auto) 13.4 Bradley % (Auto) 6.5 Eos % (Auto) 3.7 Baso % (Auto) 0.7 Neut # (Auto) 8.5 H Lymph # (Auto) 1.5 Bradley # (Auto) 0.7 Eos # (Auto) 0.4 Baso # (Auto) 0.1 WBC Differential . Differential Comment Auto diff final PT 11.6 INR 1.1 APTT 28.6 Sodium 137 Potassium 3.4 L Chloride 96 L Carbon Dioxide 32.0 Anion Gap 9 BUN 89 H Creatinine 1.60 H Estimated GFR 44 L POC Glucose Random Glucose 184 H Calcium 8.3 L Magnesium 1.8 Total Bilirubin 0.4 AST 23 ALT 37 Alkaline Phosphatase 83 Total Protein 7.3 Albumin 2.9 L Lipase 215 Blood Type Antibody Screen 03/31/18 04/01/18 04/01/18 18:50 00:28 02:49 WBC RBC Hgb 7.7 L Hct 23.0 L MCV MCH MCHC RDW Plt Count MPV Neut % (Auto) Lymph % (Auto) Bradley % (Auto) Eos % (Auto) Baso % (Auto) Neut # (Auto) Lymph # (Auto) Bradley # (Auto) Eos # (Auto) Baso # (Auto) WBC Differential Differential Comment PT INR APTT Sodium Potassium Chloride Carbon Dioxide Anion Gap BUN Creatinine Estimated GFR POC Glucose 155 H Random Glucose Calcium Magnesium Total Bilirubin AST ALT Alkaline Phosphatase Total Protein Albumin Lipase Blood Type O Positive Antibody Screen Negative 04/01/18 04/01/18 07:17 08:00 WBC RBC Hgb 8.1 L Hct 23.1 L MCV MCH MCHC RDW Plt Count MPV Neut % (Auto) Lymph % (Auto) Bradley % (Auto) Eos % (Auto) Baso % (Auto) Neut # (Auto) Lymph # (Auto) Bradley # (Auto) Eos # (Auto) Baso # (Auto) WBC Differential Differential Comment PT INR APTT Sodium Potassium Chloride Carbon Dioxide Anion Gap BUN Creatinine Estimated GFR POC Glucose 188 H Random Glucose Calcium Magnesium Total Bilirubin AST ALT Alkaline Phosphatase Total Protein Albumin Lipase Blood Type Antibody Screen <Nikki Fuentes - Last Filed: 04/01/18 11:34> - Labs CBC & Chem 7: 04/01/18 11:40 04/01/18 11:40 Labs: Laboratory Results - last 24 hr 03/31/18 03/31/18 03/31/18 18:50 18:50 18:50 WBC 11.2 H RBC 2.80 L Hgb 8.6 L Hct 26.0 L MCV 92.8 MCH 30.8 MCHC 33.2 RDW 14.6 Plt Count 244 D MPV 8.1 Neut % (Auto) 75.7 H Lymph % (Auto) 13.4 Bradley % (Auto) 6.5 Eos % (Auto) 3.7 Baso % (Auto) 0.7 Neut # (Auto) 8.5 H Lymph # (Auto) 1.5 Bradley # (Auto) 0.7 Eos # (Auto) 0.4 Baso # (Auto) 0.1 WBC Differential . Differential Comment Auto diff final PT 11.6 INR 1.1 APTT 28.6 Sodium 137 Potassium 3.4 L Chloride 96 L Carbon Dioxide 32.0 Anion Gap 9 BUN 89 H Creatinine 1.60 H Estimated GFR 44 L POC Glucose Random Glucose 184 H Calcium 8.3 L Magnesium 1.8 Total Bilirubin 0.4 AST 23 ALT 37 Alkaline Phosphatase 83 Total Protein 7.3 Albumin 2.9 L Lipase 215 Blood Type Antibody Screen 03/31/18 04/01/18 04/01/18 18:50 00:28 02:49 WBC RBC Hgb 7.7 L Hct 23.0 L MCV MCH MCHC RDW Plt Count MPV Neut % (Auto) Lymph % (Auto) Bradley % (Auto) Eos % (Auto) Baso % (Auto) Neut # (Auto) Lymph # (Auto) Bradley # (Auto) Eos # (Auto) Baso # (Auto) WBC Differential Differential Comment PT INR APTT Sodium Potassium Chloride Carbon Dioxide Anion Gap BUN Creatinine Estimated GFR POC Glucose 155 H Random Glucose Calcium Magnesium Total Bilirubin AST ALT Alkaline Phosphatase Total Protein Albumin Lipase Blood Type O Positive Antibody Screen Negative 04/01/18 04/01/18 04/01/18 07:17 08:00 11:40 WBC 9.1 RBC 2.50 L Hgb 8.1 L 8.0 L Hct 23.1 L 22.9 L MCV 91.6 MCH 32.2 MCHC 35.1 RDW 14.3 Plt Count 219 MPV 8.1 Neut % (Auto) 72.0 H Lymph % (Auto) 15.4 Bradley % (Auto) 6.3 Eos % (Auto) 5.5 H Baso % (Auto) 0.8 Neut # (Auto) 6.5 Lymph # (Auto) 1.4 Bradley # (Auto) 0.6 Eos # (Auto) 0.5 H Baso # (Auto) 0.1 WBC Differential . Differential Comment Auto diff final PT INR APTT Sodium Potassium Chloride Carbon Dioxide Anion Gap BUN Creatinine Estimated GFR POC Glucose 188 H Random Glucose Calcium Magnesium Total Bilirubin AST ALT Alkaline Phosphatase Total Protein Albumin Lipase Blood Type Antibody Screen 04/01/18 04/01/18 11:40 11:47 WBC RBC Hgb Hct MCV MCH MCHC RDW Plt Count MPV Neut % (Auto) Lymph % (Auto) Bradley % (Auto) Eos % (Auto) Baso % (Auto) Neut # (Auto) Lymph # (Auto) Bradley # (Auto) Eos # (Auto) Baso # (Auto) WBC Differential Differential Comment PT INR APTT Sodium 140 Potassium 2.7 L* Chloride 100 Carbon Dioxide 30.6 Anion Gap 9 BUN 94 H Creatinine 1.55 H Estimated GFR 45 L POC Glucose 183 H Random Glucose 167 H Calcium 8.8 Magnesium 2.1 Total Bilirubin AST ALT Alkaline Phosphatase Total Protein Albumin Lipase Blood Type Antibody Screen <Pascual See - Last Filed: 04/01/18 13:17> Assessment and Plan (1) Acute GI bleeding Status: Acute Code(s): K92.2 - Gastrointestinal hemorrhage, unspecified - Plan This patient is a 63-year-old male with past medical history significant for CHF , sleep apnea, diabetes mellitus, hypertension, hyperlipidemia, colon cancer and peptic ulcer disease. Patient presented to the emergency department at [facility] for evaluation of generalized weakness fatigue and dark tarry stools. Upon consultation, patient endorses having dark tarry stools onset yesterday. Patient reports accompanied dizziness and lightheadedness. Patient denies any abdominal pain. Patient states emesis x1 clear. Patient states he takes aspirin 81 mg p.o. daily and denies any use of other NSAIDs. States he takes Tylenol as needed for pain. Reports a EGD done 10 years ago without any noted findings and colonoscopy done 5 years ago which revealed colon cancer and patient underwent colon resection. Patient denies any use of alcohol or tobacco products and denies any known family history of gastrointestinal disorders. Our service has been consulted to evaluate patient for reported dark tarry stools. GI bleed Patient endorses 1 day history of noted tarry stools. Patient reports accompanying dizziness with lightheadedness. States he takes aspirin 81 mg p.o. daily. 04/01/2018 hemoglobin 8.1 hematocrit 23.1. 03/31/2018 INR 1.1 Plan -N.p.o. -Obtain consent for EGD -EGD planned for today -Monitor for bleeding -Monitor labs -Continue PPI -Avoid NSAIDs and anticoagulants -Supportive care -Further recommendations to follow This patient has been seen by myself and Dr. See and this note is written on his behalf - Attending Attestation Dr. See <Nikki Fuentes - Last Filed: 04/01/18 11:34> (1) Acute GI bleeding Status: Acute Code(s): K92.2 - Gastrointestinal hemorrhage, unspecified - Attending Attestation Agree with above assessment and plan. EGD today Further recommendations to follow pending findings. Thank you for the consult. <Pascual See - Last Filed: 04/01/18 13:17>
[2018-04-01 11:55] LABS: Baso # (Auto) 0.1 th/mm3 (0.0-0.2); Baso % (Auto) 0.8 % (0.0-2.0); Eos # (Auto) 0.5 th/mm3 (0.0-0.4); Eos % (Auto) 5.5 % (0.0-4.0); Hematocrit 22.9 % (39.0-51.0); Lymph # (Auto) 1.4 th/mm3 (1.0-4.8); Lymph % (Auto) 15.4 % (9.0-44.0); Mean Corpuscular HGB Conc 35.1 % (32.0-36.0); Mean Corpuscular Hemoglobin 32.2 pg (27.0-34.0); Mean Corpuscular Volume 91.6 fL (80.0-100.0); Mean Platelet Volume 8.1 fL (7.0-11.0); Mono # (Auto) 0.6 th/mm3 (0.0-0.9); Mono % (Auto) 6.3 % (0.0-8.0); Neut # (Auto) 6.5 th/mm3 (1.8-7.7); Platelet Count 219 th/mm3 (150-450); Red Cell Distribution Width 14.3 % (11.6-17.2); White Blood Count 9.1 th/mm3 (4.0-11.0)
[2018-04-01 12:32] LABS: Calcium 8.8 mg/dL (8.5-10.1); Carbon Dioxide 30.6 meq/L (21.0-32.0); Magnesium 2.1 mg/dL (1.5-2.5)
[2018-04-01 13:03] LABS: Potassium 2.7 meq/L (3.5-5.1)
[2018-04-01] MEDS ORDERED: Metoprolol Tartrate 25 MG Tablet PO ONE (13:30)
[2018-04-01] MEDS ORDERED: Sodium Chlor 0.9% Inj 500 ML IV.CONT ONE (13:30)
[2018-04-01] MEDS ORDERED: Chlorhexidine Gluconate 2% 1 Pack (2 Cloths) TOPICAL ONE (13:30)
--- NOTE | 2018-04-01 15:00 | GIPROC ---
[facility] [address] [facility]. [facility], [address] EGD PROCEDURE REPORT EXAM DATE: 04/01/2018 PATIENT NAME: James Riojas MR #: [id number] BIRTHDATE: 1955 ATTENDING: Pascual See MD ORDER #: [id number] ANALYSIS OR RESEARCH SAFETY INSPECTOR: Maisha Pichardo and Kelli Rizvi STATUS: inpatient INDICATIONS: The patient is a 63 yr old male here for an EGD due to hematochezia PROCEDURE PERFORMED: EGD w/ biopsy MEDICATIONS: Per Anesthesia and None. TOPICAL ANESTHETIC: none CONSENT: The patient understands the risks and benefits of the procedure and understands that these risks include, but are not limited to: sedation, allergic reaction, infection, perforation and/or bleeding. Alternative means of evaluation and treatment include, among others: physical exam, x-rays, and/or surgical intervention. The patient elects to proceed with this endoscopic procedure. medical equipment was checked for proper function. Hand hygiene and appropriate measures for infection prevention was taken. After the risks, benefits and alternatives of the procedure were thoroughly explained, Informed consent was verified, confirmed and timeout was successfully executed by the treatment team. The patient was anesthetized with topical anesthesia and the Pentax EG-[id number] endoscope was introduced through the mouth and advanced to the third portion of the duodenum. Retroflexion was performed and was normal The gastroscope was then slowly withdrawn and removed. ESOPHAGUS: The esophagus was otherwise normal. DUODENUM: The duodenal mucosa appeared normal. STOMACH: A half circumferential smooth and firm mass was found at the pylorus. Multiple biopsies were performed using cold forceps. Sample sent for histology. ADVERSE EVENTS: There were no complications. IMPRESSIONS: 1. The esophagus was otherwise normal 2. Normal duodenal mucosa 3. Half circumferential mass was found at the pylorus; inflammatory vs malignant, multiple biopsies were performed 4. Retroflexion was performed and was normal RECOMMENDATIONS: 1. Await biopsy results. Biopsy results will not be ready for 7-10 days. If you don't hear from us in two weeks, call our office for biopsy results. 2. Continue PPI PATIENT CONDITION: stable DISPOSITION: Observation REPEAT EXAM: EGD pending biopsy results Pascual See MD eSigned: Pascual See MD 04/01/2018 3:00 PM cc: PATIENT NAME: James Riojas MR#: [id number]
[2018-04-01] MEDS: Potassium Chlor 10 mEq Premix 10 MEQ/100 ML PIGGYBACK IV.SIG SCH ×2 (16:34→17:40)
--- NOTE | 2018-04-01 16:36 | P.PN ---
Subjective Interval history: Patient is seen lying in bed. He is sleepy but does wake. Denies any shortness of breath or chest pain. No dizziness or syncope. No episodes of bleeding. Does re-endorse the need for a CPAP mask at night. Nursing reports no adverse events Physical Exam Vital signs: Vital Signs 03/31/18 18:44 03/31/18 21:07 03/31/18 22:00 Temperature 97.6 F Pulse Rate 93 H 92 H 96 H Respiratory Rate 18 18 16 Blood Pressure 133/61 114/54 L 131/64 Pulse Oximetry 97 97 98 03/31/18 22:29 04/01/18 00:00 04/01/18 03:54 Temperature 98.7 F 98.4 F Pulse Rate 71 95 H Respiratory Rate 20 Blood Pressure 128/67 102/56 L Pulse Oximetry 97 96 96 04/01/18 07:27 04/01/18 07:35 04/01/18 08:00 Temperature 97.7 F Pulse Rate 97 H Respiratory Rate 20 Blood Pressure 119/61 Pulse Oximetry 98 97 97 04/01/18 09:00 04/01/18 11:07 04/01/18 12:48 Temperature 97.5 F L Pulse Rate 107 H 89 88 Respiratory Rate 16 20 Blood Pressure 92/58 L 125/54 L Pulse Oximetry 96 91 L 04/01/18 15:04 04/01/18 15:57 Temperature 97.6 F 97.5 F L Pulse Rate 88 84 Respiratory Rate 20 20 Blood Pressure 110/56 L 105/57 L Pulse Oximetry 98 99 Intake & Output 03/31/18 04/01/18 04/01/18 18:59 06:59 18:59 Intake Total 100 / 100 250 / 250 Balance 100 / 100 250 / 250 Weight 144.696 kg 144.696 kg Intake: IV 100 / 100 Protonix Inj 80 MG In NS Inj 100 / 100 100 ML @ 10 mls/hr IV.CONT CONT [facility] Rx#:[id number] Oral 0 / 0 Anesthesia Amount 250 / 250 Other: Date of Last Bowel Movement 04/01/18 # Bowel Movements 1 1 Weight On Admission 144.696 kg Narrative: GENERAL: Well-nourished, well-developed adult male in no obvious distress. SKIN: Warm and dry. HEAD: Atraumatic. Normocephalic. CARDIOVASCULAR: Regular rate and rhythm. RESPIRATORY: No accessory muscle use. Clear to auscultation. Breath sounds equal bilaterally. GASTROINTESTINAL: Abdomen soft, non-tender, non-distended. Positive bowel sounds. MUSCULOSKELETAL: Extremities without clubbing, cyanosis, or edema. No obvious deformities. NEUROLOGICAL: Awake and alert. No obvious cranial nerve deficits. Motor grossly within normal limits. Normal speech. Results - Labs CBC & Chem 7: 04/01/18 11:40 04/01/18 11:40 Laboratory Results - last 24 hr 03/31/18 03/31/18 03/31/18 18:50 18:50 18:50 WBC 11.2 H RBC 2.80 L Hgb 8.6 L Hct 26.0 L MCV 92.8 MCH 30.8 MCHC 33.2 RDW 14.6 Plt Count 244 D MPV 8.1 Neut % (Auto) 75.7 H Lymph % (Auto) 13.4 [place] % (Auto) 6.5 Eos % (Auto) 3.7 Baso % (Auto) 0.7 Neut # (Auto) 8.5 H Lymph # (Auto) 1.5 [place] # (Auto) 0.7 Eos # (Auto) 0.4 Baso # (Auto) 0.1 WBC Differential . Differential Comment Auto diff final PT 11.6 INR 1.1 APTT 28.6 Sodium 137 Potassium 3.4 L Chloride 96 L Carbon Dioxide 32.0 Anion Gap 9 BUN 89 H Creatinine 1.60 H Estimated GFR 44 L POC Glucose Random Glucose 184 H Calcium 8.3 L Magnesium 1.8 Total Bilirubin 0.4 AST 23 ALT 37 Alkaline Phosphatase 83 Total Protein 7.3 Albumin 2.9 L Lipase 215 Blood Type Antibody Screen 03/31/18 04/01/18 04/01/18 18:50 00:28 02:49 WBC RBC Hgb 7.7 L Hct 23.0 L MCV MCH MCHC RDW Plt Count MPV Neut % (Auto) Lymph % (Auto) [place] % (Auto) Eos % (Auto) Baso % (Auto) Neut # (Auto) Lymph # (Auto) [place] # (Auto) Eos # (Auto) Baso # (Auto) WBC Differential Differential Comment PT INR APTT Sodium Potassium Chloride Carbon Dioxide Anion Gap BUN Creatinine Estimated GFR POC Glucose 155 H Random Glucose Calcium Magnesium Total Bilirubin AST ALT Alkaline Phosphatase Total Protein Albumin Lipase Blood Type O Positive Antibody Screen Negative 04/01/18 04/01/18 04/01/18 07:17 08:00 11:40 WBC 9.1 RBC 2.50 L Hgb 8.1 L 8.0 L Hct 23.1 L 22.9 L MCV 91.6 MCH 32.2 MCHC 35.1 RDW 14.3 Plt Count 219 MPV 8.1 Neut % (Auto) 72.0 H Lymph % (Auto) 15.4 [place] % (Auto) 6.3 Eos % (Auto) 5.5 H Baso % (Auto) 0.8 Neut # (Auto) 6.5 Lymph # (Auto) 1.4 [place] # (Auto) 0.6 Eos # (Auto) 0.5 H Baso # (Auto) 0.1 WBC Differential . Differential Comment Auto diff final PT INR APTT Sodium Potassium Chloride Carbon Dioxide Anion Gap BUN Creatinine Estimated GFR POC Glucose 188 H Random Glucose Calcium Magnesium Total Bilirubin AST ALT Alkaline Phosphatase Total Protein Albumin Lipase Blood Type Antibody Screen 04/01/18 04/01/18 04/01/18 11:40 11:47 15:19 WBC RBC Hgb Hct MCV MCH MCHC RDW Plt Count MPV Neut % (Auto) Lymph % (Auto) [place] % (Auto) Eos % (Auto) Baso % (Auto) Neut # (Auto) Lymph # (Auto) [place] # (Auto) Eos # (Auto) Baso # (Auto) WBC Differential Differential Comment PT INR APTT Sodium 140 Potassium 2.7 L* Chloride 100 Carbon Dioxide 30.6 Anion Gap 9 BUN 94 H Creatinine 1.55 H Estimated GFR 45 L POC Glucose 183 H 161 H Random Glucose 167 H Calcium 8.8 Magnesium 2.1 Total Bilirubin AST ALT Alkaline Phosphatase Total Protein Albumin Lipase Blood Type Antibody Screen Assessment and Plan - Plan 63-year-old male with a past medical history significant for CHF (EF 20%), obstructive sleep apnea, diabetes mellitus, hypertension, hyperlipidemia, history of colon cancer and peptic ulcer disease who presents to the emergency department for evaluation of weakness and dark, tarry stools. GI bleed -Protonix drip -Serial H&H -Transfuse as needed -Gastroenterology consulted, appreciate recommendations -EGD done 04/01/18 found mass at pylorus; biopsies pending Acute kidney injury -Continue gentle IVF; monitor closely for fluid overload Hypokalemia -Chronic; continue p.o. supplement -Add IV replacement as indicated CHF/CAD -Continue home medications -Holding home aspirin for GI bleed Diabetes mellitus -Sliding scale insulin -Monitor blood glucose Hypertension/hyperlipidemia -Continue home medication VALENTINE -Continue home CPAP DVT prophylaxis: Holding pharmacologic anticoagulation for GI bleed Patient currently in inpatient rehab, case management consulted to assist with discharge
[2018-04-01 19:21] LABS: Hematocrit 23.2 % (39.0-51.0); Hemoglobin 7.9 gm/dL (13.0-17.0)
--- NOTE | 2018-04-01 20:01 | ECG ---
Date Performed: 03/31/2018 Time Performed: 18:49:47 PTAGE: 63 years EKG: Sinus rhythm WITH VENTRICULAR BIGEMINY LEFT AXIS DEVIATION LEFT ANTERIOR FASCICULAR BLOCK CHRONIC POOR R WAVE PRO GRESSION Compared to previous tracing, low voltage no longer present ABNORMAL ECG PREVIOUS TRACING : 03/01/2018 14.27 DOCTOR: Alessandro Bailey Interpretating Date/Time 04/01/2018 19:59:34
[2018-04-02] MEDS: Pantoprazole Inj 80 MG in Sodium Chlor 0.9% Inj 100 ML IV.CONT SCH ×5 (03:05→23:39)
[2018-04-02] MEDS: Insulin NovoLOG Aspart Correctional Sugar Inj SQ SCH ×5 (04:07→21:09)
[2018-04-02 07:08] LABS: Calcium 8.3 mg/dL (8.5-10.1); Carbon Dioxide 31.4 meq/L (21.0-32.0)
[2018-04-02 07:22] LABS: Potassium 2.6 meq/L (3.5-5.1)
[2018-04-02] MEDS: Potassium Chlor 10 mEq Premix 10 MEQ/100 ML PIGGYBACK IV.SIG SCH ×4 (11:00→20:59)
[2018-04-02] MEDS: amLODIPine 10 MG Tablet PO SCH (12:56)
[2018-04-02] MEDS: metOLazone 5 MG Tablet PO SCH ×2 (12:56→20:57)
[2018-04-02] MEDS ORDERED: Naloxone Inj 0.4 MG/ML Vial IV.PUSH PRN (14:16)
[2018-04-02] MEDS: Acetaminophen 325 MG Tablet PO PRN (14:35)
--- NOTE | 2018-04-02 15:00 | P.PNGI ---
Subjective Interval history: Patient awake and alert sitting in chair at bedside Denies any noted bleeding Post EGD <Nikki Fuentes - Last Filed: 04/02/18 14:56> Physical Exam Vital signs: Vital Signs 04/01/18 15:04 04/01/18 15:57 04/01/18 19:52 Temperature 97.6 F 97.5 F L 97.6 F Pulse Rate 88 84 88 Respiratory Rate 20 20 18 Blood Pressure 110/56 L 105/57 L 118/52 L Pulse Oximetry 98 99 99 04/01/18 23:53 04/02/18 02:13 04/02/18 03:47 Temperature 97.6 F 97.7 F Pulse Rate 82 89 Respiratory Rate 20 18 Blood Pressure 102/46 L 106/66 Pulse Oximetry 96 97 100 04/02/18 07:37 04/02/18 09:00 04/02/18 11:24 Temperature 97.7 F 98.1 F Pulse Rate 88 90 90 Respiratory Rate 16 20 Blood Pressure 107/63 125/60 Pulse Oximetry 92 L 89 L Intake & Output 04/01/18 04/02/18 04/02/18 18:59 06:59 18:59 Intake Total 450 / 450 200 / 200 300 / 300 Output Total 1400 / 1400 800 / 800 Balance 450 / 450 -1200 / -1200 -500 / -500 Intake: IV 200 / 200 200 / 200 300 / 300 Protonix Inj 80 MG In NS Inj 100 / 100 100 / 100 200 / 200 100 ML @ 10 mls/hr IV.CONT Q10H [facility] Rx#:[id number] KCl 10 mEq Premix Inj 10 meq In 100 / 100 100 / 100 100 / 100 100 ml @ 100 mls/hr IV.SIG Q1H [facility] Rx#:[id number] Anesthesia Amount 250 / 250 Output: Urine 1400 / 1400 800 / 800 Other: Date of Last Bowel Movement 03/31/18 03/31/18 # Bowel Movements 1 - Constitutional no acute distress - Routine HEENT Exam Head: Present: normocephalic - Routine Abdominal Exam Present: soft, normoactive bowel sounds. Absent: tenderness, guarding, firm - Routine Extremities Exam Present: edema - Routine Skin Exam Present: dry, warm - Routine Neurological Exam Present: alert - Routine Psychiatric Exam Present: normal affect, cooperative <Nikki Fuentes - Last Filed: 04/02/18 14:56> Vital signs: Vital Signs 04/02/18 16:00 04/02/18 19:00 04/02/18 19:37 Temperature 97.8 F 97.6 F Pulse Rate 85 82 Respiratory Rate 20 20 Blood Pressure 92/54 L 108/71 Pulse Oximetry 93 L 99 99 04/02/18 20:00 04/02/18 23:44 04/03/18 03:12 Temperature 97.6 F Pulse Rate 78 Respiratory Rate 20 Blood Pressure 112/59 L Pulse Oximetry 99 98 97 04/03/18 03:26 04/03/18 09:00 04/03/18 11:09 Temperature 97.8 F 98.3 F Pulse Rate 85 92 H 86 Respiratory Rate 20 18 Blood Pressure 118/58 L 125/57 L Pulse Oximetry 98 94 L 04/03/18 11:10 04/03/18 11:11 Temperature Pulse Rate 88 88 Respiratory Rate Blood Pressure 132/62 113/58 L Pulse Oximetry Intake & Output 04/02/18 04/03/18 04/03/18 18:59 06:59 18:59 Intake Total 400 / 400 680 / 680 200 / 200 Output Total 800 / 800 600 / 600 Balance -400 / -400 680 / 680 -400 / -400 Weight 144.696 kg Intake: IV 400 / 400 200 / 200 200 / 200 Protonix Inj 80 MG In NS Inj 200 / 200 100 / 100 100 ML @ 10 mls/hr IV.CONT Q10H [facility] Rx#:[id number] Magnesium Sulfate 1 gm/D5W 100 100 / 100 ml Premix 100 ML @ 100 mls/hr IV.SIG ONCE [facility] Rx#:[id number] KCl 10 mEq Premix Inj 10 meq In 200 / 200 100 / 100 100 ml @ 100 mls/hr IV.SIG Q1H [facility] Rx#:[id number] Oral 480 / 480 Output: Urine 800 / 800 600 / 600 Other: # Voids 4 1 Date of Last Bowel Movement 03/31/18 03/31/18 <Pascual Estrada - Last Filed: 04/03/18 12:08> Results - Labs CBC & Chem 7: 04/01/18 19:03 04/02/18 06:00 Laboratory Results - last 24 hr 04/01/18 04/01/18 04/01/18 15:19 18:14 19:03 Hgb 7.9 L Hct 23.2 L Sodium Potassium Chloride Carbon Dioxide Anion Gap BUN Creatinine Estimated GFR POC Glucose 161 H 159 H Random Glucose Calcium 04/01/18 04/02/18 04/02/18 20:01 03:20 06:00 Hgb Hct Sodium 142 Potassium 2.6 L* Chloride 103 Carbon Dioxide 31.4 Anion Gap 8 BUN 82 H Creatinine 1.48 H Estimated GFR 48 L POC Glucose 250 H 140 H Random Glucose 163 H Calcium 8.3 L 04/02/18 12:54 Hgb Hct Sodium Potassium Chloride Carbon Dioxide Anion Gap BUN Creatinine Estimated GFR POC Glucose 172 H Random Glucose Calcium <Nikki Fuentes - Last Filed: 04/02/18 14:56> - Labs CBC & Chem 7: 04/03/18 07:00 04/03/18 07:00 Laboratory Results - last 24 hr 04/02/18 04/02/18 04/02/18 12:54 16:50 17:02 Hgb 7.1 L Hct 20.4 L* Sodium Potassium Chloride Carbon Dioxide Anion Gap BUN Creatinine Estimated GFR POC Glucose 172 H 174 H Random Glucose Calcium Magnesium 04/02/18 04/03/18 04/03/18 20:50 03:54 07:00 Hgb Hct Sodium 142 Potassium 2.7 L* Chloride 101 Carbon Dioxide 30.8 Anion Gap 10 BUN 59 H Creatinine 1.47 H Estimated GFR 48 L POC Glucose 228 H 161 H Random Glucose 130 H Calcium 8.2 L Magnesium 1.8 04/03/18 04/03/18 07:00 07:48 Hgb 7.3 L Hct 20.8 L* Sodium Potassium Chloride Carbon Dioxide Anion Gap BUN Creatinine Estimated GFR POC Glucose 153 H Random Glucose Calcium Magnesium <Pascual Estrada - Last Filed: 04/03/18 12:08> Assessment and Plan (1) Acute GI bleeding Status: Acute Code(s): K92.2 - Gastrointestinal hemorrhage, unspecified - Plan This patient is a 63-year-old male with past medical history significant for CHF , sleep apnea, diabetes mellitus, hypertension, hyperlipidemia, colon cancer and peptic ulcer disease. Patient presented to the emergency department at [facility] for evaluation of generalized weakness fatigue and dark tarry stools. Upon consultation, patient endorses having dark tarry stools onset yesterday. Patient reports accompanied dizziness and lightheadedness. Patient denies any abdominal pain. Patient states emesis x1 clear. Patient states he takes aspirin 81 mg p.o. daily and denies any use of other NSAIDs. States he takes Tylenol as needed for pain. Reports a EGD done 10 years ago without any noted findings and colonoscopy done 5 years ago which revealed colon cancer and patient underwent colon resection. Patient denies any use of alcohol or tobacco products and denies any known family history of gastrointestinal disorders. Our service has been consulted to evaluate patient for reported dark tarry stools. GI bleed Patient endorses 1 day history of noted tarry stools. Patient reports accompanying dizziness with lightheadedness. States he takes aspirin 81 mg p.o. daily. 04/01/2018 hemoglobin 8.1 hematocrit 23.1. 03/31/2018 INR 1.1 04/02/2018 GI bleed -No BM yet today. Patient denies nausea or vomiting. Denies dizziness, endorses some fatigue. -04/01/2018 EGD: 1. The esophagus was otherwise normal 2. Normal duodenal mucosa 3. Half circumferential mass was found at the pylorus; inflammatory vs malignant, multiple biopsies were performed 4. Retroflexion was performed and was normal -Hemoglobin 7.9 hematocrit 23.2 Plan -Clear liquid diet -Monitor for bleeding -Monitor labs -Biopsies pending -Continue PPI -Avoid NSAIDs and anticoagulants -Supportive care -Further recommendations to follow This patient has been seen by myself and Dr. Estrada and this note is written on his behalf - Attending Attestation Dr. estrada <Nikki Fuentes - Last Filed: 04/02/18 14:56> (1) Acute GI bleeding Status: Acute Code(s): K92.2 - Gastrointestinal hemorrhage, unspecified - Attending Attestation Seen and examined, plan as above, biopsies pending. Further recommendations to follow. <Pascual Estrada - Last Filed: 04/03/18 12:08>
--- NOTE | 2018-04-02 16:28 | P.PN ---
Subjective Interval history: Patient is seen lying in bed. He was able to use CPAP last night but is still tired. No chest pain or shortness of breath at this time. No nausea vomiting or diarrhea. No further signs of bleeding. Physical Exam Vital signs: Vital Signs 04/01/18 19:52 04/01/18 23:53 04/02/18 02:13 Temperature 97.6 F 97.6 F Pulse Rate 88 82 Respiratory Rate 18 20 Blood Pressure 118/52 L 102/46 L Pulse Oximetry 99 96 97 04/02/18 03:47 04/02/18 07:37 04/02/18 09:00 Temperature 97.7 F 97.7 F Pulse Rate 89 88 90 Respiratory Rate 18 16 Blood Pressure 106/66 107/63 Pulse Oximetry 100 92 L 04/02/18 11:24 04/02/18 16:00 Temperature 98.1 F 97.8 F Pulse Rate 90 85 Respiratory Rate 20 20 Blood Pressure 125/60 92/54 L Pulse Oximetry 89 L 93 L Intake & Output 04/01/18 04/02/18 04/02/18 18:59 06:59 18:59 Intake Total 450 / 450 200 / 200 400 / 400 Output Total 1400 / 1400 800 / 800 Balance 450 / 450 -1200 / -1200 -400 / -400 Intake: IV 200 / 200 200 / 200 400 / 400 Protonix Inj 80 MG In NS Inj 100 / 100 100 / 100 200 / 200 100 ML @ 10 mls/hr IV.CONT Q10H [facility] Rx#:[id number] KCl 10 mEq Premix Inj 10 meq In 100 / 100 100 / 100 200 / 200 100 ml @ 100 mls/hr IV.SIG Q1H [facility] Rx#:[id number] Anesthesia Amount 250 / 250 Output: Urine 1400 / 1400 800 / 800 Other: Date of Last Bowel Movement 03/31/18 03/31/18 # Bowel Movements 1 Narrative: GENERAL: Well-nourished, well-developed adult male in no obvious distress. SKIN: Warm and dry. Thickened skin bilateral lower extremities. HEAD: Atraumatic. Normocephalic. CARDIOVASCULAR: Regular rate and rhythm. RESPIRATORY: No accessory muscle use. Clear to auscultation. Breath sounds equal bilaterally. GASTROINTESTINAL: Abdomen soft, non-tender, non-distended. Positive bowel sounds. MUSCULOSKELETAL: Chronic bilateral lower extremity edema. No obvious deformities. NEUROLOGICAL: Awake and alert. No obvious cranial nerve deficits. Motor grossly within normal limits. Normal speech. Results - Labs CBC & Chem 7: 04/01/18 19:03 04/02/18 06:00 Laboratory Results - last 24 hr 04/01/18 04/01/18 04/01/18 18:14 19:03 20:01 Hgb 7.9 L Hct 23.2 L Sodium Potassium Chloride Carbon Dioxide Anion Gap BUN Creatinine Estimated GFR POC Glucose 159 H 250 H Random Glucose Calcium 04/02/18 04/02/18 04/02/18 03:20 06:00 12:54 Hgb Hct Sodium 142 Potassium 2.6 L* Chloride 103 Carbon Dioxide 31.4 Anion Gap 8 BUN 82 H Creatinine 1.48 H Estimated GFR 48 L POC Glucose 140 H 172 H Random Glucose 163 H Calcium 8.3 L Assessment and Plan - Plan 63-year-old male with a past medical history significant for CHF (EF 20%), obstructive sleep apnea, diabetes mellitus, hypertension, hyperlipidemia, history of colon cancer and peptic ulcer disease who presents to the emergency department for evaluation of weakness and dark, tarry stools. GI bleed -Protonix drip -Serial H&H; currently stable -Transfuse as needed -Gastroenterology consulted, appreciate recommendations -EGD done 04/01/18 found mass at pylorus; biopsies pending Acute kidney injury -Stopped IVF; improving -Continue diuretics started by nephro at last visit Hypokalemia -Chronic; continue p.o. supplement -Add IV replacement as indicated -Mag WNL CHF/CAD -Continue home medications except ASA Diabetes mellitus -Sliding scale insulin -Monitor blood glucose Hypertension/hyperlipidemia -Continue home medication VALENTINE -Continue home CPAP DVT prophylaxis: Holding pharmacologic anticoagulation for GI bleed Patient currently in inpatient rehab, case management consulted to assist with discharge
[2018-04-02 17:24] LABS: Hematocrit 20.4 % (39.0-51.0)
[2018-04-02 17:26] LABS: Hemoglobin 7.1 gm/dL (13.0-17.0)
[2018-04-03] MEDS: Insulin NovoLOG Aspart Correctional Sugar Inj SQ SCH ×6 (03:45→20:48)
[2018-04-03 07:19] LABS: Hemoglobin 7.3 gm/dL (13.0-17.0)
[2018-04-03 07:31] LABS: Hematocrit 20.8 % (39.0-51.0)
[2018-04-03 07:43] LABS: Calcium 8.2 mg/dL (8.5-10.1); Carbon Dioxide 30.8 meq/L (21.0-32.0); Magnesium 1.8 mg/dL (1.5-2.5)
[2018-04-03] MEDS: Pantoprazole Inj 80 MG in Sodium Chlor 0.9% Inj 100 ML IV.CONT SCH ×2 (07:48→19:06)
[2018-04-03 07:52] LABS: Potassium 2.7 meq/L (3.5-5.1)
[2018-04-03] MEDS ORDERED: Mag Sulf 1 gm/100 ml Premix 100 ML IV.SIG ONE (08:00)
[2018-04-03] MEDS: metOLazone 5 MG Tablet PO SCH ×2 (08:46→20:36)
[2018-04-03] MEDS: amLODIPine 10 MG Tablet PO SCH (08:47)
[2018-04-03] MEDS: Potassium Chlor 10 mEq Premix 10 MEQ/100 ML PIGGYBACK IV.SIG SCH ×4 (10:32→13:57)
[2018-04-03] MEDS: Acetaminophen 325 MG Tablet PO PRN (11:45)
[2018-04-03] MEDS ORDERED: PEG 3350/E-Lyte Soln 4000 ML Bottle PO ONE (16:00)
--- NOTE | 2018-04-03 16:12 | P.PNGI ---
Subjective Interval history: Patient laying in bed. Awake and alert, reports intermittent small amounts of maroon colored stool. Denies abdominal pain nausea or vomiting <Nikki Fuentes - Last Filed: 04/03/18 16:09> Physical Exam Vital signs: Vital Signs 04/02/18 19:00 04/02/18 19:37 04/02/18 20:00 Temperature 97.6 F Pulse Rate 82 Respiratory Rate 20 Blood Pressure 108/71 Pulse Oximetry 99 99 99 04/02/18 23:44 04/03/18 03:12 04/03/18 03:26 Temperature 97.6 F 97.8 F Pulse Rate 78 85 Respiratory Rate 20 20 Blood Pressure 112/59 L 118/58 L Pulse Oximetry 98 97 98 04/03/18 09:00 04/03/18 11:09 04/03/18 11:10 Temperature 98.3 F Pulse Rate 92 H 86 88 Respiratory Rate 18 Blood Pressure 125/57 L 132/62 Pulse Oximetry 94 L 04/03/18 11:11 Temperature Pulse Rate 88 Respiratory Rate Blood Pressure 113/58 L Pulse Oximetry Intake & Output 04/02/18 04/03/18 04/03/18 18:59 06:59 18:59 Intake Total 400 / 400 680 / 680 600 / 600 Output Total 800 / 800 600 / 600 Balance -400 / -400 680 / 680 0 / 0 Weight 144.696 kg Intake: IV 400 / 400 200 / 200 600 / 600 Protonix Inj 80 MG In NS Inj 200 / 200 100 / 100 100 / 100 100 ML @ 10 mls/hr IV.CONT Q10H [facility] Rx#:[id number] Magnesium Sulfate 1 gm/D5W 100 100 / 100 ml Premix 100 ML @ 100 mls/hr IV.SIG ONCE ONE Rx#:[id number] KCl 10 mEq Premix Inj 10 meq In 200 / 200 400 / 400 100 ml @ 100 mls/hr IV.SIG Q1H [facility] Rx#:[id number] Oral 480 / 480 Output: Urine 800 / 800 600 / 600 Other: # Voids 4 1 Date of Last Bowel Movement 03/31/18 03/31/18 - Constitutional no acute distress - Routine HEENT Exam Head: Present: normocephalic - Routine Respiratory Exam Present: CTA bilaterally - Routine Abdominal Exam Present: soft, normoactive bowel sounds. Absent: tenderness, distended, guarding, firm - Routine Skin Exam Present: dry, warm - Routine Neurological Exam Present: alert - Routine Psychiatric Exam Present: normal affect, cooperative <Nikki Fuentes - Last Filed: 04/03/18 16:09> Vital signs: Vital Signs 04/03/18 11:09 04/03/18 11:10 04/03/18 11:11 Temperature 98.3 F Pulse Rate 86 88 88 Respiratory Rate 18 Blood Pressure 125/57 L 132/62 113/58 L Pulse Oximetry 94 L 04/03/18 16:00 04/03/18 20:00 04/03/18 23:46 Temperature 98.8 F 97.5 F L 97.5 F L Pulse Rate 76 98 H 88 Respiratory Rate 18 22 20 Blood Pressure 107/58 L 147/66 H 123/58 L Pulse Oximetry 98 97 96 04/04/18 03:36 04/04/18 07:43 Temperature 97.9 F 97.8 F Pulse Rate 87 79 Respiratory Rate 22 20 Blood Pressure 128/65 105/61 Pulse Oximetry 96 99 Intake & Output 04/03/18 04/04/18 04/04/18 18:59 06:59 18:59 Intake Total 600 / 600 900 / 900 Output Total 1400 / 1400 200 / 200 Balance -800 / -800 900 / 900 -200 / -200 Intake: IV 600 / 600 100 / 100 Protonix Inj 80 MG In NS Inj 100 / 100 100 / 100 100 ML @ 10 mls/hr IV.CONT Q10H [facility] Rx#:[id number] Magnesium Sulfate 1 gm/D5W 100 100 / 100 ml Premix 100 ML @ 100 mls/hr IV.SIG ONCE ONE Rx#:[id number] KCl 10 mEq Premix Inj 10 meq In 400 / 400 100 ml @ 100 mls/hr IV.SIG Q1H [facility] Rx#:[id number] Oral 800 / 800 Output: Urine 1400 / 1400 200 / 200 Other: # Voids 2 4 Date of Last Bowel Movement 04/03/18 # Bowel Movements 7 2 <Pascual See - Last Filed: 04/04/18 11:06> Results - Labs CBC & Chem 7: 04/03/18 07:00 04/03/18 07:00 Laboratory Results - last 24 hr 11/24/18 11/24/18 11/24/18 16:50 17:02 20:50 Hgb 7.1 L Hct 20.4 L* Sodium Potassium Chloride Carbon Dioxide Anion Gap BUN Creatinine Estimated GFR POC Glucose 174 H 228 H Random Glucose Calcium Magnesium 04/03/18 04/03/18 04/03/18 03:54 07:00 07:00 Hgb 7.3 L Hct 20.8 L* Sodium 142 Potassium 2.7 L* Chloride 101 Carbon Dioxide 30.8 Anion Gap 10 BUN 59 H Creatinine 1.47 H Estimated GFR 48 L POC Glucose 161 H Random Glucose 130 H Calcium 8.2 L Magnesium 1.8 04/03/18 04/03/18 07:48 12:09 Hgb Hct Sodium Potassium Chloride Carbon Dioxide Anion Gap BUN Creatinine Estimated GFR POC Glucose 153 H 221 H Random Glucose Calcium Magnesium <Nikki Fuentes - Last Filed: 04/03/18 16:09> - Labs CBC & Chem 7: 04/04/18 06:22 04/04/18 06:22 Laboratory Results - last 24 hr 04/03/18 04/03/18 04/03/18 12:09 17:38 17:56 Hgb Hct Sodium Potassium 3.1 L Chloride Carbon Dioxide Anion Gap BUN Creatinine Estimated GFR POC Glucose 221 H 175 H Random Glucose Calcium Magnesium 04/04/18 04/04/18 04/04/18 06:22 06:22 08:58 Hgb 7.2 L Hct 21.2 L Sodium 142 Potassium 2.8 L* Chloride 102 Carbon Dioxide 32.0 Anion Gap 8 BUN 42 H Creatinine 1.30 Estimated GFR 55 L POC Glucose 141 H Random Glucose 126 H Calcium 7.7 L Magnesium 1.8 Microbiology 04/03/18 18:15 Stool Stool Occult Blood (JUSTIN) - Final Hemoccult positive <Pascual See - Last Filed: 04/04/18 11:06> Assessment and Plan (1) Acute GI bleeding Status: Acute Code(s): K92.2 - Gastrointestinal hemorrhage, unspecified - Plan This patient is a 63-year-old male with past medical history significant for CHF , sleep apnea, diabetes mellitus, hypertension, hyperlipidemia, colon cancer and peptic ulcer disease. Patient presented to the emergency department at [facility] for evaluation of generalized weakness fatigue and dark tarry stools. Upon consultation, patient endorses having dark tarry stools onset yesterday. Patient reports accompanied dizziness and lightheadedness. Patient denies any abdominal pain. Patient states emesis x1 clear. Patient states he takes aspirin 81 mg p.o. daily and denies any use of other NSAIDs. States he takes Tylenol as needed for pain. Reports a EGD done 10 years ago without any noted findings and colonoscopy done 5 years ago which revealed colon cancer and patient underwent colon resection. Patient denies any use of alcohol or tobacco products and denies any known family history of gastrointestinal disorders. Our service has been consulted to evaluate patient for reported dark tarry stools. GI bleed Patient endorses 1 day history of noted tarry stools. Patient reports accompanying dizziness with lightheadedness. States he takes aspirin 81 mg p.o. daily. 04/01/2018 hemoglobin 8.1 hematocrit 23.1. 03/31/2018 INR 1.1 04/02/2018 GI bleed -No BM yet today. Patient denies nausea or vomiting. Denies dizziness, endorses some fatigue. -04/01/2018 EGD: 1. The esophagus was otherwise normal 2. Normal duodenal mucosa 3. Half circumferential mass was found at the pylorus; inflammatory vs malignant, multiple biopsies were performed 4. Retroflexion was performed and was normal -Hemoglobin 7.9 hematocrit 23.2 04/03/2018 GI bleed Patient reports intermittent maroon colored stools. Denies any nausea or vomiting. Denies dizziness or lightheadedness States tolerating clear liquid diet Hemoglobin 7.3 hematocrit 20.8 Plan -Clear liquid diet -N.p.o. after midnight -Consent for colonoscopy -GoLYTELY prep -Monitor for bleeding -Monitor labs -Biopsies pending -Continue PPI -Avoid NSAIDs and anticoagulants -Supportive care -Further recommendations to follow This patient has been seen by myself and Dr. See and this note is written on his behalf - Attending Attestation Dr. See <Nikki Fuentes - Last Filed: 04/03/18 16:09> (1) Acute GI bleeding Status: Acute Code(s): K92.2 - Gastrointestinal hemorrhage, unspecified - Attending Attestation Seen and examined, plan as above. Further recommendation after the colonoscopy. <Pascual See - Last Filed: 04/04/18 11:06>
--- NOTE | 2018-04-03 17:26 | P.PN ---
Subjective Interval history: Patient seen sitting up in chair. is bedside. Patient and are very concerned over his rapid weight loss. Discussed that he was previously fluid overloaded and weight loss is likely attributable to that. He has not been tracking his weight at home. Has not tracked I's and O's or calorie consumption. Reports small appetite mainly because he gets full. No nausea vomiting or diarrhea. Also appears to have been eating better since being in SNF. Physical Exam Vital signs: Vital Signs 04/02/18 19:00 04/02/18 19:37 04/02/18 20:00 Temperature 97.6 F Pulse Rate 82 Respiratory Rate 20 Blood Pressure 108/71 Pulse Oximetry 99 99 99 04/02/18 23:44 04/03/18 03:12 04/03/18 03:26 Temperature 97.6 F 97.8 F Pulse Rate 78 85 Respiratory Rate 20 20 Blood Pressure 112/59 L 118/58 L Pulse Oximetry 98 97 98 04/03/18 09:00 04/03/18 11:09 04/03/18 11:10 Temperature 98.3 F Pulse Rate 92 H 86 88 Respiratory Rate 18 Blood Pressure 125/57 L 132/62 Pulse Oximetry 94 L 04/03/18 11:11 Temperature Pulse Rate 88 Respiratory Rate Blood Pressure 113/58 L Pulse Oximetry Intake & Output 04/02/18 04/03/18 04/03/18 18:59 06:59 18:59 Intake Total 400 / 400 680 / 680 600 / 600 Output Total 800 / 800 600 / 600 Balance -400 / -400 680 / 680 0 / 0 Weight 144.696 kg Intake: IV 400 / 400 200 / 200 600 / 600 Protonix Inj 80 MG In NS Inj 200 / 200 100 / 100 100 / 100 100 ML @ 10 mls/hr IV.CONT Q10H [facility] Rx#:[id number] Magnesium Sulfate 1 gm/D5W 100 100 / 100 ml Premix 100 ML @ 100 mls/hr IV.SIG ONCE ONE Rx#:[id number] KCl 10 mEq Premix Inj 10 meq In 200 / 200 400 / 400 100 ml @ 100 mls/hr IV.SIG Q1H [facility] Rx#:[id number] Oral 480 / 480 Output: Urine 800 / 800 600 / 600 Other: # Voids 4 1 Date of Last Bowel Movement 03/31/18 03/31/18 Narrative: GENERAL: Well-nourished, well-developed adult male in no obvious distress. SKIN: Warm and dry. Thickened skin bilateral lower extremities. HEAD: Atraumatic. Normocephalic. CARDIOVASCULAR: Regular rate and rhythm. RESPIRATORY: No accessory muscle use. Clear to auscultation. Breath sounds equal bilaterally. GASTROINTESTINAL: Abdomen soft, non-tender, non-distended. Positive bowel sounds. MUSCULOSKELETAL: Chronic bilateral lower extremity edema. No obvious deformities. NEUROLOGICAL: Awake and alert. No obvious cranial nerve deficits. Motor grossly within normal limits. Normal speech. Results - Labs CBC & Chem 7: 04/03/18 07:00 04/03/18 07:00 Laboratory Results - last 24 hr 04/02/18 04/02/18 04/03/18 16:50 20:50 03:54 Hgb 7.1 L Hct 20.4 L* Sodium Potassium Chloride Carbon Dioxide Anion Gap BUN Creatinine Estimated GFR POC Glucose 228 H 161 H Random Glucose Calcium Magnesium 04/03/18 04/03/18 04/03/18 07:00 07:00 07:48 Hgb 7.3 L Hct 20.8 L* Sodium 142 Potassium 2.7 L* Chloride 101 Carbon Dioxide 30.8 Anion Gap 10 BUN 59 H Creatinine 1.47 H Estimated GFR 48 L POC Glucose 153 H Random Glucose 130 H Calcium 8.2 L Magnesium 1.8 04/03/18 12:09 Hgb Hct Sodium Potassium Chloride Carbon Dioxide Anion Gap BUN Creatinine Estimated GFR POC Glucose 221 H Random Glucose Calcium Magnesium Assessment and Plan - Plan 63-year-old male with a past medical history significant for CHF (EF 20%), obstructive sleep apnea, diabetes mellitus, hypertension, hyperlipidemia, history of colon cancer and peptic ulcer disease who presents to the emergency department for evaluation of weakness and dark, tarry stools. GI bleed -Protonix drip -Serial H&H; Transfuse as needed -Gastroenterology consulted, appreciate recommendations -EGD done 04/01/18 found mass at pylorus; biopsies pending -Colonoscopy planned for 04/03/18 Acute kidney injury -Stopped IVF; improving; monitor -Continue diuretics started by nephro at last visit Hypokalemia -Chronic; continue p.o. supplement -Additional replacement as indicated -we will do aggressive replacement today due to planned prep for colonoscopy. Closely monitor. -Mag WNL CHF/CAD -Continue home medications except ASA Diabetes mellitus -Sliding scale insulin -Monitor blood glucose Hypertension/hyperlipidemia -Continue home medication VALENTINE -Continue home CPAP DVT prophylaxis: Holding pharmacologic anticoagulation for GI bleed Discharge planning: Patient currently in rehab, case management consulted to assist with discharge
[2018-04-04] MEDS: Pantoprazole Inj 80 MG in Sodium Chlor 0.9% Inj 100 ML IV.CONT SCH (03:45)
[2018-04-04] MEDS: Insulin NovoLOG Aspart Correctional Sugar Inj SQ SCH ×5 (05:39→20:36)
[2018-04-04 07:09] LABS: Hematocrit 21.2 % (39.0-51.0); Hemoglobin 7.2 gm/dL (13.0-17.0)
[2018-04-04 07:27] LABS: Calcium 7.7 mg/dL (8.5-10.1); Magnesium 1.8 mg/dL (1.5-2.5)
[2018-04-04 07:30] LABS: Potassium 2.8 meq/L (3.5-5.1)
[2018-04-04] MEDS: metOLazone 5 MG Tablet PO SCH ×2 (08:53→20:36)
[2018-04-04] MEDS: amLODIPine 10 MG Tablet PO SCH (08:53)
[2018-04-04] MEDS ORDERED: Mag Sulf 1 gm/100 ml Premix 100 ML IV.SIG ONE (09:00)
[2018-04-04] MEDS ORDERED: fentaNYL Citrate Inj 100 MCG/2 ML Ampul ONE (11:15)
--- NOTE | 2018-04-04 11:29 | GIPROC ---
[facility] [address] [facility]. [facility], [address] COLONOSCOPY PROCEDURE REPORT EXAM DATE: 04/04/2018 PATIENT NAME: James Riojas MR #: [id number] BIRTHDATE: 1955 ENDOSCOPIST: Pascual See MD ORDER #: [id number] QUILTING MACHINE HELPER: Nelda Stevnes Solis, J. Daniel, and Veronika Shirley STATUS: inpatient INDICATIONS: The patient is a 63 yr old male here for a colonoscopy due to anemia, non-specific and follow up of adenomatous colonic polyp(s) PROCEDURE PERFORMED: Colonoscopy with polypectomy MEDICATIONS: Per Anesthesia and None. PREP QUALITY: marginal PREP TYPE:GoLytely ESTIMATED BLOOD LOSS: None CONSENT: The patient understands the risks and benefits of the procedure and understands that these risks include, but are not limited to: sedation, allergic reaction, infection, perforation and/or bleeding. Alternative means of evaluation and treatment include, among others: physical exam, x-rays, and/or surgical intervention. The patient elects to proceed with this endoscopic procedure. medical equipment was checked for proper function. Hand hygiene and appropriate measures for infection prevention was taken. After the risks, benefits and alternatives of the procedure were thoroughly explained, Informed consent was verified, confirmed and timeout was successfully executed by the treatment team. A digital exam revealed no abnormalities of the rectum The Pentax EC-[id number] endoscope was introduced through the anus and advanced to the cecum, which was identified by both the appendix and ileocecal valve. The instrument was then slowly withdrawn as the colon was fully examined. COLON FINDINGS: There was evidence of a prior end-to-end colo-colonic surgical anastomosis in the sigmoid colon. A medium sized smooth sessile polyp with a friable surface was found at the cecum. A polypectomy was performed with a cold snare. The resection was complete and the polyp tissue was completely retrieved. A medium sized polypoid shaped flat polyp was found in the transverse colon. A polypectomy was performed using snare cautery. The resection was complete and the polyp tissue was completely retrieved. A small polypoid shaped sessile polyp was found in the descending colon. A polypectomy was performed with a cold snare. The resection was complete and the polyp tissue was completely retrieved. Retroflexed views revealed no abnormalities The scope was then completely withdrawn from the patient and the procedure terminated. PROCEDURE WITHDRAWAL TIME:10minutes ADVERSE EVENTS: There were no complications. IMPRESSIONS: 1. There was evidence of a prior colo-colonic surgical anastomosis in the sigmoid colon 2. A medium sized sessile polyp was found at the cecum; polypectomy was performed with a cold snare 3. A medium sized flat polyp was found in the transverse colon; polypectomy was performed using snare cautery 4. A small sessile polyp was found in the descending colon/ splenic flexure; polypectomy was performed with a cold snare RECOMMENDATIONS: Await biopsy results. Biopsy results will not be ready for 7-10 days. If you don't hear from us in two weeks, call our office for results. RECALL: Return 1 year Colonoscopy, pending biopsy results Pascual See MD eSigned: Pascual See MD 04/04/2018 11:29 AM cc: PATIENT NAME: James Riojas MR#: [id number]
[2018-04-04] MEDS: Potassium Chlor 20 mEq Premix 20 MEQ/100 ML PIGGYBACK IV.SIG SCH ×2 (12:33→15:27)
--- NOTE | 2018-04-04 12:51 | P.PN ---
Subjective Interval history: Follow up for GI bleeding. The patient is seen after his colonoscopy today. He denies any abdominal pain, nausea/vomiting. He reports multiple loose stools after bowel prep yesterday, but denies noticing any blood. Denies any lightheadedness, dizziness, chest pain, or shortness of breath. He has not yet attempted oral intake. Denies any other medical complaints at this time. Physical Exam Vital signs: Vital Signs 04/03/18 16:00 04/03/18 20:00 04/03/18 23:46 Temperature 98.8 F 97.5 F L 97.5 F L Pulse Rate 76 98 H 88 Respiratory Rate 18 22 20 Blood Pressure 107/58 L 147/66 H 123/58 L Pulse Oximetry 98 97 96 04/04/18 03:36 04/04/18 07:43 04/04/18 11:18 Temperature 97.9 F 97.8 F 97.3 F L Pulse Rate 87 79 85 Respiratory Rate 22 20 16 Blood Pressure 128/65 105/61 91/45 L Pulse Oximetry 96 99 96 04/04/18 12:06 Temperature 97.4 F L Pulse Rate 69 Respiratory Rate 16 Blood Pressure 99/54 L Pulse Oximetry 100 Intake & Output 04/03/18 04/04/18 04/04/18 18:59 06:59 18:59 Intake Total 600 / 600 900 / 900 400 / 400 Output Total 1400 / 1400 200 / 200 Balance -800 / -800 900 / 900 200 / 200 Intake: IV 600 / 600 100 / 100 100 / 100 Protonix Inj 80 MG In NS Inj 100 / 100 100 / 100 100 ML @ 10 mls/hr IV.CONT Q10H [facility] Rx#:[id number] Magnesium Sulfate 1 gm/D5W 100 100 / 100 100 / 100 ml Premix 100 ML @ 100 mls/hr IV.SIG ONCE ONE Rx#:[id number] KCl 10 mEq Premix Inj 10 meq In 400 / 400 100 ml @ 100 mls/hr IV.SIG Q1H [facility] Rx#:[id number] Oral 800 / 800 Anesthesia Amount 300 / 300 Output: Urine 1400 / 1400 200 / 200 Other: # Voids 2 4 Date of Last Bowel Movement 04/03/18 # Bowel Movements 7 2 Narrative: GENERAL: Well-nourished, well-developed middle aged male patient in [facility]. SKIN: Warm and dry. No rash. HEENT: Normocephalic. Atraumatic. Pupils equal and round. Mucous membranes pink and moist. CARDIOVASCULAR: Regular rate and rhythm. No murmur appreciated. RESPIRATORY: No accessory muscle use. Clear to auscultation. Breath sounds equal bilaterally. GASTROINTESTINAL: Abdomen soft, non-tender, nondistended. Normoactive bowel sounds x4. MUSCULOSKELETAL: No obvious deformities. Chronic lymphedema bilateral lower extremities. NEUROLOGICAL: Awake and alert. No obvious cranial nerve deficits. Motor grossly within normal limits. Moving all extremities spontaneously. Normal speech. PSYCHIATRIC: Appropriate mood and affect; insight and judgment normal. Results - Labs CBC & Chem 7: 04/04/18 06:22 04/04/18 06:22 Laboratory Results - last 24 hr 04/03/18 04/03/18 04/04/18 17:38 17:56 06:22 Hgb 7.2 L Hct 21.2 L Sodium Potassium 3.1 L Chloride Carbon Dioxide Anion Gap BUN Creatinine Estimated GFR POC Glucose 175 H Random Glucose Calcium Magnesium 04/04/18 04/04/18 04/04/18 06:22 08:58 12:21 Hgb Hct Sodium 142 Potassium 2.8 L* Chloride 102 Carbon Dioxide 32.0 Anion Gap 8 BUN 42 H Creatinine 1.30 Estimated GFR 55 L POC Glucose 141 H 166 H Random Glucose 126 H Calcium 7.7 L Magnesium 1.8 Microbiology 04/03/18 18:15 Stool Stool Occult Blood (JUSTIN) - Final Hemoccult positive Assessment and Plan - Plan 63-year-old male with a past medical history significant for CHF (EF 20%), obstructive sleep apnea, diabetes mellitus, hypertension, hyperlipidemia, history of colon cancer and peptic ulcer disease who presents to the emergency department for evaluation of weakness and dark, tarry stools. GI bleed -Change protonix IV to po bid -Serial H&H; trended Hgb 8.6 --> 7.7 --> 8.1 --> 7.9 --> 7.1 --> 7.3 --> 7.2 -Gastroenterology consulted, appreciate recommendations -EGD done 04/01/18 found mass at pylorus; biopsies pending -Colonoscopy done 04/04/18 showed polyps, s/p polypectomy -diet advanced Acute kidney injury -Stopped IVF; improving; monitor -Continue diuretics including Bumex/Zaroxolyn started by nephrology at last visit -renal function improving, Cr 1.60 --> 1.30 Hypokalemia/Hypomagnesemia: K 2.8, Mag 1.8. Acute on chronic. Also on diuretics. -Continue po KCl replacement scheduled -Giving additional IV mag sulfate and IV KCl replacement -repeat labs CHF/CAD -Continue home medications except ASA Diabetes mellitus -Sliding scale insulin -Monitor blood glucose Hypertension/hyperlipidemia -Continue home medication VALENTINE -Continue home CPAP DVT prophylaxis: Holding pharmacologic anticoagulation for GI bleed; unable to apply teds/SCDs due to chronic lymphedema Discharge Planning: Patient currently in rehab, plan to return to [facility] at discharge, case management consulted to assist.
[2018-04-05] MEDS: Insulin NovoLOG Aspart Correctional Sugar Inj SQ SCH ×2 (04:21→09:16)
[2018-04-05 08:28] LABS: Hematocrit 20.4 % (39.0-51.0); Hemoglobin 7.2 gm/dL (13.0-17.0)
[2018-04-05 08:29] LABS: Calcium 8.1 mg/dL (8.5-10.1); Magnesium 1.9 mg/dL (1.5-2.5); Potassium 3.3 meq/L (3.5-5.1)
[2018-04-05] MEDS: metOLazone 5 MG Tablet PO SCH (08:59)
[2018-04-05] MEDS: amLODIPine 10 MG Tablet PO SCH ×2 (09:03→11:19)
[2018-04-05] MEDS ORDERED: Potassium Chlor 20 mEq Premix 20 MEQ/100 ML PIGGYBACK IV.SIG ONE (10:00)
--- NOTE | 2018-04-05 11:11 | P.DS ---
Date of admission: 03/31/18 21:27 Primary care physician: Julieta Castro Attending physician on discharge: Cesario Wei Anticipated date of discharge: 04/05/18 Brief History from admission: 63-year-old male with a past medical history significant for CHF (EF 20%), obstructive sleep apnea, diabetes mellitus, hypertension, hyperlipidemia, history of colon cancer and peptic ulcer disease who presents to the emergency department for evaluation of weakness and dark, tarry stools. The patient reports that he was in his usual state of health at rehab after being discharged on 03/18/18 where he was treated for CHF exacerbation and metabolic derangement secondary to diuretic use when he began to notice feelings of dizziness, lightheadedness, weakness and fatigue. He endorses dark tarry stools that began today. He denies any chest pain or shortness of breath. No abdominal pain. No nausea/vomiting. No fever/chills. No focal neurologic deficits. Patient update on day of discharge: Patient reports feeling better again today. He denies any abdominal pain. He has not had a bowel movement since after his bowel prep and colonoscopy yesterday. He is tolerating oral intake. Denies any nausea or vomiting. Denies any other medical complaints at this time. He feels ready to go back to rehab. DS: Diagnosis - Discharge Diagnosis (1) DIXIE (acute kidney injury) Status: Acute (2) Systolic CHF Status: Acute (3) Diabetes Status: Acute (4) Hypertension Status: Acute (5) Acute GI bleeding Status: Acute DS: Medications - Discharge Medications Prescriptions: pantoprazole 40 mg PO BID #60 tab potassium chloride 40 meq PO TID 30 Days #180 tab DS: Summary Hospital Course: 63-year-old male with a past medical history significant for CHF (EF 20%), obstructive sleep apnea, diabetes mellitus, hypertension, hyperlipidemia, history of colon cancer and peptic ulcer disease who presents to the emergency department for evaluation of weakness and dark, tarry stools. GI bleeding: Given IV protonix. Consulted GI. EGD done 04/01/18 found mass at pylorus; biopsies pending at discharge. Colonoscopy done 04/04/18 showed polyps , s/p polypectomy, biopsies pending. Change protonix IV to po bid. Serial H&H; trended Hgb 8.6 --> 7.7 --> 8.1 --> 7.9 --> 7.1 --> 7.3 --> 7.2 --> 7.2, stable x4 days. Did not require blood transfusion and no further evidence of active bleeding. Diet advanced, patient tolerated well. Recommend outpatient f/up with GI within 1-2 weeks, patient verbalized understanding. Acute kidney injury: Initially given IVF, no discontinued, and restarted patient 's diuretics including Bumex/Zaroxolyn initiated by nephrology at last visit. Renal function improved during admission, Cr 1.60 --> 1.30. Patient already has a follow up appointment scheduled. Repeat BMP in 2 days after discharge. Hypokalemia/Hypomagnesemia: K 2.8, Mag 1.8. Acute on chronic. Also on diuretics. Given additional IV mag sulfate and IV KCl replacement. Continued po KCl replacement scheduled, increased to KCl 40meq po tid. Stable for discharge. Repeat labs as outpatient in 2 days. CHF/CAD: Chronic, stable. Continued home medications Diabetes mellitus: Sliding scale insulin. Monitor blood glucose Hypertension/hyperlipidemia: Chronic, Continue home medications VALENTINE: Continue home CPAP - Time Spent with Patient Total time spent providing and/or coordinating discharge services: Greater than 30 minutes - Quality: VTE Deep Vein Thrombosis/Pulmonary Embolism Present on Admission: No Exam Vital signs: Vital Signs 04/04/18 11:18 04/04/18 12:06 04/04/18 16:37 Temperature 97.3 F L 97.4 F L Pulse Rate 85 69 76 Respiratory Rate 16 16 20 Blood Pressure 91/45 L 99/54 L 97/59 L Pulse Oximetry 96 100 99 04/04/18 20:00 04/05/18 00:00 04/05/18 04:00 Temperature 98.2 F 98.5 F 98.0 F Pulse Rate 86 95 H 68 Respiratory Rate 18 18 22 Blood Pressure 94/51 L 125/76 131/68 Pulse Oximetry 96 94 L 96 04/05/18 08:00 04/05/18 08:57 Temperature 98 F Pulse Rate 65 Respiratory Rate 18 Blood Pressure 83/52 L Pulse Oximetry 98 Intake & Output 04/04/18 04/05/18 04/05/18 18:59 06:59 18:59 Intake Total 620 / 620 720 / 720 Output Total 200 / 200 Balance 420 / 420 720 / 720 Weight 145.15 kg Intake: IV 320 / 320 Protonix Inj 80 MG In NS Inj 20 / 20 100 ML @ 10 mls/hr IV.CONT Q10H [facility] Rx#:[id number] Magnesium Sulfate 1 gm/D5W 100 100 / 100 ml Premix 100 ML @ 100 mls/hr IV.SIG ONCE ONE Rx#:[id number] KCl 20 mEq Premix Inj 20 meq In 200 / 200 100 ml @ 50 mls/hr IV.SIG Q2H [facility] Rx#:[id number] Oral 720 / 720 Anesthesia Amount 300 / 300 Output: Urine 200 / 200 Other: # Voids 5 3 Date of Last Bowel Movement 04/04/18 # Bowel Movements 2 Narrative: GENERAL: Well-nourished, well-developed middle aged male patient in [facility]. SKIN: Warm and dry. No rash. HEENT: Normocephalic. Atraumatic. Pupils equal and round. Mucous membranes pink and moist. CARDIOVASCULAR: Regular rate and rhythm. No murmur appreciated. RESPIRATORY: No accessory muscle use. Clear to auscultation. Breath sounds equal bilaterally. GASTROINTESTINAL: Abdomen soft, non-tender, nondistended. Normoactive bowel sounds x4. MUSCULOSKELETAL: No obvious deformities. Chronic lymphedema bilateral lower extremities. NEUROLOGICAL: Awake and alert. No obvious cranial nerve deficits. Moving all extremities spontaneously. Normal speech. PSYCHIATRIC: Appropriate mood and affect; insight and judgment normal. Results Procedures completed during hospitalization: EGD done 04/01/18 found mass at pylorus; biopsies pending Colonoscopy done 04/04/18 showed polyps, s/p polypectomy, biopsies pending Pending studies at discharge: Pending at discharge 04/01/18 09:09 Surgical [PTH] Routine 04/04/18 14:12 Surgical [PTH] Routine Labs on day of discharge: Labs from last 24 hours 04/05/18 04/05/18 04/05/18 09:12 06:31 06:31 Hgb 7.2 L Hct 20.4 L* Sodium 140 Potassium 3.3 L Chloride 102 Carbon Dioxide 30.0 Anion Gap 8 BUN 34 H Creatinine 1.47 H Estimated GFR 48 L POC Glucose 125 H Random Glucose 123 H Calcium 8.1 L Magnesium 1.9 04/04/18 04/04/18 04/04/18 17:53 17:51 12:21 Hgb Hct Sodium Potassium 3.4 L Chloride Carbon Dioxide Anion Gap BUN Creatinine Estimated GFR POC Glucose 170 H 166 H Random Glucose Calcium Magnesium Discharge Plan - Discharge Disposition Patient Disposition: 03 Discharge to SNF - Discharge Condition Condition: Stable - Discharge Order Discharge Orders: Discharge Order (Routine); Ordered 04/05/18 Ordered By: Jazz Andersen - Discharge Details Anticipated Discharge Date: 04/05/18 Discharge Comment: Ok to discharge after breakfast if repeat labs this morning are stable. Notify PA of any abnormal results. - Physicians Team Primary Care Provider: Julieta Castro Attending Provider: Cesario Wei Other Providers: Pascual See MD ; Dimas Negro,Noe
--- NOTE | 2018-04-05 11:11 | P.PN ---
Physical Exam Vital signs: Vital Signs 04/04/18 11:18 04/04/18 12:06 04/04/18 16:37 Temperature 97.3 F L 97.4 F L Pulse Rate 85 69 76 Respiratory Rate 16 16 20 Blood Pressure 91/45 L 99/54 L 97/59 L Pulse Oximetry 96 100 99 04/04/18 20:00 04/05/18 00:00 04/05/18 04:00 Temperature 98.2 F 98.5 F 98.0 F Pulse Rate 86 95 H 68 Respiratory Rate 18 18 22 Blood Pressure 94/51 L 125/76 131/68 Pulse Oximetry 96 94 L 96 04/05/18 08:00 04/05/18 08:57 Temperature 98 F Pulse Rate 65 Respiratory Rate 18 Blood Pressure 83/52 L Pulse Oximetry 98 Intake & Output 04/04/18 04/05/18 04/05/18 18:59 06:59 18:59 Intake Total 620 / 620 720 / 720 Output Total 200 / 200 Balance 420 / 420 720 / 720 Weight 145.15 kg Intake: IV 320 / 320 Protonix Inj 80 MG In NS Inj 20 / 20 100 ML @ 10 mls/hr IV.CONT Q10H [facility] Rx#:[id number] Magnesium Sulfate 1 gm/D5W 100 100 / 100 ml Premix 100 ML @ 100 mls/hr IV.SIG ONCE ONE Rx#:[id number] KCl 20 mEq Premix Inj 20 meq In 200 / 200 100 ml @ 50 mls/hr IV.SIG Q2H [facility] Rx#:[id number] Oral 720 / 720 Anesthesia Amount 300 / 300 Output: Urine 200 / 200 Other: # Voids 5 3 Date of Last Bowel Movement 04/04/18 # Bowel Movements 2 Results - Labs CBC & Chem 7: 04/05/18 06:31 04/05/18 06:31 Laboratory Results - last 24 hr 04/04/18 04/04/18 04/04/18 12:21 17:51 17:53 Hgb Hct Sodium Potassium 3.4 L Chloride Carbon Dioxide Anion Gap BUN Creatinine Estimated GFR POC Glucose 166 H 170 H Random Glucose Calcium Magnesium 04/05/18 04/05/18 04/05/18 06:31 06:31 09:12 Hgb 7.2 L Hct 20.4 L* Sodium 140 Potassium 3.3 L Chloride 102 Carbon Dioxide 30.0 Anion Gap 8 BUN 34 H Creatinine 1.47 H Estimated GFR 48 L POC Glucose 125 H Random Glucose 123 H Calcium 8.1 L Magnesium 1.9 Assessment and Plan - Plan 63-year-old male with a past medical history significant for CHF (EF 20%), obstructive sleep apnea, diabetes mellitus, hypertension, hyperlipidemia, history of colon cancer and peptic ulcer disease who presents to the emergency department for evaluation of weakness and dark, tarry stools. GI bleed -Change protonix IV to po bid -Serial H&H; trended Hgb 8.6 --> 7.7 --> 8.1 --> 7.9 --> 7.1 --> 7.3 --> 7.2 -Gastroenterology consulted, appreciate recommendations -EGD done 04/01/18 found mass at pylorus; biopsies pending -Colonoscopy done 04/04/18 showed polyps, s/p polypectomy -diet advanced Acute kidney injury -Stopped IVF; improving; monitor -Continue diuretics including Bumex/Zaroxolyn started by nephrology at last visit -renal function improving, Cr 1.60 --> 1.30 Hypokalemia/Hypomagnesemia: K 2.8, Mag 1.8. Acute on chronic. Also on diuretics. -Continue po KCl replacement scheduled -Giving additional IV mag sulfate and IV KCl replacement -repeat labs CHF/CAD -Continue home medications except ASA Diabetes mellitus -Sliding scale insulin -Monitor blood glucose Hypertension/hyperlipidemia -Continue home medication VALENTINE -Continue home CPAP DVT prophylaxis: Holding pharmacologic anticoagulation for GI bleed; unable to apply teds/SCDs due to chronic lymphedema Discharge Planning: Patient currently in rehab, plan to return to [facility] at discharge, case management consulted to assist.
[2018-04-05 11:19] VITALS: BP 120/62; PULSE 97; RESP 20; TEMP 97.5; O2SAT 95
== END 2018-04-05 12:41 ==
LOC: NEPC 18:34 → NEDA 21:27 → INTOOBSV 21:27 → NEPHCDU 23:29
PROVIDERS: ADMIT Hospitalist; ATTEND Hospitalist
PROC: PANENDO (2018-04-01 14:26)